=== PATIENT | male | born 1960 | race American Indian/Alaskan Native ===

== ENCOUNTER 2016-12-11 10:07 | Inpatient (IN) | payer MEDICARE ==
--- NOTE | 2016-12-11 11:10 | Emergency Department Report ---
ED General Adult HPI - General Chief complaint: Altered Mental Status Stated complaint: AMS Time Seen by Provider: 12/11/16 14:06 Source: family (family and not available for collateral information), RN notes reviewed Mode of arrival: Wheelchair Limitations: Altered Mental Status, Physical Limitation - History of Present Illness Initial comments: This is a 56-year-old male. He is previously unknown to me. Has a past medical history of mental retardation. Family not currently available for collateral information. As per triage nurse documentation "2 episodes of head falling forward and then back with a fixed stare, caregiver states this is abnormal for him, no seizure activity noted, unsteady gait this morning that required assistance, not normal for patient. Acting very tired, also patient just lost a caregiver that has been working with him for 12 years to a heart attack. Patient appears in his normal state in triage as per caregiver." Given that patient presented with a complaint of altered mental status, a noncontrast CT scan of the brain and cervical spine were ordered. While going to CT scan initially, the patient was called as a CODE BLUE for episode of possible seizure-like activity, which I did not personally witness, and decreased responsiveness. He did not lose a pulse. He was also quite agitated while on a CAT scan are as per verbal report from staff. Given history of mental retardation, developmental delay, patient was not able to understand verbal de-escalation techniques. He required Haldol and Ativan to allow him to participate in his medical care. Patient then returned to CT scan, and had an episode of massive hematemesis. He was brought back to the ER again. In the ER, the patient was sleepy, and was intubated for airway protection given episodes of unresponsiveness, massive hematemesis. Laboratory studies indicated elevated blood urea nitrogen, and probable hypovolemic hyponatremia. He started empirically on IV fluids, and Protonix drip. Case is presented to gastroenterology, Dr. Edil Gay, originally requested a gastroenterology consultation for emergent endoscopy. Case is presented to critical care physician, Dr. Malave, who agrees with placement to the ICU. I think intracranial disease is unlikely, but given the aforementioned history, noncontrast CT scan of brain and cervical spine are pending. -: Gradual Improves with: cold therapy Worsens with: none Associated Symptoms: confusion, weakness - Related Data Home Medications Medication Instructions Recorded Confirmed Last Taken Calcium Polycarbophil [Fiber 625 mg PO BID 07/30/14 12/11/16 Unknown Laxative] Multivitamin with Minerals [Hair, 1 each PO DAILY 07/30/14 12/11/16 12/11/16 Skin & Nails] Polyethylene Glycol 3350 [Miralax 17 gm PO DAILY 07/30/14 12/11/16 Unknown 3350] Pravastatin (Nf) [Pravachol] 40 mg PO QHS 07/30/14 12/11/16 12/10/16 fluvoxaMINE (NF) [Luvox (Nf) Tab] 100 mg PO BID 07/30/14 12/11/16 12/11/16 Triamterene/Hydrochlorothiazid 1 each PO DAILY 07/31/14 12/11/16 12/11/16 [Triamterene-Hctz 50-25 mg Cap] Naproxen [Naprosyn] 500 mg PO BID 12/11/16 12/11/16 12/11/16 OXcarbazepine [Trileptal] 300 mg PO BID 12/11/16 12/11/16 12/11/16 Olanzapine [ZyPREXA] 15 mg PO BID 12/11/16 12/11/16 12/11/16 [place]-3 Fatty Acids/Fish Oil [Fish 1 each PO BID 12/11/16 12/11/16 12/11/16 Oil] Trazodone HCl [Oleptro ER] 150 mg PO QHS 12/11/16 12/11/16 12/10/16 Allergies Allergy/AdvReac Type Severity Reaction Status Date / Time No Known Allergies Allergy Verified 11/25/15 20:15 ED Review of Systems ROS: Stated complaint: AMS Other details as noted in HPI Comment: Unobtainable due to pts medical conditions ED Past Medical Hx - Past Medical History Hx Hypertension: Yes Hx Psychiatric Treatment: Yes Additional medical history: Behavioral disorder. Mentally challenged, Tachycardia, high cholesterol,SEVERE MR,AUTISM - Surgical History Additional Surgical History: CATARACT SURGERY - Social History Smoking Status: Never Smoker Substance Use Type: None - Medications Home Medications: Home Medications Medication Instructions Recorded Confirmed Last Taken Type Calcium Polycarbophil [Fiber 625 mg PO BID 07/30/14 12/11/16 Unknown History Laxative] Multivitamin with Minerals [Hair, 1 each PO DAILY 0312/11/16 12/11/16 History Skin & Nails] Polyethylene Glycol 3350 [Miralax 17 gm PO DAILY 07/30/14 12/11/16 Unknown History 3350] Pravastatin (Nf) [Pravachol] 40 mg PO QHS 07/30/14 12/11/16 12/10/16 History fluvoxaMINE (NF) [Luvox (Nf) Tab] 100 mg PO BID 07/30/14 12/11/16 12/11/16 History Triamterene/Hydrochlorothiazid 1 each PO DAILY 07/31/14 12/11/16 12/11/16 History [Triamterene-Hctz 50-25 mg Cap] Naproxen [Naprosyn] 500 mg PO BID 12/11/16 12/11/16 12/11/16 History OXcarbazepine [Trileptal] 300 mg PO BID 12/11/16 12/11/16 12/11/16 History Olanzapine [ZyPREXA] 15 mg PO BID 12/11/16 12/11/16 12/11/16 History [place]-3 Fatty Acids/Fish Oil [Fish 1 each PO BID 12/11/16 12/11/16 12/11/16 History Oil] Trazodone HCl [Oleptro ER] 150 mg PO QHS 12/11/16 12/11/16 12/10/16 History ED Physical Exam - General Limitations: Altered Mental Status, Physical Limitation General appearance: in no apparent distress - Head Head exam: Present: atraumatic, normocephalic - Eye Eye exam: Present: normal appearance, EOMI - ENT ENT exam: Present: normal exam, normal orophraynx, mucous membranes moist, normal external ear exam - Neck Neck exam: Present: normal inspection, full ROM. Absent: tenderness, meningismus - Respiratory Respiratory exam: Present: normal lung sounds bilaterally. Absent: respiratory distress, wheezes, rales, rhonchi, stridor, chest wall tenderness, accessory muscle use, decreased breath sounds, prolonged expiratory - Cardiovascular Cardiovascular Exam: Present: normal rhythm, tachycardia, normal heart sounds. Absent: systolic murmur, diastolic murmur, rubs, gallop - GI/Abdominal GI/Abdominal exam: Present: soft, normal bowel sounds. Absent: distended, tenderness, guarding, rebound, rigid - Rectal Rectal exam: Present: normal inspection, normal rectal tone, heme (-) stool - exam: Present: normal inspection - Extremities Exam Extremities exam: Present: normal inspection, full ROM, normal capillary refill. Absent: calf tenderness - Back Exam Back exam: Present: normal inspection, full ROM. Absent: tenderness, CVA tenderness (R), CVA tenderness (L), muscle spasm, paraspinal tenderness, vertebral tenderness - Neurological Exam Neurological exam: Present: altered, other (prior to intubation, the patient is moving 4 extremities) - Psychiatric Psychiatric exam: Present: flat affect - Skin Skin exam: Present: warm, dry, intact, normal color. Absent: rash ED Course Vital Signs 12/11/16 12/11/16 12/11/16 10:12 12:00 13:36 Temperature 98.8 F Pulse Rate 117 H 98 H 121 H Respiratory 18 16 Rate Blood Pressure 112/75 161/106 Blood Pressure 142/76 [Left] O2 Sat by Pulse 100 99 100 Oximetry 12/11/16 12/11/16 12/11/16 14:00 14:15 14:30 Temperature 97.5 F L Pulse Rate 115 H 119 H 122 H Respiratory 12 17 16 Rate Blood Pressure 147/105 151/95 Blood Pressure 160/105 [Left] O2 Sat by Pulse 100 100 Oximetry 12/11/16 12/11/16 12/11/16 14:45 15:00 16:06 Temperature Pulse Rate 110 H Respiratory 16 16 Rate Blood Pressure 142/89 136/87 Blood Pressure [Left] O2 Sat by Pulse 91 100 Oximetry 12/11/16 12/11/16 12/11/16 16:30 16:36 17:00 Temperature Pulse Rate 105 H 100 H 99 H Respiratory 16 16 Rate Blood Pressure 85/62 120/83 115/82 Blood Pressure [Left] O2 Sat by Pulse 100 100 76 L Oximetry 12/11/16 12/11/16 12/11/16 17:15 17:16 17:30 Temperature 99.0 F Pulse Rate 99 H 95 H 99 H Respiratory 16 16 14 Rate Blood Pressure 120/83 120/83 Blood Pressure 120/83 [Left] O2 Sat by Pulse 100 100 100 Oximetry 12/11/16 12/11/16 12/11/16 17:45 18:00 18:15 Temperature 97 F L Pulse Rate 92 H 96 H 90 Respiratory 16 18 16 Rate Blood Pressure 113/64 125/74 103/62 Blood Pressure [Left] O2 Sat by Pulse 99 100 99 Oximetry 12/11/16 12/11/16 12/11/16 18:30 18:35 18:45 Temperature 97.0 F L Pulse Rate 95 H 81 80 Respiratory 16 12 16 Rate Blood Pressure 89/54 92/58 92/58 Blood Pressure [Left] O2 Sat by Pulse 100 100 Oximetry 12/11/16 12/11/16 12/11/16 19:00 19:15 19:30 Temperature Pulse Rate 93 H 94 H 94 H Respiratory 14 15 18 Rate Blood Pressure 129/79 122/76 125/74 Blood Pressure [Left] O2 Sat by Pulse 100 100 100 Oximetry 12/11/16 12/11/16 12/11/16 19:44 19:45 19:47 Temperature Pulse Rate 95 H 95 H 96 H Respiratory 15 Rate Blood Pressure 113/68 116/70 Blood Pressure [Left] O2 Sat by Pulse 100 100 Oximetry 12/11/16 20:00 Temperature Pulse Rate 97 H Respiratory 15 Rate Blood Pressure 120/73 Blood Pressure [Left] O2 Sat by Pulse 100 Oximetry - Reevaluation(s) Reevaluation #1: 12/11/16 14:43 Dr Bravo accepts patient Reevaluation #2: 12/11/16 16:15 because of technical issues, CT scan or unable to obtain CT scan of the cervical spine. Noncontrast CT scan of the brain is ordered. Doubt cervical spine injury based on presentation and history. Plain films will be obtained. - Intubation Time Out Performed: Yes Sedative: Etomidate Mg Given: 20 Paralytic: Rocuronium Mg Given: 100 Laryngoscope: Asael Size: 4 ET Tube Size: 7.5 Tube Secured Location: teeth Tube Placement Confirmation: visualized tube passing t Patient Tolerated Procedure: well Intubation Complications: none Additional Comments: Patient is placed on a nasal cannula. He then receives [id number] ventilation. The patient is induced with etomidate, and paralyzed with rocuronium. The patient receives passive apneic oxygenation. He does not desaturate. Endotracheal tube was placed by myself with one attempt with no difficulty. ED Medical Decision Making - Lab Data Result diagrams: 12/11/16 Unknown 12/11/16 11:29 Vital Signs 12/11/16 12/11/1612/11/17 10:12 12:00 13:36 Temperature 98.8 F Pulse Rate 117 H 98 H 121 H Respiratory 18 16 Rate Blood Pressure 112/75 161/106 Blood Pressure 142/76 [Left] O2 Sat by Pulse 100 99 100 Oximetry 12/11/16 12/11/16 14:15 14:45 Temperature Pulse Rate 119 H Respiratory 17 16 Rate Blood Pressure 147/105 Blood Pressure [Left] O2 Sat by Pulse Oximetry Lab Results 12/11/16 12/11/16 12/11/16 Range/Units 11:29 11:29 11:29 WBC 4.6 (4.5-11.0) K/mm3 RBC 3.78 (3.65-5.03) M/mm3 Hgb 10.5 L (11.8-15.2) gm/dl Hct 30.8 L (35.5-45.6) % MCV 82 L (84-94) fl MCH 28 (28-32) pg MCHC 34 (32-34) % RDW 13.1 L (13.2-15.2) % Plt Count 222 (140-440) K/mm3 Lymph % (Auto) 15.5 (13.4-35.0) % [place] % (Auto) 7.9 H (0.0-7.3) % Eos % (Auto) 0.0 (0.0-4.3) % Baso % (Auto) 0.2 (0.0-1.8) % Lymph # 0.7 L (1.2-5.4) K/mm3 [place] # 0.4 (0.0-0.8) K/mm3 Eos # 0.0 (0.0-0.4) K/mm3 Baso # 0.0 (0.0-0.1) K/mm3 Seg Neutrophils % 76.4 H (40.0-70.0) % Seg Neutrophils # 3.5 (1.8-7.7) K/mm3 PT 14.4 (12.2-14.9) Sec. INR 1.13 (0.87-1.13) APTT 26.9 (24.2-36.6) Sec. POC ABG pH (7.35-7.45) POC ABG pCO2 (35-45) POC ABG pO2 (80-105) POC ABG HCO3 POC ABG Total CO2 POC ABG O2 Sat POC ABG Base Excess FiO2 % Sodium 127 L (137-145) mmol/L Potassium 4.8 (3.6-5.0) mmol/L Chloride 89.2 L (98-107) mmol/L Carbon Dioxide 24 (22-30) mmol/L Anion Gap 19 mmol/L BUN 40 H (9-20) mg/dL Creatinine 1.3 (0.8-1.5) mg/dL Estimated GFR > 60 ml/min BUN/Creatinine Ratio 30.76 % Glucose 162 H (75-100) mg/dL Lactic Acid (0.7-2.0) mmol/L Calcium 9.1 (8.4-10.2) mg/dL Total Bilirubin 0.20 (0.1-1.2) mg/dL AST 16 (5-40) units/L ALT 14 (7-56) units/L Alkaline Phosphatase 64 (35-129) units/L Ammonia (25-60) umol/L Total Creatine Kinase 319 H (55-170) units/L Troponin T < 0.010 (0.00-0.029) ng/mL Total Protein 7.2 (6.3-8.2) g/dL Albumin 3.7 L (3.9-5) g/dL Albumin/Globulin Ratio 1.1 % TSH (0.270-4.200) mlU/mL Urine Color (Yellow) Urine Turbidity (Clear) Urine pH (5.0-7.0) Ur Specific [place] (1.003-1.030) Urine Protein (Negative) mg/dL Urine Glucose (UA) (Negative) mg/dL Urine Ketones (Negative) mg/dL Urine Blood (Negative) Urine Nitrite (Negative) Urine Bilirubin (Negative) Urine Urobilinogen (<2.0) mg/dL Ur Leukocyte Esterase (Negative) Urine WBC (Auto) (0.0-6.0) /HPF Urine RBC (Auto) (0.0-6.0) /HPF Urine Mucus /HPF Salicylates (2.8-20.0) mg/dL Urine Opiates Screen Urine Methadone Screen Acetaminophen (10.0-30.0) ug/mL Ur Barbiturates Screen Ur Phencyclidine Scrn Ur Amphetamines Screen U Benzodiazepines Scrn Urine Cocaine Screen U Marijuana (THC) Screen Drugs of Abuse Note Plasma/Serum Alcohol (0-0.07) gm% Blood Type Antibody Screen 12/11/16 12/11/16 12/11/16 Range/Units 11:29 11:29 11:29 WBC (4.5-11.0) K/mm3 RBC (3.65-5.03) M/mm3 Hgb (11.8-15.2) gm/dl Hct (35.5-45.6) % MCV (84-94) fl MCH (28-32) pg MCHC (32-34) % RDW (13.2-15.2) % Plt Count (140-440) K/mm3 Lymph % (Auto) (13.4-35.0) % [place] % (Auto) (0.0-7.3) % Eos % (Auto) (0.0-4.3) % Baso % (Auto) (0.0-1.8) % Lymph # (1.2-5.4) K/mm3 [place] # (0.0-0.8) K/mm3 Eos # (0.0-0.4) K/mm3 Baso # (0.0-0.1) K/mm3 Seg Neutrophils % (40.0-70.0) % Seg Neutrophils # (1.8-7.7) K/mm3 PT (12.2-14.9) Sec. INR (0.87-1.13) APTT (24.2-36.6) Sec. POC ABG pH (7.35-7.45) POC ABG pCO2 (35-45) POC ABG pO2 (80-105) POC ABG HCO3 POC ABG Total CO2 POC ABG O2 Sat POC ABG Base Excess FiO2 % Sodium (137-145) mmol/L Potassium (3.6-5.0) mmol/L Chloride (98-107) mmol/L Carbon Dioxide (22-30) mmol/L Anion Gap mmol/L BUN (9-20) mg/dL Creatinine (0.8-1.5) mg/dL Estimated GFR ml/min BUN/Creatinine Ratio % Glucose (75-100) mg/dL Lactic Acid 2.10 H* (0.7-2.0) mmol/L Calcium (8.4-10.2) mg/dL Total Bilirubin (0.1-1.2) mg/dL AST (5-40) units/L ALT (7-56) units/L Alkaline Phosphatase (35-129) units/L Ammonia 21.0 L (25-60) umol/L Total Creatine Kinase (55-170) units/L Troponin T (0.00-0.029) ng/mL Total Protein (6.3-8.2) g/dL Albumin (3.9-5) g/dL Albumin/Globulin Ratio % TSH 1.600 (0.270-4.200) mlU/mL Urine Color (Yellow) Urine Turbidity (Clear) Urine pH (5.0-7.0) Ur Specific [place] (1.003-1.030) Urine Protein (Negative) mg/dL Urine Glucose (UA) (Negative) mg/dL Urine Ketones (Negative) mg/dL Urine Blood (Negative) Urine Nitrite (Negative) Urine Bilirubin (Negative) Urine Urobilinogen (<2.0) mg/dL Ur Leukocyte Esterase (Negative) Urine WBC (Auto) (0.0-6.0) /HPF Urine RBC (Auto) (0.0-6.0) /HPF Urine Mucus /HPF Salicylates (2.8-20.0) mg/dL Urine Opiates Screen Urine Methadone Screen Acetaminophen (10.0-30.0) ug/mL Ur Barbiturates Screen Ur Phencyclidine Scrn Ur Amphetamines Screen U Benzodiazepines Scrn Urine Cocaine Screen U Marijuana (THC) Screen Drugs of Abuse Note Plasma/Serum Alcohol (0-0.07) gm% Blood Type Antibody Screen 12/11/16 12/11/16 12/11/16 Range/Units 11:29 11:29 11:29 WBC (4.5-11.0) K/mm3 RBC (3.65-5.03) M/mm3 Hgb (11.8-15.2) gm/dl Hct (35.5-45.6) % MCV (84-94) fl MCH (28-32) pg MCHC (32-34) % RDW (13.2-15.2) % Plt Count (140-440) K/mm3 Lymph % (Auto) (13.4-35.0) % [place] % (Auto) (0.0-7.3) % Eos % (Auto) (0.0-4.3) % Baso % (Auto) (0.0-1.8) % Lymph # (1.2-5.4) K/mm3 [place] # (0.0-0.8) K/mm3 Eos # (0.0-0.4) K/mm3 Baso # (0.0-0.1) K/mm3 Seg Neutrophils % (40.0-70.0) % Seg Neutrophils # (1.8-7.7) K/mm3 PT (12.2-14.9) Sec. INR (0.87-1.13) APTT (24.2-36.6) Sec. POC ABG pH (7.35-7.45) POC ABG pCO2 (35-45) POC ABG pO2 (80-105) POC ABG HCO3 POC ABG Total CO2 POC ABG O2 Sat POC ABG Base Excess FiO2 % Sodium (137-145) mmol/L Potassium (3.6-5.0) mmol/L Chloride (98-107) mmol/L Carbon Dioxide (22-30) mmol/L Anion Gap mmol/L BUN (9-20) mg/dL Creatinine (0.8-1.5) mg/dL Estimated GFR ml/min BUN/Creatinine Ratio % Glucose (75-100) mg/dL Lactic Acid (0.7-2.0) mmol/L Calcium (8.4-10.2) mg/dL Total Bilirubin (0.1-1.2) mg/dL AST (5-40) units/L ALT (7-56) units/L Alkaline Phosphatase (35-129) units/L Ammonia (25-60) umol/L Total Creatine Kinase (55-170) units/L Troponin T (0.00-0.029) ng/mL Total Protein (6.3-8.2) g/dL Albumin (3.9-5) g/dL Albumin/Globulin Ratio % TSH (0.270-4.200) mlU/mL Urine Color (Yellow) Urine Turbidity (Clear) Urine pH (5.0-7.0) Ur Specific [place] (1.003-1.030) Urine Protein (Negative) mg/dL Urine Glucose (UA) (Negative) mg/dL Urine Ketones (Negative) mg/dL Urine Blood (Negative) Urine Nitrite (Negative) Urine Bilirubin (Negative) Urine Urobilinogen (<2.0) mg/dL Ur Leukocyte Esterase (Negative) Urine WBC (Auto) (0.0-6.0) /HPF Urine RBC (Auto) (0.0-6.0) /HPF Urine Mucus /HPF Salicylates < 0.3 L (2.8-20.0) mg/dL Urine Opiates Screen Urine Methadone Screen Acetaminophen < 15.0 (10.0-30.0) ug/mL Ur Barbiturates Screen Ur Phencyclidine Scrn Ur Amphetamines Screen U Benzodiazepines Scrn Urine Cocaine Screen U Marijuana (THC) Screen Drugs of Abuse Note Plasma/Serum Alcohol < 0.01 (0-0.07) gm% Blood Type Antibody Screen 12/11/16 12/11/16 12/11/16 Range/Units 13:59 14:19 Unknown WBC (4.5-11.0) K/mm3 RBC (3.65-5.03) M/mm3 Hgb (11.8-15.2) gm/dl Hct (35.5-45.6) % MCV (84-94) fl MCH (28-32) pg MCHC (32-34) % RDW (13.2-15.2) % Plt Count (140-440) K/mm3 Lymph % (Auto) (13.4-35.0) % [place] % (Auto) (0.0-7.3) % Eos % (Auto) (0.0-4.3) % Baso % (Auto) (0.0-1.8) % Lymph # (1.2-5.4) K/mm3 [place] # (0.0-0.8) K/mm3 Eos # (0.0-0.4) K/mm3 Baso # (0.0-0.1) K/mm3 Seg Neutrophils % (40.0-70.0) % Seg Neutrophils # (1.8-7.7) K/mm3 PT (12.2-14.9) Sec. INR (0.87-1.13) APTT (24.2-36.6) Sec. POC ABG pH 7.392 (7.35-7.45) POC ABG pCO2 47.3 H (35-45) POC ABG pO2 494 H (80-105) POC ABG HCO3 28.8 POC ABG Total CO2 30 POC ABG O2 Sat 100 POC ABG Base Excess 4 FiO2 100 % Sodium (137-145) mmol/L Potassium (3.6-5.0) mmol/L Chloride (98-107) mmol/L Carbon Dioxide (22-30) mmol/L Anion Gap mmol/L BUN (9-20) mg/dL Creatinine (0.8-1.5) mg/dL Estimated GFR ml/min BUN/Creatinine Ratio % Glucose (75-100) mg/dL Lactic Acid (0.7-2.0) mmol/L Calcium (8.4-10.2) mg/dL Total Bilirubin (0.1-1.2) mg/dL AST (5-40) units/L ALT (7-56) units/L Alkaline Phosphatase (35-129) units/L Ammonia (25-60) umol/L Total Creatine Kinase (55-170) units/L Troponin T (0.00-0.029) ng/mL Total Protein (6.3-8.2) g/dL Albumin (3.9-5) g/dL Albumin/Globulin Ratio % TSH (0.270-4.200) mlU/mL Urine Color Yellow (Yellow) Urine Turbidity Clear (Clear) Urine pH 5.0 (5.0-7.0) Ur Specific [place] 1.023 (1.003-1.030) Urine Protein <15 mg/dl (Negative) mg/dL Urine Glucose (UA) Neg (Negative) mg/dL Urine Ketones Neg (Negative) mg/dL Urine Blood Neg (Negative) Urine Nitrite Neg (Negative) Urine Bilirubin Neg (Negative) Urine Urobilinogen < 2.0 (<2.0) mg/dL Ur Leukocyte Esterase Neg (Negative) Urine WBC (Auto) 1.0 (0.0-6.0) /HPF Urine RBC (Auto) 1.0 (0.0-6.0) /HPF Urine Mucus Few /HPF Salicylates (2.8-20.0) mg/dL Urine Opiates Screen Urine Methadone Screen Acetaminophen (10.0-30.0) ug/mL Ur Barbiturates Screen Ur Phencyclidine Scrn Ur Amphetamines Screen U Benzodiazepines Scrn Urine Cocaine Screen U Marijuana (THC) Screen Drugs of Abuse Note Plasma/Serum Alcohol (0-0.07) gm% Blood Type O POSITIVE Antibody Screen Negative 12/11/16 Range/Units Unknown WBC (4.5-11.0) K/mm3 RBC (3.65-5.03) M/mm3 Hgb (11.8-15.2) gm/dl Hct (35.5-45.6) % MCV (84-94) fl MCH (28-32) pg MCHC (32-34) % RDW (13.2-15.2) % Plt Count (140-440) K/mm3 Lymph % (Auto) (13.4-35.0) % [place] % (Auto) (0.0-7.3) % Eos % (Auto) (0.0-4.3) % Baso % (Auto) (0.0-1.8) % Lymph # (1.2-5.4) K/mm3 [place] # (0.0-0.8) K/mm3 Eos # (0.0-0.4) K/mm3 Baso # (0.0-0.1) K/mm3 Seg Neutrophils % (40.0-70.0) % Seg Neutrophils # (1.8-7.7) K/mm3 PT (12.2-14.9) Sec. INR (0.87-1.13) APTT (24.2-36.6) Sec. POC ABG pH (7.35-7.45) POC ABG pCO2 (35-45) POC ABG pO2 (80-105) POC ABG HCO3 POC ABG Total CO2 POC ABG O2 Sat POC ABG Base Excess FiO2 % Sodium (137-145) mmol/L Potassium (3.6-5.0) mmol/L Chloride (98-107) mmol/L Carbon Dioxide (22-30) mmol/L Anion Gap mmol/L BUN (9-20) mg/dL Creatinine (0.8-1.5) mg/dL Estimated GFR ml/min BUN/Creatinine Ratio % Glucose (75-100) mg/dL Lactic Acid (0.7-2.0) mmol/L Calcium (8.4-10.2) mg/dL Total Bilirubin (0.1-1.2) mg/dL AST (5-40) units/L ALT (7-56) units/L Alkaline Phosphatase (35-129) units/L Ammonia (25-60) umol/L Total Creatine Kinase (55-170) units/L Troponin T (0.00-0.029) ng/mL Total Protein (6.3-8.2) g/dL Albumin (3.9-5) g/dL Albumin/Globulin Ratio % TSH (0.270-4.200) mlU/mL Urine Color (Yellow) Urine Turbidity (Clear) Urine pH (5.0-7.0) Ur Specific [place] (1.003-1.030) Urine Protein (Negative) mg/dL Urine Glucose (UA) (Negative) mg/dL Urine Ketones (Negative) mg/dL Urine Blood (Negative) Urine Nitrite (Negative) Urine Bilirubin (Negative) Urine Urobilinogen (<2.0) mg/dL Ur Leukocyte Esterase (Negative) Urine WBC (Auto) (0.0-6.0) /HPF Urine RBC (Auto) (0.0-6.0) /HPF Urine Mucus /HPF Salicylates (2.8-20.0) mg/dL Urine Opiates Screen Presumptive negative Urine Methadone Screen Presumptive negative Acetaminophen (10.0-30.0) ug/mL Ur Barbiturates Screen Presumptive negative Ur Phencyclidine Scrn Presumptive negative Ur Amphetamines Screen Presumptive negative U Benzodiazepines Scrn Presumptive negative Urine Cocaine Screen Presumptive negative U Marijuana (THC) Screen Presumptive negative Drugs of Abuse Note Disclamer Plasma/Serum Alcohol (0-0.07) gm% Blood Type Antibody Screen - EKG Data -: EKG Interpreted by Ne EKG shows normal: sinus rhythm - EKG Data 12/11/16 14:58 sinus tachycardia, 110 bpm, normal axis, normal intervals, not morphologically consistent with STEMI. - Radiology Data Radiology results: report reviewed Portable x-ray of the chest demonstrates no acute disease or pathology. Endotracheal tube and oral gastric tube appeared to be in appropriate position. Noncontrast CT scan of the brain and cervical spine are pending. Noncontrast CT scan of the brain is negative. Cervical spine x-rays negative. Critical Care Time: Yes Critical care time in (mins) excluding proc time.: 60 Critical care attestation.: If time is entered above; I have spent that time in minutes in the direct care of this critically ill patient, excluding procedure time. Critical Care Time: Critical care time includes multiple bedside evaluations, interpretation of laboratory studies, radiology studies, time spent managing critically ill patient with upper GI bleed requiring intubation, consultation with hospital medicine, critical care, gastroenterology. ED Disposition Clinical Impression: Hematemesis, Altered mental status Disposition: DC-09 OP ADMIT IP TO THIS HOSP Is pt being admited?: Yes Condition: Critical Referrals: PRIMARY CARE, [Primary Care Provider] - 3-5 Days
[2016-12-11] MEDS ORDERED: HALDOL IM ONE (11:39)
[2016-12-11] MEDS ORDERED: ATIVAN IM ONE (11:39)
[2016-12-11 11:51] LABS: Basophils % (Auto) 0.2 % (0.0-1.8); Hematocrit 30.8 % (35.5-45.6); Hemoglobin 10.5 gm/dl (11.8-15.2); Mean Corpuscular HGB Conc 34 % (32-34); Mean Corpuscular Hemoglobin 28 pg (28-32); Mean Corpuscular Volume 82 fl (84-94); Platelet Count 222 K/mm3 (140-440); Red Blood Count 3.78 M/mm3 (3.65-5.03); Red Cell Distribution Width 13.1 % (13.2-15.2); White Blood Count 4.6 K/mm3 (4.5-11.0)
[2016-12-11 12:01] LABS: INR 1.13 (0.87-1.13)
[2016-12-11 12:02] LABS: Partial Thromboplastin Time 26.9 Sec. (24.2-36.6)
[2016-12-11 12:52] LABS: Alanine Aminotransferase 14 units/L (7-56); Albumin 3.7 g/dL (3.9-5); Albumin/Globulin Ratio 1.1 %; Alkaline Phosphatase 64 units/L (35-129); Anion Gap 19 mmol/L; BUN/Creatinine Ratio 30.76; Blood Urea Nitrogen 40 mg/dL (9-20); Calcium 9.1 mg/dL (8.4-10.2); Carbon Dioxide 24 mmol/L (22-30); Chloride 89.2 mmol/L (98-107); Creatine Kinase 319 units/L (55-170); Glucose 162 mg/dL (75-100); Potassium 4.8 mmol/L (3.6-5.0); Sodium 127 mmol/L (137-145); Total Protein 7.2 g/dL (6.3-8.2)
[2016-12-11] MEDS ORDERED: NACL 0.9% 1000 ML 1,000 ML ONE ×2 (13:15→18:01)
[2016-12-11] MEDS ORDERED: ZOFRAN ONE (13:20)
[2016-12-11] MEDS ORDERED: ZEMURON IV ONE ×2 (13:21→13:34)
[2016-12-11] MEDS ORDERED: AMIDATE IV ONE ×2 (13:21→13:34)
[2016-12-11] MEDS ORDERED: VASELINE LIP THERAPY TP PRN (13:34)
[2016-12-11] MEDS ORDERED: PROTONIX IV ONE (13:34)
[2016-12-11] MEDS ORDERED: ZOFRAN IV ONE (13:34)
[2016-12-11] MEDS ORDERED: ARTIFICIAL TEARS OPHTH OINT OU PRN (13:34)
[2016-12-11] MEDS ORDERED: SUBLIMAZE IV ONE (13:34)
[2016-12-11] MEDS ORDERED: NACL 0.9% 1000 ML 2,000 ML IV ONE (13:40)
[2016-12-11 13:54] LABS: Urine Drugs of Abuse Note Disclamer
[2016-12-11] MEDS ORDERED: NACL 0.9% 500 ML IV SCH (14:00)
[2016-12-11 14:09] LABS: Bilirubin,Urine NEG (Negative); Blood,Urine NEG (Negative); Ketones,Urine NEG (Negative); Leukocyte Esterase,Urine NEG (Negative); Mucus,Urine FEW /HPF; Nitrite,Urine NEG (Negative); Protein,Urine <15 mg/dL mg/dL (Negative); Urobilinogen,Urine < 2.0 mg/dL (<2.0)
--- NOTE | 2016-12-11 14:25 | Admit Criteria Form ---
Admission Criteria Documentation: GASTROINTESTINAL BLEEDING Clinical Indications for Inpatient Care (Place 'X' for any and all applicable criteria): Ongoing inpatient care may be indicated for gastrointestinal bleeding with ANY ONE of the following (4)(20)(21)(22)(23)(24): [X]I. Active bleeding (eg, fresh voluminous blood in emesis or nasogastric aspirate, or per rectum) [ ]II. Hemodynamic instability [ ]III. Anticoagulation therapy or coagulopathy ((eg, advanced liver disease, irreversible anticoagulation) [ ]IV. Ischemic colitis (22) [ ]V. Endoscopy showing arterial bleeding, adherent clot, nonbleeding visible vessel, varices, flat red spots, ulcer size greater than 2 cm, or portal hypertensive gastropathy [ ]. High-risk low platelet count [X]VII. Anemia requiring inpatient care as indicated by ANY ONE of the following a)[X] Cognitive impairment b)[ ] Syncope c)[ ] Heart failure d)[ ] Chest pain e)[ ] Dyspnea f)[ ] Other findings suggesting inadequate perfusion (eg, peripheral or myocardial ischemia, end organ dysfunction) [ ]VIII. High-risk low platelet count [ ]IX. Suspected variceal cause of bleeding as indicated by ANY ONE of the following(27)(28): a)[ ] Known varices b)[ ] Hepatomegaly or splenomegaly c)[ ] Ascites d)[ ] Jaundice or scleral icterus e)[ ] History of liver disease (eg, cirrhosis) f)[ ] Physical findings of portal hypertension (eg, caput medusa) g)[ ] Comorbid disorder indicating risk for portal vein thrombosis (eg , abdominal surgery, sepsis, shock, exchange transfusion, prior umbilical vein catheterization) Extended stay may be needed until ALL of the following are present(20)(38)(47): [ ]a) Hemodynamic stability [ ]b) No evidence of active bleeding (eg, stable Hematocrit) [ ]c) Platelet count, prothrombin time, and partial thromboplastin time acceptable for next level of care [ ]d) Surgical or other acute intervention not needed [ ]e) Oral hydration and diet tolerated The original [facility] [email or web address] content created by Ilir Johnson has been revised. The portions of the content which have been revised are identified through the use of italic text or in bold, and [employer] has neither reviewed nor approved the modified material. All other unmodified content is copyright [facility]. Please see references footnoted in the original [facility] edition 2016 Admission Criteria Met: Yes
[2016-12-11 14:26] LABS: ISTAT Base Excess 4; ISTAT HCO3 28.8; ISTAT PCO2 47.3 (35-45); ISTAT PH 7.392 (7.35-7.45); ISTAT PO2 494 (80-105); ISTAT SO2 100; ISTAT TCO2 30
[2016-12-11] MEDS: DIPRIVAN 10 MG/ML 1,000 MG/100 ML BOTTLE IV SCH (14:45)
--- NOTE | 2016-12-11 14:49 | Gastroenterology Consultation ---
<NELSY OREILLY - Last Filed: 12/11/16 14:52> History of Present Illness - Reason for Consult Consult date: 12/11/16 GI bleeding Requesting physician: SAEED HOLGUIN - History of Present Illness Mr. Madera is a 56 y/o male admitted with reported AMS. The patient is currently intubated with no family available and information is obtained per chart review and nursing staff. I have attempted to call the next of kin on record Fabiano Blake with no answer. 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 He was brought into the ED and taken to CT. While there, he apparently had seizure like activity and vomited a large amt of bloody emesis with noted clots per nursing. PAIL BAILER called and the patient was intubated. Currently he is sedated and tachycardic. Otherwise his history is unknown to me. Past History Past Medical History: hyperlipidemia, other (MR, tachycardia, autism) Past Surgical History: Other (cataract surgery) Social history: other (unknown) Family history: other (unknown) Medications and Allergies Allergies Allergy/AdvReac Type Severity Reaction Status Date / Time No Known Allergies Allergy Verified 11/25/15 20:15 Home Medications Medication Instructions Recorded Confirmed Last Taken Type Calcium Polycarbophil [Fiber 625 mg PO BID 07/30/14 12/11/16 Unknown History Laxative] Multivitamin with Minerals [Hair, 1 each PO DAILY 07/30/14 12/11/16 12/11/16 History Skin & Nails] Polyethylene Glycol 3350 [Miralax 17 gm PO DAILY 07/30/14 12/11/16 Unknown History 3350] Pravastatin (Nf) [Pravachol] 40 mg PO QHS 07/30/14 12/11/16 12/10/16 History fluvoxaMINE (NF) [Luvox (Nf) Tab] 100 mg PO BID 07/30/14 12/11/16 12/11/16 History Triamterene/Hydrochlorothiazid 1 each PO DAILY 07/31/14 12/11/16 12/11/16 History [Triamterene-Hctz 50-25 mg Cap] Naproxen [Naprosyn] 500 mg PO BID 12/11/16 12/11/16 12/11/16 History OXcarbazepine [Trileptal] 300 mg PO BID 12/11/16 12/11/16 12/11/16 History Olanzapine [ZyPREXA] 15 mg PO BID 12/11/16 12/11/16 12/11/16 History Remer-3 Fatty Acids/Fish Oil [Fish 1 each PO BID 12/11/16 12/11/16 12/11/16 History Oil] Trazodone HCl [Oleptro ER] 150 mg PO QHS 12/11/16 12/11/16 12/10/16 History Active Meds: Active Medications Hydrophilic Ointment (Vaseline Lip Therapy) 1 applic TP Q2HR PRN PRN Reason: Dry Lips Pantoprazole Sodium 80 mg/ (Sodium Chloride) 100 mls @ 10 mls/hr IV Q10H LIBBY PRN Reason: 8 MG/HR Propofol (Diprivan 10 Mg/Ml) 1,000 mg in 100 mls @ 2.667 mls/hr IV TITR LIBBY; 5 MCG/KG/MIN PRN Reason: Protocol Multi-Ingred Cream/Lotion/Oil/Oint (Artificial Tears Ophth Oint) 1 applic OU Q4HR PRN PRN Reason: Dry Eye(s) Sodium Chloride (Nacl 0.9% 500 Ml) 1 ml IV DIRECT LIBBY Review of Systems - Review of Systems ROS unobtainable: due to endotracheal tube, due to mental status Exam - Constitutional Vital Signs: Temp Pulse Resp BP Pulse Ox 98.8 F 119 H 17 147/105 100 12/11/16 10:12 12/11/16 14:15 12/11/16 14:15 12/11/16 14:15 12/11/16 13:36 General appearance: other (intubated, sedated) - Neck Neck: supple - Respiratory Respiratory: bilateral: CTA - Cardiovascular Rhythm: other (tachycardia) Extremities: No edema - Gastrointestinal General gastrointestinal: Present: soft, non-distended, normal bowel sounds - Integumentary Integumentary: Present: warm, dry - Neurologic Neurological: other (intubated) - Psychiatric Psychiatric: other (restrained) - Labs CBC & Chem 7: 12/11/16 11:29 12/11/16 11:29 Lab Results: Laboratory Results - last 24 hr 12/11/16 12/11/16 12/11/16 11:29 11:29 11:29 WBC 4.6 RBC 3.78 Hgb 10.5 L Hct 30.8 L MCV 82 L MCH 28 MCHC 34 RDW 13.1 L Plt Count 222 Lymph % (Auto) 15.5 [place] % (Auto) 7.9 H Eos % (Auto) 0.0 Baso % (Auto) 0.2 Lymph # 0.7 L [place] # 0.4 Eos # 0.0 Baso # 0.0 Seg Neutrophils % 76.4 H Seg Neutrophils # 3.5 PT 14.4 INR 1.13 APTT 26.9 POC ABG pH POC ABG pCO2 POC ABG pO2 POC ABG HCO3 POC ABG Total CO2 POC ABG O2 Sat POC ABG Base Excess FiO2 Sodium 127 L Potassium 4.8 Chloride 89.2 L Carbon Dioxide 24 Anion Gap 19 BUN 40 H Creatinine 1.3 Estimated GFR > 60 BUN/Creatinine Ratio 30.76 Glucose 162 H Lactic Acid Calcium 9.1 Total Bilirubin 0.20 AST 16 ALT 14 Alkaline Phosphatase 64 Ammonia Total Creatine Kinase 319 H Troponin T < 0.010 Total Protein 7.2 Albumin 3.7 L Albumin/Globulin Ratio 1.1 TSH Urine Color Urine Turbidity Urine pH Ur Specific [place] Urine Protein Urine Glucose (UA) Urine Ketones Urine Blood Urine Nitrite Urine Bilirubin Urine Urobilinogen Ur Leukocyte Esterase Urine WBC (Auto) Urine RBC (Auto) Urine Mucus Salicylates Urine Opiates Screen Urine Methadone Screen Acetaminophen Ur Barbiturates Screen Ur Phencyclidine Scrn Ur Amphetamines Screen U Benzodiazepines Scrn Urine Cocaine Screen U Marijuana (THC) Screen Plasma/Serum Alcohol Blood Type Antibody Screen 12/11/16 12/11/16 12/11/16 11:29 11:29 11:29 WBC RBC Hgb Hct MCV MCH MCHC RDW Plt Count Lymph % (Auto) [place] % (Auto) Eos % (Auto) Baso % (Auto) Lymph # [place] # Eos # Baso # Seg Neutrophils % Seg Neutrophils # PT INR APTT POC ABG pH POC ABG pCO2 POC ABG pO2 POC ABG HCO3 POC ABG Total CO2 POC ABG O2 Sat POC ABG Base Excess FiO2 Sodium Potassium Chloride Carbon Dioxide Anion Gap BUN Creatinine Estimated GFR BUN/Creatinine Ratio Glucose Lactic Acid 2.10 H* Calcium Total Bilirubin AST ALT Alkaline Phosphatase Ammonia 21.0 L Total Creatine Kinase Troponin T Total Protein Albumin Albumin/Globulin Ratio TSH 1.600 Urine Color Urine Turbidity Urine pH Ur Specific [place] Urine Protein Urine Glucose (UA) Urine Ketones Urine Blood Urine Nitrite Urine Bilirubin Urine Urobilinogen Ur Leukocyte Esterase Urine WBC (Auto) Urine RBC (Auto) Urine Mucus Salicylates Urine Opiates Screen Urine Methadone Screen Acetaminophen Ur Barbiturates Screen Ur Phencyclidine Scrn Ur Amphetamines Screen U Benzodiazepines Scrn Urine Cocaine Screen U Marijuana (THC) Screen Plasma/Serum Alcohol Blood Type Antibody Screen 12/11/16 12/11/16 12/11/16 11:29 11:29 11:29 WBC RBC Hgb Hct MCV MCH MCHC RDW Plt Count Lymph % (Auto) [place] % (Auto) Eos % (Auto) Baso % (Auto) Lymph # [place] # Eos # Baso # Seg Neutrophils % Seg Neutrophils # PT INR APTT POC ABG pH POC ABG pCO2 POC ABG pO2 POC ABG HCO3 POC ABG Total CO2 POC ABG O2 Sat POC ABG Base Excess FiO2 Sodium Potassium Chloride Carbon Dioxide Anion Gap BUN Creatinine Estimated GFR BUN/Creatinine Ratio Glucose Lactic Acid Calcium Total Bilirubin AST ALT Alkaline Phosphatase Ammonia Total Creatine Kinase Troponin T Total Protein Albumin Albumin/Globulin Ratio TSH Urine Color Urine Turbidity Urine pH Ur Specific [place] Urine Protein Urine Glucose (UA) Urine Ketones Urine Blood Urine Nitrite Urine Bilirubin Urine Urobilinogen Ur Leukocyte Esterase Urine WBC (Auto) Urine RBC (Auto) Urine Mucus Salicylates < 0.3 L Urine Opiates Screen Urine Methadone Screen Acetaminophen < 15.0 Ur Barbiturates Screen Ur Phencyclidine Scrn Ur Amphetamines Screen U Benzodiazepines Scrn Urine Cocaine Screen U Marijuana (THC) Screen Plasma/Serum Alcohol < 0.01 Blood Type Antibody Screen 12/11/16 12/11/16 12/11/16 13:59 14:19 Unknown WBC RBC Hgb Hct MCV MCH MCHC RDW Plt Count Lymph % (Auto) [place] % (Auto) Eos % (Auto) Baso % (Auto) Lymph # [place] # Eos # Baso # Seg Neutrophils % Seg Neutrophils # PT INR APTT POC ABG pH 7.392 POC ABG pCO2 47.3 H POC ABG pO2 494 H POC ABG HCO3 28.8 POC ABG Total CO2 30 POC ABG O2 Sat 100 POC ABG Base Excess 4 FiO2 100 Sodium Potassium Chloride Carbon Dioxide Anion Gap BUN Creatinine Estimated GFR BUN/Creatinine Ratio Glucose Lactic Acid Calcium Total Bilirubin AST ALT Alkaline Phosphatase Ammonia Total Creatine Kinase Troponin T Total Protein Albumin Albumin/Globulin Ratio TSH Urine Color Yellow Urine Turbidity Clear Urine pH 5.0 Ur Specific [place] 1.023 Urine Protein <15 mg/dl Urine Glucose (UA) Neg Urine Ketones Neg Urine Blood Neg Urine Nitrite Neg Urine Bilirubin Neg Urine Urobilinogen < 2.0 Ur Leukocyte Esterase Neg Urine WBC (Auto) 1.0 Urine RBC (Auto) 1.0 Urine Mucus Few Salicylates Urine Opiates Screen Urine Methadone Screen Acetaminophen Ur Barbiturates Screen Ur Phencyclidine Scrn Ur Amphetamines Screen U Benzodiazepines Scrn Urine Cocaine Screen U Marijuana (THC) Screen Plasma/Serum Alcohol Blood Type O POSITIVE Antibody Screen Negative 12/11/16 Unknown WBC RBC Hgb Hct MCV MCH MCHC RDW Plt Count Lymph % (Auto) [place] % (Auto) Eos % (Auto) Baso % (Auto) Lymph # [place] # Eos # Baso # Seg Neutrophils % Seg Neutrophils # PT INR APTT POC ABG pH POC ABG pCO2 POC ABG pO2 POC ABG HCO3 POC ABG Total CO2 POC ABG O2 Sat POC ABG Base Excess FiO2 Sodium Potassium Chloride Carbon Dioxide Anion Gap BUN Creatinine Estimated GFR BUN/Creatinine Ratio Glucose Lactic Acid Calcium Total Bilirubin AST ALT Alkaline Phosphatase Ammonia Total Creatine Kinase Troponin T Total Protein Albumin Albumin/Globulin Ratio TSH Urine Color Urine Turbidity Urine pH Ur Specific [place] Urine Protein Urine Glucose (UA) Urine Ketones Urine Blood Urine Nitrite Urine Bilirubin Urine Urobilinogen Ur Leukocyte Esterase Urine WBC (Auto) Urine RBC (Auto) Urine Mucus Salicylates Urine Opiates Screen Presumptive negative Urine Methadone Screen Presumptive negative Acetaminophen Ur Barbiturates Screen Presumptive negative Ur Phencyclidine Scrn Presumptive negative Ur Amphetamines Screen Presumptive negative U Benzodiazepines Scrn Presumptive negative Urine Cocaine Screen Presumptive negative U Marijuana (THC) Screen Presumptive negative Plasma/Serum Alcohol Blood Type Antibody Screen Assessment and Plan 1.Hematemesis -Currently intubated post Episode in CT of Hematemesis -H/h stable on admission , repeat now. -INR WNL -Unknown last PO intake -I have not been able to talk with family regarding hx. -In light of the large amt of hematemesis in CT, with the patient currently requiring intubation for airway. In this situation, emergent EGD would be required I have spoken with Dr. Weiss and Dr. Gay and both are in agreement to proceed with emergent EGD requiring two MD signatures. ( I have attempted to contact [facility] with no answer). -Plan EGD today. -Further recommendations pending EGD. -Start PPI gtt. <STEPHANI GAY - Last Filed: 12/11/16 18:04> Medications and Allergies Active Meds: Active Medications Hydrophilic Ointment (Vaseline Lip Therapy) 1 applic TP Q2HR PRN PRN Reason: Dry Lips Pantoprazole Sodium 80 mg/ (Sodium Chloride) 100 mls @ 10 mls/hr IV Q10H LIBBY PRN Reason: 8 MG/HR Last Admin: 12/11/16 15:24 Dose: 8 mg/hr, 10 mls/hr Propofol (Diprivan 10 Mg/Ml) 1,000 mg in 100 mls @ 2.667 mls/hr IV TITR LIBBY; 5 MCG/KG/MIN PRN Reason: Protocol Last Titration: 12/11/16 17:11 Dose: 17 mcg/kg/min, 9.068 mls/hr Multi-Ingred Cream/Lotion/Oil/Oint (Artificial Tears Ophth Oint) 1 applic OU Q4HR PRN PRN Reason: Dry Eye(s) Sodium Chloride (Nacl 0.9% 500 Ml) 1 ml IV DIRECT LIBBY Exam - Constitutional Vital Signs: Temp Pulse Resp BP Pulse Ox 99.0 F 95 H 16 120/83 100 12/11/16 17:15 12/11/16 17:16 12/11/16 17:16 12/11/16 17:16 12/11/16 17:16 - Labs CBC & Chem 7: 12/11/16 15:02 12/11/16 11:29 Lab Results: Laboratory Results - last 24 hr 12/11/16 12/11/16 12/11/16 11:29 11:29 11:29 WBC 4.6 RBC 3.78 Hgb 10.5 L Hct 30.8 L MCV 82 L MCH 28 MCHC 34 RDW 13.1 L Plt Count 222 Lymph % (Auto) 15.5 [place] % (Auto) 7.9 H Eos % (Auto) 0.0 Baso % (Auto) 0.2 Lymph # 0.7 L [place] # 0.4 Eos # 0.0 Baso # 0.0 Seg Neutrophils % 76.4 H Seg Neutrophils # 3.5 PT 14.4 INR 1.13 APTT 26.9 POC ABG pH POC ABG pCO2 POC ABG pO2 POC ABG HCO3 POC ABG Total CO2 POC ABG O2 Sat POC ABG Base Excess FiO2 Sodium 127 L Potassium 4.8 Chloride 89.2 L Carbon Dioxide 24 Anion Gap 19 BUN 40 H Creatinine 1.3 Estimated GFR > 60 BUN/Creatinine Ratio 30.76 Glucose 162 H Lactic Acid Calcium 9.1 Total Bilirubin 0.20 AST 16 ALT 14 Alkaline Phosphatase 64 Ammonia Total Creatine Kinase 319 H Troponin T < 0.010 Total Protein 7.2 Albumin 3.7 L Albumin/Globulin Ratio 1.1 TSH Urine Color Urine Turbidity Urine pH Ur Specific [place] Urine Protein Urine Glucose (UA) Urine Ketones Urine Blood Urine Nitrite Urine Bilirubin Urine Urobilinogen Ur Leukocyte Esterase Urine WBC (Auto) Urine RBC (Auto) Urine Mucus Salicylates Urine Opiates Screen Urine Methadone Screen Acetaminophen Ur Barbiturates Screen Ur Phencyclidine Scrn Ur Amphetamines Screen U Benzodiazepines Scrn Urine Cocaine Screen U Marijuana (THC) Screen Drugs of Abuse Note Plasma/Serum Alcohol Blood Type Antibody Screen Crossmatch 12/11/16 12/11/16 12/11/16 11:29 11:29 11:29 WBC RBC Hgb Hct MCV MCH MCHC RDW Plt Count Lymph % (Auto) [place] % (Auto) Eos % (Auto) Baso % (Auto) Lymph # [place] # Eos # Baso # Seg Neutrophils % Seg Neutrophils # PT INR APTT POC ABG pH POC ABG pCO2 POC ABG pO2 POC ABG HCO3 POC ABG Total CO2 POC ABG O2 Sat POC ABG Base Excess FiO2 Sodium Potassium Chloride Carbon Dioxide Anion Gap BUN Creatinine Estimated GFR BUN/Creatinine Ratio Glucose Lactic Acid 2.10 H* Calcium Total Bilirubin AST ALT Alkaline Phosphatase Ammonia 21.0 L Total Creatine Kinase Troponin T Total Protein Albumin Albumin/Globulin Ratio TSH 1.600 Urine Color Urine Turbidity Urine pH Ur Specific [place] Urine Protein Urine Glucose (UA) Urine Ketones Urine Blood Urine Nitrite Urine Bilirubin Urine Urobilinogen Ur Leukocyte Esterase Urine WBC (Auto) Urine RBC (Auto) Urine Mucus Salicylates Urine Opiates Screen Urine Methadone Screen Acetaminophen Ur Barbiturates Screen Ur Phencyclidine Scrn Ur Amphetamines Screen U Benzodiazepines Scrn Urine Cocaine Screen U Marijuana (THC) Screen Drugs of Abuse Note Plasma/Serum Alcohol Blood Type Antibody Screen Crossmatch 12/11/16 12/11/16 12/11/16 11:29 11:29 11:29 WBC RBC Hgb Hct MCV MCH MCHC RDW Plt Count Lymph % (Auto) [place] % (Auto) Eos % (Auto) Baso % (Auto) Lymph # [place] # Eos # Baso # Seg Neutrophils % Seg Neutrophils # PT INR APTT POC ABG pH POC ABG pCO2 POC ABG pO2 POC ABG HCO3 POC ABG Total CO2 POC ABG O2 Sat POC ABG Base Excess FiO2 Sodium Potassium Chloride Carbon Dioxide Anion Gap BUN Creatinine Estimated GFR BUN/Creatinine Ratio Glucose Lactic Acid Calcium Total Bilirubin AST ALT Alkaline Phosphatase Ammonia Total Creatine Kinase Troponin T Total Protein Albumin Albumin/Globulin Ratio TSH Urine Color Urine Turbidity Urine pH Ur Specific [place] Urine Protein Urine Glucose (UA) Urine Ketones Urine Blood Urine Nitrite Urine Bilirubin Urine Urobilinogen Ur Leukocyte Esterase Urine WBC (Auto) Urine RBC (Auto) Urine Mucus Salicylates < 0.3 L Urine Opiates Screen Urine Methadone Screen Acetaminophen < 15.0 Ur Barbiturates Screen Ur Phencyclidine Scrn Ur Amphetamines Screen U Benzodiazepines Scrn Urine Cocaine Screen U Marijuana (THC) Screen Drugs of Abuse Note Plasma/Serum Alcohol < 0.01 Blood Type Antibody Screen Crossmatch 12/11/16 12/11/16 12/11/16 13:59 14:19 15:02 WBC 5.3 RBC 3.59 L Hgb 9.9 L Hct 29.7 L MCV 83 L MCH 28 MCHC 33 RDW 13.2 Plt Count 199 Lymph % (Auto) [place] % (Auto) Eos % (Auto) Baso % (Auto) Lymph # [place] # Eos # Baso # Seg Neutrophils % Seg Neutrophils # PT INR APTT POC ABG pH 7.392 POC ABG pCO2 47.3 H POC ABG pO2 494 H POC ABG HCO3 28.8 POC ABG Total CO2 30 POC ABG O2 Sat 100 POC ABG Base Excess 4 FiO2 100 Sodium Potassium Chloride Carbon Dioxide Anion Gap BUN Creatinine Estimated GFR BUN/Creatinine Ratio Glucose Lactic Acid Calcium Total Bilirubin AST ALT Alkaline Phosphatase Ammonia Total Creatine Kinase Troponin T Total Protein Albumin Albumin/Globulin Ratio TSH Urine Color Urine Turbidity Urine pH Ur Specific [place] Urine Protein Urine Glucose (UA) Urine Ketones Urine Blood Urine Nitrite Urine Bilirubin Urine Urobilinogen Ur Leukocyte Esterase Urine WBC (Auto) Urine RBC (Auto) Urine Mucus Salicylates Urine Opiates Screen Urine Methadone Screen Acetaminophen Ur Barbiturates Screen Ur Phencyclidine Scrn Ur Amphetamines Screen U Benzodiazepines Scrn Urine Cocaine Screen U Marijuana (THC) Screen Drugs of Abuse Note Plasma/Serum Alcohol Blood Type O POSITIVE Antibody Screen Negative Crossmatch See Detail 12/11/16 12/11/16 Unknown Unknown WBC RBC Hgb Hct MCV MCH MCHC RDW Plt Count Lymph % (Auto) [place] % (Auto) Eos % (Auto) Baso % (Auto) Lymph # [place] # Eos # Baso # Seg Neutrophils % Seg Neutrophils # PT INR APTT POC ABG pH POC ABG pCO2 POC ABG pO2 POC ABG HCO3 POC ABG Total CO2 POC ABG O2 Sat POC ABG Base Excess FiO2 Sodium Potassium Chloride Carbon Dioxide Anion Gap BUN Creatinine Estimated GFR BUN/Creatinine Ratio Glucose Lactic Acid Calcium Total Bilirubin AST ALT Alkaline Phosphatase Ammonia Total Creatine Kinase Troponin T Total Protein Albumin Albumin/Globulin Ratio TSH Urine Color Yellow Urine Turbidity Clear Urine pH 5.0 Ur Specific [place] 1.023 Urine Protein <15 mg/dl Urine Glucose (UA) Neg Urine Ketones Neg Urine Blood Neg Urine Nitrite Neg Urine Bilirubin Neg Urine Urobilinogen < 2.0 Ur Leukocyte Esterase Neg Urine WBC (Auto) 1.0 Urine RBC (Auto) 1.0 Urine Mucus Few Salicylates Urine Opiates Screen Presumptive negative Urine Methadone Screen Presumptive negative Acetaminophen Ur Barbiturates Screen Presumptive negative Ur Phencyclidine Scrn Presumptive negative Ur Amphetamines Screen Presumptive negative U Benzodiazepines Scrn Presumptive negative Urine Cocaine Screen Presumptive negative U Marijuana (THC) Screen Presumptive negative Drugs of Abuse Note Disclamer Plasma/Serum Alcohol Blood Type Antibody Screen Crossmatch Assessment and Plan pt sen and examined, chart reviewed, consult below reviewed - pt presents w/ hematemesis and signs active GI bleed vss - intubated, sedated, nad abd: soft - EGD today - other rec as above
[2016-12-11] MEDS: PROTONIX 80 MG in NACL 0.9% 100 ML IV SCH (15:24)
--- NOTE | 2016-12-11 15:31 | XRay Report ---
Single view chest: History: Altered mental status. Findings: Normal cardiomediastinal silhouette. Trachea is midline. No consolidation, pneumothorax or pleural effusion. Impression: No acute cardiopulmonary findings.
--- NOTE | 2016-12-11 15:32 | XRay Report ---
Single view chest: History: ET tube placement. Findings: Normal cardiomediastinal silhouette. Trachea is midline. Tip of endotracheal tube in normal position. No pneumothorax consolidation or pleural effusion. Impression: No acute cardiopulmonary findings.
[2016-12-11 15:46] LABS: Hematocrit 29.7 % (35.5-45.6); Hemoglobin 9.9 gm/dl (11.8-15.2); Mean Corpuscular HGB Conc 33 % (32-34); Mean Corpuscular Hemoglobin 28 pg (28-32); Mean Corpuscular Volume 83 fl (84-94); Platelet Count 199 K/mm3 (140-440); Red Blood Count 3.59 M/mm3 (3.65-5.03); Red Cell Distribution Width 13.2 % (13.2-15.2); White Blood Count 5.3 K/mm3 (4.5-11.0)
[2016-12-11] MEDS ORDERED: NACL 0.9% 1000 ML 2,000 ML ONE (16:34)
--- NOTE | 2016-12-11 16:57 | Cat Scan Report ---
CT head without contrast: Altered mental status. Axial images demonstrate normal cerebral anatomy. The ventricles are normal in size. No hemorrhage. No focal or generalized lesion. No extracerebral collections. The visualized bony structures are unremarkable. There is almost complete opacity of the right maxillary sinus with mucoperiosteal thickening changes predominantly in the right ethmoid sinuses and to a lesser extent mild thickening on the left. There is oral gastric tube present. Compared to prior examination in April 2013 the sinus changes are new. No change in intracranial findings. Impression: 1. Unremarkable intracranial scan. 2. Sinus inflammatory changes of indeterminate chronicity.
[2016-12-11] MEDS ORDERED: NACL 0.9% 500 ML 500 ML IV ONE ×2 (17:19→20:14)
[2016-12-11] MEDS ORDERED: DIPRIVAN 10 MG/ML IV ONE ×3 (17:41→17:49)
[2016-12-11] MEDS ORDERED: VERSED ONE (17:48)
[2016-12-11] MEDS ORDERED: SUBLIMAZE ONE (17:49)
--- NOTE | 2016-12-11 17:53 | XRay Report ---
FINAL REPORT EXAM: XR SPINE CERVICAL 2-3V HISTORY: ams TECHNIQUE: Two view cervical spine PRIORS: No prior studies available for comparison FINDINGS: Lower cervical spine is not well seen on the lateral view due to overlying shoulders. There is disc space narrowing noted at C3-C4 and C5-C6 with marginal anterior osteophytes. Spinous processes are intact. Facet joints demonstrate normal alignment. ET and NG tubes are noted. ET tube appears in satisfactory position. IMPRESSION: On the views obtained no displaced fractures are identified. Degenerative disc changes as noted above ET and NG tubes.
[2016-12-11] MEDS ORDERED: NEO SYNEPHRINE/NS Syringe(OR USE) IV ONE (19:00)
--- NOTE | 2016-12-11 19:20 | Progress Note ---
Subjective Date of service: 12/11/16 Principal diagnosis: Acute Respiratory Failure; Acute GI Bleed Interval history: PULMONARY/CCM CONSULT NOTE (Full dictation # ) Please see dictated notes for full details Objective Vital Signs - 12hr 12/11/16 12/11/16 12/11/16 10:12 12:00 13:36 Temperature 98.8 F Pulse Rate 117 H 98 H 121 H Respiratory 18 16 Rate Blood Pressure 112/75 161/106 Blood Pressure 142/76 [Left] O2 Sat by Pulse 100 99 100 Oximetry 12/11/16 12/11/16 12/11/16 14:00 14:15 14:30 Temperature 97.5 F L Pulse Rate 115 H 119 H 122 H Respiratory 12 17 16 Rate Blood Pressure 147/105 151/95 Blood Pressure 160/105 [Left] O2 Sat by Pulse 100 100 Oximetry 12/11/16 12/11/16 12/11/16 14:45 15:00 16:06 Temperature Pulse Rate 110 H Respiratory 16 16 Rate Blood Pressure 142/89 136/87 Blood Pressure [Left] O2 Sat by Pulse 91 100 Oximetry 12/11/16 12/11/16 12/11/16 16:30 16:36 17:00 Temperature Pulse Rate 105 H 100 H 99 H Respiratory 16 16 Rate Blood Pressure 85/62 120/83 115/82 Blood Pressure [Left] O2 Sat by Pulse 100 100 76 L Oximetry 12/11/16 12/11/16 17:15 17:16 Temperature 99.0 F Pulse Rate 99 H 95 H Respiratory 16 16 Rate Blood Pressure 120/83 Blood Pressure 120/83 [Left] O2 Sat by Pulse 100 100 Oximetry CBC and BMP: 12/11/16 15:02 12/11/16 11:29 ABG, PT/INR, D-dimer: ABG POC ABG pH 7.392 (7.35-7.45) 12/11/16 14:19 POC ABG pCO2 47.3 (35-45) H 12/11/16 14:19 POC ABG pO2 494 (80-105) H 12/11/16 14:19 POC ABG HCO3 28.8 12/11/16 14:19 POC ABG Total CO2 30 12/11/16 14:19 POC ABG O2 Sat 100 12/11/16 14:19 PT/INR, D-dimer PT 14.4 Sec. (12.2-14.9) 12/11/16 11:29 INR 1.13 (0.87-1.13) 12/11/16 11:29 Abnormal lab findings: Abnormal Labs 12/11/16 12/11/16 12/11/16 11:29 11:29 11:29 RBC Hgb 10.5 L Hct 30.8 L MCV 82 L RDW 13.1 L [place] % (Auto) 7.9 H Lymph # 0.7 L Seg Neutrophils % 76.4 H POC ABG pCO2 POC ABG pO2 Sodium 127 L Chloride 89.2 L BUN 40 H Glucose 162 H Lactic Acid 2.10 H* Ammonia Total Creatine Kinase 319 H Albumin 3.7 L Salicylates Crossmatch 12/11/16 12/11/16 12/11/16 11:29 11:29 13:59 RBC Hgb Hct MCV RDW [place] % (Auto) Lymph # Seg Neutrophils % POC ABG pCO2 POC ABG pO2 Sodium Chloride BUN Glucose Lactic Acid Ammonia 21.0 L Total Creatine Kinase Albumin Salicylates < 0.3 L Crossmatch See Detail 12/11/16 12/11/16 14:19 15:02 RBC 3.59 L Hgb 9.9 L Hct 29.7 L MCV 83 L RDW [place] % (Auto) Lymph # Seg Neutrophils % POC ABG pCO2 47.3 H POC ABG pO2 494 H Sodium Chloride BUN Glucose Lactic Acid Ammonia Total Creatine Kinase Albumin Salicylates Crossmatch
--- NOTE | 2016-12-11 19:32 | Consultation ---
History of Present Illness Consult date: 12/11/16 Requesting physician: SAEED HOLGUIN Reason for consult: other (Acute GI Bleeding; Acute Respiratory Failure) History of present illness: PULMONARY/CCM CONSULT NOTE (Full dcitation #[id number]) Please see dictated notes for full details Past History Past Medical History: hyperlipidemia, other (MR, tachycardia, autism) Past Surgical History: Other (cataract surgery) Social history: other (unknown) Family history: other (unknown) Medications and Allergies Allergies Allergy/AdvReac Type Severity Reaction Status Date / Time No Known Allergies Allergy Verified 11/25/15 20:15 Home Medications Medication Instructions Recorded Confirmed Last Taken Type Calcium Polycarbophil [Fiber 625 mg PO BID 07/30/14 12/11/16 Unknown History Laxative] Multivitamin with Minerals [Hair, 1 each PO DAILY 07/30/14 12/11/16 12/11/16 History Skin & Nails] Polyethylene Glycol 3350 [Miralax 17 gm PO DAILY 07/30/14 12/11/16 Unknown History 3350] Pravastatin (Nf) [Pravachol] 40 mg PO QHS 07/30/14 12/11/16 12/10/16 History fluvoxaMINE (NF) [Luvox (Nf) Tab] 100 mg PO BID 07/30/14 12/11/16 12/11/16 History Triamterene/Hydrochlorothiazid 1 each PO DAILY 07/31/14 12/11/16 12/11/16 History [Triamterene-Hctz 50-25 mg Cap] Naproxen [Naprosyn] 500 mg PO BID 12/11/16 12/11/16 12/11/16 History OXcarbazepine [Trileptal] 300 mg PO BID 12/11/16 12/11/16 12/11/16 History Olanzapine [ZyPREXA] 15 mg PO BID 12/11/16 12/11/16 12/11/16 History [place]-3 Fatty Acids/Fish Oil [Fish 1 each PO BID 12/11/16 12/11/16 12/11/16 History Oil] Trazodone HCl [Oleptro ER] 150 mg PO QHS 12/11/16 12/11/16 12/10/16 History Active Meds: Active Medications Hydrophilic Ointment (Vaseline Lip Therapy) 1 applic TP Q2HR PRN PRN Reason: Dry Lips Pantoprazole Sodium 80 mg/ (Sodium Chloride) 100 mls @ 10 mls/hr IV Q10H LIBBY PRN Reason: 8 MG/HR Last Admin: 12/11/16 15:24 Dose: 8 mg/hr, 10 mls/hr Propofol (Diprivan 10 Mg/Ml) 1,000 mg in 100 mls @ 2.667 mls/hr IV TITR LIBBY; 5 MCG/KG/MIN PRN Reason: Protocol Last Titration: 12/11/16 17:11 Dose: 17 mcg/kg/min, 9.068 mls/hr Multi-Ingred Cream/Lotion/Oil/Oint (Artificial Tears Ophth Oint) 1 applic OU Q4HR PRN PRN Reason: Dry Eye(s) Sodium Chloride (Nacl 0.9% 500 Ml) 1 ml IV DIRECT LIBBY Physical Examination Vital signs: Vital Signs Temp Pulse Resp BP Pulse Ox 98.8 F 117 H 18 112/75 100 12/11/16 10:12 12/11/16 10:12 12/11/16 10:12 12/11/16 10:12 12/11/16 10:12 Results - Laboratory Findings CBC and BMP: 12/11/16 15:02 12/11/16 11:29 ABG POC ABG pH 7.392 (7.35-7.45) 12/11/16 14:19 POC ABG pCO2 47.3 (35-45) H 12/11/16 14:19 POC ABG pO2 494 (80-105) H 12/11/16 14:19 POC ABG HCO3 28.8 12/11/16 14:19 POC ABG Total CO2 30 12/11/16 14:19 POC ABG O2 Sat 100 12/11/16 14:19 PT/INR, D-dimer PT 14.4 Sec. (12.2-14.9) 12/11/16 11:29 INR 1.13 (0.87-1.13) 12/11/16 11:29 Abnormal lab findings: Abnormal Labs 12/11/16 12/11/16 12/11/16 11:29 11:29 11:29 RBC Hgb 10.5 L Hct 30.8 L MCV 82 L RDW 13.1 L [place] % (Auto) 7.9 H Lymph # 0.7 L Seg Neutrophils % 76.4 H POC ABG pCO2 POC ABG pO2 Sodium 127 L Chloride 89.2 L BUN 40 H Glucose 162 H Lactic Acid 2.10 H* Ammonia Total Creatine Kinase 319 H Albumin 3.7 L Salicylates Crossmatch 12/11/16 12/11/16 12/11/16 11:29 11:29 13:59 RBC Hgb Hct MCV RDW [place] % (Auto) Lymph # Seg Neutrophils % POC ABG pCO2 POC ABG pO2 Sodium Chloride BUN Glucose Lactic Acid Ammonia 21.0 L Total Creatine Kinase Albumin Salicylates < 0.3 L Crossmatch See Detail 12/11/16 12/11/16 14:19 15:02 RBC 3.59 L Hgb 9.9 L Hct 29.7 L MCV 83 L RDW [place] % (Auto) Lymph # Seg Neutrophils % POC ABG pCO2 47.3 H POC ABG pO2 494 H Sodium Chloride BUN Glucose Lactic Acid Ammonia Total Creatine Kinase Albumin Salicylates Crossmatch
[2016-12-11 19:43] LABS: Basophils % (Auto) 0.2 % (0.0-1.8); Hematocrit 23.9 % (35.5-45.6); Hemoglobin 7.9 gm/dl (11.8-15.2); Mean Corpuscular HGB Conc 33 % (32-34); Mean Corpuscular Hemoglobin 27 pg (28-32); Mean Corpuscular Volume 82 fl (84-94); Platelet Count 181 K/mm3 (140-440); Red Cell Distribution Width 13.3 % (13.2-15.2); White Blood Count 5.3 K/mm3 (4.5-11.0)
--- NOTE | 2016-12-11 21:20 | History and Physical Report ---
History of Present Illness Date of examination: 12/11/16 Date of admission: 12/11/16 Chief complaint: Decreased responsiveness Hematemesis in ER x2 episodes History of present illness: History of Present Illness This is a 56-year-old male with past medical history of mental retardation. Family not currently available. "2 episodes of head falling forward and then back with a fixed stare, caregiver states this is abnormal for him, no seizure activity noted, unsteady gait this morning that required assistance, not normal for patient. Acting very tired, also patient just lost a caregiver that has been working with him for 12 years to a heart attack. Patient appears in his normal state in triage as per caregiver." Given that patient presented with a complaint of altered mental status, a noncontrast CT scan of the brain and cervical spine were ordered. While going to CT scan initially, the patient was called as a CODE BLUE for episode of possible seizure-like activity, which I did not personally witness, and decreased responsiveness. He did not lose a pulse. He was also quite agitated while on a CAT scan are as per verbal report from staff. Given history of mental retardation, developmental delay, patient was not able to understand verbal de-escalation techniques. He required Haldol and Ativan to allow him to participate in his medical care. Patient then returned to CT scan, and had an episode of massive hematemesis. He was brought back to the ER again. In the ER, the patient was sleepy, and was intubated for airway protection given episodes of unresponsiveness, massive hematemesis. Laboratory studies indicated elevated blood urea nitrogen, and probable hypovolemic hyponatremia. He started empirically on IV fluids, and Protonix drip. Past Medical History Hx Hypertension: Yes Hx Psychiatric Treatment: Yes Additional medical history: Behavioral disorder. Mentally challenged, Tachycardia, high cholesterol,SEVERE MR andAUTISM - Surgical History Additional Surgical History: CATARACT SURGERY - Social History Smoking Status: Never Smoker Substance Use Type: None - Medications Home Medications: Home Medications Medication Instructions Recorded Confirmed Last Taken Type Calcium Polycarbophil [Fiber 625 mg PO BID 07/30/14 12/11/16 Unknown History Laxative] Multivitamin with Minerals [Hair, 1 each PO DAILY 07/30/14 12/11/16 12/11/16 History Skin & Nails] Polyethylene Glycol 3350 [Miralax 17 gm PO DAILY 07/30/14 12/11/16 Unknown History 3350] Pravastatin (Nf) [Pravachol] 40 mg PO QHS 07/30/14 12/11/16 12/10/16 History fluvoxaMINE (NF) [Luvox (Nf) Tab] 100 mg PO BID 07/30/14 12/11/16 12/11/16 History Triamterene/Hydrochlorothiazid 1 each PO DAILY 07/31/14 12/11/16 12/11/16 History [Triamterene-Hctz 50-25 mg Cap] Naproxen [Naprosyn] 500 mg PO BID 12/11/16 12/11/16 12/11/16 History OXcarbazepine [Trileptal] 300 mg PO BID 12/11/16 12/11/16 12/11/16 History Olanzapine [ZyPREXA] 15 mg PO BID 12/11/16 12/11/16 12/11/16 History [place]-3 Fatty Acids/Fish Oil [Fish 1 each PO BID 12/11/16 12/11/16 12/11/16 History Oil] Trazodone HCl [Oleptro ER] 150 mg PO QHS 12/11/16 12/11/16 12/10/16 History Past History Past Medical History: hyperlipidemia, other (MR, tachycardia, autism) Past Surgical History: Other (cataract surgery) Social history: other (unknown) Family history: other (unknown) Medications and Allergies Allergies Allergy/AdvReac Type Severity Reaction Status Date / Time No Known Allergies Allergy Verified 11/25/15 20:15 Home Medications Medication Instructions Recorded Confirmed Last Taken Type Calcium Polycarbophil [Fiber 625 mg PO BID 07/30/14 12/11/16 Unknown History Laxative] Multivitamin with Minerals [Hair, 1 each PO DAILY 07/30/14 12/11/16 12/11/16 History Skin & Nails] Polyethylene Glycol 3350 [Miralax 17 gm PO DAILY 07/30/14 12/11/16 Unknown History 3350] Pravastatin (Nf) [Pravachol] 40 mg PO QHS 07/30/14 12/11/16 12/10/16 History fluvoxaMINE (NF) [Luvox (Nf) Tab] 100 mg PO BID 07/30/14 12/11/16 12/11/16 History Triamterene/Hydrochlorothiazid 1 each PO DAILY 07/31/14 12/11/16 12/11/16 History [Triamterene-Hctz 50-25 mg Cap] Naproxen [Naprosyn] 500 mg PO BID 12/11/16 12/11/16 12/11/16 History OXcarbazepine [Trileptal] 300 mg PO BID 12/11/16 12/11/16 12/11/16 History Olanzapine [ZyPREXA] 15 mg PO BID 12/11/16 12/11/16 12/11/16 History [place]-3 Fatty Acids/Fish Oil [Fish 1 each PO BID 12/11/16 12/11/16 12/11/16 History Oil] Trazodone HCl [Oleptro ER] 150 mg PO QHS 12/11/16 12/11/16 12/10/16 History Active Meds: Active Medications Hydrophilic Ointment (Vaseline Lip Therapy) 1 applic TP Q2HR PRN PRN Reason: Dry Lips Pantoprazole Sodium 80 mg/ (Sodium Chloride) 100 mls @ 10 mls/hr IV Q10H LIBBY PRN Reason: 8 MG/HR Last Admin: 12/11/16 15:24 Dose: 8 mg/hr, 10 mls/hr Propofol (Diprivan 10 Mg/Ml) 1,000 mg in 100 mls @ 2.667 mls/hr IV TITR LIBBY; 5 MCG/KG/MIN PRN Reason: Protocol Last Titration: 12/11/16 17:11 Dose: 17 mcg/kg/min, 9.068 mls/hr Multi-Ingred Cream/Lotion/Oil/Oint (Artificial Tears Ophth Oint) 1 applic OU Q4HR PRN PRN Reason: Dry Eye(s) Sodium Chloride (Nacl 0.9% 500 Ml) 1 ml IV DIRECT LIBBY Review of Systems All systems: negative Constitutional: no weight loss, no weight gain, no fever, no chills, no sweats, no night sweats Ears, nose, mouth and throat: no dysphagia, no hoarseness, no sore throat Cardiovascular: no chest pain, no orthopnea, no palpitations, no rapid/ irregular heart beat, no edema, no syncope, no lightheadedness, no shortness of breath Gastrointestinal: nausea, vomiting, diarrhea, hematemesis Genitourinary Male: no dysuria, no hematuria, no flank pain, no urinary frequency, no urinary hesitancy, no nocturia Musculoskeletal: no neck stiffness, no neck pain, no shooting arm pain, no arm numbness/tingling, no low back pain, no shooting leg pain, no leg numbness/ tingling, no redness of joints Integumentary: no rash, no pruritis, no redness, no sores, no wounds, no jaundice, no boils, no blisters Neurological: seizures, change in mentation, no syncope Psychiatric: no anxiety, no memory loss, no change in sleep habits Endocrine: no cold intolerance, no heat intolerance, no polyphagia Exam - Physical Exam Narrative exam: Patient is intubated - Constitutional Vitals: Temp Pulse Resp BP Pulse Ox 97.0 F L 106 H 16 102/74 100 12/11/16 18:35 12/11/16 21:00 12/11/16 21:00 12/11/16 21:00 12/11/16 21:00 General appearance: Present: severe distress, well-nourished - EENT Eyes: Present: PERRL ENT: poor dentition, other (Intubated) - Neck Neck: Present: supple, normal ROM - Respiratory Respiratory effort: normal Respiratory: bilateral: CTA, rhonchi - Cardiovascular Heart rate: 90 Rhythm: regular Heart Sounds: Present: S1 & S2. Absent: rub, click - Extremities Extremities: no ischemia, pulses intact, pulses symmetrical, No edema Peripheral Pulses: within normal limits - Abdominal General gastrointestinal: Present: soft, non-tender, non-distended, normal bowel sounds Male genitourinary: Present: normal - Rectal Rectal Exam: other (OB positive) - Integumentary Integumentary: Present: clear, warm, dry - Musculoskeletal Musculoskeletal: gait normal, strength equal bilaterally - Psychiatric Psychiatric: appropriate mood/affect, intact judgment & insight - Neurologic Neurologic: CNII-XII intact, moves all extremities Results - Labs CBC & Chem 7: 12/11/16 Unknown 12/11/16 11:29 Labs: Laboratory Last Values WBC 5.3 K/mm3 (4.5-11.0) 12/11/16 Unknown RBC 2.90 M/mm3 (3.65-5.03) L 12/11/16 Unknown Hgb 7.9 gm/dl (11.8-15.2) L 12/11/16 Unknown Hct 23.9 % (35.5-45.6) L 12/11/16 Unknown MCV 82 fl (84-94) L 12/11/16 Unknown MCH 27 pg (28-32) L 12/11/16 Unknown MCHC 33 % (32-34) 12/11/16 Unknown RDW 13.3 % (13.2-15.2) 12/11/16 Unknown Plt Count 181 K/mm3 (140-440) 12/11/16 Unknown Lymph % (Auto) 28.0 % (13.4-35.0) 12/11/16 Unknown [place] % (Auto) 11.7 % (0.0-7.3) H 12/11/16 Unknown Eos % (Auto) 0.0 % (0.0-4.3) 12/11/16 Unknown Baso % (Auto) 0.2 % (0.0-1.8) 12/11/16 Unknown Lymph # 1.5 K/mm3 (1.2-5.4) 12/11/16 Unknown [place] # 0.6 K/mm3 (0.0-0.8) 12/11/16 Unknown Eos # 0.0 K/mm3 (0.0-0.4) 12/11/16 Unknown Baso # 0.0 K/mm3 (0.0-0.1) 12/11/16 Unknown Seg Neutrophils % 60.1 % (40.0-70.0) 12/11/16 Unknown Seg Neutrophils # 3.2 K/mm3 (1.8-7.7) 12/11/16 Unknown PT 14.4 Sec. (12.2-14.9) 12/11/16 11:29 INR 1.13 (0.87-1.13) 12/11/16 11:29 APTT 26.9 Sec. (24.2-36.6) 12/11/16 11:29 POC ABG pH 7.392 (7.35-7.45) 12/11/16 14:19 POC ABG pCO2 47.3 (35-45) H 12/11/16 14:19 POC ABG pO2 494 (80-105) H 12/11/16 14:19 POC ABG HCO3 28.8 12/11/16 14:19 POC ABG Total CO2 30 12/11/16 14:19 POC ABG O2 Sat 100 12/11/16 14:19 POC ABG Base Excess 4 12/11/16 14:19 FiO2 100 % 12/11/16 14:19 Sodium 127 mmol/L (137-145) L 12/11/16 11:29 Potassium 4.8 mmol/L (3.6-5.0) 12/11/16 11:29 Chloride 89.2 mmol/L (98-107) L 12/11/16 11:29 Carbon Dioxide 24 mmol/L (22-30) 12/11/16 11:29 Anion Gap 19 mmol/L 12/11/16 11:29 BUN 40 mg/dL (9-20) H 12/11/16 11:29 Creatinine 1.3 mg/dL (0.8-1.5) 12/11/16 11:29 Estimated GFR > 60 ml/min 12/11/16 11:29 BUN/Creatinine Ratio 30.76 % 12/11/16 11:29 Glucose 162 mg/dL (75-100) H 12/11/16 11:29 Lactic Acid 2.10 mmol/L (0.7-2.0) H* 12/11/16 11:29 Calcium 9.1 mg/dL (8.4-10.2) 12/11/16 11:29 Phosphorus 2.70 mg/dL (2.5-4.5) 12/11/16 11:29 Magnesium 2.00 mg/dL (1.7-2.3) 12/11/16 11:29 Total Bilirubin 0.20 mg/dL (0.1-1.2) 12/11/16 11:29 AST 16 units/L (5-40) 12/11/16 11:29 ALT 14 units/L (7-56) 12/11/16 11:29 Alkaline Phosphatase 64 units/L (35-129) 12/11/16 11:29 Ammonia 21.0 umol/L (25-60) L 12/11/16 11:29 Total Creatine Kinase 319 units/L (55-170) H 12/11/16 11:29 Troponin T < 0.010 ng/mL (0.00-0.029) 12/11/16 11:29 Total Protein 7.2 g/dL (6.3-8.2) 12/11/16 11:29 Albumin 3.7 g/dL (3.9-5) L 12/11/16 11:29 Albumin/Globulin Ratio 1.1 % 12/11/16 11:29 TSH 1.600 mlU/mL (0.270-4.200) 12/11/16 11:29 Urine Color Yellow (Yellow) 12/11/16 Unknown Urine Turbidity Clear (Clear) 12/11/16 Unknown Urine pH 5.0 (5.0-7.0) 12/11/16 Unknown Ur Specific [place] 1.023 (1.003-1.030) 12/11/16 Unknown Urine Protein <15 mg/dl mg/dL (Negative) 12/11/16 Unknown Urine Glucose (UA) Neg mg/dL (Negative) 12/11/16 Unknown Urine Ketones Neg mg/dL (Negative) 12/11/16 Unknown Urine Blood Neg (Negative) 12/11/16 Unknown Urine Nitrite Neg (Negative) 12/11/16 Unknown Urine Bilirubin Neg (Negative) 12/11/16 Unknown Urine Urobilinogen < 2.0 mg/dL (<2.0) 12/11/16 Unknown Ur Leukocyte Esterase Neg (Negative) 12/11/16 Unknown Urine WBC (Auto) 1.0 /HPF (0.0-6.0) 12/11/16 Unknown Urine RBC (Auto) 1.0 /HPF (0.0-6.0) 12/11/16 Unknown Urine Mucus Few /HPF 12/11/16 Unknown Salicylates < 0.3 mg/dL (2.8-20.0) L 12/11/16 11:29 Urine Opiates Screen Presumptive negative 12/11/16 Unknown Urine Methadone Screen Presumptive negative 12/11/16 Unknown Acetaminophen < 15.0 ug/mL (10.0-30.0) 12/11/16 11:29 Ur Barbiturates Screen Presumptive negative 12/11/16 Unknown Ur Phencyclidine Scrn Presumptive negative 12/11/16 Unknown Ur Amphetamines Screen Presumptive negative 12/11/16 Unknown U Benzodiazepines Scrn Presumptive negative 12/11/16 Unknown Urine Cocaine Screen Presumptive negative 12/11/16 Unknown U Marijuana (THC) Screen Presumptive negative 12/11/16 Unknown Drugs of Abuse Note Disclamer 12/11/16 Unknown Plasma/Serum Alcohol < 0.01 gm% (0-0.07) 12/11/16 11:29 Blood Type O POSITIVE 12/11/16 15:15 Antibody Screen Negative 12/11/16 15:15 Crossmatch See Detail 12/11/16 15:15 - Imaging and Cardiology EKG: report reviewed CT Scan - head: report reviewed Assessment and Plan Advance Directives: Yes (Full code) VTE prophylaxis?: Mechanical Plan of care discussed with patient/family: Yes - Patient Problems (1) Acute respiratory failure Current Visit: Yes Status: Acute Qualifiers: Respiratory failure complication: hypoxia Qualified Code(s): J96.01 - Acute respiratory failure with hypoxia Plan to address problem: Intubated for airway protection. Duonebs No IV solumedrol initiated IV abx for now (2) Upper GI bleed Current Visit: Yes Status: Acute Plan to address problem: Check H/H q6 Transfuse if necessary IV Protonix GI consult (3) Acute blood loss anemia Current Visit: Yes Status: Acute Plan to address problem: Significant drop in H/H by about 3 grams.Will transfuse one unit of PRBC for time being (4) Sepsis Current Visit: Yes Status: Acute Qualifiers: Sepsis type: sepsis due to unspecified organism Qualified Code(s): A41.9 - Sepsis, unspecified organism Plan to address problem: likely.Lactic acid high.IV antibiotics ordered (5) Hyponatremia Current Visit: Yes Status: Acute Plan to address problem: IV NS for now.Recheck CMP (6) DVT prophylaxis Current Visit: Yes Status: Acute Plan to address problem: SCD's only
[2016-12-11] MEDS ORDERED: SODIUM BICARBONATE FEEDTUBE PRN (21:21)
[2016-12-11] MEDS ORDERED: SIMPLE SYRUP FEEDTUBE PRN ×2 (21:21)
[2016-12-11] MEDS ORDERED: PANCREAZE DR 10,500 UNIT FEEDTUBE PRN (21:21)
[2016-12-11] MEDS ORDERED: ATIVAN IV PRN (21:22)
[2016-12-11] MEDS ORDERED: DIPRIVAN 10 MG/ML 1,000 MG/100 ML BOTTLE IV ONE (23:03)
[2016-12-12] MEDS ORDERED: SIMPLE SYRUP FEEDTUBE PRN ×2 (06:55)
[2016-12-12] MEDS ORDERED: SODIUM BICARBONATE FEEDTUBE PRN (06:55)
[2016-12-12] MEDS ORDERED: PANCREAZE DR 10,500 UNIT FEEDTUBE PRN (06:55)
[2016-12-12] MEDS ORDERED: NACL 0.9% 500 ML 500 ML IV ONE (07:00)
[2016-12-12] MEDS ORDERED: DUONEB *Not for PRN Use IH (07:01)
[2016-12-12] MEDS ORDERED: PROVENTIL IH PRN (07:03)
[2016-12-12 07:05] LABS: ISTAT Base Excess 2; ISTAT HCO3 26.4; ISTAT PCO2 37.7 (35-45); ISTAT PH 7.453 (7.35-7.45); ISTAT PO2 135 (80-105); ISTAT SO2 99; ISTAT TCO2 28
--- NOTE | 2016-12-12 08:00 | Consultation ---
PULMONARY CRITICAL CARE CONSULT NOTE CONSULTING PHYSICIAN: Dr. Varela, Emergency Room doctor. REASON FOR CONSULTATION: Acute respiratory failure, on mechanical ventilatory support and acute GI bleeding. CHIEF COMPLAINT AND HISTORY OF PRESENT ILLNESS: As follows: The patient is a 56-year-old male, reportedly a resident of a personal custodial with some level of cognitive dysfunction, who was brought into the Emergency Room reportedly by family secondary to 2 episodes of head falling forward and then back with a fixed stare. They said that was abnormal for him. They denied any seizure activity. He does have a history of seizure disorder. He needed some assistance with ambulation on the way here. He came into the Emergency Room and was sent for amongst other things for a CT scan of the brain while he was in there. A code blue was called secondary to possible seizure-like activity, was brought back into the Emergency Room, stabilized, sent back for the CT scan. In the CT scan room, he had episode of large volume hematemesis, so was brought back to the Emergency Room. He was intubated both to assist with ventilation oxygenation and for airway protection. Post stabilization, endoscopy was done. Reportedly, the patient did have a clot that had not been dislodged, possible bleeder under it and determination was that this was an acute GI bleed. When I stopped by to see him, he remained on the hospital bed. I believe he was on propofol for sedation. He was having some intermittent shivering that was questionably seizure activity, but certainly was not grand mal activity. I do not have any history of tobacco use. I do not have any history of alcohol use. The above is as much of the history of presentation as I have. PAST MEDICAL HISTORY: Amongst other things significant for hypertension, a history of psychiatric disorder, mild cognitive dysfunction, hyperlipidemia and question of autism. PAST SURGICAL HISTORY: He has had cataract surgery, presumably to the left eye. MEDICATIONS: He was on at the time I stopped by to see him according to the medication administration record included the following: He was on a Protonix drip at 8 mg per hour. He had received 80 mg bolus earlier. He was on Diprivan going I think about 10 mcg/kg/minute. He was on normal saline. ALLERGIES: No known drug allergies. DIET: Well-built gentleman. Acute weight loss or gain history is unknown. FAMILY AND SOCIAL HISTORY: He lives in the personal custodial. He reported as a never smoker at presentation. Alcohol or illicit drug use or abuse history is unknown. Family history is otherwise unknown. REVIEW OF SYSTEMS: Unobtainable secondary to the patient's medical and mental condition. Since he has been here, no gross hematochezia or melena. He has had the hematemesis. No grand mal seizure activity has been noted. No bloody tracheal secretions. Review of systems is otherwise unobtainable secondary to the patient's medical and mental condition. PHYSICAL EXAMINATION: VITAL SIGNS: At presentation in the Emergency Room, he was afebrile at temperature 98.8 degrees Fahrenheit with a pulse of 117, respiratory rate of 18, blood pressure 112/75, oxygen sats were reported as 100/%, inspired oxygen concentration was not recorded. HEAD, EYES, EARS, NOSE AND THROAT: Right pupil is about 4 mm, reactive to light. Left pupil is rectangular and I believe post-surgical. Extraocular muscle movements could not be assessed. Endotracheal tube is in place, taped at the lips around 23-24 cm. Grossly, no palpable lymph nodes in the supraclavicular or submandibular lymph node chains. LUNGS: Auscultation of both lung enamorado are unremarkable. Lungs are clear bilaterally. HEART: Heart sounds 1 and 2 are heard. They were regular in rate and rhythm at time of my evaluation. ABDOMEN: Soft, full, bowel sounds are diminished, nontender at the time of my examination. EXTREMITIES: Without overt digital clubbing, cyanosis or pedal edema. NEUROLOGICAL: He was on a propofol drip, nonresponsive with location of shivering-type activity. LABORATORY DATA: For my review are as follows: Admission white cell count 4600 with a hemoglobin of 10.5, hematocrit of 30.8, platelet count of 222. INR was 1.13. Arterial blood gas showed a pH of 7.39, pCO2 of 47, pO2 of 494, 100%. Vent settings I believe was assist control 500 mL tidal volume, rate of 14, PEEP of 5. Serum sodium was 127, potassium 4.8, chloride 89, bicarbonate 24, BUN 40, creatinine 1.3, glucose 162. Lactic acid level was 2.10. Ammonia level within expected limits. CPK slightly elevated at 319. Troponin within normal limits. TSH within normal limits. Urinalysis was unremarkable. Urine drug screen was negative. Aspirin, Tylenol, alcohol levels were in acceptable limits. No microbiology studies. Radiographic studies have been done. I have reviewed the reports. I am pulling up the imaging. An x-ray of the cervical spine did not show any obvious displaced fractures. A CT scan of the head was also done. It was read as no acute intracranial pathology. Chest x-ray was done, essentially a clear chest x-ray, perhaps some basilar atelectatic changes with the most recent chest x-ray. I believe that was the post-intubation chest x-ray that was reported as ET tube in normal position. I am pulling up the film. The ET tube tip is at the lower level of the clavicular heads. No gross pneumothorax. No gross bony fracture. ASSESSMENT AND PLAN: We have a middle-aged gentleman in with an acute gastrointestinal bleed, altered mental status may have been related to the pathology leading to that. He really was not hypotensive at presentation. From a respiratory standpoint, he has appropriately been intubated for airway protection. We will keep him intubated. Bronchodilators will be on a p.r.n. basis. Aspiration precautions and VAP bundle will be addressed daily. I will wean oxygen to keep sats greater than or equal to about 94%, and we will begin the weaning process off the ventilator as early as tomorrow. All other things being equal from a cardiovascular standpoint. He has been relatively hemodynamically stable, not on any vasopressors. I will continue to follow him clinically. ____ in the form of blood as necessary will be given too for mean arterial pressure less than 60 mmHg. From a GI and nutritional standpoint, he remains n.p.o. He will continue on the Protonix drip. He is status post EGD. Hopefully, he does not have another significant bleed. We will follow the H and H and replace as necessary depending on the rate of fall or the level of the hemoglobin. I will defer to the GI team otherwise. From our Infectious Disease standpoint, no signs or symptoms of overwhelming sepsis. No acute indication for anti-infective therapy. We will follow him clinically. Off antibiotics. Lactic acid level elevation is noted, I will trend that. From a renal standpoint, no major electrolyte abnormalities. I do note hyponatremia and the elevated BUN, likely all related to the gastrointestinal bleeding and pathology related to that. Inputs and outputs will be monitored. Electrolytes will be corrected as necessary. I doubt he is a drinker, but I will get magnesium and phosphorus levels and correct as necessary. From a central nervous system standpoint, the exam was grossly nonfocal at presentation. CT of the brain is negative. We will continue him on propofol. Because of the history of seizure disorder and being on Trileptal at home prior, I will put him empirically on Keppra IV while we are trying to sort out whether this is a real seizure or not and follow him clinically otherwise. An EEG will also be ordered. From a general and hospital healthcare maintenance standpoint, he is on gastrointestinal prophylaxis in the form of Protonix drip. Deep venous thrombosis prophylaxis will be in the form of sequential compression devices. Flu and pneumonia vaccination will be per protocol. Thank you very much for the consult, Dr. Varela, Dr. Bravo. We will follow along and make further recommendations as the picture progresses/becomes clearer. He is critically ill on life-sustaining interventions, including mechanical ventilatory support, at higher risk for further deterioration, including . JOB# [id number] [facility]/CORBIN
[2016-12-12] MEDS: DIPRIVAN 10 MG/ML 1,000 MG/100 ML BOTTLE IV SCH ×2 (08:53→22:53)
[2016-12-12] MEDS: ZOSYN/NS 4.5GM/100ML 4.5 GM/100 ML VIAL IV SCH ×3 (08:54→23:12)
[2016-12-12 09:01] LABS: Alanine Aminotransferase 11 units/L (7-56); Albumin/Globulin Ratio 1.1 %; Alkaline Phosphatase 49 units/L (35-129); Anion Gap 15 mmol/L; Blood Urea Nitrogen 23 mg/dL (9-20); Calcium 7.7 mg/dL (8.4-10.2); Carbon Dioxide 23 mmol/L (22-30); Chloride 100.2 mmol/L (98-107); Glucose 100 mg/dL (75-100); Potassium 4.5 mmol/L (3.6-5.0); Sodium 134 mmol/L (137-145); Total Protein 5.8 g/dL (6.3-8.2)
--- NOTE | 2016-12-12 09:14 | XRay Report ---
Single view chest: Compared to 12/11/16. History: Followup of respiratory failure. Findings: Normal cardiomediastinal silhouette. Trachea is midline. No consolidation, pneumothorax or pleural effusion. Stable support system. Impression: No acute cardiopulmonary findings.
[2016-12-12] MEDS: PROTONIX 80 MG in NACL 0.9% 100 ML IV SCH ×3 (09:24→18:55)
[2016-12-12 09:37] LABS: Hematocrit 34.4 % (35.5-45.6); Hemoglobin 11.5 gm/dl (11.8-15.2); Mean Corpuscular HGB Conc 33 % (32-34); Mean Corpuscular Hemoglobin 29 pg (28-32); Mean Corpuscular Volume 86 fl (84-94); Platelet Count 152 K/mm3 (140-440); Red Blood Count 4.02 M/mm3 (3.65-5.03); Red Cell Distribution Width 14.2 % (13.2-15.2); White Blood Count 9.1 K/mm3 (4.5-11.0)
--- NOTE | 2016-12-12 12:14 | Progress Note ---
Assessment and Plan Assessment and plan: This is a 56-year-old male with past medical history of mental retardation. Family not currently available. "2 episodes of head falling forward and then back with a fixed stare, caregiver states this is abnormal for him, no seizure activity noted, unsteady gait this morning that required assistance, not normal for patient. Acting very tired, also patient just lost a caregiver that has been working with him for 12 years to a heart attack. Patient appears in his normal state in triage as per caregiver." Given that patient presented with a complaint of altered mental status, a noncontrast CT scan of the brain and cervical spine were ordered. While going to CT scan initially, the patient was called as a CODE BLUE for episode of possible seizure-like activity, which I did not personally witness, and decreased responsiveness. He did not lose a pulse. He was also quite agitated while on a CAT scan are as per verbal report from staff. Given history of mental retardation, developmental delay, patient was not able to understand verbal de-escalation techniques. He required Haldol and Ativan to allow him to participate in his medical care. Patient then returned to CT scan, and had an episode of massive hematemesis. He was brought back to the ER again. In the ER, the patient was sleepy, and was intubated for airway protection given episodes of unresponsiveness, massive hematemesis. Laboratory studies indicated elevated blood urea nitrogen, and probable hypovolemic hyponatremia. He started empirically on IV fluids, and Protonix drip. Acute hypoxic respiratory failure Continue vent, pulmonary input appreciated, blood gas today shows resolution of hypercapnia. Plan for extubation. Upper GI bleed Due to Lulu-Santiago tear 1.6cm, has Fundal clots which were adherent, status post EGD by GI yesterday. Hemoglobin stable IV Protonix GI consult appreciated Acute blood loss anemia has been transfused, hg stable Sepsis Ruled out ruled out, LA is likely due to GIB/seizure, no sign of infection PNA ruled out by negative CXR, UA negative Hyponatremia mild, continue IVF ? Seizure unclear if he had seizure, or was just agitated and unable to communicate due to MR obtain EEG and neurology consult, start IV keppra DVT prophylaxis Current Visit: Yes Status: Acute Plan to address problem: SCD's only The high probability of a clinically significant, sudden or life threatening deterioration of the [neurologic, pulmonary and cardiovascular] system(s) required my full and direct attention, intervention and personal management. The aggregate critical care time was [33] minutes. This time is in addition to time spent performing reported procedures but includes the following: [] Data Review and interpretation [] Patient assessment and monitoring of vital signs [] Documentation [] Medication orders and management History Interval history: Patient's is calm his intubated, but obeys some simple commands. Hospitalist Physical - Physical exam Narrative exam: General: Patient appears well in no distress HEENT: MMM, EOMI cardiac: S1-S2 heard lungs: clear to auscultation, abdomen: soft, nontender, nondistended bowel sounds positive extremities: no edema clubbing or cyanosis Skin: no rash or lesion Neuro: Moves all extremities, turns to voice. Cooperative, intubated if on nonverbal - Constitutional Vitals: Temp Pulse Resp BP Pulse Ox 99.4 F 79 16 114/69 100 12/12/16 08:00 12/12/16 11:21 12/11/16 23:55 12/12/16 11:21 12/12/16 11:21 General appearance: Present: severe distress, well-nourished Results - Labs CBC & Chem 7: 12/12/16 17:34 12/12/16 08:01 Labs: Laboratory Last Values WBC 9.1 K/mm3 (4.5-11.0) 12/12/16 08:01 RBC 4.02 M/mm3 (3.65-5.03) 12/12/16 08:01 Hgb 11.5 gm/dl (11.8-15.2) L D 12/12/16 08:01 Hct 34.4 % (35.5-45.6) L D 12/12/16 08:01 MCV 86 fl (84-94) 12/12/16 08:01 MCH 29 pg (28-32) 12/12/16 08:01 MCHC 33 % (32-34) 12/12/16 08:01 RDW 14.2 % (13.2-15.2) 12/12/16 08:01 Plt Count 152 K/mm3 (140-440) 12/12/16 08:01 Lymph % (Auto) Pharmacist Intern 12/12/16 08:01 [place] % (Auto) Pharmacist Intern 12/12/16 08:01 Eos % (Auto) Pharmacist Intern 12/12/16 08:01 Baso % (Auto) Pharmacist Intern 12/12/16 08:01 Lymph # Pharmacist Intern 12/12/16 08:01 [place] # Pharmacist Intern 12/12/16 08:01 Eos # Pharmacist Intern 12/12/16 08:01 Baso # Pharmacist Intern 12/12/16 08:01 Seg Neutrophils % Pharmacist Intern 12/12/16 08:01 Seg Neutrophils # Pharmacist Intern 12/12/16 08:01 PT 14.4 Sec. (12.2-14.9) 12/11/16 11:29 INR 1.13 (0.87-1.13) 12/11/16 11:29 APTT 26.9 Sec. (24.2-36.6) 12/11/16 11:29 POC ABG pH 7.453 (7.35-7.45) H 12/12/16 05:32 POC ABG pCO2 37.7 (35-45) 12/12/16 05:32 POC ABG pO2 135 (80-105) H 12/12/16 05:32 POC ABG HCO3 26.4 12/12/16 05:32 POC ABG Total CO2 28 12/12/16 05:32 POC ABG O2 Sat 99 12/12/16 05:32 POC ABG Base Excess 2 12/12/16 05:32 FiO2 35 % 12/12/16 05:32 Sodium 134 mmol/L (137-145) L D 12/12/16 08:01 Potassium 4.5 mmol/L (3.6-5.0) 12/12/16 08:01 Chloride 100.2 mmol/L (98-107) 12/12/16 08:01 Carbon Dioxide 23 mmol/L (22-30) 12/12/16 08:01 Anion Gap 15 mmol/L 12/12/16 08:01 BUN 23 mg/dL (9-20) H 12/12/16 08:01 Creatinine 1.1 mg/dL (0.8-1.5) 12/12/16 08:01 Estimated GFR > 60 ml/min 12/12/16 08:01 BUN/Creatinine Ratio 20.90 % 12/12/16 08:01 Glucose 100 mg/dL (75-100) 12/12/16 08:01 Lactic Acid 1.40 mmol/L (0.7-2.0) 12/12/16 08:18 Calcium 7.7 mg/dL (8.4-10.2) L D 12/12/16 08:01 Phosphorus 2.70 mg/dL (2.5-4.5) 12/11/16 11:29 Magnesium 2.00 mg/dL (1.7-2.3) 12/11/16 11:29 Total Bilirubin 0.30 mg/dL (0.1-1.2) 12/12/16 08:01 AST 22 units/L (5-40) 12/12/16 08:01 ALT 11 units/L (7-56) 12/12/16 08:01 Alkaline Phosphatase 49 units/L (35-129) 12/12/16 08:01 Ammonia 21.0 umol/L (25-60) L 12/11/16 11:29 Total Creatine Kinase 319 units/L (55-170) H 12/11/16 11:29 Troponin T < 0.010 ng/mL (0.00-0.029) 12/11/16 11:29 Total Protein 5.8 g/dL (6.3-8.2) L 12/12/16 08:01 Albumin 3.0 g/dL (3.9-5) L 12/12/16 08:01 Albumin/Globulin Ratio 1.1 % 12/12/16 08:01 TSH 1.600 mlU/mL (0.270-4.200) 12/11/16 11:29 Urine Color Yellow (Yellow) 12/11/16 Unknown Urine Turbidity Clear (Clear) 12/11/16 Unknown Urine pH 5.0 (5.0-7.0) 12/11/16 Unknown Ur Specific [place] 1.023 (1.003-1.030) 12/11/16 Unknown Urine Protein <15 mg/dl mg/dL (Negative) 12/11/16 Unknown Urine Glucose (UA) Neg mg/dL (Negative) 12/11/16 Unknown Urine Ketones Neg mg/dL (Negative) 12/11/16 Unknown Urine Blood Neg (Negative) 12/11/16 Unknown Urine Nitrite Neg (Negative) 12/11/16 Unknown Urine Bilirubin Neg (Negative) 12/11/16 Unknown Urine Urobilinogen < 2.0 mg/dL (<2.0) 12/11/16 Unknown Ur Leukocyte Esterase Neg (Negative) 12/11/16 Unknown Urine WBC (Auto) 1.0 /HPF (0.0-6.0) 12/11/16 Unknown Urine RBC (Auto) 1.0 /HPF (0.0-6.0) 12/11/16 Unknown Urine Mucus Few /HPF 12/11/16 Unknown Salicylates < 0.3 mg/dL (2.8-20.0) L 12/11/16 11:29 Urine Opiates Screen Presumptive negative 12/11/16 Unknown Urine Methadone Screen Presumptive negative 12/11/16 Unknown Acetaminophen < 15.0 ug/mL (10.0-30.0) 12/11/16 11:29 Ur Barbiturates Screen Presumptive negative 12/11/16 Unknown Ur Phencyclidine Scrn Presumptive negative 12/11/16 Unknown Ur Amphetamines Screen Presumptive negative 12/11/16 Unknown U Benzodiazepines Scrn Presumptive negative 12/11/16 Unknown Urine Cocaine Screen Presumptive negative 12/11/16 Unknown U Marijuana (THC) Screen Presumptive negative 12/11/16 Unknown Drugs of Abuse Note Disclamer 12/11/16 Unknown Plasma/Serum Alcohol < 0.01 gm% (0-0.07) 12/11/16 11:29 Blood Type O POSITIVE 12/11/16 15:15 Antibody Screen Negative 12/11/16 15:15 Crossmatch See Detail 12/11/16 15:15
[2016-12-12 12:20] LABS: Anisocytosis 1+; Basophils % (Manual) 0 % (0.0-1.8); Blastocytes % (Manual) 0 %; Diff Status Complete; Eosinophils % (Manual) 0 % (0.0-4.3); Platelet Estimate Consistent w Auto
[2016-12-12 12:27] LABS: Hematocrit 32.5 % (35.5-45.6); Hemoglobin 10.7 gm/dl (11.8-15.2)
--- NOTE | 2016-12-12 12:27 | Post Operative Note ---
Pre-op diagnosis: gi bleed Post-op diagnosis: same Findings: EGD: medium hiatal hernia - 1 1/2 cm m-w tear extending g-e junction along lesser curvature, erythema w/o active bleeding - noted clot extending along gastric cardia to fundus, unable to fully see noted area - otherwise benign Procedure: EGD Anesthesia: MAC (arsh) Surgeon: STEPHANI MIRZA Estimated blood loss: none Specimen disposition: to lab Condition: critical Disposition: ICU
--- NOTE | 2016-12-12 12:52 | XRay Report ---
Flatplate of abdomen: History: OGT placement. Findings: Tip of the orogastric tube is in stomach. No bowel distention. Impression: Tip of orogastric tube in stomach.
--- NOTE | 2016-12-12 12:56 | Operative Report ---
PROCEDURE: EGD. INDICATION: GI bleed. MEDICATIONS: Propofol per NETWORK OPERATIONS PROJECT MANAGER. COMPLICATIONS: None. DESCRIPTION OF PROCEDURE: The patient was brought in the Emergency Room. The patient had the procedure discussed with the Emergency Room staff at length. All risks, complications, benefits were discussed after which 2-physician consent was gotten. The patient placed in left lateral decubitus position. Mouth block placed in the patient's oral cavity. It should be noted the patient was intubated prior. After adequate sedation, medication as above, the endoscope was introduced into the mouth and brought to the level of the second portion of duodenum. Retroflexion view performed. The patient's vital signs remained stable throughout the procedure. FINDINGS: There was noted to be at GE junction 30 cm from the gum. Extending from the GE junction towards the lesser curvature gastric cardia area, there was noted to be about a 1.5 cm Lulu-Santiago tear. There was some deep erythema and inflammation in this tear. No obvious stigmata otherwise was noted. No interventions were performed. There was a large clot extending from the GE junction along the cardia to the level of the fundus and greater curvature area. We are unable to fully visualize this area to ensure that there was no other stigmata of bleeding noted in that area. No bleeding was noted during the procedure. The stomach and duodenum otherwise appeared grossly normal. The patient tolerated procedure well. No complications during the procedure. IMPRESSION: 1. Lulu-Santiago tear, but no interventions performed. 2. Large clot along the gastric cardia towards the fundus and greater curvature area, but no bleeding noted. 3. Otherwise, benign EGD. RECOMMENDATIONS: 1. PPI IV. 2. Follow hematocrit and transfuse as needed. 3. Further recommendation based on progress. JOB# [id number] [facility]
--- NOTE | 2016-12-12 13:07 | Progress Note ---
Assessment and Plan - Patient Problems (1) Acute blood loss anemia Current Visit: Yes Status: Acute Plan to address problem: - s/p blood transfusion - will hold PRBC unit ordered now as serial H&H demonstrating stability - continue protonix drip - follow clinically (2) Acute respiratory failure Current Visit: Yes Status: Acute Qualifiers: Respiratory failure complication: hypoxia Qualified Code(s): J96.01 - Acute respiratory failure with hypoxia Plan to address problem: - continue bronchodilators and pulmonary toilet - continue aspiration precautions / address VAP bundle daily - continue to wean oxygen for O2 Sats >/= 94% - will begin PSV weaning trials now but no plans to extubate till tomorrow if meets criteria re: airway protection acutely (3) Altered mental status Current Visit: Yes Status: Acute Qualifiers: Altered mental status type: A Coma depth: C Coma timing: C Plan to address problem: - per history he has baseline cogniticve dysfunction but is still not back to baseline - CT brain negative - follow clinically (4) Upper GI bleed Current Visit: Yes Status: Acute Plan to address problem: - s/p EGD - continue PPI therapy - resume diet once cleared by GI team (5) Discharge planning issues Current Visit: Yes Status: Acute Plan to address problem: - hopefully home at discharge ...for now he is critically ill on life sustaining interventions including MVS and at risk for further deterioration including ...35' CCT Subjective Date of service: 12/12/16 Principal diagnosis: Acute Respiratory Failure; Acute GI Bleeding Interval history: Seen and examined at bedside; 24 hour events reviewed; nursing and respiratory care staff consulted; no adverse overnight events reported to me; remains on MVS ; doing better; still somnolent; no gross GI Bleeding; to begin weaning trials now Objective Vital Signs - 12hr 12/12/16 12/12/16 12/12/16 03:57 04:00 05:19 Temperature 97.9 F Pulse Rate 82 Pulse Rate [ 75 From Monitor] Pulse Rate [ None] Pulse Rate [ 79 Right Radial] Respiratory Rate Blood Pressure 112/68 O2 Sat by Pulse 100 Oximetry 12/12/16 12/12/16 12/12/16 07:14 08:00 08:19 Temperature 99.4 F Pulse Rate 101 H Pulse Rate [ From Monitor] Pulse Rate [ None] Pulse Rate [ Right Radial] Respiratory Rate Blood Pressure 97/60 O2 Sat by Pulse 100 98 Oximetry 12/12/16 12/12/16 12/12/16 09:00 10:00 11:00 Temperature Pulse Rate Pulse Rate [ From Monitor] Pulse Rate [ 82 81 78 None] Pulse Rate [ Right Radial] Respiratory 15 16 15 Rate Blood Pressure 103/61 115/75 114/69 O2 Sat by Pulse 100 100 100 Oximetry 12/12/16 12/12/16 11:21 12:00 Temperature 99.6 F Pulse Rate 79 Pulse Rate [ From Monitor] Pulse Rate [ 85 None] Pulse Rate [ Right Radial] Respiratory 16 Rate Blood Pressure 114/69 110/75 O2 Sat by Pulse 100 100 Oximetry Constitutional: no acute distress, other (somnolent) Eyes: non-icteric ENT: oropharynx moist Neck: supple, no lymphadenopathy Effort: mildly labored Ascultation: Bilateral: diminished breath sounds, rales (scant in bases) Cardiovascular: regular rate and rhythm Gastrointestinal: hypoactive bowel sounds, soft, non-tender, non-distended Integumentary: normal Extremities: no cyanosis, no edema, pulses normal, no ischemia or petechiae Neurologic: other (more responsive but with baseline cognitive dysfunction) Psychiatric: other (unable to assess) CBC and BMP: 12/12/16 17:34 12/12/16 08:01 ABG, PT/INR, D-dimer: ABG POC ABG pH 7.453 (7.35-7.45) H 12/12/16 05:32 POC ABG pCO2 37.7 (35-45) 12/12/16 05:32 POC ABG pO2 135 (80-105) H 12/12/16 05:32 POC ABG HCO3 26.4 12/12/16 05:32 POC ABG Total CO2 28 12/12/16 05:32 POC ABG O2 Sat 99 12/12/16 05:32 PT/INR, D-dimer PT 14.4 Sec. (12.2-14.9) 12/11/16 11:29 INR 1.13 (0.87-1.13) 12/11/16 11:29 Abnormal lab findings: Abnormal Labs 12/11/16 12/12/16 12/12/16 Unknown 05:32 08:01 RBC 2.90 L Hgb 7.9 L 11.5 L D Hct 23.9 L 34.4 L D MCV 82 L MCH 27 L [place] % (Auto) 11.7 H Seg Neuts % (Manual) 75.0 H POC ABG pH 7.453 H POC ABG pO2 135 H Sodium BUN Calcium Total Protein Albumin 12/12/16 12/12/16 08:01 12:11 RBC Hgb 10.7 L Hct 32.5 L MCV MCH [place] % (Auto) Seg Neuts % (Manual) POC ABG pH POC ABG pO2 Sodium 134 L D BUN 23 H Calcium 7.7 L D Total Protein 5.8 L Albumin 3.0 L Chest x-ray: image reviewed
[2016-12-12 17:50] LABS: Hematocrit 33.1 % (35.5-45.6)
[2016-12-12 17:53] LABS: ISTAT Base Excess 5; ISTAT HCO3 29.3; ISTAT PCO2 41.2 (35-45); ISTAT PH 7.459 (7.35-7.45); ISTAT PO2 101 (80-105); ISTAT SO2 98; ISTAT TCO2 31
[2016-12-12] MEDS: KEPPRA 750 MG in D5W 100 ML IV SCH (22:54)
[2016-12-12] MEDS: NACL 0.9% 1000 ML 1,000 ML IV SCH (22:55)
[2016-12-13] MEDS: PROTONIX 80 MG in NACL 0.9% 100 ML IV SCH (06:10)
[2016-12-13] MEDS: NACL 0.9% 1000 ML 1,000 ML IV SCH (06:11)
[2016-12-13] MEDS: DIPRIVAN 10 MG/ML 1,000 MG/100 ML BOTTLE IV SCH ×2 (06:11→19:00)
[2016-12-13] MEDS: ZOSYN/NS 4.5GM/100ML 4.5 GM/100 ML VIAL IV SCH ×2 (07:11→16:41)
[2016-12-13] MEDS ORDERED: SODIUM BICARBONATE FEEDTUBE PRN (08:47)
[2016-12-13] MEDS ORDERED: SIMPLE SYRUP FEEDTUBE PRN ×2 (08:47)
[2016-12-13] MEDS ORDERED: PANCREAZE DR 10,500 UNIT FEEDTUBE PRN (08:47)
--- NOTE | 2016-12-13 09:31 | XRay Report ---
Single view chest: Compared with last. History: Followup of respiratory failure. Findings: This normal cardiomediastinal silhouette. Trachea is midline. Stable support system. No consolidation of pleural effusion or pneumothorax. Impression: No acute cardiopulmonary findings.
[2016-12-13] MEDS: KEPPRA 750 MG in D5W 100 ML IV SCH ×2 (09:53→22:07)
--- NOTE | 2016-12-13 10:37 | Progress Note ---
Assessment and Plan 1. Hematemesis - likely due to M-W tear. No evidence of active bleed, with stable H/H. - may give clears, and if tolerated, advance to regular diet, once pt is extubated. - continue PPI. Subjective Date of service: 12/13/16 Principal diagnosis: Acute Respiratory Failure; Acute GI Bleeding Interval history: Pt stable, intubated. Awake. No evidence of GI bleeding at present. Passing flatus but no BMs. Objective - Constitutional Vitals: Vital Signs - 12hr 12/12/16 12/13/16 12/13/16 23:00 00:00 00:20 Temperature 100.1 F H Pulse Rate 89 Pulse Rate [ 100 H From Monitor] Respiratory 16 16 Rate Blood Pressure 89/53 O2 Sat by Pulse 100 100 Oximetry 12/13/16 12/13/16 12/13/16 00:30 00:46 01:00 Temperature Pulse Rate 87 83 88 Pulse Rate [ From Monitor] Respiratory 16 14 16 Rate Blood Pressure 108/67 107/68 108/68 O2 Sat by Pulse 100 100 100 Oximetry 12/13/16 12/13/16 12/13/16 01:16 01:30 01:46 Temperature Pulse Rate 85 83 80 Pulse Rate [ From Monitor] Respiratory 16 16 16 Rate Blood Pressure 108/68 96/61 96/61 O2 Sat by Pulse 100 100 100 Oximetry 12/13/16 12/13/16 12/13/16 02:00 02:03 02:16 Temperature Pulse Rate 79 77 86 Pulse Rate [ From Monitor] Respiratory 16 16 14 Rate Blood Pressure 91/52 91/52 96/61 O2 Sat by Pulse 100 100 100 Oximetry 12/13/16 12/13/16 12/13/16 02:30 02:46 03:00 Temperature Pulse Rate 83 77 81 Pulse Rate [ From Monitor] Respiratory 22 16 16 Rate Blood Pressure 116/74 91/52 87/56 O2 Sat by Pulse 100 100 Oximetry 12/13/16 12/13/16 12/13/16 03:16 03:30 03:46 Temperature Pulse Rate 96 H 90 85 Pulse Rate [ From Monitor] Respiratory 13 15 16 Rate Blood Pressure 87/56 113/70 113/70 O2 Sat by Pulse 100 100 100 Oximetry 12/13/16 12/13/16 12/13/16 04:00 04:16 04:30 Temperature 99.6 F Pulse Rate 83 79 76 Pulse Rate [ 92 H From Monitor] Respiratory 16 16 16 Rate Blood Pressure 105/70 105/70 95/63 O2 Sat by Pulse 100 100 100 Oximetry 12/13/16 12/13/16 12/13/16 04:46 05:00 05:16 Temperature Pulse Rate 78 75 78 Pulse Rate [ From Monitor] Respiratory 16 16 16 Rate Blood Pressure 95/63 89/56 89/56 O2 Sat by Pulse 100 100 100 Oximetry 12/13/16 12/13/16 12/13/16 05:30 05:46 05:57 Temperature Pulse Rate 76 71 97 H Pulse Rate [ From Monitor] Respiratory 16 16 16 Rate Blood Pressure 80/54 80/54 138/79 O2 Sat by Pulse 100 100 100 Oximetry 12/13/16 12/13/16 12/13/16 06:00 06:16 06:30 Temperature Pulse Rate 91 H 92 H 90 Pulse Rate [ From Monitor] Respiratory 13 14 16 Rate Blood Pressure 137/79 137/79 120/74 O2 Sat by Pulse 98 100 100 Oximetry 12/13/16 12/13/16 12/13/16 06:46 07:00 07:16 Temperature Pulse Rate 88 82 76 Pulse Rate [ From Monitor] Respiratory 16 16 16 Rate Blood Pressure 120/74 99/62 99/62 O2 Sat by Pulse 100 100 100 Oximetry 12/13/16 12/13/16 12/13/16 07:30 07:46 07:54 Temperature Pulse Rate 78 81 76 Pulse Rate [ From Monitor] Respiratory 16 16 16 Rate Blood Pressure 86/55 86/55 86/55 O2 Sat by Pulse 100 100 100 Oximetry 12/13/16 12/13/16 12/13/16 08:00 08:16 08:30 Temperature 97.9 F Pulse Rate 75 75 70 Pulse Rate [ From Monitor] Respiratory 16 16 16 Rate Blood Pressure 85/51 85/51 86/50 O2 Sat by Pulse 100 100 100 Oximetry 12/13/16 12/13/16 12/13/16 08:46 09:00 09:16 Temperature Pulse Rate 69 72 71 Pulse Rate [ From Monitor] Respiratory 16 16 16 Rate Blood Pressure 86/50 92/60 92/60 O2 Sat by Pulse 100 100 100 Oximetry 12/13/16 12/13/16 12/13/16 09:30 09:46 09:59 Temperature Pulse Rate 73 73 84 Pulse Rate [ From Monitor] Respiratory 16 16 Rate Blood Pressure 98/68 98/68 98/68 O2 Sat by Pulse 100 100 100 Oximetry 12/13/16 10:00 Temperature Pulse Rate 81 Pulse Rate [ From Monitor] Respiratory 9 L Rate Blood Pressure 115/70 O2 Sat by Pulse 100 Oximetry General appearance: Present: no acute distress, other (OGT in place, with bile in it. Pt intubated.) - EENT Eyes: PERRL, EOM intact ENT: hearing intact - Gastrointestinal General gastrointestinal: Present: soft, non-tender, normal bowel sounds - Labs CBC & Chem 7: 12/12/16 17:34 12/12/16 08:01 Labs: Abnormal lab results 12/12/16 12/12/16 12/12/16 Range/Units 08:01 12:11 16:26 Hgb 10.7 L (11.8-15.2) gm/dl Hct 32.5 L (35.5-45.6) % Seg Neuts % (Manual) 75.0 H (40.0-70.0) % POC ABG pH 7.459 H (7.35-7.45) 12/12/16 Range/Units 17:34 Hgb 11.0 L (11.8-15.2) gm/dl Hct 33.1 L (35.5-45.6) % Seg Neuts % (Manual) (40.0-70.0) % POC ABG pH (7.35-7.45)
--- NOTE | 2016-12-13 11:21 | Consultation ---
History of Present Illness - Reason for Consult Consult date: 12/13/16 seizure - History of Present Illness I reviewed the entire ED note as to the baseline meds the patient was on prior to admission...interesting he was on trileptal suspect this was given as mood stabilizer he was on luvox and high dose Zyprexa... I will check EEG and did review the CT which is normal for age plan EEG neuro stable at present Past History Past Medical History: hyperlipidemia, other (MR, tachycardia, autism) Past Surgical History: Other (cataract surgery) Social history: other (unknown) Family history: other (unknown) Medications and Allergies Allergies Allergy/AdvReac Type Severity Reaction Status Date / Time No Known Allergies Allergy Verified 11/25/15 20:15 Home Medications Medication Instructions Recorded Confirmed Last Taken Type Calcium Polycarbophil [Fiber 625 mg PO BID 07/30/14 12/11/16 Unknown History Laxative] Multivitamin with Minerals [Hair, 1 each PO DAILY 07/30/14 12/11/16 12/11/16 History Skin & Nails] Polyethylene Glycol 3350 [Miralax 17 gm PO DAILY 07/30/14 12/11/16 Unknown History 3350] Pravastatin (Nf) [Pravachol] 40 mg PO QHS 07/30/14 12/11/16 12/10/16 History fluvoxaMINE (NF) [Luvox (Nf) Tab] 100 mg PO BID 07/30/14 12/11/16 12/11/16 History Triamterene/Hydrochlorothiazid 1 each PO DAILY 07/31/14 12/11/16 12/11/16 History [Triamterene-Hctz 50-25 mg Cap] Naproxen [Naprosyn] 500 mg PO BID 12/11/16 12/11/16 12/11/16 History OXcarbazepine [Trileptal] 300 mg PO BID 12/11/16 12/11/16 12/11/16 History Olanzapine [ZyPREXA] 15 mg PO BID 12/11/16 12/11/16 12/11/16 History Protem-3 Fatty Acids/Fish Oil [Fish 1 each PO BID 12/11/16 12/11/16 12/11/16 History Oil] Trazodone HCl [Oleptro ER] 150 mg PO QHS 12/11/16 12/11/16 12/10/16 History Active Meds: Active Medications Albuterol (Proventil) 2.5 mg IH Q3HRT PRN PRN Reason: Shortness Of Breath Lipase/Protease/Amylase (Jorge Unger 10,500 Unit) 1 each FEEDTUBE PRN PRN PRN Reason: For Clogged Feeding Tube Hydrophilic Ointment (Vaseline Lip Therapy) 1 applic TP Q2HR PRN PRN Reason: Dry Lips Propofol (Diprivan 10 Mg/Ml) 1,000 mg in 100 mls @ 2.667 mls/hr IV TITR LIBBY; 5 MCG/KG/MIN PRN Reason: Protocol Last Titration: 12/13/16 08:59 Dose: 8 mcg/kg/min, 4.267 mls/hr Sodium Chloride (Nacl 0.9% 1000 Ml) 1,000 mls @ 100 mls/hr IV DIRECT LIBBY Last Admin: 12/13/16 06:11 Dose: 100 mls/hr Piperacillin Sod/Tazobactam Sod (Zosyn/Ns 4.5gm/100ml) 4.5 gm in 100 mls @ 200 mls/hr IV Q8H LIBBY PRN Reason: Protocol Last Admin: 12/13/16 07:11 Dose: 200 mls/hr Levetiracetam 750 mg/ Dextrose 107.5 mls @ 400 mls/hr IV Q12HR LIBBY Last Admin: 12/13/16 09:53 Dose: 400 mls/hr Lorazepam (Ativan) 1 mg IV Q4H PRN PRN Reason: Agitation Multi-Ingred Cream/Lotion/Oil/Oint (Artificial Tears Ophth Oint) 1 applic OU Q4HR PRN PRN Reason: Dry Eye(s) Pantoprazole Sodium (Protonix) 40 mg IV BID LIBBY Simple Syrup (Simple Syrup) 15 ml FEEDTUBE PRN PRN PRN Reason: Hypoglycemia Simple Syrup (Simple Syrup) 30 ml FEEDTUBE PRN PRN PRN Reason: Hypoglycemia Sodium Bicarbonate (Sodium Bicarbonate) 325 mg FEEDTUBE PRN PRN PRN Reason: For Clogged Feeding Tube Sodium Chloride (Nacl 0.9% 500 Ml) 1 ml IV DIRECT LIBBY Exam - Constitutional Vitals: Temp Pulse Resp BP Pulse Ox 97.9 F 92 H 15 122/79 100 12/13/16 08:00 12/13/16 11:11 12/13/16 11:00 12/13/16 11:11 12/13/16 11:11 Results - Labs CBC & Chem 7: 12/12/16 17:34 12/12/16 08:01 Labs: Abnormal lab results 12/12/16 12/12/16 12/12/16 Range/Units 08:01 12:11 16:26 Hgb 10.7 L (11.8-15.2) gm/dl Hct 32.5 L (35.5-45.6) % Seg Neuts % (Manual) 75.0 H (40.0-70.0) % POC ABG pH 7.459 H (7.35-7.45) 12/12/16 Range/Units 17:34 Hgb 11.0 L (11.8-15.2) gm/dl Hct 33.1 L (35.5-45.6) % Seg Neuts % (Manual) (40.0-70.0) % POC ABG pH (7.35-7.45)
--- NOTE | 2016-12-13 12:48 | Progress Note ---
Assessment and Plan Assessment and plan: This is a 56-year-old male with past medical history of mental retardation. Family not currently available. "2 episodes of head falling forward and then back with a fixed stare, caregiver states this is abnormal for him, no seizure activity noted, unsteady gait this morning that required assistance, not normal for patient. Acting very tired, also patient just lost a caregiver that has been working with him for 12 years to a heart attack. Patient appears in his normal state in triage as per caregiver." Given that patient presented with a complaint of altered mental status, a noncontrast CT scan of the brain and cervical spine were ordered. While going to CT scan initially, the patient was called as a CODE BLUE for episode of possible seizure-like activity, which I did not personally witness, and decreased responsiveness. He did not lose a pulse. He was also quite agitated while on a CAT scan are as per verbal report from staff. Given history of mental retardation, developmental delay, patient was not able to understand verbal de-escalation techniques. He required Haldol and Ativan to allow him to participate in his medical care. Patient then returned to CT scan, and had an episode of massive hematemesis. He was brought back to the ER again. In the ER, the patient was sleepy, and was intubated for airway protection given episodes of unresponsiveness, massive hematemesis. Laboratory studies indicated elevated blood urea nitrogen, and probable hypovolemic hyponatremia. He started empirically on IV fluids, and Protonix drip. Acute hypoxic respiratory failure Continue vent, pulmonary input appreciated, Failed weaning trial Plan for possible trach Upper GI bleed Due to Lulu-Santiago tear 1.6cm, has Fundal clots which were adherent, status post EGD by GI yesterday. Hemoglobin stable IV Protonix GI consult appreciated Start tube feeds, Acute blood loss anemia has been transfused, hg stable Sepsis Ruled out ruled out, LA is likely due to GIB/seizure, no sign of infection PNA ruled out by negative CXR, UA negative Hyponatremia mild, continue IVF, improving Moderate malnutrition Dietitian consult appreciated, continue tube feeds ? Seizure unclear if he had seizure, or was just agitated and unable to communicate due to MR obtain EEG and neurology consult appreciated, continue IV keppra DVT prophylaxis Current Visit: Yes Status: Acute Plan to address problem: SCD's only The high probability of a clinically significant, sudden or life threatening deterioration of the [neurologic, pulmonary and cardiovascular] system(s) required my full and direct attention, intervention and personal management. The aggregate critical care time was [33] minutes. This time is in addition to time spent performing reported procedures but includes the following: [] Data Review and interpretation [] Patient assessment and monitoring of vital signs [] Documentation [] Medication orders and management History Interval history: Patient's is calm his intubated, but obeys some simple commands. Hospitalist Physical - Physical exam Narrative exam: General: Patient appears well in no distress HEENT: MMM, EOMI cardiac: S1-S2 heard lungs: clear to auscultation, abdomen: soft, nontender, nondistended bowel sounds positive extremities: no edema clubbing or cyanosis Skin: no rash or lesion Neuro: Moves all extremities, turns to voice. Cooperative, intubated if on nonverbal - Constitutional Vitals: Temp Pulse Resp BP Pulse Ox 97.9 F 92 H 15 122/79 100 12/13/16 08:00 12/13/16 11:11 12/13/16 11:00 12/13/16 11:11 12/13/16 11:11 General appearance: Present: no acute distress, other (OGT in place, with bile in it. Pt intubated.) Results - Labs CBC & Chem 7: 12/12/16 17:34 12/12/16 08:01 Labs: Laboratory Last Values WBC 9.1 K/mm3 (4.5-11.0) 12/12/16 08:01 RBC 4.02 M/mm3 (3.65-5.03) 12/12/16 08:01 Hgb 11.0 gm/dl (11.8-15.2) L 12/12/16 17:34 Hct 33.1 % (35.5-45.6) L 12/12/16 17:34 MCV 86 fl (84-94) 12/12/16 08:01 MCH 29 pg (28-32) 12/12/16 08:01 MCHC 33 % (32-34) 12/12/16 08:01 RDW 14.2 % (13.2-15.2) 12/12/16 08:01 Plt Count 152 K/mm3 (140-440) 12/12/16 08:01 Lymph % (Auto) Audiov[employer]ual Tech 08/12/17 08:01 Meigs % (Auto) Audiovisual Tech 12/12/16 08:01 Eos % (Auto) Audiovisual Tech 12/12/16 08:01 Baso % (Auto) Audiovisual Tech 12/12/16 08:01 Lymph # Audiovisual Tech 12/12/16 08:01 Meigs # Audiovisual Tech 12/12/16 08:01 Eos # Audiovisual Tech 12/12/16 08:01 Baso # Audiovisual Tech 12/12/16 08:01 Add Manual Diff Complete 12/12/16 08:01 Total Counted 100 12/12/16 08:01 Seg Neutrophils % Audiovisual Tech 12/12/16 08:01 Seg Neuts % (Manual) 75.0 % (40.0-70.0) H 12/12/16 08:01 Band Neutrophils % 0 % 12/12/16 08:01 Lymphocytes % (Manual) 18.0 % (13.4-35.0) 12/12/16 08:01 Reactive Lymphs % (Man) 0 % 12/12/16 08:01 Monocytes % (Manual) 7.0 % (0.0-7.3) 12/12/16 08:01 Eosinophils % (Manual) 0 % (0.0-4.3) 12/12/16 08:01 Basophils % (Manual) 0 % (0.0-1.8) 12/12/16 08:01 Metamyelocytes % 0 % 12/12/16 08:01 Myelocytes % 0 % 12/12/16 08:01 Promyelocytes % 0 % 12/12/16 08:01 Blast Cells % 0 % 12/12/16 08:01 Nucleated RBC % Not Reportable 12/12/16 08:01 Seg Neutrophils # Audiovisual Tech 12/12/16 08:01 Seg Neutrophils # Man 6.8 K/mm3 (1.8-7.7) 12/12/16 08:01 Band Neutrophils # 0.0 K/mm3 12/12/16 08:01 Lymphocytes # (Manual) 1.6 K/mm3 (1.2-5.4) 12/12/16 08:01 Abs React Lymphs (Man) 0.0 K/mm3 12/12/16 08:01 Monocytes # (Manual) 0.6 K/mm3 (0.0-0.8) 12/12/16 08:01 Eosinophils # (Manual) 0.0 K/mm3 (0.0-0.4) 12/12/16 08:01 Basophils # (Manual) 0.0 K/mm3 (0.0-0.1) 12/12/16 08:01 Metamyelocytes # 0.0 K/mm3 12/12/16 08:01 Myelocytes # 0.0 K/mm3 12/12/16 08:01 Promyelocytes # 0.0 K/mm3 12/12/16 08:01 Blast Cells # 0.0 K/mm3 12/12/16 08:01 WBC Morphology Not Reportable 12/12/16 08:01 Hypersegmented Neuts Not Reportable 12/12/16 08:01 Hyposegmented Neuts Not Reportable 12/12/16 08:01 Hypogranular Neuts Not Reportable 12/12/16 08:01 Smudge Cells Not Reportable 12/12/16 08:01 Toxic Granulation Not Reportable 12/12/16 08:01 Toxic Vacuolation Not Reportable 12/12/16 08:01 Dohle Bodies Not Reportable 12/12/16 08:01 Pelger-Huet Anomaly Not Reportable 12/12/16 08:01 Kalani Rods Not Reportable 12/12/16 08:01 Platelet Estimate Consistent w auto 12/12/16 08:01 Clumped Platelets Not Reportable 12/12/16 08:01 Plt Clumps, EDTA Not Reportable 12/12/16 08:01 Large Platelets Not Reportable 12/12/16 08:01 Giant Platelets Not Reportable 12/12/16 08:01 Platelet Satelliting Not Reportable 12/12/16 08:01 Plt Morphology Comment Not Reportable 12/12/16 08:01 RBC Morphology Not Reportable 12/12/16 08:01 Dimorphic RBCs Not Reportable 12/12/16 08:01 Polychromasia Not Reportable 12/12/16 08:01 Hypochromasia Not Reportable 12/12/16 08:01 Poikilocytosis Not Reportable 12/12/16 08:01 Anisocytosis 1+ 12/12/16 08:01 Microcytosis Not Reportable 12/12/16 08:01 Macrocytosis Not Reportable 12/12/16 08:01 Spherocytes Not Reportable 12/12/16 08:01 Pappenheimer Bodies Not Reportable 12/12/16 08:01 Sickle Cells Not Reportable 12/12/16 08:01 Target Cells Not Reportable 12/12/16 08:01 Tear Drop Cells Not Reportable 12/12/16 08:01 Ovalocytes Not Reportable 12/12/16 08:01 Helmet Cells Not Reportable 12/12/16 08:01 [place] Bodies Not Reportable 12/12/16 08:01 [place] Rings Not Reportable 12/12/16 08:01 [place] Cells Not Reportable 12/12/16 08:01 Bite Cells Not Reportable 12/12/16 08:01 Crenated Cell Not Reportable 12/12/16 08:01 Elliptocytes Not Reportable 12/12/16 08:01 Acanthocytes (Spur) Not Reportable 12/12/16 08:01 Rouleaux Not Reportable 12/12/16 08:01 Hemoglobin C Crystals Not Reportable 12/12/16 08:01 Schistocytes Not Reportable 12/12/16 08:01 Malaria parasites Not Reportable 12/12/16 08:01 Eric Bodies Not Reportable 12/12/16 08:01 Hem Pathologist Commnt No 12/12/16 08:01 PT 14.4 Sec. (12.2-14.9) 12/11/16 11:29 INR 1.13 (0.87-1.13) 12/11/16 11:29 APTT 26.9 Sec. (24.2-36.6) 12/11/16 11:29 POC ABG pH 7.459 (7.35-7.45) H 12/12/16 16:26 POC ABG pCO2 41.2 (35-45) 12/12/16 16:26 POC ABG pO2 101 (80-105) 12/12/16 16:26 POC ABG HCO3 29.3 12/12/16 16:26 POC ABG Total CO2 31 12/12/16 16:26 POC ABG O2 Sat 98 12/12/16 16:26 POC ABG Base Excess 5 12/12/16 16:26 FiO2 30 % 12/12/16 16:26 Sodium 134 mmol/L (137-145) L D 12/12/16 08:01 Potassium 4.5 mmol/L (3.6-5.0) 12/12/16 08:01 Chloride 100.2 mmol/L (98-107) 12/12/16 08:01 Carbon Dioxide 23 mmol/L (22-30) 12/12/16 08:01 Anion Gap 15 mmol/L 12/12/16 08:01 BUN 23 mg/dL (9-20) H 12/12/16 08:01 Creatinine 1.1 mg/dL (0.8-1.5) 12/12/16 08:01 Estimated GFR > 60 ml/min 12/12/16 08:01 BUN/Creatinine Ratio 20.90 % 12/12/16 08:01 Glucose 100 mg/dL (75-100) 12/12/16 08:01 Lactic Acid 1.40 mmol/L (0.7-2.0) 12/12/16 08:18 Calcium 7.7 mg/dL (8.4-10.2) L D 12/12/16 08:01 Phosphorus 2.70 mg/dL (2.5-4.5) 12/11/16 11:29 Magnesium 2.00 mg/dL (1.7-2.3) 12/11/16 11:29 Total Bilirubin 0.30 mg/dL (0.1-1.2) 12/12/16 08:01 AST 22 units/L (5-40) 12/12/16 08:01 ALT 11 units/L (7-56) 12/12/16 08:01 Alkaline Phosphatase 49 units/L (35-129) 12/12/16 08:01 Ammonia 21.0 umol/L (25-60) L 12/11/16 11:29 Total Creatine Kinase 319 units/L (55-170) H 12/11/16 11:29 Troponin T < 0.010 ng/mL (0.00-0.029) 12/11/16 11:29 Total Protein 5.8 g/dL (6.3-8.2) L 12/12/16 08:01 Albumin 3.0 g/dL (3.9-5) L 12/12/16 08:01 Albumin/Globulin Ratio 1.1 % 12/12/16 08:01 TSH 1.600 mlU/mL (0.270-4.200) 12/11/16 11:29 Urine Color Yellow (Yellow) 12/11/16 Unknown Urine Turbidity Clear (Clear) 12/11/16 Unknown Urine pH 5.0 (5.0-7.0) 12/11/16 Unknown Ur Specific [place] 1.023 (1.003-1.030) 12/11/16 Unknown Urine Protein <15 mg/dl mg/dL (Negative) 12/11/16 Unknown Urine Glucose (UA) Neg mg/dL (Negative) 12/11/16 Unknown Urine Ketones Neg mg/dL (Negative) 12/11/16 Unknown Urine Blood Neg (Negative) 12/11/16 Unknown Urine Nitrite Neg (Negative) 12/11/16 Unknown Urine Bilirubin Neg (Negative) 12/11/16 Unknown Urine Urobilinogen < 2.0 mg/dL (<2.0) 12/11/16 Unknown Ur Leukocyte Esterase Neg (Negative) 12/11/16 Unknown Urine WBC (Auto) 1.0 /HPF (0.0-6.0) 12/11/16 Unknown Urine RBC (Auto) 1.0 /HPF (0.0-6.0) 12/11/16 Unknown Urine Mucus Few /HPF 12/11/16 Unknown Salicylates < 0.3 mg/dL (2.8-20.0) L 12/11/16 11:29 Urine Opiates Screen Presumptive negative 12/11/16 Unknown Urine Methadone Screen Presumptive negative 12/11/16 Unknown Acetaminophen < 15.0 ug/mL (10.0-30.0) 12/11/16 11:29 Ur Barbiturates Screen Presumptive negative 12/11/16 Unknown Ur Phencyclidine Scrn Presumptive negative 12/11/16 Unknown Ur Amphetamines Screen Presumptive negative 12/11/16 Unknown U Benzodiazepines Scrn Presumptive negative 12/11/16 Unknown Urine Cocaine Screen Presumptive negative 12/11/16 Unknown U Marijuana (THC) Screen Presumptive negative 12/11/16 Unknown Drugs of Abuse Note Disclamer 12/11/16 Unknown Plasma/Serum Alcohol < 0.01 gm% (0-0.07) 12/11/16 11:29 Blood Type O POSITIVE 12/11/16 15:15 Antibody Screen Negative 12/11/16 15:15 Crossmatch See Detail 12/11/16 15:15
--- NOTE | 2016-12-13 13:50 | Progress Note ---
Assessment and Plan (1) Acute blood loss anemia Current Visit: Yes Status: Acute Plan to address problem: - s/p blood transfusion - will hold PRBC unit ordered now as serial H&H demonstrating stability - continue PPI therapy - follow clinically - follow GI recs (2) Acute respiratory failure Current Visit: Yes Status: Acute Qualifiers: Respiratory failure complication: hypoxia Qualified Code(s): J96.01 - Acute respiratory failure with hypoxia Plan to address problem: - continue bronchodilators and pulmonary toilet - continue aspiration precautions / address VAP bundle daily - continue to wean oxygen for O2 Sats >/= 94% - will resume PSV weaning trials in am - may need LTAC if still failing weaning (3) Altered mental status Current Visit: Yes Status: Acute Qualifiers: Altered mental status type: A Coma depth: C Coma timing: C Plan to address problem: - per history he has baseline cogniticve dysfunction but is still not back to baseline - CT brain negative - following clinically (4) Upper GI bleed Current Visit: Yes Status: Acute Plan to address problem: - s/p EGD - continue PPI therapy - resume diet once cleared by GI team (5) Discharge planning issues Current Visit: Yes Status: Acute Plan to address problem: - hopefully home at discharge ...for now he is critically ill on life sustaining interventions including MVS and at risk for further deterioration including ...30' CCT Subjective Date of service: 12/13/16 Principal diagnosis: Acute Respiratory Failure; Acute GI Bleeding Interval history: Seen and examined at bedside; 24 hour events reviewed; nursing and respiratory care staff consulted; no adverse overnight events reported to me; resting peacefully in bed; failed SBT however and placed back on full AC support; overall more alert; no repeat bleeding; no emesis or overt aspiration; H&H holding Objective Vital Signs - 12hr 12/13/16 12/13/16 12/13/16 02:00 02:03 02:16 Temperature Pulse Rate 79 77 86 Pulse Rate [ From Monitor] Respiratory 16 16 14 Rate Blood Pressure 91/52 91/52 96/61 O2 Sat by Pulse 100 100 100 Oximetry 12/13/16 12/13/16 12/13/16 02:30 02:46 03:00 Temperature Pulse Rate 83 77 81 Pulse Rate [ From Monitor] Respiratory 22 16 16 Rate Blood Pressure 116/74 91/52 87/56 O2 Sat by Pulse 100 100 Oximetry 12/13/16 12/13/16 12/13/16 03:16 03:30 03:46 Temperature Pulse Rate 96 H 90 85 Pulse Rate [ From Monitor] Respiratory 15 16 Rate Blood Pressure 87/56 113/70 113/70 O2 Sat by Pulse 100 100 100 Oximetry 12/13/16 12/13/16 12/13/16 04:00 04:16 04:30 Temperature 99.6 F Pulse Rate 83 79 76 Pulse Rate [ 92 H From Monitor] Respiratory 16 16 16 Rate Blood Pressure 105/70 105/70 95/63 O2 Sat by Pulse 100 100 100 Oximetry 12/13/16 12/13/16 12/13/16 04:46 05:00 05:16 Temperature Pulse Rate 78 75 78 Pulse Rate [ From Monitor] Respiratory 16 16 16 Rate Blood Pressure 95/63 89/56 89/56 O2 Sat by Pulse 100 100 100 Oximetry 12/13/16 12/13/16 12/13/16 05:30 05:46 05:57 Temperature Pulse Rate 76 71 97 H Pulse Rate [ From Monitor] Respiratory 16 16 16 Rate Blood Pressure 80/54 80/54 138/79 O2 Sat by Pulse 100 100 100 Oximetry 12/13/16 12/13/16 12/13/16 06:00 06:16 06:30 Temperature Pulse Rate 91 H 92 H 90 Pulse Rate [ From Monitor] Respiratory 13 14 16 Rate Blood Pressure 137/79 137/79 120/74 O2 Sat by Pulse 98 100 100 Oximetry 12/13/16 12/13/16 12/13/16 06:46 07:00 07:16 Temperature Pulse Rate 88 82 76 Pulse Rate [ From Monitor] Respiratory 16 16 16 Rate Blood Pressure 120/74 99/62 99/62 O2 Sat by Pulse 100 100 100 Oximetry 12/13/16 12/13/16 12/13/16 07:30 07:46 07:54 Temperature Pulse Rate 78 81 76 Pulse Rate [ From Monitor] Respiratory 16 16 16 Rate Blood Pressure 86/55 86/55 86/55 O2 Sat by Pulse 100 100 100 Oximetry 12/13/16 12/13/16 12/13/16 08:00 08:16 08:30 Temperature 97.9 F Pulse Rate 75 75 70 Pulse Rate [ From Monitor] Respiratory 16 16 16 Rate Blood Pressure 85/51 85/51 86/50 O2 Sat by Pulse 100 100 100 Oximetry 12/13/16 12/13/16 12/13/16 08:46 09:00 09:16 Temperature Pulse Rate 69 72 71 Pulse Rate [ From Monitor] Respiratory 16 16 16 Rate Blood Pressure 86/50 92/60 92/60 O2 Sat by Pulse 100 100 100 Oximetry 12/13/16 12/13/16 12/13/16 09:30 09:46 09:59 Temperature Pulse Rate 73 73 84 Pulse Rate [ From Monitor] Respiratory 16 16 Rate Blood Pressure 98/68 98/68 98/68 O2 Sat by Pulse 100 100 100 Oximetry 12/13/16 12/13/16 12/13/16 10:00 10:16 10:30 Temperature Pulse Rate 81 95 H 92 H Pulse Rate [ From Monitor] Respiratory 9 L 13 13 Rate Blood Pressure 115/70 115/70 135/76 O2 Sat by Pulse 100 100 100 Oximetry 12/13/16 12/13/16 12/13/16 10:46 11:00 11:11 Temperature Pulse Rate 92 H 92 H 92 H Pulse Rate [ From Monitor] Respiratory 10 L 15 Rate Blood Pressure 135/76 122/79 122/79 O2 Sat by Pulse 100 100 100 Oximetry 12/13/16 12/13/16 12:00 13:46 Temperature 98.1 F Pulse Rate 91 H Pulse Rate [ From Monitor] Respiratory 15 Rate Blood Pressure 123/81 O2 Sat by Pulse 100 Oximetry Constitutional: no acute distress, other (somnolent) Eyes: non-icteric ENT: oropharynx moist Neck: supple, no lymphadenopathy Effort: mildly labored Ascultation: Bilateral: diminished breath sounds, rales (scant in bases) Cardiovascular: regular rate and rhythm Gastrointestinal: hypoactive bowel sounds, soft, non-tender, non-distended Integumentary: normal Extremities: no cyanosis, no edema, pulses normal, no ischemia or petechiae Neurologic: other (more responsive but with baseline cognitive dysfunction) Psychiatric: other (unable to assess) CBC and BMP: 12/12/16 17:34 12/12/16 08:01 ABG, PT/INR, D-dimer: ABG POC ABG pH 7.459 (7.35-7.45) H 12/12/16 16:26 POC ABG pCO2 41.2 (35-45) 12/12/16 16:26 POC ABG pO2 101 (80-105) 12/12/16 16:26 POC ABG HCO3 29.3 12/12/16 16:26 POC ABG Total CO2 31 12/12/16 16:26 POC ABG O2 Sat 98 12/12/16 16:26 PT/INR, D-dimer PT 14.4 Sec. (12.2-14.9) 12/11/16 11:29 INR 1.13 (0.87-1.13) 12/11/16 11:29 Abnormal lab findings: Abnormal Labs 12/11/16 12/12/16 12/12/16 Unknown 05:32 08:01 RBC 2.90 L Hgb 7.9 L 11.5 L D Hct 23.9 L 34.4 L D MCV 82 L MCH 27 L [place] % (Auto) 11.7 H Seg Neuts % (Manual) 75.0 H POC ABG pH 7.453 H POC ABG pO2 135 H Sodium BUN Calcium Total Protein Albumin 12/12/16 12/12/16 12/12/16 08:01 12:11 16:26 RBC Hgb 10.7 L Hct 32.5 L MCV MCH [place] % (Auto) Seg Neuts % (Manual) POC ABG pH 7.459 H POC ABG pO2 Sodium 134 L D BUN 23 H Calcium 7.7 L D Total Protein 5.8 L Albumin 3.0 L 12/12/16 17:34 RBC Hgb 11.0 L Hct 33.1 L MCV MCH [place] % (Auto) Seg Neuts % (Manual) POC ABG pH POC ABG pO2 Sodium BUN Calcium Total Protein Albumin Chest x-ray: image reviewed
[2016-12-13] MEDS ORDERED: PROTONIX IV SCH (22:00)
[2016-12-14] MEDS: ZOSYN/NS 4.5GM/100ML 4.5 GM/100 ML VIAL IV SCH ×3 (00:15→16:06)
--- NOTE | 2016-12-14 02:45 | Consultation ---
HISTORY OF PRESENT ILLNESS: This is a 56-year-old black male that presented to the Emergency Room at the [facility] brought by family members arrived by wheelchair transport on 12/11/2016. The patient was evaluated because he had documented 2 episodes of his head falling backwards, developing a fixed stare, caregiver said this is abnormal for him. No exact seizure activity was present. He initially had a CT scan of the head, which is felt to be unremarkable. He is on a number of medications on time of admission including Trileptal, trazodone, Luvox, polyethylene glycol, MiraLax, multivitamins, and Zyprexa 50 mg p.o. b.i.d. The patient was initially assessed, had a normal EKG was noted to have hematemesis and altered mental status. From what we understand, he was on home care, was limited responsivity, he is on number of psych meds, was thought to potentially have had mental impairments in the past and has been on antidepressants, antipsychotics, mood stabilizers including Trileptal and the Zyprexa. PHYSICAL EXAMINATION: At this point shows he is intubated. He moves all extremities well. He has a supple neck. He looks about equally. Motor tone is normal. Babinski signs are not present. No tremors. No asterixis. No focal seizure activities are present or alterations of motor tone are noted. The patient has symmetrical gaze. IMPRESSION: 1. History of hematemesis, please see GI note. 2. Respiratory compromised, possible aspiration. 3. 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 Given the pattern of the medications, the patient was taking and being very knowledgeable about these medications. It is pretty obvious that he was on a very high dose of Zyprexa 50 mg b.i.d. is a max dose and he clearly likely has some type of psychotic episodes in the past. He was on anti-seizure medicine Trileptal, which is a broad range and a seizure medicine and this should be obviously continued once his GI tract is stable. I will plan on check an EEG. I do not think the patient based on description had a seizure. We would recommend once his actually getting an MRI. I will follow the patient with you. JOB# [id number] ÁNGEL/NTS
[2016-12-14 09:46] LABS: ISTAT Base Excess 1; ISTAT DEVICE 0; ISTAT PCO2 40.5 (35-45); ISTAT PH 7.415 (7.35-7.45); ISTAT PO2 68 (80-105); ISTAT SO2 93; ISTAT TCO2 27
[2016-12-14] MEDS: PROTONIX FEEDTUBE SCH ×2 (10:15→21:54)
[2016-12-14] MEDS: KEPPRA 750 MG in D5W 100 ML IV SCH (10:29)
--- NOTE | 2016-12-14 10:54 | Progress Note ---
Assessment and Plan Assessment and plan: This is a 56-year-old male with past medical history of mental retardation. Family not currently available. "2 episodes of head falling forward and then back with a fixed stare, caregiver states this is abnormal for him, no seizure activity noted, unsteady gait this morning that required assistance, not normal for patient. Acting very tired, also patient just lost a caregiver that has been working with him for 12 years to a heart attack. Patient appears in his normal state in triage as per caregiver." Given that patient presented with a complaint of altered mental status, a noncontrast CT scan of the brain and cervical spine were ordered. While going to CT scan initially, the patient was called as a CODE BLUE for episode of possible seizure-like activity, which I did not personally witness, and decreased responsiveness. He did not lose a pulse. He was also quite agitated while on a CAT scan are as per verbal report from staff. Given history of mental retardation, developmental delay, patient was not able to understand verbal de-escalation techniques. He required Haldol and Ativan to allow him to participate in his medical care. Patient then returned to CT scan, and had an episode of massive hematemesis. He was brought back to the ER again. In the ER, the patient was sleepy, and was intubated for airway protection given episodes of unresponsiveness, massive hematemesis. Laboratory studies indicated elevated blood urea nitrogen, and probable hypovolemic hyponatremia. He started empirically on IV fluids, and Protonix drip. Acute hypoxic respiratory failure Continue vent, pulmonary input appreciated, Failed weaning trial Plan for possible trach, LTAC placement Upper GI bleed Due to Lulu-Santiago tear 1.6cm, has Fundal clots which were adherent, status post EGD by GI yesterday. Hemoglobin stable IV Protonix GI consult appreciated continue tube feeds, Acute blood loss anemia has been transfused, hg stable Sepsis Ruled out ruled out, LA is likely due to GIB/seizure, no sign of infection PNA ruled out by negative CXR, UA negative Hyponatremia mild, continue IVF, improving Moderate malnutrition Dietitian consult appreciated, continue tube feeds metabolic encephalopathy Mentation improving ? Seizure unclear if he had seizure, or was just agitated and unable to communicate due to MR fup EEG and neurology consult appreciated, continue IV keppra Mental Retardation non verbal at baseline and has trouble following commands DVT prophylaxis Current Visit: Yes Status: Acute Plan to address problem: SCD's only The high probability of a clinically significant, sudden or life threatening deterioration of the [neurologic, pulmonary and cardiovascular] system(s) required my full and direct attention, intervention and personal management. The aggregate critical care time was [33] minutes. This time is in addition to time spent performing reported procedures but includes the following: [] Data Review and interpretation [] Patient assessment and monitoring of vital signs [] Documentation [] Medication orders and management History Interval history: Patient's is calm and intubated, but obeys some simple commands. Hospitalist Physical - Physical exam Narrative exam: General: Patient appears well in no distress HEENT: MMM, EOMI cardiac: S1-S2 heard lungs: clear to auscultation, abdomen: soft, nontender, nondistended bowel sounds positive extremities: no edema clubbing or cyanosis Skin: no rash or lesion Neuro: Moves all extremities, turns to voice. does not obey commands, non verbal at baseline - Constitutional Vitals: Temp Pulse Resp BP Pulse Ox 98.9 F 80 15 114/55 99 12/14/16 04:00 12/14/16 06:15 12/14/16 06:15 12/14/16 06:15 12/14/16 07:51 General appearance: Present: no acute distress, other (OGT in place, with bile in it. Pt intubated.) Results - Labs CBC & Chem 7: 12/12/16 17:34 12/12/16 08:01 Labs: Laboratory Last Values WBC 9.1 K/mm3 (4.5-11.0) 12/12/16 08:01 RBC 4.02 M/mm3 (3.65-5.03) 12/12/16 08:01 Hgb 11.0 gm/dl (11.8-15.2) L 12/12/16 17:34 Hct 33.1 % (35.5-45.6) L 12/12/16 17:34 MCV 86 fl (84-94) 12/12/16 08:01 MCH 29 pg (28-32) 12/12/16 08:01 MCHC 33 % (32-34) 12/12/16 08:01 RDW 14.2 % (13.2-15.2) 12/12/16 08:01 Plt Count 152 K/mm3 (140-440) 12/12/16 08:01 Lymph % (Auto) Coding Clerk 12/12/16 08:01 Grimes % (Auto) Coding Clerk 12/12/16 08:01 Eos % (Auto) Coding Clerk 12/12/16 08:01 Baso % (Auto) Coding Clerk 12/12/16 08:01 Lymph # Coding Clerk 12/12/16 08:01 Grimes # Coding Clerk 12/12/16 08:01 Eos # Coding Clerk 12/12/16 08:01 Baso # Coding Clerk 12/12/16 08:01 Add Manual Diff Complete 12/12/16 08:01 Total Counted 100 12/12/16 08:01 Seg Neutrophils % Coding Clerk 12/12/16 08:01 Seg Neuts % (Manual) 75.0 % (40.0-70.0) H 12/12/16 08:01 Band Neutrophils % 0 % 12/12/16 08:01 Lymphocytes % (Manual) 18.0 % (13.4-35.0) 12/12/16 08:01 Reactive Lymphs % (Man) 0 % 12/12/16 08:01 Monocytes % (Manual) 7.0 % (0.0-7.3) 12/12/16 08:01 Eosinophils % (Manual) 0 % (0.0-4.3) 12/12/16 08:01 Basophils % (Manual) 0 % (0.0-1.8) 12/12/16 08:01 Metamyelocytes % 0 % 12/12/16 08:01 Myelocytes % 0 % 12/12/16 08:01 Promyelocytes % 0 % 12/12/16 08:01 Blast Cells % 0 % 12/12/16 08:01 Nucleated RBC % Not Reportable 12/12/16 08:01 Seg Neutrophils # Coding Clerk 12/12/16 08:01 Seg Neutrophils # Man 6.8 K/mm3 (1.8-7.7) 12/12/16 08:01 Band Neutrophils # 0.0 K/mm3 12/12/16 08:01 Lymphocytes # (Manual) 1.6 K/mm3 (1.2-5.4) 12/12/16 08:01 Abs React Lymphs (Man) 0.0 K/mm3 12/12/16 08:01 Monocytes # (Manual) 0.6 K/mm3 (0.0-0.8) 12/12/16 08:01 Eosinophils # (Manual) 0.0 K/mm3 (0.0-0.4) 12/12/16 08:01 Basophils # (Manual) 0.0 K/mm3 (0.0-0.1) 12/12/16 08:01 Metamyelocytes # 0.0 K/mm3 12/12/16 08:01 Myelocytes # 0.0 K/mm3 12/12/16 08:01 Promyelocytes # 0.0 K/mm3 12/12/16 08:01 Blast Cells # 0.0 K/mm3 12/12/16 08:01 WBC Morphology Not Reportable 12/12/16 08:01 Hypersegmented Neuts Not Reportable 12/12/16 08:01 Hyposegmented Neuts Not Reportable 12/12/16 08:01 Hypogranular Neuts Not Reportable 12/12/16 08:01 Smudge Cells Not Reportable 12/12/16 08:01 Toxic Granulation Not Reportable 12/12/16 08:01 Toxic Vacuolation Not Reportable 12/12/16 08:01 Dohle Bodies Not Reportable 12/12/16 08:01 Pelger-Huet Anomaly Not Reportable 12/12/16 08:01 Kalani Rods Not Reportable 12/12/16 08:01 Platelet Estimate Consistent w auto 12/12/16 08:01 Clumped Platelets Not Reportable 12/12/16 08:01 Plt Clumps, EDTA Not Reportable 12/12/16 08:01 Large Platelets Not Reportable 12/12/16 08:01 Giant Platelets Not Reportable 12/12/16 08:01 Platelet Satelliting Not Reportable 12/12/16 08:01 Plt Morphology Comment Not Reportable 12/12/16 08:01 RBC Morphology Not Reportable 12/12/16 08:01 Dimorphic RBCs Not Reportable 12/12/16 08:01 Polychromasia Not Reportable 12/12/16 08:01 Hypochromasia Not Reportable 12/12/16 08:01 Poikilocytosis Not Reportable 12/12/16 08:01 Anisocytosis 1+ 12/12/16 08:01 Microcytosis Not Reportable 12/12/16 08:01 Macrocytosis Not Reportable 12/12/16 08:01 Spherocytes Not Reportable 12/12/16 08:01 Pappenheimer Bodies Not Reportable 12/12/16 08:01 Sickle Cells Not Reportable 12/12/16 08:01 Target Cells Not Reportable 12/12/16 08:01 Tear Drop Cells Not Reportable 12/12/16 08:01 Ovalocytes Not Reportable 12/12/16 08:01 Helmet Cells Not Reportable 12/12/16 08:01 Stanley-Forsyth Bodies Not Reportable 12/12/16 08:01 [place] Rings Not Reportable 12/12/16 08:01 Prashant Cells Not Reportable 12/12/16 08:01 Bite Cells Not Reportable 12/12/16 08:01 Crenated Cell Not Reportable 12/12/16 08:01 Elliptocytes Not Reportable 12/12/16 08:01 Acanthocytes (Spur) Not Reportable 12/12/16 08:01 Rouleaux Not Reportable 12/12/16 08:01 Hemoglobin C Crystals Not Reportable 12/12/16 08:01 Schistocytes Not Reportable 12/12/16 08:01 Malaria parasites Not Reportable 12/12/16 08:01 Eric Bodies Not Reportable 12/12/16 08:01 Hem Pathologist Commnt No 12/12/16 08:01 PT 14.4 Sec. (12.2-14.9) 12/11/16 11:29 INR 1.13 (0.87-1.13) 12/11/16 11:29 APTT 26.9 Sec. (24.2-36.6) 12/11/16 11:29 POC ABG pH 7.415 (7.35-7.45) 12/14/16 07:51 POC ABG pCO2 40.5 (35-45) 12/14/16 07:51 POC ABG pO2 68 (80-105) L 12/14/16 07:51 POC ABG HCO3 26.0 12/14/16 07:51 POC ABG Total CO2 27 12/14/16 07:51 POC ABG O2 Sat 93 12/14/16 07:51 POC ABG Base Excess 1 12/14/16 07:51 FiO2 21 % 12/14/16 07:51 Sodium 134 mmol/L (137-145) L D 12/12/16 08:01 Potassium 4.5 mmol/L (3.6-5.0) 12/12/16 08:01 Chloride 100.2 mmol/L (98-107) 12/12/16 08:01 Carbon Dioxide 23 mmol/L (22-30) 12/12/16 08:01 Anion Gap 15 mmol/L 12/12/16 08:01 BUN 23 mg/dL (9-20) H 12/12/16 08:01 Creatinine 1.1 mg/dL (0.8-1.5) 12/12/16 08:01 Estimated GFR > 60 ml/min 12/12/16 08:01 BUN/Creatinine Ratio 20.90 % 12/12/16 08:01 Glucose 100 mg/dL (75-100) 12/12/16 08:01 POC Glucose 88 (70-105) 12/14/16 05:41 Lactic Acid 1.40 mmol/L (0.7-2.0) 12/12/16 08:18 Calcium 7.7 mg/dL (8.4-10.2) L D 12/12/16 08:01 Phosphorus 2.70 mg/dL (2.5-4.5) 12/11/16 11:29 Magnesium 2.00 mg/dL (1.7-2.3) 12/11/16 11:29 Total Bilirubin 0.30 mg/dL (0.1-1.2) 12/12/16 08:01 AST 22 units/L (5-40) 12/12/16 08:01 ALT 11 units/L (7-56) 12/12/16 08:01 Alkaline Phosphatase 49 units/L (35-129) 12/12/16 08:01 Ammonia 21.0 umol/L (25-60) L 12/11/16 11:29 Total Creatine Kinase 319 units/L (55-170) H 12/11/16 11:29 Troponin T < 0.010 ng/mL (0.00-0.029) 12/11/16 11:29 Total Protein 5.8 g/dL (6.3-8.2) L 12/12/16 08:01 Albumin 3.0 g/dL (3.9-5) L 12/12/16 08:01 Albumin/Globulin Ratio 1.1 % 12/12/16 08:01 TSH 1.600 mlU/mL (0.270-4.200) 12/11/16 11:29 Urine Color Yellow (Yellow) 12/11/16 Unknown Urine Turbidity Clear (Clear) 12/11/16 Unknown Urine pH 5.0 (5.0-7.0) 12/11/16 Unknown Ur Specific [place] 1.023 (1.003-1.030) 12/11/16 Unknown Urine Protein <15 mg/dl mg/dL (Negative) 12/11/16 Unknown Urine Glucose (UA) Neg mg/dL (Negative) 12/11/16 Unknown Urine Ketones Neg mg/dL (Negative) 12/11/16 Unknown Urine Blood Neg (Negative) 12/11/16 Unknown Urine Nitrite Neg (Negative) 12/11/16 Unknown Urine Bilirubin Neg (Negative) 12/11/16 Unknown Urine Urobilinogen < 2.0 mg/dL (<2.0) 12/11/16 Unknown Ur Leukocyte Esterase Neg (Negative) 12/11/16 Unknown Urine WBC (Auto) 1.0 /HPF (0.0-6.0) 12/11/16 Unknown Urine RBC (Auto) 1.0 /HPF (0.0-6.0) 12/11/16 Unknown Urine Mucus Few /HPF 12/11/16 Unknown Salicylates < 0.3 mg/dL (2.8-20.0) L 12/11/16 11:29 Urine Opiates Screen Presumptive negative 12/11/16 Unknown Urine Methadone Screen Presumptive negative 12/11/16 Unknown Acetaminophen < 15.0 ug/mL (10.0-30.0) 12/11/16 11:29 Ur Barbiturates Screen Presumptive negative 12/11/16 Unknown Ur Phencyclidine Scrn Presumptive negative 12/11/16 Unknown Ur Amphetamines Screen Presumptive negative 12/11/16 Unknown U Benzodiazepines Scrn Presumptive negative 12/11/16 Unknown Urine Cocaine Screen Presumptive negative 12/11/16 Unknown U Marijuana (THC) Screen Presumptive negative 12/11/16 Unknown Drugs of Abuse Note Disclamer 12/11/16 Unknown Plasma/Serum Alcohol < 0.01 gm% (0-0.07) 12/11/16 11:29 Blood Type O POSITIVE 12/11/16 15:15 Antibody Screen Negative 12/11/16 15:15 Crossmatch See Detail 12/11/16 15:15
--- NOTE | 2016-12-14 12:44 | Progress Note ---
Assessment and Plan (1) Acute blood loss anemia Current Visit: Yes Status: Acute Plan to address problem: - s/p blood transfusion - will hold PRBC unit ordered now as serial H&H demonstrating stability - continue PPI therapy - follow clinically - follow GI recs (2) Acute respiratory failure Current Visit: Yes Status: Acute Qualifiers: Respiratory failure complication: hypoxia Qualified Code(s): J96.01 - Acute respiratory failure with hypoxia Plan to address problem: - continue bronchodilators and pulmonary toilet - continue aspiration precautions - continue to wean oxygen for O2 Sats >/= 94% - will use BIPAP prn post extubation (3) Altered mental status Current Visit: Yes Status: Acute Qualifiers: Altered mental status type: A Coma depth: C Coma timing: C Plan to address problem: - per history he has baseline cognitive dysfunction but is still not back to baseline - CT brain negative - following clinically and improved (4) Upper GI bleed Current Visit: Yes Status: Acute Plan to address problem: - s/p EGD - continue PPI therapy - resume diet once cleared by GI team (5) Discharge planning issues Current Visit: Yes Status: Acute Plan to address problem: - hopefully home at discharge ...improved Subjective Date of service: 12/14/16 Principal diagnosis: Acute Respiratory Failure; Acute GI Bleeding Interval history: Seen and examined at bedside; 24 hour events reviewed; nursing and respiratory care staff consulted; no adverse overnight events reported to me; did better and extubated; no emesis or overt aspiration; intermittently agitated Objective Vital Signs - 12hr 12/14/16 12/14/16 12/14/16 00:45 01:00 01:15 Temperature Pulse Rate 84 84 78 Respiratory 19 16 12 Rate Blood Pressure 105/62 97/67 105/62 O2 Sat by Pulse 100 100 100 Oximetry 12/14/16 12/14/16 12/14/16 01:22 01:30 01:45 Temperature Pulse Rate 81 81 77 Respiratory 16 16 13 Rate Blood Pressure 97/67 102/64 97/67 O2 Sat by Pulse 100 100 Oximetry 12/14/16 12/14/16 12/14/16 02:00 02:15 02:30 Temperature Pulse Rate 86 83 79 Respiratory 16 13 13 Rate Blood Pressure 105/65 102/64 100/62 O2 Sat by Pulse 100 Oximetry 12/14/16 12/14/16 12/14/16 02:45 03:00 03:15 Temperature Pulse Rate 83 82 79 Respiratory 14 14 10 L Rate Blood Pressure 100/62 100/62 98/64 O2 Sat by Pulse 100 100 100 Oximetry 12/14/16 12/14/16 12/14/16 03:30 03:45 04:00 Temperature 98.9 F Pulse Rate 76 79 77 Respiratory 11 L 12 12 Rate Blood Pressure 98/62 98/62 101/61 O2 Sat by Pulse 100 100 Oximetry 12/14/16 12/14/16 12/14/16 04:15 04:30 04:45 Temperature Pulse Rate 82 79 82 Respiratory 15 11 L 12 Rate Blood Pressure 101/61 109/62 109/62 O2 Sat by Pulse 100 100 Oximetry 12/14/16 12/14/16 12/14/16 05:00 05:15 05:31 Temperature Pulse Rate 81 81 101 H Respiratory 14 10 L 17 Rate Blood Pressure 101/66 101/66 125/76 O2 Sat by Pulse 100 100 100 Oximetry 12/14/16 12/14/16 12/14/16 05:45 06:00 06:15 Temperature Pulse Rate 83 82 80 Respiratory 12 12 15 Rate Blood Pressure 125/76 114/55 114/55 O2 Sat by Pulse 100 100 100 Oximetry 12/14/16 07:51 Temperature Pulse Rate Respiratory Rate Blood Pressure O2 Sat by Pulse 99 Oximetry Constitutional: no acute distress, other (somnolent) Eyes: non-icteric ENT: oropharynx moist Neck: supple, no lymphadenopathy Effort: mildly labored Ascultation: Bilateral: diminished breath sounds, rales (scant in bases) Cardiovascular: regular rate and rhythm Gastrointestinal: hypoactive bowel sounds, soft, non-tender, non-distended Integumentary: normal Extremities: no cyanosis, no edema, pulses normal, no ischemia or petechiae Neurologic: other (more responsive but with baseline cognitive dysfunction) Psychiatric: other (unable to assess) CBC and BMP: 12/12/16 17:34 12/12/16 08:01 ABG, PT/INR, D-dimer: ABG POC ABG pH 7.415 (7.35-7.45) 12/14/16 07:51 POC ABG pCO2 40.5 (35-45) 12/14/16 07:51 POC ABG pO2 68 (80-105) L 12/14/16 07:51 POC ABG HCO3 26.0 12/14/16 07:51 POC ABG Total CO2 27 12/14/16 07:51 POC ABG O2 Sat 93 12/14/16 07:51 PT/INR, D-dimer PT 14.4 Sec. (12.2-14.9) 12/11/16 11:29 INR 1.13 (0.87-1.13) 12/11/16 11:29 Abnormal lab findings: Abnormal Labs 12/11/16 12/12/16 12/12/16 Unknown 05:32 08:01 RBC 2.90 L Hgb 7.9 L 11.5 L D Hct 23.9 L 34.4 L D MCV 82 L MCH 27 L [place] % (Auto) 11.7 H Seg Neuts % (Manual) 75.0 H POC ABG pH 7.453 H POC ABG pO2 135 H Sodium BUN Calcium Total Protein Albumin 12/12/16 12/12/16 12/12/16 08:01 12:11 16:26 RBC Hgb 10.7 L Hct 32.5 L MCV MCH [place] % (Auto) Seg Neuts % (Manual) POC ABG pH 7.459 H POC ABG pO2 Sodium 134 L D BUN 23 H Calcium 7.7 L D Total Protein 5.8 L Albumin 3.0 L 12/12/16 12/14/16 17:34 07:51 RBC Hgb 11.0 L Hct 33.1 L MCV MCH [place] % (Auto) Seg Neuts % (Manual) POC ABG pH POC ABG pO2 68 L Sodium BUN Calcium Total Protein Albumin
[2016-12-14] MEDS: DESYREL PO SCH ×2 (16:06→21:53)
[2016-12-14] MEDS: TRILEPTAL PO SCH ×2 (17:27→21:53)
[2016-12-14] MEDS: KEPPRA PO SCH (21:52)
[2016-12-15] MEDS: ZOSYN/NS 4.5GM/100ML 4.5 GM/100 ML VIAL IV SCH ×2 (00:25→08:17)
--- NOTE | 2016-12-15 09:06 | XRay Report ---
PORTABLE CHEST INDICATION: Follow up respiratory failure. COMPARISON: 12/13/2016 FINDINGS: Portable, frontal chest radiograph demonstrates interval extubation and esophagogastric tube removal. Slight left basilar atelectasis remains. Otherwise clear lungs. No pleural effusions or CHF. Normal cardiomediastinal silhouette. EKG leads. Stable bones. CONCLUSION: Slight left basilar atelectasis remains with interval removal of supporting devices, as described. Thank you for the opportunity to participate in this patient's care.
--- NOTE | 2016-12-15 10:00 | Gastroenterology Progress Note ---
Assessment and Plan 1. GI bleed 2. hematemesis -H/H stable -no active signs of bleeding per nursing -s/p EGD on 12/12 that revealed a Lulu-Santiago tear and hiatal hernia -tolerating diet well -continue PPI -no further GI recommendations, will sign off Subjective Date of service: 12/15/16 Principal diagnosis: GI bleed Interval history: Pt awake and alert. Non-verbal, in restraints. No acute distress. No active signs of bleeding per nursing. Objective - Constitutional Vitals: Temp Pulse Resp BP Pulse Ox 98.4 F 98 H 14 107/65 100 12/15/16 04:00 12/15/16 09:15 12/15/16 09:15 12/15/16 09:15 12/14/16 23:45 General appearance: no acute distress, other (non-verbal) - EENT Eyes: PERRL, EOM intact - Respiratory Respiratory: bilateral: diminished (anterior) - Cardiovascular Rhythm: regular Heart Sounds: Present: S1 & S2 - Extremities Extremities: No edema - Gastrointestinal General gastrointestinal: Present: soft, non-tender, non-distended, normal bowel sounds - Integumentary Integumentary: Present: warm, dry - Neurologic Neurological: other (awake and alert) - Labs CBC & Chem 7: 12/12/16 17:34 12/12/16 08:01 Labs: Laboratory Results - last 24 hr 12/14/16 12/15/16 23:50 05:26 POC Glucose 112 H 96
--- NOTE | 2016-12-15 10:23 | Progress Note ---
Assessment and Plan Assessment and plan: This is a 56-year-old male with past medical history of mental retardation. Family not currently available. "2 episodes of head falling forward and then back with a fixed stare, caregiver states this is abnormal for him, no seizure activity noted, unsteady gait this morning that required assistance, not normal for patient. Acting very tired, also patient just lost a caregiver that has been working with him for 12 years to a heart attack. Patient appears in his normal state in triage as per caregiver." Given that patient presented with a complaint of altered mental status, a noncontrast CT scan of the brain and cervical spine were ordered. While going to CT scan initially, the patient was called as a CODE BLUE for episode of possible seizure-like activity, which I did not personally witness, and decreased responsiveness. He did not lose a pulse. He was also quite agitated while on a CAT scan are as per verbal report from staff. Given history of mental retardation, developmental delay, patient was not able to understand verbal de-escalation techniques. He required Haldol and Ativan to allow him to participate in his medical care. Patient then returned to CT scan, and had an episode of massive hematemesis. He was brought back to the ER again. In the ER, the patient was sleepy, and was intubated for airway protection given episodes of unresponsiveness, massive hematemesis. Laboratory studies indicated elevated blood urea nitrogen, and probable hypovolemic hyponatremia. He started empirically on IV fluids, and Protonix drip. Acute hypoxic respiratory failure on MV <96hours now extubated and doing well, continue oxygen supplementation, pulmonary input appreciated, Upper GI bleed Due to Lulu-Santiago tear 1.6cm, has Fundal clots which were adherent, status post EGD by GI yesterday. Hemoglobin stable IV Protonix GI consult appreciated continue diet Acute blood loss anemia has been transfused, hg stable Sepsis Ruled out ruled out, LA is likely due to GIB/seizure, no sign of infection PNA ruled out by negative CXR, UA negative Hyponatremia mild, continue IVF, improving Moderate malnutrition Dietitian consult appreciated, continue tube feeds metabolic encephalopathy Mentation improving ? Seizure unclear if he had seizure, or was just agitated and unable to communicate due to MR fup EEG and neurology consult appreciated, continue IV keppra Mental Retardation non verbal at baseline and has trouble following commands DVT prophylaxis Current Visit: Yes Status: Acute Plan to address problem: SCD's only The high probability of a clinically significant, sudden or life threatening deterioration of the [neurologic, pulmonary and cardiovascular] system(s) required my full and direct attention, intervention and personal management. The aggregate critical care time was [33] minutes. This time is in addition to time spent performing reported procedures but includes the following: [] Data Review and interpretation [] Patient assessment and monitoring of vital signs [] Documentation [] Medication orders and management History Interval history: Patient was extubated, no incidents. Patient doing well. Non verbal at BL Hospitalist Physical - Physical exam Narrative exam: General: Patient appears well in no distress HEENT: MMM, EOMI cardiac: S1-S2 heard lungs: clear to auscultation, abdomen: soft, nontender, nondistended bowel sounds positive extremities: no edema clubbing or cyanosis Skin: no rash or lesion Neuro: Moves all extremities, turns to voice. closes his eyes when asked, does not obey other commands, non verbal at baseline - Constitutional Vitals: Temp Pulse Resp BP Pulse Ox 98.4 F 98 H 14 107/65 100 12/15/16 04:00 12/15/16 09:15 12/15/16 09:15 12/15/16 09:15 12/14/16 23:45 General appearance: Present: no acute distress, other (OGT in place, with bile in it. Pt intubated.) Results - Labs CBC & Chem 7: 12/12/16 17:34 12/12/16 08:01 Labs: Laboratory Last Values WBC 9.1 K/mm3 (4.5-11.0) 12/12/16 08:01 RBC 4.02 M/mm3 (3.65-5.03) 12/12/16 08:01 Hgb 11.0 gm/dl (11.8-15.2) L 12/12/16 17:34 Hct 33.1 % (35.5-45.6) L 12/12/16 17:34 MCV 86 fl (84-94) 12/12/16 08:01 MCH 29 pg (28-32) 12/12/16 08:01 MCHC 33 % (32-34) 12/12/16 08:01 RDW 14.2 % (13.2-15.2) 12/12/16 08:01 Plt Count 152 K/mm3 (140-440) 12/12/16 08:01 Lymph % (Auto) Veterinary Dentist 12/12/16 08:01 [place] % (Auto) Veterinary Dentist 12/12/16 08:01 Eos % (Auto) Veterinary Dentist 12/12/16 08:01 Baso % (Auto) Veterinary Dentist 12/12/16 08:01 Lymph # Veterinary Dentist 12/12/16 08:01 [place] # Veterinary Dentist 12/12/16 08:01 Eos # Veterinary Dentist 12/12/16 08:01 Baso # Veterinary Dentist 12/12/16 08:01 Add Manual Diff Complete 12/12/16 08:01 Total Counted 100 12/12/16 08:01 Seg Neutrophils % Veterinary Dentist 12/12/16 08:01 Seg Neuts % (Manual) 75.0 % (40.0-70.0) H 12/12/16 08:01 Band Neutrophils % 0 % 12/12/16 08:01 Lymphocytes % (Manual) 18.0 % (13.4-35.0) 12/12/16 08:01 Reactive Lymphs % (Man) 0 % 12/12/16 08:01 Monocytes % (Manual) 7.0 % (0.0-7.3) 12/12/16 08:01 Eosinophils % (Manual) 0 % (0.0-4.3) 12/12/16 08:01 Basophils % (Manual) 0 % (0.0-1.8) 12/12/16 08:01 Metamyelocytes % 0 % 12/12/16 08:01 Myelocytes % 0 % 12/12/16 08:01 Promyelocytes % 0 % 12/12/16 08:01 Blast Cells % 0 % 12/12/16 08:01 Nucleated RBC % Not Reportable 12/12/16 08:01 Seg Neutrophils # Veterinary Dentist 12/12/16 08:01 Seg Neutrophils # Man 6.8 K/mm3 (1.8-7.7) 12/12/16 08:01 Band Neutrophils # 0.0 K/mm3 12/12/16 08:01 Lymphocytes # (Manual) 1.6 K/mm3 (1.2-5.4) 12/12/16 08:01 Abs React Lymphs (Man) 0.0 K/mm3 12/12/16 08:01 Monocytes # (Manual) 0.6 K/mm3 (0.0-0.8) 12/12/16 08:01 Eosinophils # (Manual) 0.0 K/mm3 (0.0-0.4) 12/12/16 08:01 Basophils # (Manual) 0.0 K/mm3 (0.0-0.1) 12/12/16 08:01 Metamyelocytes # 0.0 K/mm3 12/12/16 08:01 Myelocytes # 0.0 K/mm3 12/12/16 08:01 Promyelocytes # 0.0 K/mm3 12/12/16 08:01 Blast Cells # 0.0 K/mm3 12/12/16 08:01 WBC Morphology Not Reportable 12/12/16 08:01 Hypersegmented Neuts Not Reportable 12/12/16 08:01 Hyposegmented Neuts Not Reportable 12/12/16 08:01 Hypogranular Neuts Not Reportable 12/12/16 08:01 Smudge Cells Not Reportable 12/12/16 08:01 Toxic Granulation Not Reportable 12/12/16 08:01 Toxic Vacuolation Not Reportable 12/12/16 08:01 Dohle Bodies Not Reportable 12/12/16 08:01 Pelger-Huet Anomaly Not Reportable 12/12/16 08:01 Kalani Rods Not Reportable 12/12/16 08:01 Platelet Estimate Consistent w auto 12/12/16 08:01 Clumped Platelets Not Reportable 12/12/16 08:01 Plt Clumps, EDTA Not Reportable 12/12/16 08:01 Large Platelets Not Reportable 12/12/16 08:01 Giant Platelets Not Reportable 12/12/16 08:01 Platelet Satelliting Not Reportable 12/12/16 08:01 Plt Morphology Comment Not Reportable 12/12/16 08:01 RBC Morphology Not Reportable 12/12/16 08:01 Dimorphic RBCs Not Reportable 12/12/16 08:01 Polychromasia Not Reportable 12/12/16 08:01 Hypochromasia Not Reportable 12/12/16 08:01 Poikilocytosis Not Reportable 12/12/16 08:01 Anisocytosis 1+ 12/12/16 08:01 Microcytosis Not Reportable 12/12/16 08:01 Macrocytosis Not Reportable 12/12/16 08:01 Spherocytes Not Reportable 12/12/16 08:01 Pappenheimer Bodies Not Reportable 12/12/16 08:01 Sickle Cells Not Reportable 12/12/16 08:01 Target Cells Not Reportable 12/12/16 08:01 Tear Drop Cells Not Reportable 12/12/16 08:01 Ovalocytes Not Reportable 12/12/16 08:01 Helmet Cells Not Reportable 12/12/16 08:01 Stanley-Bricelyn Bodies Not Reportable 12/12/16 08:01 [place] Rings Not Reportable 12/12/16 08:01 Prashant Cells Not Reportable 12/12/16 08:01 Bite Cells Not Reportable 12/12/16 08:01 Crenated Cell Not Reportable 12/12/16 08:01 Elliptocytes Not Reportable 12/12/16 08:01 Acanthocytes (Spur) Not Reportable 12/12/16 08:01 Rouleaux Not Reportable 12/12/16 08:01 Hemoglobin C Crystals Not Reportable 12/12/16 08:01 Schistocytes Not Reportable 12/12/16 08:01 Malaria parasites Not Reportable 12/12/16 08:01 Eric Bodies Not Reportable 12/12/16 08:01 Hem Pathologist Commnt No 12/12/16 08:01 PT 14.4 Sec. (12.2-14.9) 12/11/16 11:29 INR 1.13 (0.87-1.13) 12/11/16 11:29 APTT 26.9 Sec. (24.2-36.6) 12/11/16 11:29 POC ABG pH 7.415 (7.35-7.45) 12/14/16 07:51 POC ABG pCO2 40.5 (35-45) 12/14/16 07:51 POC ABG pO2 68 (80-105) L 12/14/16 07:51 POC ABG HCO3 26.0 12/14/16 07:51 POC ABG Total CO2 27 12/14/16 07:51 POC ABG O2 Sat 93 12/14/16 07:51 POC ABG Base Excess 1 12/14/16 07:51 FiO2 21 % 12/14/16 07:51 Sodium 134 mmol/L (137-145) L D 08/12/17 08:01 Potassium 4.5 mmol/L (3.6-5.0) 12/12/16 08:01 Chloride 100.2 mmol/L (98-107) 12/12/16 08:01 Carbon Dioxide 23 mmol/L (22-30) 12/12/16 08:01 Anion Gap 15 mmol/L 12/12/16 08:01 BUN 23 mg/dL (9-20) H 12/12/16 08:01 Creatinine 1.1 mg/dL (0.8-1.5) 12/12/16 08:01 Estimated GFR > 60 ml/min 12/12/16 08:01 BUN/Creatinine Ratio 20.90 % 12/12/16 08:01 Glucose 100 mg/dL (75-100) 12/12/16 08:01 POC Glucose 96 (70-105) 12/15/16 05:26 Lactic Acid 1.40 mmol/L (0.7-2.0) 12/12/16 08:18 Calcium 7.7 mg/dL (8.4-10.2) L D 12/12/16 08:01 Phosphorus 2.70 mg/dL (2.5-4.5) 12/11/16 11:29 Magnesium 2.00 mg/dL (1.7-2.3) 12/11/16 11:29 Total Bilirubin 0.30 mg/dL (0.1-1.2) 12/12/16 08:01 AST 22 units/L (5-40) 12/12/16 08:01 ALT 11 units/L (7-56) 12/12/16 08:01 Alkaline Phosphatase 49 units/L (35-129) 12/12/16 08:01 Ammonia 21.0 umol/L (25-60) L 12/11/16 11:29 Total Creatine Kinase 319 units/L (55-170) H 12/11/16 11:29 Troponin T < 0.010 ng/mL (0.00-0.029) 12/11/16 11:29 Total Protein 5.8 g/dL (6.3-8.2) L 12/12/16 08:01 Albumin 3.0 g/dL (3.9-5) L 12/12/16 08:01 Albumin/Globulin Ratio 1.1 % 12/12/16 08:01 TSH 1.600 mlU/mL (0.270-4.200) 12/11/16 11:29 Urine Color Yellow (Yellow) 12/11/16 Unknown Urine Turbidity Clear (Clear) 12/11/16 Unknown Urine pH 5.0 (5.0-7.0) 12/11/16 Unknown Ur Specific [place] 1.023 (1.003-1.030) 12/11/16 Unknown Urine Protein <15 mg/dl mg/dL (Negative) 12/11/16 Unknown Urine Glucose (UA) Neg mg/dL (Negative) 12/11/16 Unknown Urine Ketones Neg mg/dL (Negative) 12/11/16 Unknown Urine Blood Neg (Negative) 12/11/16 Unknown Urine Nitrite Neg (Negative) 12/11/16 Unknown Urine Bilirubin Neg (Negative) 12/11/16 Unknown Urine Urobilinogen < 2.0 mg/dL (<2.0) 12/11/16 Unknown Ur Leukocyte Esterase Neg (Negative) 12/11/16 Unknown Urine WBC (Auto) 1.0 /HPF (0.0-6.0) 12/11/16 Unknown Urine RBC (Auto) 1.0 /HPF (0.0-6.0) 12/11/16 Unknown Urine Mucus Few /HPF 12/11/16 Unknown Salicylates < 0.3 mg/dL (2.8-20.0) L 12/11/16 11:29 Urine Opiates Screen Presumptive negative 12/11/16 Unknown Urine Methadone Screen Presumptive negative 12/11/16 Unknown Acetaminophen < 15.0 ug/mL (10.0-30.0) 12/11/16 11:29 Ur Barbiturates Screen Presumptive negative 12/11/16 Unknown Ur Phencyclidine Scrn Presumptive negative 12/11/16 Unknown Ur Amphetamines Screen Presumptive negative 12/11/16 Unknown U Benzodiazepines Scrn Presumptive negative 12/11/16 Unknown Urine Cocaine Screen Presumptive negative 12/11/16 Unknown U Marijuana (THC) Screen Presumptive negative 12/11/16 Unknown Drugs of Abuse Note Disclamer 12/11/16 Unknown Plasma/Serum Alcohol < 0.01 gm% (0-0.07) 12/11/16 11:29 Blood Type O POSITIVE 12/11/16 15:15 Antibody Screen Negative 12/11/16 15:15 Crossmatch See Detail 12/11/16 15:15
[2016-12-15] MEDS: PROTONIX FEEDTUBE SCH ×2 (10:41→22:33)
[2016-12-15] MEDS: DESYREL PO SCH ×2 (10:41→22:33)
[2016-12-15] MEDS: TRILEPTAL PO SCH ×2 (10:41→22:33)
[2016-12-15] MEDS: KEPPRA PO SCH ×2 (10:41→22:33)
--- NOTE | 2016-12-15 11:22 | Progress Note ---
Assessment and Plan (1) Acute blood loss anemia Current Visit: Yes Status: Acute Plan to address problem: - s/p blood transfusion - will hold PRBC unit ordered now as serial H&H demonstrating stability - continue PPI therapy - follow clinically - follow GI recs (2) Acute respiratory failure Current Visit: Yes Status: Acute Qualifiers: Respiratory failure complication: hypoxia Qualified Code(s): J96.01 - Acute respiratory failure with hypoxia Plan to address problem: - continue bronchodilators and pulmonary toilet - continue aspiration precautions - continue to wean oxygen for O2 Sats >/= 94% - will use BIPAP prn post extubation (3) Altered mental status Current Visit: Yes Status: Acute Qualifiers: Altered mental status type: A Coma depth: C Coma timing: C Plan to address problem: - per history he has baseline cognitive dysfunction but is still not back to baseline - CT brain negative - following clinically and improved (4) Upper GI bleed Current Visit: Yes Status: Acute Plan to address problem: - s/p EGD - continue PPI therapy - resume diet once cleared by GI team (5) Discharge planning issues Current Visit: Yes Status: Acute Plan to address problem: - hopefully home at discharge ...improved Subjective Date of service: 12/15/16 Principal diagnosis: Acute Respiratory Failure s/p MVS; Acute GI bleed Interval history: Seen and examined at bedside; 24 hour events reviewed; nursing and respiratory care staff consulted; no adverse overnight events reported to me; doing well so far post extubation; no repeat bleeding; tolerating meals Objective Vital Signs - 12hr 12/14/16 12/14/16 12/15/16 23:31 23:45 00:00 Temperature 97.4 F L Pulse Rate 83 80 82 Pulse Rate [ 90 From Monitor] Respiratory 12 14 16 Rate Blood Pressure 126/73 126/73 108/63 O2 Sat by Pulse 100 Oximetry 12/15/16 12/15/16 12/15/16 00:15 00:31 00:45 Temperature Pulse Rate 84 81 83 Pulse Rate [ From Monitor] Respiratory 11 L 10 L 8 L Rate Blood Pressure 108/63 108/63 108/63 O2 Sat by Pulse Oximetry 12/15/16 12/15/16 12/15/16 01:00 01:15 01:31 Temperature Pulse Rate 87 86 85 Pulse Rate [ From Monitor] Respiratory 17 Rate Blood Pressure 104/61 104/61 104/61 O2 Sat by Pulse Oximetry 12/15/16 12/15/16 12/15/16 01:45 02:00 02:15 Temperature Pulse Rate 132 H 89 85 Pulse Rate [ From Monitor] Respiratory 21 13 15 Rate Blood Pressure 104/61 97/64 97/64 O2 Sat by Pulse Oximetry 12/15/16 12/15/16 12/15/16 02:31 02:45 03:00 Temperature Pulse Rate 85 86 90 Pulse Rate [ From Monitor] Respiratory 11 L 19 12 Rate Blood Pressure 97/64 97/64 114/68 O2 Sat by Pulse Oximetry 12/15/16 12/15/16 12/15/16 03:19 03:31 03:45 Temperature Pulse Rate 89 86 79 Pulse Rate [ From Monitor] Respiratory 17 12 7 L Rate Blood Pressure 114/68 114/68 114/68 O2 Sat by Pulse Oximetry 12/15/16 12/15/16 12/15/16 04:00 04:15 04:31 Temperature 98.4 F Pulse Rate 87 80 75 Pulse Rate [ From Monitor] Respiratory 13 13 16 Rate Blood Pressure 97/58 97/58 97/58 O2 Sat by Pulse Oximetry 12/15/16 12/15/16 12/15/16 04:45 05:00 05:15 Temperature Pulse Rate 77 82 78 Pulse Rate [ From Monitor] Respiratory 15 16 13 Rate Blood Pressure 97/58 96/54 96/54 O2 Sat by Pulse Oximetry 12/15/16 12/15/16 12/15/16 05:31 05:45 06:00 Temperature Pulse Rate 77 78 95 H Pulse Rate [ From Monitor] Respiratory 14 15 11 L Rate Blood Pressure 96/54 96/54 106/46 O2 Sat by Pulse Oximetry 12/15/16 12/15/16 12/15/16 06:15 06:31 06:45 Temperature Pulse Rate 97 H 77 93 H Pulse Rate [ From Monitor] Respiratory 15 16 18 Rate Blood Pressure 106/46 106/46 106/46 O2 Sat by Pulse Oximetry 12/15/16 12/15/16 12/15/16 07:00 07:15 07:31 Temperature Pulse Rate 88 104 H 103 H Pulse Rate [ From Monitor] Respiratory 16 18 17 Rate Blood Pressure 104/53 104/53 104/53 O2 Sat by Pulse Oximetry 12/15/16 12/15/16 12/15/16 07:45 08:00 08:15 Temperature Pulse Rate 80 79 80 Pulse Rate [ 95 H From Monitor] Respiratory 13 14 15 Rate Blood Pressure 104/53 101/59 101/59 O2 Sat by Pulse Oximetry 12/15/16 12/15/16 12/15/16 08:31 08:45 09:00 Temperature Pulse Rate 92 H 88 91 H Pulse Rate [ From Monitor] Respiratory 10 L 15 13 Rate Blood Pressure 101/59 101/59 107/65 O2 Sat by Pulse Oximetry 12/15/16 09:15 Temperature Pulse Rate 98 H Pulse Rate [ From Monitor] Respiratory 14 Rate Blood Pressure 107/65 O2 Sat by Pulse Oximetry Constitutional: no acute distress, other (somnolent) Eyes: non-icteric ENT: oropharynx moist Neck: supple, no lymphadenopathy Effort: normal Ascultation: Bilateral: rales (scant in bases) Cardiovascular: regular rate and rhythm Gastrointestinal: hypoactive bowel sounds, soft, non-tender, non-distended Integumentary: normal Extremities: no cyanosis, no edema, pulses normal, no ischemia or petechiae Neurologic: other (more responsive but with baseline cognitive dysfunction) Psychiatric: other (unable to assess) CBC and BMP: 12/12/16 17:34 12/12/16 08:01 ABG, PT/INR, D-dimer: ABG POC ABG pH 7.415 (7.35-7.45) 12/14/16 07:51 POC ABG pCO2 40.5 (35-45) 12/14/16 07:51 POC ABG pO2 68 (80-105) L 12/14/16 07:51 POC ABG HCO3 26.0 12/14/16 07:51 POC ABG Total CO2 27 12/14/16 07:51 POC ABG O2 Sat 93 12/14/16 07:51 PT/INR, D-dimer PT 14.4 Sec. (12.2-14.9) 12/11/16 11:29 INR 1.13 (0.87-1.13) 12/11/16 11:29 Abnormal lab findings: Abnormal Labs 12/11/16 12/12/16 12/12/16 Unknown 05:32 08:01 RBC 2.90 L Hgb 7.9 L 11.5 L D Hct 23.9 L 34.4 L D MCV 82 L MCH 27 L [place] % (Auto) 11.7 H Seg Neuts % (Manual) 75.0 H POC ABG pH 7.453 H POC ABG pO2 135 H Sodium BUN POC Glucose Calcium Total Protein Albumin 12/12/16 12/12/16 12/12/16 08:01 12:11 16:26 RBC Hgb 10.7 L Hct 32.5 L MCV MCH [place] % (Auto) Seg Neuts % (Manual) POC ABG pH 7.459 H POC ABG pO2 Sodium 134 L D BUN 23 H POC Glucose Calcium 7.7 L D Total Protein 5.8 L Albumin 3.0 L 12/12/16 12/14/16 12/14/16 17:34 07:51 23:50 RBC Hgb 11.0 L Hct 33.1 L MCV MCH [place] % (Auto) Seg Neuts % (Manual) POC ABG pH POC ABG pO2 68 L Sodium BUN POC Glucose 112 H Calcium Total Protein Albumin
--- NOTE | 2016-12-16 09:26 | Discharge Summary ---
Providers - Providers Date of Admission: 12/11/16 18:03 Attending physician: BRIAN JETT MD 12/11/16 19:33 Consult to Dietitian/Nutrition [CONS] Routine Physician Instructions: Reason For Exam: Reason for Consult: Evaluate nutritional intake 12/12/16 12:17 Consult to Physician [CONS] Routine Consulting Provider: GARCÍA WALSH Reason For Exam: seizure Place consult to:: Abel Notified:: yes Phone number called:: [phone] Was contact made?: Yes If yes, spoke with:: answering service Time called:: 07:57 12/14/16 12:54 Speech Therapy Evaluation and Treat [CONS] Routine Reason For Exam: swallow evaluation Primary care physician: MEDICAL CLAIMS MANAGER Hospitalization Condition: Critical Hospital course: This is a 56-year-old male with past medical history of mental retardation. Family not currently available. "2 episodes of head falling forward and then back with a fixed stare, caregiver states this is abnormal for him, no seizure activity noted, unsteady gait this morning that required assistance, not normal for patient. He presented with lethargy. An altered mental status. He was sent for a CT scan, and he had a cold for shaking of his extremities and decreased responsiveness. He was suspected to have a seizure given multiple episodes of absence and LOC with shaking of extremities. He does have a having vomiting, and then followed by hematemesis. He was probably admitted to the ICU , he was intubated for acute respiratory failure. He went on to have an EGD that showed a Lulu-Santiago tear, 1.6 cm and adherence fundal clots. His hemoglobin was stable, he was therefore put on PPI. Patient was later successfully weaned off the vent and then weaned off supplemental oxygen. He was transfused for acute blood loss. Repeat hemoglobin was stable. Sepsis was ruled out, he had no clinical signs of infection, UA and chest x-ray were negative. He was transitioned to an oral diet and started on PPI. Patient is being discharged back to his [place] [facility] in improved condition. Discharge diagnoses Acute hypoxic respiratory failure on MV <96hours Upper GI bleed Acute blood loss anemia Sepsis Ruled out Hyponatremia Moderate malnutrition metabolic encephalopathy Status epilepticus Mental Retardation Disposition: [id number] HOME UNDER HOME [facility] Time spent for discharge: 33 minutes Core Measure Documentation - Palliative Care Palliative Care/ Comfort Measures: Not Applicable - Core Measures Any of the following diagnoses?: none Exam - Physical Exam Narrative exam: General: Patient appears well in no distress HEENT: MMM, EOMI cardiac: S1-S2 heard lungs: clear to auscultation, abdomen: soft, nontender, nondistended bowel sounds positive extremities: no edema clubbing or cyanosis Skin: no rash or lesion Neuro: Moves all extremities, turns to voice. closes his eyes when asked, does not obey other commands, non verbal at baseline - Constitutional Vitals: Temp Pulse Resp BP Pulse Ox 98.3 F 97 H 18 120/70 97 12/16/16 07:15 12/16/16 07:15 12/16/16 07:15 12/16/16 07:15 12/16/16 09:18 Plan Follow up with: STEPHANI MIRZA MD [Staff Physician] - 7 Days PRIMARY CARE, [Primary Care Provider] - 3-5 Days Prescriptions: levETIRAcetam [Keppra TAB] 750 mg PO BID #60 tablet Pantoprazole [Protonix] 40 mg PO BID #60 tablet
[2016-12-16] MEDS: PROTONIX FEEDTUBE SCH (09:36)
[2016-12-16] MEDS: DESYREL PO SCH (09:36)
[2016-12-16] MEDS: TRILEPTAL PO SCH (09:36)
[2016-12-16] MEDS: KEPPRA PO SCH (09:37)
--- NOTE | 2016-12-16 12:11 | Consultation ---
History of Present Illness - Reason for Consult Consult date: 12/16/16 stroke - History of Present Illness patient is seen and he is sitting up / I spoke to the and wwent over the results of tests good swallowing/ balence better plan continue rehab and PT same meds continue as outlined Past History Past Medical History: hyperlipidemia, other (MR, tachycardia, autism) Past Surgical History: Other (cataract surgery) Social history: other (unknown) Family history: other (unknown) Medications and Allergies Allergies Allergy/AdvReac Type Severity Reaction Status Date / Time No Known Allergies Allergy Verified 11/25/15 20:15 Home Medications Medication Instructions Recorded Confirmed Last Taken Type Calcium Polycarbophil [Fiber 625 mg PO BID 07/30/14 12/11/16 Unknown History Laxative] Multivitamin with Minerals [Hair, 1 each PO DAILY 07/30/14 12/11/16 12/11/16 History Skin and Nails] Polyethylene Glycol 3350 [Miralax 17 gm PO DAILY 07/30/14 12/11/16 Unknown History 3350] Pravastatin (Nf) [Pravachol] 40 mg PO QHS 07/30/14 12/11/16 12/10/16 History fluvoxaMINE (NF) [Luvox (Nf)] 100 mg PO BID 07/30/14 12/11/16 12/11/16 History OXcarbazepine [Trileptal] 300 mg PO BID 12/11/16 12/11/16 12/11/16 History Olanzapine [ZyPREXA] 15 mg PO BID 12/11/16 12/11/16 12/11/16 History Carlton-3 Fatty Acids/Fish Oil [Fish 1 each PO BID 12/11/16 12/11/16 12/11/16 History Oil] Trazodone HCl [Oleptro ER] 150 mg PO QHS 12/11/16 12/11/16 12/10/16 History Pantoprazole [Protonix] 40 mg PO BID #60 tablet 12/16/16 Unknown Rx levETIRAcetam [Keppra TAB] 750 mg PO BID #60 tablet 12/16/16 Unknown Rx Active Meds: Active Medications Albuterol (Proventil) 2.5 mg IH Q3HRT PRN PRN Reason: Shortness Of Breath Hydrophilic Ointment (Vaseline Lip Therapy) 1 applic TP Q2HR PRN PRN Reason: Dry Lips Levetiracetam (Keppra) 750 mg PO BID [facility] Last Admin: 12/16/16 09:37 Dose: 750 mg Lorazepam (Ativan) 1 mg IV Q4H PRN PRN Reason: Agitation Last Admin: 12/13/16 15:51 Dose: 1 mg Multi-Ingred Cream/Lotion/Oil/Oint (Artificial Tears Ophth Oint) 1 applic OU Q4HR PRN PRN Reason: Dry Eye(s) Olanzapine (Zyprexa) 15 mg PO BID [facility] Last Admin: 12/16/16 11:23 Dose: 15 mg Oxcarbazepine (Trileptal) 300 mg PO BID [facility] Last Admin: 12/16/16 09:36 Dose: 300 mg Pantoprazole (Protonix) 40 mg FEEDTUBE BID [facility] Last Admin: 12/16/16 09:36 Dose: 40 mg Trazodone HCl (Desyrel) 75 mg PO BID [facility] Last Admin: 12/16/16 09:36 Dose: 75 mg Exam - Constitutional Vitals: Temp Pulse Resp BP Pulse Ox 98.3 F 97 H 18 120/70 97 12/16/16 07:15 12/16/16 07:15 12/16/16 07:15 12/16/16 07:15 12/16/16 09:18 Results - Labs CBC & Chem 7: 12/12/16 17:34 12/12/16 08:01 Labs: Abnormal lab results 12/15/16 Range/Units 12:10 POC Glucose 137 H (70-105)
--- NOTE | 2016-12-16 16:08 | Progress Note ---
Assessment and Plan Patient alert, awake,.No acute respiratory distress. Resting on room air.O2 saturation 97% on room air.Patient mentally challenged. Unable to to get any information. - Patient Problems (1) Acute respiratory failure Current Visit: Yes Status: Acute Qualifiers: Respiratory failure complication: hypoxia Qualified Code(s): J96.01 - Acute respiratory failure with hypoxia Plan to address problem: Improved.Patient resting on room air. O2 saturation 97% (2) Altered mental status Current Visit: Yes Status: Acute Qualifiers: Altered mental status type: A Coma depth: C Coma timing: C Plan to address problem: Patient is mentally challenged and autistic. Neurology consulted. (3) Sepsis Current Visit: Yes Status: Acute Qualifiers: Sepsis type: sepsis due to unspecified organism Qualified Code(s): A41.9 - Sepsis, unspecified organism Plan to address problem: Sepsis ruled out. Patient is not any antibiotics. (4) Upper GI bleed Current Visit: Yes Status: Acute Plan to address problem: Management as per gastroenterology. Subjective Date of service: 12/16/16 Principal diagnosis: GI bleed Interval history: Patient alert, awake,.No acute respiratory distress. Resting on room air.O2 saturation 97% on room air.Patient mentally challenged. Unable to to get any information. Objective Vital Signs - 12hr 12/16/16 12/16/16 12/16/16 07:15 09:18 11:10 Temperature 98.3 F 98.3 F Pulse Rate 97 H 90 Respiratory 18 16 Rate Blood Pressure 120/70 116/67 O2 Sat by Pulse 98 97 Oximetry Constitutional: no acute distress, other (somnolent) Eyes: non-icteric ENT: oropharynx moist Neck: supple, no lymphadenopathy Effort: mildly labored Ascultation: Bilateral: diminished breath sounds, rales (scant in bases) Cardiovascular: regular rate and rhythm Gastrointestinal: hypoactive bowel sounds, soft, non-tender, non-distended Integumentary: normal Extremities: no cyanosis, no edema, pulses normal, no ischemia or petechiae Neurologic: other (more responsive but with baseline cognitive dysfunction) Psychiatric: other (unable to assess) CBC and BMP: 12/12/16 17:34 12/12/16 08:01 ABG, PT/INR, D-dimer: ABG POC ABG pH 7.415 (7.35-7.45) 12/14/16 07:51 POC ABG pCO2 40.5 (35-45) 12/14/16 07:51 POC ABG pO2 68 (80-105) L 12/14/16 07:51 POC ABG HCO3 26.0 12/14/16 07:51 POC ABG Total CO2 27 12/14/16 07:51 POC ABG O2 Sat 93 12/14/16 07:51 PT/INR, D-dimer PT 14.4 Sec. (12.2-14.9) 12/11/16 11:29 INR 1.13 (0.87-1.13) 12/11/16 11:29 Abnormal lab findings: Abnormal Labs 12/11/16 12/12/16 12/12/16 Unknown 05:32 08:01 RBC 2.90 L Hgb 7.9 L 11.5 L D Hct 23.9 L 34.4 L D MCV 82 L MCH 27 L [place] % (Auto) 11.7 H Seg Neuts % (Manual) 75.0 H POC ABG pH 7.453 H POC ABG pO2 135 H Sodium BUN POC Glucose Calcium Total Protein Albumin 12/12/16 12/12/16 12/12/16 08:01 12:11 16:26 RBC Hgb 10.7 L Hct 32.5 L MCV MCH [place] % (Auto) Seg Neuts % (Manual) POC ABG pH 7.459 H POC ABG pO2 Sodium 134 L D BUN 23 H POC Glucose Calcium 7.7 L D Total Protein 5.8 L Albumin 3.0 L 12/12/16 12/14/16 12/14/16 17:34 07:51 23:50 RBC Hgb 11.0 L Hct 33.1 L MCV MCH [place] % (Auto) Seg Neuts % (Manual) POC ABG pH POC ABG pO2 68 L Sodium BUN POC Glucose 112 H Calcium Total Protein Albumin 12/15/16 12:10 RBC Hgb Hct MCV MCH [place] % (Auto) Seg Neuts % (Manual) POC ABG pH POC ABG pO2 Sodium BUN POC Glucose 137 H Calcium Total Protein Albumin Chest x-ray: report reviewed (Slight left basilar atelectasis.)
[2016-12-16 16:31] VITALS: BP 105/67
== END 2016-12-16 17:00 | disposition home health service (06) | DRG 208 ==
LOC: ED 10:07 → EDBD 18:03 → CC1 18:03 → 3A 12-15 17:32
PROVIDERS: ADMIT Internal Medicine; ATTEND Internal Medicine
PROC: 30233N1 Transfusion of Nonautologous Red Blood Cells into Peripheral Vein, Percutaneous Approach (ICD-10-PCS; 2016-12-11)
PROC: 0BH17EZ Insertion of Endotracheal Airway into Trachea, Via Natural or Artificial Opening (ICD-10-PCS; 2016-12-11)
PROC: 4A033R1 Measurement of Arterial Saturation, Peripheral, Percutaneous Approach (ICD-10-PCS; 2016-12-11)
PROC: 5A1945Z Respiratory Ventilation, 24-96 Consecutive Hours (ICD-10-PCS; principal; 2016-12-12)
PROC: 0DJ08ZZ Inspection of Upper Intestinal Tract, Via Natural or Artificial Opening Endoscopic (ICD-10-PCS; 2016-12-12)
DX: J96.01 Acute respiratory failure with hypoxia (principal); G93.41 Metabolic encephalopathy; K22.6 Gastro-esophageal laceration-hemorrhage syndrome; D62 Acute posthemorrhagic anemia; E44.0 Moderate protein-calorie malnutrition; E87.1 Hypo-osmolality and hyponatremia; Z68.29 Body mass index [BMI] 29.0-29.9, adult; I10 Essential (primary) hypertension; E78.00 Pure hypercholesterolemia, unspecified; Z98.49 Cataract extraction status, unspecified eye; E78.5 Hyperlipidemia, unspecified; F79 Unspecified intellectual disabilities; G40.901 Epilepsy, unspecified, not intractable, with status epilepticus
CPT/HCPCS: 36415; 36600; 70450; 71010; 72040; 74000; 80053; 80307; 80320; 81001; 82140; 82550; 82803; 82962; 83735; 84100; 84443; 84484; 85007; 85014; 85018; 85025; 85027; 85610; 85730; 86850; 86900; 86901; 86920; 87070; 87205; 93005; 93010; 94002; 94003; 94660; 95819; 96365; 96366; 96372; 96375; C9113; G0480; G8996-GN; G8997-GN; G8998-GN; J1630; J1953; J2060; J2250; J2370; J2405; J2543; J2704; J3010; J3246; J7030; J7040; P9016

== ENCOUNTER 2019-10-01 08:57 | Emergency (ER) | payer MEDICARE ==
[2019-10-01 09:01] VITALS: BP 139/85
--- NOTE | 2019-10-01 10:09 | Emergency Department Report ---
ED Head Injury/Laceration HPI - HPI Occurred When: Today Mechanism: Fall Location: Facial (right upper eyelid), Parietal (right) Pain: Moderate Tetanus Status: Not up to Date Symptoms: Loss of Consciousness: No, Nausea: No, Blurred Vision: No, Unusual Behavior: No, Headache: No, Swelling: Yes, Bruising: No, Break in Skin: Yes, Bleeding: No Other History: This is a 58-year-old -[place] male who presents to the emergency room with a laceration to right parietal and right upper eyelid. Patient is nonverbal and has caregiver at bedside. Caregiver states he was given reported patient failed multiple times throughout the night in his room. He noticed around 8:00 this morning patient had prominent swelling to right upper eyelid and a laceration to right parietal region. Caregiver states patient fall on occasion with injuries most times. Reports no change in activity, no loss of consciousness, no nausea or vomiting. ED General PMH - Social History Smoking Status: Never Smoker ED Review of Systems ROS: Stated complaint: GASH ON HEAD/EYE Other details as noted in HPI Constitutional: denies: chills, fever Eyes: denies: eye pain, eye discharge, vision change ENT: denies: ear pain, throat pain Respiratory: denies: cough, shortness of breath, wheezing Cardiovascular: denies: chest pain, palpitations Musculoskeletal: denies: back pain, joint swelling, arthralgia Skin: lesions (Laceration to right parietal and right upper eyelid). denies: rash Neurological: denies: headache, weakness, paresthesias Psychiatric: denies: anxiety, depression Head Inj w/lac Physical Exam - Exam General: Vital signs noted. No distress. Alert and acting appropriately. Head: Yes PERRL, No Hemotympanum, No Hematoma/Ecchymosis, No Epistaxis, No S tepoff/Deformity, No Abrasion, No Foreign Body Wound Length (cm): 1 (1 cm laceration into epidermis of right proximal parietal, no discharge, no surrounding cellulitis. Half a centimeter laceration to right upper eyelid into epidermis, no drainage, moderate swelling, TTP, edges are well approximated) Laceration Location: Facial (Right upper eyelid), Parietal (Right) Chest, Abd, & Ext: Yes Clear Lung Sounds, Yes Regular Heart Rhythm, No Neck Pain, No Chest Injury/Pain, No Heart Murmur, No Abdominal Tenderness, No Back T enderness, No Extremity Injury Neuroligical (Head Inj W/O Lac: Yes Normal Speech, Yes Normal Gait, No Lethargy, No Disorientation, No Focal Numbness, No Focal Weakness ED Disposition Clinical Impression: Laceration of eyelid Qualifiers: Encounter type: initial encounter Laterality: right Qualified Code(s): S01.111A - Laceration without foreign body of right eyelid and periocular area, initial encounter Laceration of scalp Qualifiers: Encounter type: initial encounter Qualified Code(s): S01.01XA - Laceration without foreign body of scalp, initial encounter Disposition: - TO HOME OR SELFCARE Is pt being admited?: No Condition: Stable Instructions: Laceration (ED) Additional Instructions: Take antibiotics as prescribed for the full course. Keep wound dry and clean for 48 hours. Avoid putting to much tension on wound site. Follow up with Primary Care Provider in 2-3 days for wound reevaluation. Return to ER if red, swollen, foul discharge, or fever. Prescriptions: Clindamycin [Clindamycin CAP] 300 mg PO Q8H #21 cap Referrals: VICTOR M LIZ MD [Primary Care Provider] - 3-5 Days MANOHAR SALDANA MD [Staff Physician] - 3-5 Days YARELIS MISTRY MD [Staff Physician] - 3-5 Days Time of Disposition: 11:12 ED Medical Decision Making - Radiology Data Radiology results: report reviewed CT head/brain wo con INDICATION / CLINICAL INFORMATION: MAIN: fall last night, RT side injury . TECHNIQUE: All CT scans at this location are performed using CT dose reduction for ALARA by means of automated exposure control. COMPARISON: 12/11/2016 FINDINGS: No acute intracranial hemorrhage or abnormal extra-axial fluid collection. The ventricular system and basilar cisterns are normal. No evidence of large territorial infarction. Densely calcified right ocular globe. Visualized sinuses appear normal. No osseous abnormality. IMPRESSION: 1. No acute intracranial abnormality. - Medical Decision Making This is a 58 y.o. male presents with laceration to right parietal scalp and right upper eyelid since last night. Patient is non-toxic appearing and stable. No acute distress noted. Denies loss of consciousness nausea or vomiting. There is a half a centimeter laceration to right upper eyelid and 1 cm laceration to right parietal scalp. Both lacerations are already approximated with no signs of drainage. There is moderate swelling to right upper eyelid. A CT of head was obtained with no acute intracranial abnormality. Given boostrix IM. Suture closing not indicated at this time. Risk, benefits, and alternatives discussed with patient and caregiver. Wound irrigated with normal saline 20 mL and Betadine. A sterile dressing was applied. Local wound care discussed. Observe for signs of infection, bleeding, and follow up promptly if these symptoms occur. Discharged home for outpatient treatment with clindamycin. Follow-up with PCP in 3 to 4 days for wound reevaluation. Discussed ER care plan with patient. Patient discharged home with strict return instructions.
--- NOTE | 2019-10-01 11:01 | Cat Scan Report ---
CT head/brain wo con INDICATION / CLINICAL INFORMATION: MAIN: fall last night, RT side injury . TECHNIQUE: All CT scans at this location are performed using CT dose reduction for ALARA by means of automated e xposure control. COMPARISON: 12/11/2016 FINDINGS: No acute intracranial hemorrhage or abnormal extra-axial fluid collection. The ventricular system and basilar cisterns are normal. No evidence of large territorial infarction. Densely calcified right ocular globe. Visualized sinuses appear normal. No osseous abnormality. IMPRESSION: 1. No acute intracranial abnormality. Signer Name: Luis Solis MD Signed: 10/01/2019 10:56 AM Workstation Name: [id number]
[2019-10-01] MEDS ORDERED: TETANUS,DIPHTHERIA TOXOID ADULT 0.5 ML INJ IM ONE (11:22)
[2019-10-01] MEDS ORDERED: DIPHtheria,PERTUSSIS(ACELL),TETANUS VACCINE/PF 0.5 ML VIAL IM ONE (11:25)
== END 2019-10-01 11:31 | disposition home or self-care (01) ==
LOC: ED 08:57
DX: S01.01XA Laceration without foreign body of scalp, initial encounter (principal); S01.111A Laceration without foreign body of right eyelid and periocular area, initial encounter; F91.9 Conduct disorder, unspecified; Z98.890 Other specified postprocedural states; W19.XXXA Unspecified fall, initial encounter; Y93.89 Activity, other specified; Y92.89 Other specified places as the place of occurrence of the external cause; Y99.8 Other external cause status
CPT/HCPCS: 70450; 90471; 90714; 90715

== ENCOUNTER 2021-06-01 20:52 | Inpatient (IN) | payer MEDICARE ==
[2021-06-01] MEDS ORDERED: risperiDONE 1 MG TAB PO ONE (21:47)
[2021-06-01] MEDS ORDERED: traZODone 50 MG TAB PO ONE (21:47)
[2021-06-01] MEDS ORDERED: OXcarbazepine 150 MG TAB PO ONE (21:47)
--- NOTE | 2021-06-01 21:47 | Emergency Department Report ---
ED General Adult HPI - General Chief complaint: Seizure Stated complaint: SEIZURE PUI?: No Time Seen by Provider: 06/01/21 21:03 Source: EMS (Verbal report received from emergency medical services. EMS documentation not available at time of chart dictation ), RN notes reviewed, old records reviewed Mode of arrival: Stretcher Limitations: Other (Patient developmentally delayed) - History of Present Illness Initial comments: The patient was evaluated in the emergency department for symptoms described in the history of present illness. He/she was evaluated in the context of the global COVID-19 pandemic, which necessitated consideration that the patient might be at risk for infection with the virus that causes COVID-19. I nstitutional protocols and algorithms that pertain to the evaluation of patients at risk for COVID-19 are in a state of rapid change based on information released by regulatory bodies including the CDC and federal and state organizations. These policies and algorithms were followed during the patient's care in the emergency department. Please note that these policies, procedures and recommendations changed on a rapid basis. The patient is a 60-year-old gentleman, with a history of Lulu-Santiago tear, developmental delay, high cholesterol, seizure disorder, who was brought to the hospital by emergency medical services, for evaluation of possible absence seizure or nonconvulsive seizure. Patient is awake and moving extremities but nonverbal at this time. History is obtained from EMS. EMS reports that they were called for the patient staring off into the space. There was no convulsive activity. They report that this was resolved by the time I got to the patient's room. They report normal Accu-Chek in the field, and normal vital signs in the field. EMS reports that patient has not had any convulsive activity in their presence. The patient is awake, moves 4 extremities, and is breathing spontaneously. 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 As per EMS, there is no history of trauma -: This evening Consistency: now resolved - Related Data Home Medications Medication Instructions Recorded Confirmed Last Taken Calcium Polycarbophil [Fiber 625 mg PO BID 07/30/14 12/11/16 Unknown Laxative] Multivitamin with Minerals [Hair, 1 each PO DAILY 07/30/14 12/11/16 12/11/16 Skin and Nails] Pravastatin [Pravachol] 40 mg PO QHS 07/30/14 12/11/16 12/10/16 fluvoxaMINE (NF) [Luvox (Nf)] 100 mg PO BID 07/30/14 12/11/16 12/11/16 polyethylene glycoL 3350 [Miralax 17 gm PO DAILY 07/30/14 12/11/16 Unknown 3350] OXcarbazepine [Trileptal] 300 mg PO BID 12/11/16 12/11/16 12/11/16 Olanzapine [ZyPREXA] 15 mg PO BID 12/11/16 12/11/16 12/11/16 Angora-3 Fatty Acids/Fish Oil [Fish 1 each PO BID 12/11/16 12/11/16 12/11/16 Oil] Trazodone HCl [Oleptro ER] 150 mg PO QHS 12/11/16 12/11/16 12/10/16 Previous Rx's Medication Instructions Recorded Last Taken Type Pantoprazole [Protonix] 40 mg PO BID #60 tablet 12/16/16 Unknown Rx levETIRAcetam [Keppra TAB] 750 mg PO BID #60 tablet 12/16/16 Unknown Rx Clindamycin [Clindamycin CAP] 300 mg PO Q8H #21 cap 10/01/19 Unknown Rx Allergies Allergy/AdvReac Type Severity Reaction Status Date / Time No Known Allergies Allergy Verified 06/01/21 21:06 ED Review of Systems ROS: Stated complaint: SEIZURE Other details as noted in HPI Comment: Unobtainable due to pts medical conditions ED Past Medical Hx - Past Medical History Hx Hypertension: Yes Hx Congestive Heart Failure: No Hx Diabetes: No Hx Psychiatric Treatment: Yes Hx Asthma: No Hx COPD: No Additional medical history: Behavioral disorder. Mentally challenged, Tachycardia, high cholesterol,SEVERE MR,AUTISM - Surgical History Additional Surgical History: CATARACT SURGERY - Social History Smoking Status: Never Smoker - Medications Home Medications: Home Medications Medication Instructions Recorded Confirmed Last Taken Type Calcium Polycarbophil [Fiber 625 mg PO BID 07/30/14 12/11/16 Unknown History Laxative] Multivitamin with Minerals [Hair, 1 each PO DAILY 07/30/14 12/11/16 12/11/16 History Skin and Nails] Pravastatin [Pravachol] 40 mg PO QHS 07/30/14 12/11/16 12/10/16 History fluvoxaMINE (NF) [Luvox (Nf)] 100 mg PO BID 07/30/14 12/11/16 12/11/16 History polyethylene glycoL 3350 [Miralax 17 gm PO DAILY 07/30/14 12/11/16 Unknown History 3350] OXcarbazepine [Trileptal] 300 mg PO BID 12/11/16 12/11/16 12/11/16 History Olanzapine [ZyPREXA] 15 mg PO BID 12/11/16 12/11/16 12/11/16 History Angora-3 Fatty Acids/Fish Oil [Fish 1 each PO BID 12/11/16 12/11/16 12/11/16 History Oil] Trazodone HCl [Oleptro ER] 150 mg PO QHS 12/11/16 12/11/16 12/10/16 History Pantoprazole [Protonix] 40 mg PO BID #60 tablet 12/16/16 Unknown Rx levETIRAcetam [Keppra TAB] 750 mg PO BID #60 tablet 12/16/16 Unknown Rx Clindamycin [Clindamycin CAP] 300 mg PO Q8H #21 cap 10/01/19 Unknown Rx ED Physical Exam - General Limitations: Other (Patient is developmentally delayed) General appearance: in no apparent distress - Head Head exam: Present: atraumatic, normocephalic - Eye Eye exam: Present: normal appearance (Left eye. Right eye is chronically opacified.), PERRL (Left eye), EOMI - ENT ENT exam: Present: normal exam, normal orophraynx, mucous membranes moist, normal external ear exam - Neck Neck exam: Present: normal inspection, full ROM. Absent: tenderness, meningismus - Respiratory Respiratory exam: Present: normal lung sounds bilaterally. Absent: respiratory distress, wheezes, rales, rhonchi, stridor, decreased breath sounds - Cardiovascular Cardiovascular Exam: Present: regular rate, normal rhythm, normal heart sounds. Absent: bradycardia, tachycardia, irregular rhythm, systolic murmur, diastolic murmur, rubs, gallop - GI/Abdominal GI/Abdominal exam: Present: soft, normal bowel sounds, pulsatile mass. Absent: distended, tenderness, guarding, rebound, rigid - Rectal Rectal exam: Present: deferred - Extremities Exam Extremities exam: Present: normal inspection, full ROM, other (2+ pulses noted in the bilateral upper and lower extremities. There is no palpable cord. negative Homans sign. Muscular compartments are soft. The pelvis is stable.). Absent: pedal edema, calf tenderness - Back Exam Back exam: Present: normal inspection, full ROM. Absent: tenderness, CVA tenderness (R), CVA tenderness (L), paraspinal tenderness, vertebral tenderness - Neurological Exam Neurological exam: Present: alert (The patient is awake. The patient is moving 4 extremities spontaneously. There is no facial droop. EOMI.), reflexes normal - Psychiatric Psychiatric exam: Present: flat affect - Skin Skin exam: Present: warm, dry, intact, normal color. Absent: rash ED Course Vital Signs 06/01/21 06/01/21 21:15 23:11 Temperature 97.4 F L Pulse Rate 88 Respiratory 14 Rate Blood Pressure 103/62 [Left] O2 Sat by Pulse 95 Oximetry O2 Sat by Pulse 99 Oximetry [ Digit-Finger] - Reevaluation(s) Reevaluation #1: 06/01/21 21:58 Differential diagnosis, including but not limited to: Seizure, pseudoseizure, pneumonia, urinary tract infection, electrolyte derangement, encounter for medical screening examination Assessment and plan: 60-year-old gentleman, who was afebrile, with reassuring vital signs, who is currently on a number of antiepileptic medications, including oxcarbazepine, who is referred to the emergency room for evaluation of possible nonconvulsive seizure. The patient does not appear to be seizing at this time. His vital signs are unremarkable. His physical exam is unremarkable. No cutaneous lesions noted on skin. Patient is nonverbal, stable therefore we will obtain noncontrast CT scan of the brain, x-ray the chest, urinalysis, EKG, and appropriate laboratory studies. I will also administer this patient's nighttime medicines. 06/01/21 23:10 Patient is found to have evidence of renal insufficiency, and pulmonary opacities on x-ray of the chest. This renal insufficiency is new when compared to prior values. Given pulmonary opacities, seizure, renal insufficiency, hypotension (at one point time, blood pressure 95 systolic), start IV fluids, administer ceftriaxone and azithromycin empirically, obtain blood cultures and lactic acid, plan to admit patient to the medical service. Patient uncooperative at this time, but does not have decision-making capacity. Given that he has multiple acute issues at this time, we will need to administer Ativan and Benadryl to facilitate acquisition of time sensitive diagnostics, CT scan of the brain. 06/01/21 23:36 Dr Ward to admit to [facility] - Pulse Oximetry Interpretation Digit-Finger Initial Pulse Oximetry Readin O2 Sat by Pulse Oximetry: 99 Actions Taken: none ED Medical Decision Making - Lab Data Result diagrams: 06/01/21 21:51 06/01/21 21:51 Vital Signs 06/01/21 21:15 Temperature 97.4 F L Pulse Rate 88 Respiratory 14 Rate Blood Pressure 103/62 [Left] O2 Sat by Pulse 95 Oximetry Lab Results 06/01/21 06/01/21 06/01/21 Range/Units 21:51 21:51 21:51 WBC 5.4 (4.5-11.0) K/mm3 RBC 4.96 (3.65-5.03) M/mm3 Hgb 13.5 (11.8-15.2) gm/dl Hct 40.9 (35.5-45.6) % MCV 83 L (84-94) fl MCH 27 L (28-32) pg MCHC 33 (32-34) % RDW 12.7 L (13.2-15.2) % Plt Count 169 (140-440) K/mm3 Lymph % (Auto) 31.8 (13.4-35.0) % [place] % (Auto) 9.7 H (0.0-7.3) % Eos % (Auto) 1.4 (0.0-4.3) % Baso % (Auto) 0.3 (0.0-1.8) % Lymph # (Auto) 1.7 (1.2-5.4) K/mm3 [place] # (Auto) 0.5 (0.0-0.8) K/mm3 Eos # (Auto) 0.1 (0.0-0.4) K/mm3 Baso # (Auto) 0.0 (0.0-0.1) K/mm3 Seg Neutrophils % 56.8 (40.0-70.0) % Seg Neutrophils # 3.1 (1.8-7.7) K/mm3 Sodium 138 (137-145) mmol/L Potassium 3.9 (3.6-5.0) mmol/L Chloride 99.9 (98-107) mmol/L Carbon Dioxide 23 (22-30) mmol/L Anion Gap 19 mmol/L BUN 14 (9-20) mg/dL Creatinine 2.1 H (0.8-1.3) mg/dL Estimated GFR 39 ml/min BUN/Creatinine Ratio 7 % Glucose 148 H (75-100) mg/dL Calcium 9.4 (8.4-10.2) mg/dL Magnesium 2.30 (1.7-2.3) mg/dL Total Bilirubin 0.20 (0.1-1.2) mg/dL AST 25 (5-40) units/L ALT 36 (7-56) units/L Alkaline Phosphatase 94 (35-129) units/L Total Creatine Kinase 188 H (55-170) units/L Total Protein 7.6 (6.3-8.2) g/dL Albumin 4.1 (3.9-5) g/dL Albumin/Globulin Ratio 1.2 % Salicylates < 0.3 L (2.8-20.0) mg/dL Acetaminophen (10.0-30.0) ug/mL 06/01/21 Range/Units 21:51 WBC (4.5-11.0) K/mm3 RBC (3.65-5.03) M/mm3 Hgb (11.8-15.2) gm/dl Hct (35.5-45.6) % MCV (84-94) fl MCH (28-32) pg MCHC (32-34) % RDW (13.2-15.2) % Plt Count (140-440) K/mm3 Lymph % (Auto) (13.4-35.0) % [place] % (Auto) (0.0-7.3) % Eos % (Auto) (0.0-4.3) % Baso % (Auto) (0.0-1.8) % Lymph # (Auto) (1.2-5.4) K/mm3 [place] # (Auto) (0.0-0.8) K/mm3 Eos # (Auto) (0.0-0.4) K/mm3 Baso # (Auto) (0.0-0.1) K/mm3 Seg Neutrophils % (40.0-70.0) % Seg Neutrophils # (1.8-7.7) K/mm3 Sodium (137-145) mmol/L Potassium (3.6-5.0) mmol/L Chloride (98-107) mmol/L Carbon Dioxide (22-30) mmol/L Anion Gap mmol/L BUN (9-20) mg/dL Creatinine (0.8-1.3) mg/dL Estimated GFR ml/min BUN/Creatinine Ratio % Glucose (75-100) mg/dL Calcium (8.4-10.2) mg/dL Magnesium (1.7-2.3) mg/dL Total Bilirubin (0.1-1.2) mg/dL AST (5-40) units/L ALT (7-56) units/L Alkaline Phosphatase (35-129) units/L Total Creatine Kinase (55-170) units/L Total Protein (6.3-8.2) g/dL Albumin (3.9-5) g/dL Albumin/Globulin Ratio % Salicylates (2.8-20.0) mg/dL Acetaminophen 5.0 L (10.0-30.0) ug/mL - EKG Data -: EKG Interpreted by Mi EKG shows normal: sinus rhythm Rate: normal - EKG Data 06/01/21 22:17 The EKG is interpreted at 22: 04 Sinus rhythm, 88 bpm. Left axis deviation, left anterior fascicular block. QTC 419 ms. Minimal motion artifact. Abnormal EKG. Not a STEMI. - Radiology Data Radiology results: pending, report reviewed, image reviewed CHEST 1 VIEW INDICATION: hx of seizure. COMPARISON: 12/15/2016. FINDINGS: S upport devices: None. Heart: Normal. Lungs/Pleura: There are mild patchy airspace opacities in the mid to lower lungs which are nonspecific. No pleural abnormality is seen. IMPRESSION: 1. Mild patchy airspace opacities in the mid to lower lungs, greater on the right. These are nonspecific. Mild pneumonia could have this appearance. Signer Name: Zeb Velazquez MD Signed: 06/01/2021 9:20 PM Workstation Name: [id number] CT head/brain wo con INDICATION / CLINICAL INFORMATION: Seizure. TECHNIQUE: Axial CT imaging of brain was obtained without contrast. Coronal and sagittal reformatted imaging obtained and reviewed. All CT scans at this location are performed using CT dose reduction for ALARA by means of automated exposure control. COMPARISON: Prior head CT 10/01/2019, 12/11/2016 FINDINGS: No intracranial hemorrhage, mass, or midline shift is noted. No extra-axial fluid collection or suggestion of acute territorial infarction. Ventricular system and basilar cisterns are unremarkable. Mild to moderate cerebral and cerebellar atrophy noted. Incidental note is made of calcified right orbital globe, as noted on prior studies. Visualized paranasal sinuses and mastoid air cells are grossly clear. No calvarial fracture noted. IMPRESSION: 1. No acute intracranial abnormality. Signer Name: Meme Solis MD Signed: 06/01/2021 10:24 PM Critical care attestation.: If time is entered above; I have spent that time in minutes in the direct care of this critically ill patient, excluding procedure time. ED Disposition Clinical Impression: History of seizure, Cognitive developmental delay, RILEY (acute kidney injury), O pacities of both lungs present on chest x-ray Disposition: 09 ADMITTED INPATIENT Is pt being admited?: Yes Does the pt Need Aspirin: No Condition: Good Referrals: PRIMARY CARE, [Primary Care Provider] - 3-5 Days
[2021-06-01 22:15] LABS: Basophils % (Auto) 0.3 % (0.0-1.8); Eosinophils # (Auto) 0.1 K/mm3 (0.0-0.4); Eosinophils % (Auto) 1.4 % (0.0-4.3); Hematocrit 40.9 % (35.5-45.6); Hemoglobin 13.5 gm/dl (11.8-15.2); Lymphocytes # (Auto) 1.7 K/mm3 (1.2-5.4); Lymphocytes % (Auto) 31.8 % (13.4-35.0); Mean Corpuscular HGB Conc 33 % (32-34); Mean Corpuscular Volume 83 fl (84-94); Monocytes # (Auto) 0.5 K/mm3 (0.0-0.8); Monocytes % (Auto) 9.7 % (0.0-7.3); Platelet Count 169 K/mm3 (140-440); Red Blood Count 4.96 M/mm3 (3.65-5.03); Red Cell Distribution Width 12.7 % (13.2-15.2)
--- NOTE | 2021-06-01 22:25 | XRay Report ---
CHEST 1 VIEW INDICATION: hx of seizure. COMPARISON: 12/15/2016. FINDINGS: Support devices: None. Heart: Normal. Lungs/Pleura: There are mild patchy airspace opacities in the mid to lower lungs which are nonspecifi c. No pleural abnormality is seen. IMPRESSION: 1. Mild patchy airspace opacities in the mid to lower lungs, greater on the right. These are nonspeci fic. Mild pneumonia could have this appearance. Signer Name: Zeb Velazquez MD Signed: 06/01/2021 10:20 PM Workstation Name: [id number]
[2021-06-01] MEDS ORDERED: diphenhydrAMINE 50 MG/ML VIAL IV ONE (22:39)
[2021-06-01] MEDS ORDERED: LORazepam 2 MG/ML VIAL IV STA (22:39)
[2021-06-01 22:41] LABS: Albumin 4.1 g/dL (3.9-5); Calcium 9.4 mg/dL (8.4-10.2)
[2021-06-01] MEDS ORDERED: LACTATED RINGERS 2,000 ML IV ONE (23:05)
[2021-06-01] MEDS ORDERED: cefTRIAXone/NS 1 GM/50 ML 1 GM/50 ML BAG IV ONE (23:06)
[2021-06-01] MEDS ORDERED: AZITHROMYCIN/NS 500 MG/250 ML 500 MG/250 ML BAG IV ONE (23:06)
[2021-06-01] MEDS ORDERED: SODIUM CHLORIDE 0.9% 1000 ML 2,000 ML IV ONE (23:07)
--- NOTE | 2021-06-01 23:28 | Cat Scan Report ---
CT head/brain wo con INDICATION / CLINICAL INFORMATION: Seizure. TECHNIQUE: Axial CT imaging of brain was obtained without contrast. Coronal and sagittal reformatted imaging obt ained and reviewed. All CT scans at this location are performed using CT dose reduction for ALARA by means of automated exposure control. COMPARISON: Prior head CT 10/01/2019, 12/11/2016 FINDINGS: No intracranial hemorrhage, mass, or midline shift is noted. No extra-axial fluid collection or sugge stion of acute territorial infarction. Ventricular system and basilar cisterns are unremarkable. Mild to moderate cerebral and cerebellar atrophy noted. Incidental note is made of calcified right orbital globe, as noted on prior studies. Visualized paranasal sinuses and mastoid air cells are grossly clear. No calvarial fracture noted. IMPRESSION: 1. No acute intracranial abnormality. Signer Name: Meme Solis MD Signed: 06/01/2021 11:24 PM Workstation Name: [id number]
[2021-06-01] MEDS ORDERED: levETIRAcetam 1000 MG/NS 0.75% 1,000 MG/100 ML BAG IV ONE (23:37)
[2021-06-02] MEDS ORDERED: SODIUM CHLORIDE 0.9% 1000 ML 1,000 ML ONE (01:38)
[2021-06-02] MEDS ORDERED: ACETAMINOPHEN 325 MG TAB PO PRN (02:17)
[2021-06-02] MEDS ORDERED: MORPHINE 2 MG/1 ML INJ IV PRN (02:17)
[2021-06-02] MEDS ORDERED: ONDANSETRON 4 MG/2 ML INJ IV PRN (02:17)
[2021-06-02] MEDS ORDERED: HYDROmorphone 1 MG/1 ML INJ IV PRN (02:17)
[2021-06-02] MEDS ORDERED: ALBUTEROL 2.5 MG/3 ML NEBU IH PRN (02:17)
--- NOTE | 2021-06-02 02:27 | History and Physical Report ---
History of Present Illness Date of examination: 06/02/21 Date of admission: 06/02/21 Chief complaint: seizure History of present illness: 60-year-old male with a history of Lulu-Santiago tear, developmental delay, high cholesterol, seizure disorder, who was brought to the hospital by emergency medical services, for evaluation of possible absence seizure or nonconvulsive seizure. Patient is awake and moving extremities but nonverbal at this time. History is obtained from EMS. EMS reports that they were called for the patient staring off into the space. There was no convulsive activity. They report that this was resolved by the time patient brought to the emergency room . they report normal Accu-Chek in the field, and normal vital signs in the field. EMS reports that patient has not had any convulsive activity in their presence. The patient is awake, moves 4 extremities, and is breathing spontaneously. 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 As per EMS, there is no history of trauma Initial CT scan of the head shows no acute intracranial abnormality, chest x-ray shows mild patchy airspace opacities in mid to lower lungs greater on the right. These are nonspecific. Mild pneumonia could have this appearance. Also pat ient lactic acid is 2.40 BUN is 14 creatinine 2.1 Patient is found to have evidence of renal insufficiency, and pulmonary opacities on x-ray of the chest. This renal insufficiency is new when compared to prior values. Given pulmonary opacities, seizure, renal insufficiency, hypotension (at one point time, blood pressure 95 systolic), start IV fluids, administer ceftriaxone and azithromycin empirically, obtain blood cultures and lactic acid, plan to admit patient to the medical service. Will consult neurology for evaluation Past History Past Medical History: hypertension, other (Behavioral disorder. Mentally challenged, Tachycardia, high cholesterol,SEVERE MR,AUTISM) Past Surgical History: Other (CATARACT SURGERY) Medications and Allergies Allergies Allergy/AdvReac Type Severity Reaction Status Date / Time No Known Allergies Allergy Verified 06/01/21 21:06 Home Medications Medication Instructions Recorded Confirmed Last Taken Type Calcium Polycarbophil [Fiber 625 mg PO BID 07/30/14 12/11/16 Unknown History Laxative] Multivitamin with Minerals [Hair, 1 each PO DAILY 07/30/14 12/11/16 12/11/16 History Skin and Nails] Pravastatin [Pravachol] 40 mg PO QHS 07/30/14 12/11/16 12/10/16 History fluvoxaMINE (NF) [Luvox (Nf)] 100 mg PO BID 07/30/14 12/11/16 12/11/16 History polyethylene glycoL 3350 [Miralax 17 gm PO DAILY 07/30/14 12/11/16 Unknown History 3350] OXcarbazepine [Trileptal] 300 mg PO BID 12/11/16 12/11/16 12/11/16 History Olanzapine [ZyPREXA] 15 mg PO BID 12/11/16 12/11/16 12/11/16 History Benedict-3 Fatty Acids/Fish Oil [Fish 1 each PO BID 12/11/16 12/11/16 12/11/16 History Oil] Trazodone HCl [Oleptro ER] 150 mg PO QHS 12/11/16 12/11/16 12/10/16 History Pantoprazole [Protonix] 40 mg PO BID #60 tablet 12/16/16 Unknown Rx levETIRAcetam [Keppra TAB] 750 mg PO BID #60 tablet 12/16/16 Unknown Rx Clindamycin [Clindamycin CAP] 300 mg PO Q8H #21 cap 10/01/19 Unknown Rx Review of Systems All systems: negative Constitutional: lethargy Neurological: seizures Exam - Constitutional Vitals: Temp Pulse Resp BP Pulse Ox 97.4 F L 68 18 108/64 95 06/01/21 21:15 06/01/21 23:50 06/01/21 23:50 06/01/21 23:50 06/01/21 23:50 General appearance: Present: no acute distress, well-nourished - EENT Eyes: Present: PERRL ENT: hearing intact, clear oral mucosa - Neck Neck: Present: supple, normal ROM - Respiratory Respiratory effort: normal Respiratory: bilateral: CTA - Cardiovascular Heart Sounds: Present: S1 & S2. Absent: rub, click - Extremities Extremities: pulses symmetrical, No edema Peripheral Pulses: within normal limits - Abdominal General gastrointestinal: Present: soft, non-tender, non-distended, normal bowel sounds Male genitourinary: Present: normal - Integumentary Integumentary: Present: clear, warm, dry - Musculoskeletal Musculoskeletal: gait normal, strength equal bilaterally - Psychiatric Psychiatric: appropriate mood/affect, intact judgment & insight - Neurologic Neurologic: CNII-XII intact, moves all extremities Results - Labs CBC & Chem 7: 06/01/21 21:51 06/01/21 21:51 Labs: Laboratory Last Values WBC 5.4 K/mm3 (4.5-11.0) 06/01/21 21:51 RBC 4.96 M/mm3 (3.65-5.03) 06/01/21 21:51 Hgb 13.5 gm/dl (11.8-15.2) 06/01/21 21:51 Hct 40.9 % (35.5-45.6) 06/01/21 21:51 MCV 83 fl (84-94) L 06/01/21 21:51 MCH 27 pg (28-32) L 06/01/21 21:51 MCHC 33 % (32-34) 06/01/21 21:51 RDW 12.7 % (13.2-15.2) L 06/01/21 21:51 Plt Count 169 K/mm3 (140-440) 06/01/21 21:51 Lymph % (Auto) 31.8 % (13.4-35.0) 06/01/21 21:51 Moody % (Auto) 9.7 % (0.0-7.3) H 06/01/21 21:51 Eos % (Auto) 1.4 % (0.0-4.3) 06/01/21 21:51 Baso % (Auto) 0.3 % (0.0-1.8) 06/01/21 21:51 Lymph # (Auto) 1.7 K/mm3 (1.2-5.4) 06/01/21 21:51 [place] # (Auto) 0.5 K/mm3 (0.0-0.8) 06/01/21 21:51 Eos # (Auto) 0.1 K/mm3 (0.0-0.4) 06/01/21 21:51 Baso # (Auto) 0.0 K/mm3 (0.0-0.1) 06/01/21 21:51 Seg Neutrophils % 56.8 % (40.0-70.0) 06/01/21 21:51 Seg Neutrophils # 3.1 K/mm3 (1.8-7.7) 06/01/21 21:51 Sodium 138 mmol/L (137-145) 06/01/21 21:51 Potassium 3.9 mmol/L (3.6-5.0) 06/01/21 21:51 Chloride 99.9 mmol/L (98-107) 06/01/21 21:51 Carbon Dioxide 23 mmol/L (22-30) 06/01/21 21:51 Anion Gap 19 mmol/L 06/01/21 21:51 BUN 14 mg/dL (9-20) 06/01/21 21:51 Creatinine 2.1 mg/dL (0.8-1.3) H 06/01/21 21:51 Estimated GFR 39 ml/min 06/01/21 21:51 BUN/Creatinine Ratio 7 % 06/01/21 21:51 Glucose 148 mg/dL (75-100) H 06/01/21 21:51 Lactic Acid 2.40 mmol/L (0.7-2.0) H* 06/01/21 23:19 Calcium 9.4 mg/dL (8.4-10.2) 06/01/21 21:51 Magnesium 2.30 mg/dL (1.7-2.3) 06/01/21 21:51 Total Bilirubin 0.20 mg/dL (0.1-1.2) 06/01/21 21:51 AST 25 units/L (5-40) 06/01/21 21:51 ALT 36 units/L (7-56) 06/01/21 21:51 Alkaline Phosphatase 94 units/L (35-129) 06/01/21 21:51 Total Creatine Kinase 188 units/L (55-170) H 06/01/21 21:51 Total Protein 7.6 g/dL (6.3-8.2) 06/01/21 21:51 Albumin 4.1 g/dL (3.9-5) 06/01/21 21:51 Albumin/Globulin Ratio 1.2 % 06/01/21 21:51 Salicylates < 0.3 mg/dL (2.8-20.0) L 06/01/21 21:51 Acetaminophen 5.0 ug/mL (10.0-30.0) L 06/01/21 21:51 - Imaging and Cardiology Chest x-ray: report reviewed CT Scan - head: report reviewed Assessment and Plan VTE prophylaxis?: Mechanical Plan of care discussed with patient/family: Yes - Patient Problems (1) Seizure Current Visit: Yes Status: Acute Plan to address problem: Admit the patient to the medical floor. N.p.o. D5 normal saline at the rate of 100 cc/h. Patient is on seizure precaution. We will put the patient on Keppra 750 mg p.o. twice daily. Trileptal 300 mg p.o. twice daily. EEG and neurology consult (2) RILEY (acute kidney injury) Current Visit: Yes Status: Acute Plan to address problem: Avoid nephrotoxic drug. Renally dose medication. D5 normal saline at the rate of 100 cc/h. Recheck BMP in the morning (3) Cognitive developmental delay Current Visit: Yes Status: Acute Plan to address problem: Stable. We will continue the home medication. We will monitor the patient closely (4) Opacities of both lungs present on chest x-ray Current Visit: Yes Status: Acute Plan to address problem: Oxygen via nasal cannula 3 L/min. DuoNeb by nebulizer every 4 hours. Albuterol via nebulizer every 4 hours as needed. Rocephin 2 g IV daily. Zithromax 500 mg IV daily. We recheck the lactic acid blood cultures sputum culture. Recheck CBC BMP in the morning (5) Sepsis Current Visit: No Status: Acute Qualifiers: Sepsis type: sepsis due to unspecified organism Qualified Code(s): A41.9 - Sepsis, unspecified organism Plan to address problem: Oxygen via nasal cannula 3 L/min. DuoNeb by nebulizer every 4 hours. Albuterol via nebulizer every 4 hours as needed. Rocephin 2 g IV daily. Zithromax 500 mg IV daily. We recheck the lactic acid blood cultures sputum culture. Recheck CBC BMP in the morning (6) DVT prophylaxis Current Visit: No Status: Acute Plan to address problem: SCD for DVT prophylaxis. Pepcid 20 mg IV every 12 hours for GI prophylaxis. Patient is a full code
[2021-06-02] MEDS ORDERED: D5W/0.9% NACL 1,000 ML IV SCH (03:00)
[2021-06-02] MEDS ORDERED: SODIUM CHLORIDE 0.9% 1000 ML 1,000 ML IV ONE (03:42)
--- NOTE | 2021-06-02 08:10 | Consultation ---
History of Present Illness Consult date: 06/02/21 Reason for Consult: Staring spells, Hx of seizure and mental incapacity History of present illness: seizure History of present illness: 60-year-old male with a history of Lulu-Santiago tear, developmental delay, high cholesterol, seizure disorder, who was brought to the hospital by emergency medical services, for evaluation of possible absence seizure or nonconvulsive seizure. Patient is awake and moving extremities but nonverbal at this time. History is obtained from EMS. EMS reports that they were called for the patient staring off into the space. There was no convulsive activity. They report that this was resolved by the time patient brought to the emergency room . they report normal Accu-Chek in the field, and normal vital signs in the field. EMS reports that patient has not had any convulsive activity in their presence. The patient is awake, moves 4 extremities, and is breathing spontaneously. 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 As per EMS, there is no history of trauma Initial CT scan of the head shows no acute intracranial abnormality, chest x-ray shows mild patchy airspace opacities in mid to lower lungs greater on the right. These are nonspecific. Mild pneumonia could have this appearance. Also patient lactic acid is 2.40 BUN is 14 creatinine 2.1 Patient is found to have evidence of renal insufficiency, and pulmonary opacities on x-ray of the chest. This renal insufficiency is new when compared to prior values. Given pulmonary opacities, seizure, renal insufficiency, hypotension (at one point time, blood pressure 95 systolic), start IV fluids, administer ceftriaxone and azithromycin empirically, obtain blood cultures and lactic acid, plan to admit patient to the medical service. Neurology is consulted for evaluation - Today he is alert respond to simple command restrained due to agitation move all limbs no seizure is noted or reported -Ct brain is unremarkable MRI brain is schadualed as well as EEG -started on Keppra 750 mg bid and is on Trileptal 300 mg bid and zyprexa#15 mg bid, trazdon 150 mg qhs Past History Past Medical History: hypertension, other (Behavioral disorder. Mentally c hallenged, Tachycardia, high cholesterol,SEVERE MR,AUTISM) Past Surgical History: Other (CATARACT SURGERY) Medications and Allergies Allergies Allergy/AdvReac Type Severity Reaction Status Date / Time No Known Allergies Allergy Verified 06/01/21 21:06 Home Medications Medication Instructions Recorded Confirmed Last Taken Type Calcium Polycarbophil [Fiber 625 mg PO BID 07/30/14 12/11/16 Unknown History Laxative] Multivitamin with Minerals [Hair, 1 each PO DAILY 07/30/14 12/11/16 12/11/16 History Skin and Nails] Pravastatin [Pravachol] 40 mg PO QHS 07/30/14 12/11/16 12/10/16 History fluvoxaMINE (NF) [Luvox (Nf)] 100 mg PO BID 07/30/14 12/11/16 12/11/16 History polyethylene glycoL 3350 [Miralax 17 gm PO DAILY 07/30/14 12/11/16 Unknown History 3350] OXcarbazepine [Trileptal] 300 mg PO BID 12/11/16 12/11/16 12/11/16 History Olanzapine [ZyPREXA] 15 mg PO BID 12/11/16 12/11/16 12/11/16 History [place]-3 Fatty Acids/Fish Oil [Fish 1 each PO BID 12/11/16 12/11/16 12/11/16 History Oil] Trazodone HCl [Oleptro ER] 150 mg PO QHS 12/11/16 12/11/16 12/10/16 History Pantoprazole [Protonix] 40 mg PO BID #60 tablet 12/16/16 Unknown Rx levETIRAcetam [Keppra TAB] 750 mg PO BID #60 tablet 12/16/16 Unknown Rx Clindamycin [Clindamycin CAP] 300 mg PO Q8H #21 cap 10/01/19 Unknown Rx Review of Systems All systems: negative Constitutional: lethargy Neurological: seizures Past History Past Medical History: hypertension, other (Behavioral disorder. Mentally challenged, Tachycardia, high cholesterol,SEVERE MR,AUTISM) Past Surgical History: Other (CATARACT SURGERY) Medications and Allergies Allergies Allergy/AdvReac Type Severity Reaction Status Date / Time No Known Allergies Allergy Verified 06/01/21 21:06 Home Medications Medication Instructions Recorded Confirmed Last Taken Type Calcium Polycarbophil [Fiber 625 mg PO BID 07/30/14 12/11/16 Unknown History Laxative] Multivitamin with Minerals [Hair, 1 each PO DAILY 07/30/14 12/11/16 12/11/16 History Skin and Nails] Pravastatin [Pravachol] 40 mg PO QHS 07/30/14 12/11/16 12/10/16 History fluvoxaMINE (NF) [Luvox (Nf)] 100 mg PO BID 07/30/14 12/11/16 12/11/16 History polyethylene glycoL 3350 [Miralax 17 gm PO DAILY 07/30/14 12/11/16 Unknown History 3350] OXcarbazepine [Trileptal] 300 mg PO BID 12/11/16 12/11/16 12/11/16 History Olanzapine [ZyPREXA] 15 mg PO BID 12/11/16 12/11/16 12/11/16 History [place]-3 Fatty Acids/Fish Oil [Fish 1 each PO BID 12/11/16 12/11/16 12/11/16 History Oil] Trazodone HCl [Oleptro ER] 150 mg PO QHS 12/11/16 12/11/16 12/10/16 History Pantoprazole [Protonix] 40 mg PO BID #60 tablet 12/16/16 Unknown Rx levETIRAcetam [Keppra TAB] 750 mg PO BID #60 tablet 12/16/16 Unknown Rx Clindamycin [Clindamycin CAP] 300 mg PO Q8H #21 cap 10/01/19 Unknown Rx Active Meds: Active Medications Acetaminophen (Acetaminophen 325 Mg Tab) 650 mg PO Q4H PRN PRN Reason: Pain MILD(1-3)/Fever >100.5/LIZ Albuterol (Albuterol 2.5 Mg/3 Ml Nebu) 2.5 mg IH Q3HRT PRN PRN Reason: Shortness Of Breath Albuterol/Ipratropium (Ipratropium/Albuterol Sulfate 3 Ml Ampul.Neb) 1 ampul IH Q6HRT LIBBY Famotidine (Famotidine 20 Mg/2 Ml Inj) 20 mg IV DAILY LIBBY Fish Oil ([place]-3 Fatty Acids/Fish Oil 1 Gram Cap) 1,000 mg PO BID LIBBY Hydromorphone HCl (Hydromorphone 1 Mg/1 Ml Inj) 0.5 mg IV Q3H PRN PRN Reason: Pain , Severe (7-10) Dextrose/Sodium Chloride (D5ns) 1,000 mls @ 100 mls/hr IV DIRECT LIBBY Ceftriaxone Sodium (Rocephin/Ns 2 Gm/100 Ml) 2 gm in 100 mls @ 200 mls/hr IV Q24H [facility]; Protocol Stop: 06/05/21 22:29 Azithromycin (Zithromax/Ns) 500 mg in 250 mls @ 250 mls/hr IV Q24H [facility]; Protocol Stop: 06/05/21 22:59 Levetiracetam (Levetiracetam 500 Mg Tab) 750 mg PO BID [facility] Miscellaneous Medication (Fluvoxamine (Nf)) 100 mg PO BID [facility] Morphine Sulfate (Morphine 2 Mg/1 Ml Inj) 2 mg IV Q4H PRN PRN Reason: Pain, Moderate (4-6) Olanzapine (Olanzapine 7.5 Mg Tab) 15 mg PO BID [facility] Ondansetron HCl (Ondansetron 4 Mg/2 Ml Inj) 4 mg IV Q8H PRN PRN Reason: Nausea And Vomiting Oxcarbazepine (Oxcarbazepine 300 Mg Tab) 300 mg PO BID [facility] Polyethylene Glycol (Polyethylene Glycol 3350 17 Gm Powder) 17 gm PO DAILY [facility] Pravastatin Sodium (Pravastatin 40 Mg Tab) 40 mg PO QHS [facility] Sodium Chloride (Sodium Chloride 0.9% 10 Ml Flush Syringe) 10 ml IV BID [facility] Sodium Chloride (Sodium Chloride 0.9% 10 Ml Flush Syringe) 10 ml IV PRN PRN PRN Reason: LINE FLUSH Trazodone HCl (Trazodone 50 Mg Tab) 150 mg PO QHS [facility] Physical Examination - Vital Signs Vital Signs: Vital Signs Temp Pulse Resp BP Pulse Ox 97.4 F L 88 14 103/62 95 06/01/21 21:15 06/01/21 21:15 06/01/21 21:15 06/01/21 21:15 06/01/21 21:15 - Constitutional General appearance: uncomfortable, other (restrained agitated) - EENT EENT: Present: PERRL, mucous membranes moist - Respiratory Respiratory: Present: lungs clear, normal breath sounds, rhonchi - Cardiovascular Cardiovascular: Present: regular rate, normal S1, normal S2 Extremities: Present: no peripheral edema bilatateraly, no clubbing, cyanosis - Gastrointestinal Gastrointestinal: Present: normoactive bowel sounds - Integumentary Integumentary: Present: normal - Neurologic Cranial nerve examination: PERRL, EOMI, intact Speech examination: intact Sensorimotor examination: intact Detailed motor examination: grossly full strength in Results - Laboratory Findings CBC and BMP: 06/01/21 21:51 06/01/21 21:51 Abnormal Lab Findings: Abnormal Labs 06/01/21 06/01/21 06/01/21 21:51 21:51 21:51 MCV 83 L MCH 27 L RDW 12.7 L [place] % (Auto) 9.7 H Creatinine 2.1 H Glucose 148 H Lactic Acid Total Creatine Kinase 188 H Salicylates < 0.3 L Acetaminophen 06/01/21 06/01/21 21:51 23:19 MCV MCH RDW [place] % (Auto) Creatinine Glucose Lactic Acid 2.40 H* Total Creatine Kinase Salicylates Acetaminophen 5.0 L Assessment and Plan Assessment and Plan 60-year-old male with a history of Lulu-Santiago tear, developmental delay, high cholesterol, seizure disorder, who was brought to the hospital by emergency med ical services, for evaluation of possible absence seizure or nonconvulsive seizure. Patient is awake and moving extremities but nonverbal at this time. History is obtained from EMS. EMS reports that they were called for the patient staring off into the space. There was no convulsive activity. They report that this was resolved by the time patient brought to the emergency room . they report normal Accu-Chek in the field, and normal vital signs in the field. EMS reports that patient has not had any convulsive activity in their presence. - Patient Problems # Seizure can not be excluded -started on Keppra -- could add to agitation and pt. is with renal insufficiency -will change to valproic acid 750 mg bid -EEG -MRI brain if possible wo gd -check tegretol level -restart PO intake -treat underlying infection -keep in mind zyprexa can trigger seizure -- will leave to discretion of psychiatry ... -seizure precaution # RILEY (acute kidney injury) -Avoid nephrotoxic drug. - Renally dose medication. - D5 normal saline at the rate of 100 cc/h. - Recheck BMP in the morning # Cognitive developmental delay -Stable. - We will continue the home medication. - We will monitor the patient closely # Opacities of both lungs present on chest x-ray -Oxygen via nasal cannula 3 L/min. - DuoNeb by nebulizer every 4 hours. - Albuterol via nebulizer every 4 hours as needed. - Rocephin 2 g IV daily. Zithromax 500 mg IV daily. -We recheck the lactic acid blood cultures sputum culture. - Recheck CBC BMP in the morning # Sepsis -Oxygen via nasal cannula 3 L/min. - Rocephin 2 g IV daily. - Zithromax 500 mg IV daily. -COVID-19 PCR is pending # DVT prophylaxis -SCD for DVT prophylaxis. - Pepcid 20 mg IV every 12 hours for GI prophylaxis. - Patient is a full code will follow
[2021-06-02] MEDS ORDERED: FAMOTIDINE 20 MG/2 ML INJ IV SCH ×2 (10:00)
[2021-06-02] MEDS ORDERED: FLUVOXAMINE 50 MG PO SCH (10:00)
[2021-06-02] MEDS ORDERED: levETIRAcetam 500 MG TAB PO SCH (10:00)
[2021-06-02] MEDS ORDERED: NON-FORMULARY EACH (Olanzapine [Zyprexa] 15 MG Tablet) PO SCH (10:00)
[2021-06-02] MEDS ORDERED: ALBUTEROL 8.5 GM MDI INHALATION IH PRN (10:22)
[2021-06-02] MEDS: IPRATROPIUM/ALBUTEROL SULFATE 3 ML AMPUL.NEB IH SCH ×2 (10:24→19:09)
--- NOTE | 2021-06-02 11:43 | Electrocardiograph Report ---
[facility] Test Date: 2021-06-01 Test Time: 22:04:08 Pat Name: RANDOLPH STALLWORTH Department: Room: [place] [address] Gender: M [employer]: KALYANI : 1960 Requested By: SAEED HOLGUIN Order Number: [id number] Reading MD: Rj Wong Measurements Intervals [place] Rate: 88 P: 34 UT: 151 QRS: -2 QRSD: 91 T: 38 QT: 407 QTc: 492 Interpretive Statements Sinus rhythm No previous ECG available for comparison Electronically Signed On 06-02-2021 11:42:34 EST by Rj Wong
[2021-06-02] MEDS ORDERED: LORazepam 2 MG/ML VIAL IV ONE (12:00)
[2021-06-02] MEDS: OMEGA-3 FATTY ACIDS/FISH OIL 1 GRAM CAP PO SCH (12:21)
[2021-06-02] MEDS: VALPROATE SODIUM 750 MG in SODIUM CHLORIDE 0.9% 100 ML IV SCH (12:22)
[2021-06-02] MEDS: OXcarbazepine 300 MG TAB PO SCH (13:22)
[2021-06-02] MEDS: POLYETHYLENE GLYCOL 3350 17 GM POWDER PO SCH (13:22)
[2021-06-02] MEDS ORDERED: cefTRIAXone/NS 2 GM/100 ML 2 GM/100 ML BAG IV SCH (22:00)
[2021-06-02] MEDS ORDERED: PRAVASTATIN 40 MG TAB PO SCH (22:00)
[2021-06-02] MEDS ORDERED: traZODone 50 MG TAB PO SCH (22:00)
[2021-06-02] MEDS ORDERED: TRAZODONE HCL 150 MG PO SCH (22:00)
[2021-06-03] MEDS: OMEGA-3 FATTY ACIDS/FISH OIL 1 GRAM CAP PO SCH ×2 (01:48→09:25)
[2021-06-03] MEDS: OXcarbazepine 300 MG TAB PO SCH ×2 (01:48→09:26)
[2021-06-03] MEDS: VALPROATE SODIUM 750 MG in SODIUM CHLORIDE 0.9% 100 ML IV SCH ×2 (01:49→09:36)
[2021-06-03] MEDS: AZITHROMYCIN/NS 500 MG/250 ML 500 MG/250 ML BAG IV SCH (03:54)
[2021-06-03 06:26] LABS: Basophils % (Auto) 0.3 % (0.0-1.8); Eosinophils # (Auto) 0.2 K/mm3 (0.0-0.4); Eosinophils % (Auto) 2.8 % (0.0-4.3); Hematocrit 41.3 % (35.5-45.6); Hemoglobin 13.2 gm/dl (11.8-15.2); Lymphocytes # (Auto) 1.6 K/mm3 (1.2-5.4); Lymphocytes % (Auto) 25.2 % (13.4-35.0); Mean Corpuscular HGB Conc 32 % (32-34); Mean Corpuscular Volume 82 fl (84-94); Monocytes # (Auto) 0.6 K/mm3 (0.0-0.8); Monocytes % (Auto) 9.1 % (0.0-7.3); Platelet Count 179 K/mm3 (140-440); Red Blood Count 5.04 M/mm3 (3.65-5.03); Red Cell Distribution Width 13.1 % (13.2-15.2)
[2021-06-03 06:37] LABS: BUN/Creatinine Ratio 12; Blood Urea Nitrogen 12 mg/dL (9-20); Calcium 8.5 mg/dL (8.4-10.2); Hemolysis Index 21
[2021-06-03] MEDS: IPRATROPIUM/ALBUTEROL SULFATE 3 ML AMPUL.NEB IH SCH ×3 (07:31→08:08)
[2021-06-03] MEDS: POLYETHYLENE GLYCOL 3350 17 GM POWDER PO SCH (09:25)
[2021-06-03] MEDS: FAMOTIDINE 20 MG TAB PO SCH (09:25)
[2021-06-03] MEDS ORDERED: FAMOTIDINE 20 MG/2 ML INJ IV SCH (10:00)
--- NOTE | 2021-06-03 12:08 | Progress Note ---
Assessment and Plan Assessment and Plan 60-year-old male with a history of Lulu-Santiago tear, developmental delay, high cholesterol, seizure disorder, who was brought to the hospital by emergency medical services, for evaluation of possible absence seizure or nonconvulsive seizure. Patient is awake and moving extremities but nonverbal at this time. History is obtained from EMS. EMS reports that they were called for the patient staring off into the space. There was no convulsive activity. They report that this was resolved by the time patient brought to the emergency room . they report normal Accu-Chek in the field, and normal vital signs in the field. EMS reports that patient has not had any convulsive activity in their presence. - Patient Problems # Seizure can not be excluded -started on Keppra -- could add to agitation and pt. is with renal insufficiency -will change to valproic acid 750 mg bid -EEG showed diffuse slowing -MRI brain if possible wo gd -check tegretol level is pending -restart PO intake when awake -treat underlying infection -keep in mind zyprexa can trigger seizure -- will leave to discretion of psychiatry ... -seizure precaution # encephalopathic today -possibly medication effect -will hold trazdon -tegretol level -decrese valproic to 500 BID -Valproic acid level - # RILEY (acute kidney injury) -Avoid nephrotoxic drug. - Renally dose medication. - D5 normal saline at the rate of 100 cc/h. - Recheck BMP in the morning # Cognitive developmental delay -Stable. - We will continue the home medication. - We will monitor the patient closely # Opacities of both lungs present on chest x-ray -Oxygen via nasal cannula 3 L/min. - DuoNeb by nebulizer every 4 hours. - Albuterol via nebulizer every 4 hours as needed. - Rocephin 2 g IV daily. Zithromax 500 mg IV daily. -We recheck the lactic acid blood cultures sputum culture. - Recheck CBC BMP in the morning # Sepsis -Oxygen via nasal cannula 3 L/min. - Rocephin 2 g IV daily. - Zithromax 500 mg IV daily. -COVID-19 PCR is pending # DVT prophylaxis -SCD for DVT prophylaxis. - Pepcid 20 mg IV every 12 hours for GI prophylaxis. - Patient is a full code will follow Subjective Date of service: 06/03/21 Principal diagnosis: pt. is lethargic and sleepy had hard time awak Interval history: sleepy not follow command Objective - Vital Sign Vital Signs - 12hr 06/03/21 06/03/21 06/03/21 01:44 01:46 01:50 Temperature 98.2 F Pulse Rate 100 H Respiratory 18 Rate Blood Pressure 134/100 128/89 Blood Pressure 128/89 [Left] O2 Sat by Pulse 95 95 95 Oximetry 06/03/21 06/03/21 06/03/21 02:00 02:10 02:20 Temperature Pulse Rate Respiratory Rate Blood Pressure 128/89 128/89 128/89 Blood Pressure [Left] O2 Sat by Pulse 95 92 94 Oximetry 06/03/21 06/03/21 06/03/21 02:30 02:40 03:12 Temperature 97.5 F L Pulse Rate 93 H Respiratory 20 Rate Blood Pressure 128/89 128/89 136/86 Blood Pressure [Left] O2 Sat by Pulse 95 95 95 Oximetry 06/03/21 06/03/21 06/03/21 05:44 08:07 08:08 Temperature Pulse Rate Respiratory 18 Rate Blood Pressure Blood Pressure [Left] O2 Sat by Pulse 99 98 100 Oximetry - General Apperance Constitutional: comfortable - EENT EENT: PERRL, mucous membranes moist - Respiratory Respiratory: lungs clear, rhonchi - Cardiovascular Cardiovascular: regular rate, normal S1, normal S2 Extremities: no peripheral edema bilat, no clubbing, cyanosis - Gastrointestinal Gastrointestinal: normoactive bowel sounds - Integumentary Integumentary: normal - Neurologic Cranial nerve examination: PERRL, EOMI, intact Speech examination: other (sleepy not follow command) Detailed motor examination: other (sleepy difficult to assess ) - Laboratory Findings CBC and BMP: 06/03/21 06:02 06/03/21 06:02 Abnormal Lab Findings: Abnormal Labs 06/01/21 06/01/21 06/01/21 21:51 21:51 21:51 RBC MCV 83 L MCH 27 L RDW 12.7 L [place] % (Auto) 9.7 H Creatinine 2.1 H Glucose 148 H Lactic Acid Total Creatine Kinase 188 H Salicylates < 0.3 L Acetaminophen 06/01/21 06/01/21 06/03/21 21:51 23:19 06:02 RBC 5.04 H MCV 82 L MCH 26 L RDW 13.1 L [place] % (Auto) 9.1 H Creatinine Glucose Lactic Acid 2.40 H* Total Creatine Kinase Salicylates Acetaminophen 5.0 L 06/03/21 06:02 RBC MCV MCH RDW [place] % (Auto) Creatinine Glucose 112 H Lactic Acid Total Creatine Kinase Salicylates Acetaminophen
--- NOTE | 2021-06-03 20:39 | Progress Note ---
Assessment and Plan - Patient Problems (1) Aspiration pneumonia Current Visit: Yes Status: Acute Plan to address problem: Pneumonia protocol: Chest x-ray, CBC, CMP, supplemental oxygen, pulse oximetry,. Patient symptoms improved with therapy. Discharge planning in a.m. with full course oral antibiotic therapy (2) RILEY (acute kidney injury) Current Visit: Yes Status: Acute Plan to address problem: Resolved with IV fluid resuscitation therapy. (3) Acidosis Current Visit: Yes Status: Acute Plan to address problem: Resolved with supportive care, (4) Seizure disorder Current Visit: Yes Status: Acute Plan to address problem: Continue antiepileptic therapy, outpatient neurology follow-up, continue medical management. (5) Vascular dementia Current Visit: Yes Status: Acute Qualifiers: Dementia behavioral disturbance: without behavioral disturbance Qualified Code(s): F01.50 - Vascular dementia without behavioral disturbance Plan to address problem: Verbal prompt, verbal redirection, benzodiazepine therapy as clinically indicated. (6) Cerebral atherosclerosis Current Visit: Yes Status: Acute Plan to address problem: Risk factor reduction, antiplatelet therapy as clinically indicated. (7) DVT prophylaxis Current Visit: Yes Status: Acute Plan to address problem: SCD to bilateral lower extremities while in bed (8) Advance care planning Current Visit: Yes Status: Acute Plan to address problem: Disease education conducted, care plan discussed, diagnoses discussed, prognosis discussed, patient is full code. Patient caregiver notified. Discharge planning in a.m. back to personal [facility]. +30 minutes. History Interval history: 60 YO Male HD #2 with Aspiration Pneumonia, RILEY with ATN, Acidosis, Seizure Disorder, Vascular Dementia, Cerebral Atherosclerosis. Patient symptoms improved overnight. No reported nursing instruments. Patient compliant with therapy. Discharge planning in a.m. Hospitalist Physical - Constitutional Vitals: Temp Pulse Resp BP Pulse Ox 98.1 F 119 H 22 144/93 93 06/03/21 17:22 06/03/21 17:22 06/03/21 17:22 06/03/21 17:22 06/03/21 17:22 General appearance: Present: no acute distress, well-nourished - EENT Eyes: Present: PERRL ENT: hearing intact - Neck Neck: Present: supple - Respiratory Respiratory: bilateral: diminished - Cardiovascular Rhythm: regular Heart Sounds: Present: S1 & S2 - Extremities Extremities: no ischemia Peripheral Pulses: within normal limits - Abdominal General gastrointestinal: soft, non-tender, non-distended - Integumentary Integumentary: Present: clear, dry - Psychiatric Psychiatric: cooperative - Neurologic Neurologic: CNII-XII intact Results - Labs CBC & Chem 7: 06/03/21 06:02 06/03/21 06:02 Labs: Laboratory Last Values WBC 6.5 K/mm3 (4.5-11.0) 06/03/21 06:02 RBC 5.04 M/mm3 (3.65-5.03) H 06/03/21 06:02 Hgb 13.2 gm/dl (11.8-15.2) 06/03/21 06:02 Hct 41.3 % (35.5-45.6) 06/03/21 06:02 MCV 82 fl (84-94) L 06/03/21 06:02 MCH 26 pg (28-32) L 06/03/21 06:02 MCHC 32 % (32-34) 06/03/21 06:02 RDW 13.1 % (13.2-15.2) L 06/03/21 06:02 Plt Count 179 K/mm3 (140-440) 06/03/21 06:02 Lymph % (Auto) 25.2 % (13.4-35.0) 06/03/21 06:02 [place] % (Auto) 9.1 % (0.0-7.3) H 06/03/21 06:02 Eos % (Auto) 2.8 % (0.0-4.3) 06/03/21 06:02 Baso % (Auto) 0.3 % (0.0-1.8) 06/03/21 06:02 Lymph # (Auto) 1.6 K/mm3 (1.2-5.4) 06/03/21 06:02 [place] # (Auto) 0.6 K/mm3 (0.0-0.8) 06/03/21 06:02 Eos # (Auto) 0.2 K/mm3 (0.0-0.4) 06/03/21 06:02 Baso # (Auto) 0.0 K/mm3 (0.0-0.1) 06/03/21 06:02 Seg Neutrophils % 62.6 % (40.0-70.0) 06/03/21 06:02 Seg Neutrophils # 4.1 K/mm3 (1.8-7.7) 06/03/21 06:02 Sodium 141 mmol/L (137-145) 06/03/21 06:02 Potassium 4.0 mmol/L (3.6-5.0) 06/03/21 06:02 Chloride 106.0 mmol/L (98-107) 06/03/21 06:02 Carbon Dioxide 23 mmol/L (22-30) 06/03/21 06:02 Anion Gap 16 mmol/L 06/03/21 06:02 BUN 12 mg/dL (9-20) 06/03/21 06:02 Creatinine 1.0 mg/dL (0.8-1.3) D 06/03/21 06:02 Estimated GFR > 60 ml/min 06/03/21 06:02 BUN/Creatinine Ratio 12 % 06/03/21 06:02 Glucose 112 mg/dL (75-100) H 06/03/21 06:02 Lactic Acid 1.70 mmol/L (0.7-2.0) 06/02/21 07:07 Calcium 8.5 mg/dL (8.4-10.2) 06/03/21 06:02 Magnesium 2.30 mg/dL (1.7-2.3) 06/01/21 21:51 Total Bilirubin 0.20 mg/dL (0.1-1.2) 06/01/21 21:51 AST 25 units/L (5-40) 06/01/21 21:51 ALT 36 units/L (7-56) 06/01/21 21:51 Alkaline Phosphatase 94 units/L (35-129) 06/01/21 21:51 Total Creatine Kinase 188 units/L (55-170) H 06/01/21 21:51 Total Protein 7.6 g/dL (6.3-8.2) 06/01/21 21:51 Albumin 4.1 g/dL (3.9-5) 06/01/21 21:51 Albumin/Globulin Ratio 1.2 % 06/01/21 21:51 Salicylates < 0.3 mg/dL (2.8-20.0) L 06/01/21 21:51 Acetaminophen 5.0 ug/mL (10.0-30.0) L 06/01/21 21:51 Valproic Acid 91.1 ug/mL (50-100) 06/03/21 12:07 Coronavirus (PCR) Negative (Negative) 06/02/21 09:00 Microbiology: Microbiology 06/01/21 23:28 Peripheral/Venous Blood Culture - Preliminary NO GROWTH AFTER 24 HOURS 06/01/21 23:19 Peripheral/Venous Blood Culture - Preliminary NO GROWTH AFTER 24 HOURS Ariza/IV: Voiding Method Indwelling Catheter Active Medications - Current Medications Current Medications: Generic Name Dose Route Start Last Admin Trade Name Freq PRN Reason Stop Dose Admin Acetaminophen 650 mg 06/02/21 02:17 Acetaminophen 325 Mg Tab PO Q4H PRN Pain MILD(1-3)/Fever >100.5/LIZ Albuterol 2.5 mg 06/02/21 02:17 Albuterol 2.5 Mg/3 Ml Nebu IH Q3HRT PRN Shortness Of Breath Famotidine 20 mg 06/03/21 10:00 06/03/21 09:25 Famotidine 20 Mg Tab PO Not Given BID LIBBY Fish Oil 1,000 mg 06/02/21 10:00 06/03/21 09:25 [place]-3 Fatty Acids/Fish Oil 1 Gram Cap PO Not Given BID LIBBY Hydromorphone HCl 0.5 mg 06/02/21 02:17 Hydromorphone 1 Mg/1 Ml Inj IV Q3H PRN Pain , Severe (7-10) Dextrose/Sodium Chloride 1,000 mls @ 100 mls/hr 06/02/21 03:00 D5ns IV DIRECT [facility] Ceftriaxone Sodium 2 gm in 100 mls @ 200 mls/hr 06/02/21 22:00 Rocephin/Ns 2 Gm/100 Ml IV 06/05/21 22:29 Q24H LIBBY Protocol Azithromycin 500 mg in 250 mls @ 250 mls/hr 06/02/21 22:00 06/03/21 03:54 Zithromax/Ns IV 06/05/21 22:59 250 mls/hr Q24H [facility] Administration Protocol Valproate Sodium 500 mg/ 105 mls @ 100 mls/hr 06/03/21 22:00 Sodium Chloride IV Q12HR [facility] Miscellaneous Medication 100 mg 06/02/21 10:00 Fluvoxamine (Nf) PO BID [facility] Morphine Sulfate 2 mg 06/02/21 02:17 Morphine 2 Mg/1 Ml Inj IV Q4H PRN Pain, Moderate (4-6) Olanzapine 10 mg 06/03/21 22:00 Olanzapine 10 Mg Tab PO BID LIBBY Ondansetron HCl 4 mg 06/02/21 02:17 Ondansetron 4 Mg/2 Ml Inj IV Q8H PRN Nausea And Vomiting Oxcarbazepine 300 mg 06/02/21 10:00 06/03/21 09:26 Oxcarbazepine 300 Mg Tab PO Not Given BID LIBBY Polyethylene Glycol 17 gm 06/02/21 10:00 06/03/21 09:25 Polyethylene Glycol 3350 17 Gm Powder PO Not Given DAILY LIBBY Pravastatin Sodium 40 mg 06/02/21 22:00 Pravastatin 40 Mg Tab PO QHS LIBBY Sodium Chloride 10 ml 06/02/21 10:00 06/03/21 09:25 Sodium Chloride 0.9% 10 Ml Flush Syringe IV Not Given BID LIBBY Sodium Chloride 10 ml 06/02/21 02:17 Sodium Chloride 0.9% 10 Ml Flush Syringe IV PRN PRN LINE FLUSH Nutrition/Malnutrition Assess - Dietary Evaluation Nutrition/Malnutrition Findings: Nutrition Notes Start: 06/03/21 16:08 Freq: Status: Active Protocol: Document 06/03/21 16:08 CHRIS (Rec: 06/03/21 16:22 CHRIS [id number]) Nutrition Notes Need for Assessment generated from: conference interpreter Initial or Follow up Assessment Current Diagnosis Acute Kidney Injury,Sepsis, Hyperlipidemia Other Pertinent Diagnosis Seizure, Cognitive Developmental Delay, Encephalopathy. Current Diet Regular Diet (since L 06/01). Labs/Tests 06/03: Glu 112. Pertinent Medications 06/03: Nutritionally unremarkable. Height 5 ft 11 in Weight 99.3 kg [place] Body Weight (kg) 78.18 BMI 30.5 Intake Prior to Admission Good Weight change and time frame Pt states not having loss body weight [employer]. Weight Status Obese Subjective/Other Information RD consult for skin risk assessment. No report available on Pt's PO intake of meals at the time. Pt shows no signs of concern for skin risk at the trime, according to Physical Assessment History notes. Pt lethargic and sleepy. Percent of energy/protein needs met: Prescribed Regular Diet provides for energy/protein needs (2,289 Kcal/89 g) during LOS. Burn Absent Trauma Absent GI Symptoms None Food Allergy No Skin Integrity/Comment Clear, warm, dry. Minimum of two criteria No Is patient on ventilator? No Is Patient Ambulatory and/or Out of Bed No REE-([facility]-confined to bed) 2188.812 Kcal/Kg value to use for calculation 20 Approximate Energy Requirements Using 1986 kcal/Kg Calculation Used for Recommendations Kcal/kg Additional Notes Protein: 0.8-1 g/Kg; 71-89 g/ day. Fluids: 1 ml/Kcal, or as per MD. Nutrition Intervention Follow-Up By: 06/10/21 Additional Comments Continue monitoring food tolerance, %PO intake of meals , and BM.
[2021-06-03] MEDS ORDERED: VALPROATE SODIUM 500 MG in SODIUM CHLORIDE 0.9% 100 ML IV SCH (22:00)
[2021-06-03] MEDS ORDERED: SODIUM CHLORIDE 0.9% 50 ML ONE (23:27)
[2021-06-04] MEDS: AZITHROMYCIN/NS 500 MG/250 ML 500 MG/250 ML BAG IV SCH (02:26)
[2021-06-04 05:45] VITALS: BP 116/66
[2021-06-04] MEDS: POLYETHYLENE GLYCOL 3350 17 GM POWDER PO SCH (09:20)
[2021-06-04] MEDS: OMEGA-3 FATTY ACIDS/FISH OIL 1 GRAM CAP PO SCH (09:21)
[2021-06-04] MEDS: OXcarbazepine 300 MG TAB PO SCH (09:21)
[2021-06-04] MEDS: FAMOTIDINE 20 MG TAB PO SCH (09:22)
--- NOTE | 2021-06-04 12:00 | Progress Note ---
Assessment and Plan Assessment and Plan 60-year-old male with a history of Lulu-Santiago tear, developmental delay, high cholesterol, seizure disorder, who was brought to the hospital by emergency medical services, for evaluation of possible absence seizure or nonconvulsive seizure. Patient is awake and moving extremities but nonverbal at this time. History is obtained from EMS. EMS reports that they were called for the patient staring off into the space. There was no convulsive activity. They report that this was resolved by the time patient brought to the emergency room . they report normal Accu-Chek in the field, and normal vital signs in the field. EMS reports that patient has not had any convulsive activity in their presence. - Patient Problems # Seizure can not be excluded -started on Keppra -- could add to agitation and pt. is with renal insufficiency -will change to valproic acid 750 mg bid --Cut down to 500 mg BID , Valproic acid level is #91.1 -EEG showed diffuse slowing -MRI brain if possible wo gd-- not done -check tegretol level is pending -restart PO intake when awake -treat underlying infection -keep in mind zyprexa can trigger seizure -- will leave to discretion of psychiatry ... -seizure precaution # encephalopathic today -possibly medication effect - trazdon advance to 50 mg qhs -tegretol level -decrese valproic to 500 BID -Valproic acid level#91.1 - # RILEY (acute kidney injury) -Avoid nephrotoxic drug. - Renally dose medication. - D5 normal saline at the rate of 100 cc/h. - Recheck BMP in the morning # Cognitive developmental delay -Stable. - We will continue the home medication. - We will monitor the patient closely # Opacities of both lungs present on chest x-ray -Oxygen via nasal cannula 3 L/min. - DuoNeb by nebulizer every 4 hours. - Albuterol via nebulizer every 4 hours as needed. - Rocephin 2 g IV daily. Zithromax 500 mg IV daily. -We recheck the lactic acid blood cultures sputum culture. - Recheck CBC BMP in the morning # Sepsis -Oxygen via nasal cannula 3 L/min. - Rocephin 2 g IV daily. - Zithromax 500 mg IV daily. -COVID-19 PCR is pending # DVT prophylaxis -SCD for DVT prophylaxis. - Pepcid 20 mg IV every 12 hours for GI prophylaxis. - Patient is a full code will sign off follow up with PCP at home and with psychiatry Subjective Date of service: 06/04/21 Principal diagnosis: pt. is lethargic and sleepy had hard time awak Interval history: alert today slightly interactive no significant speech out put no seizure Valproic acid level is 91.1 Objective - Vital Sign Vital Signs - 12hr 06/04/21 06/04/21 05:39 07:12 Temperature 98.5 F Pulse Rate 115 H Respiratory 20 Rate Blood Pressure 116/66 O2 Sat by Pulse 99 97 Oximetry - General Apperance Constitutional: comfortable - EENT EENT: PERRL, mucous membranes moist - Respiratory Respiratory: lungs clear - Cardiovascular Cardiovascular: regular rate, normal S1, normal S2 Extremities: no peripheral edema bilat, no clubbing, cyanosis - Gastrointestinal Gastrointestinal: normoactive bowel sounds - Integumentary Integumentary: normal - Neurologic Cranial nerve examination: PERRL, EOMI, intact Detailed motor examination: grossly full strength in - Laboratory Findings CBC and BMP: 06/03/21 06:02 06/03/21 06:02 Abnormal Lab Findings: Abnormal Labs 06/01/21 06/01/21 06/01/21 21:51 21:51 21:51 RBC MCV 83 L MCH 27 L RDW 12.7 L [place] % (Auto) 9.7 H Creatinine 2.1 H Glucose 148 H Lactic Acid Total Creatine Kinase 188 H Salicylates < 0.3 L Acetaminophen 06/01/21 06/01/21 06/03/21 21:51 23:19 06:02 RBC 5.04 H MCV 82 L MCH 26 L RDW 13.1 L [place] % (Auto) 9.1 H Creatinine Glucose Lactic Acid 2.40 H* Total Creatine Kinase Salicylates Acetaminophen 5.0 L 06/03/21 06:02 RBC MCV MCH RDW [place] % (Auto) Creatinine Glucose 112 H Lactic Acid Total Creatine Kinase Salicylates Acetaminophen
== END 2021-06-04 11:30 | disposition home or self-care (01) | DRG 871 ==
LOC: ED 20:52 → 3A 06-02 02:18
PROVIDERS: ADMIT Hospitalist; ATTEND Internal Medicine
DX: A41.9 Sepsis, unspecified organism (principal); J69.0 Pneumonitis due to inhalation of food and vomit; N17.9 Acute kidney failure, unspecified; E87.2 Acidosis; I10 Essential (primary) hypertension; G40.909 Epilepsy, unspecified, not intractable, without status epilepticus; F01.50 Vascular dementia, unspecified severity, without behavioral disturbance, psychotic disturbance, mood disturbance, and anxiety; I67.2 Cerebral atherosclerosis; Z20.822 Contact with and (suspected) exposure to COVID-19
CPT/HCPCS: 36415; 70450; 71045; 80048; 80053; 80164; 80320; 82140; 82550; 83735; 85025; 87040; 93005; 93010; 95819; G0378; J3490; Q0162; G0480; J0456; J0696; J1200; J1953; J2060; J7030; U0003

== ENCOUNTER 2021-06-05 17:01 | Inpatient (IN) | payer MEDICARE ==
[2021-06-05] MEDS ORDERED: SODIUM CHLORIDE 0.9% 1000 ML 1,000 ML IV ONE ×2 (17:21→20:53)
--- NOTE | 2021-06-05 17:49 | XRay Report ---
Chest single view INDICATION: Dyspnea IMPRESSION: There is patchy airspace disease within both lower lungs. Signer Name: Miguelangel Latif MD Signed: 06/05/2021 5:44 PM Workstation Name: [id number]
[2021-06-05] MEDS ORDERED: cefTRIAXone/NS 1 GM/50 ML 1 GM/50 ML BAG IV ONE (17:50)
--- NOTE | 2021-06-05 18:05 | Cat Scan Report ---
CT head/brain wo con INDICATION: Altered Mental Status. TECHNIQUE: All CT scans at this location are performed using CT dose reduction for ALARA by means of automated e xposure control. COMPARISON: Head CT on 06/01/2021 FINDINGS: There is no evidence of hemorrhage, hydrocephalus, brain edema, or mass effect/mass lesion. There is stable mild global atrophy. Previous silicone injection in the right globe again noted. The included paranasal sinuses and mastoi d air cells are clear. The orbits otherwise appear unremarkable. IMPRESSION: 1. No acute findings or adverse change from prior. Signer Name: Kleber Richards MD Signed: 06/05/2021 6:01 PM Workstation Name: [id number]
[2021-06-05 19:14] LABS: Basophils # (Auto) 0.1 K/mm3 (0.0-0.1); Basophils % (Auto) 1.1 % (0.0-1.8); Eosinophils # (Auto) 0.1 K/mm3 (0.0-0.4); Eosinophils % (Auto) 1.8 % (0.0-4.3); Hematocrit 44.5 % (35.5-45.6); Hemoglobin 14.2 gm/dl (11.8-15.2); Lymphocytes # (Auto) 1.2 K/mm3 (1.2-5.4); Lymphocytes % (Auto) 17.1 % (13.4-35.0); Mean Corpuscular HGB Conc 32 % (32-34); Mean Corpuscular Volume 84 fl (84-94); Monocytes # (Auto) 0.5 K/mm3 (0.0-0.8); Monocytes % (Auto) 7.4 % (0.0-7.3); Platelet Count 164 K/mm3 (140-440); Red Blood Count 5.29 M/mm3 (3.65-5.03)
[2021-06-05 19:27] LABS: INR 0.75 (0.87-1.13)
[2021-06-05 19:37] LABS: Alanine Aminotransferase 180 units/L (7-56); Albumin 3.6 g/dL (3.9-5); BUN/Creatinine Ratio 15; Blood Urea Nitrogen 21 mg/dL (9-20); Calcium 8.4 mg/dL (8.4-10.2); Hemolysis Index 141
[2021-06-05 19:56] LABS: Chol/HDL Ratio 3.56 %
[2021-06-05] MEDS ORDERED: SODIUM CHLORIDE 0.9% 1000 ML 1,000 ML ONE (20:22)
[2021-06-05] MEDS ORDERED: VANCOMYCIN 1,000 MG/20 ML IV ONE (21:51)
--- NOTE | 2021-06-05 22:03 | Emergency Department Report ---
ED Altered Mental Status HPI - General Chief Complaint: Seizure Stated Complaint: SEIZURE Time Seen by Provider: 06/05/21 17:19 Source: EMS Mode of arrival: Stretcher Limitations: Altered Mental Status - History of Present Illness Initial Comments: PT BROUGHT IN BY [facility] FROM HIS INTERMEDIATE FOR C/O SEIZURE. HX OF SEIZURE. MD Complaint: altered mental status, confusion -: Sudden, hour(s) Severity: moderate Context: seizure disorder - Related Data Home Medications Medication Instructions Recorded Confirmed Last Taken Calcium Polycarbophil [Fiber 625 mg PO BID 07/30/14 06/03/21 Unknown Laxative] Multivitamin with Minerals [Hair, 1 each PO DAILY 07/30/14 06/03/21 12/11/16 Skin and Nails] Pravastatin [Pravachol] 40 mg PO QHS 07/30/14 06/03/21 12/10/16 polyethylene glycoL 3350 [Miralax 17 gm PO DAILY 07/30/14 06/03/21 Unknown 3350] OXcarbazepine [Trileptal] 300 mg PO BID 12/11/16 06/03/21 12/11/16 [place]-3 Fatty Acids/Fish Oil [Fish 2 each PO BID 12/11/16 06/03/21 12/11/16 Oil] Diclofenac 1% [Diclofenac 1% 2 gm TP BID 06/03/21 06/03/21 Unknown topical gel] Fluvoxamine Maleate 100 mg PO TID 06/03/21 06/03/21 Unknown Lactase [Dairy Relief] 3,000 unit PO BID 06/03/21 06/03/21 Unknown Melatonin [Melatonin 5MG TAB] 5 mg PO QHS 06/03/21 06/03/21 Unknown Mupirocin [Bactroban 2% OINT] 1 applic TP TID 06/03/21 06/03/21 Unknown OLANZapine [Zyprexa] 20 mg PO QAM 06/03/21 06/03/21 Unknown OXcarbazepine [Trileptal] 150 mg PO BID 06/03/21 06/03/21 Unknown Pantoprazole [Protonix TAB] 40 mg PO QDAY 06/03/21 06/03/21 Unknown Pilocarpine HCl [Isopto Carpine] 15 ml OP QAM 06/03/21 06/03/21 Unknown hydrOXYzine HCL 50 mg PO QDAY 06/03/21 06/03/21 Unknown risperiDONE [RisperDAL] 1 mg PO QHS 06/03/21 06/03/21 Unknown risperiDONE [RisperDAL] 2 mg PO QAM 06/03/21 06/03/21 Unknown traZODone [Desyrel] 200 mg PO QHS 06/03/21 06/03/21 Unknown Previous Rx's Medication Instructions Recorded Last Taken Type Azithromycin 250 mg PO DAILY #5 06/03/21 Unknown Rx Allergies Allergy/AdvReac Type Severity Reaction Status Date / Time cat dander Allergy Unknown Unknown Verified 06/03/21 14:08 insect venom Allergy Unknown Unknown Verified 06/03/21 14:08 ED Review of Systems ROS: Stated complaint: SEIZURE Other details as noted in HPI Comment: Unobtainable due to pts medical conditions Constitutional: denies: chills, fever Eyes: denies: eye pain, eye discharge, vision change ENT: denies: ear pain, throat pain Respiratory: denies: cough, shortness of breath, wheezing Cardiovascular: denies: chest pain, palpitations Endocrine: no symptoms reported Gastrointestinal: denies: abdominal pain, nausea, diarrhea Genitourinary: denies: urgency, dysuria Musculoskeletal: denies: back pain, joint swelling, arthralgia Skin: denies: rash, lesions Neurological: denies: headache, weakness, paresthesias Psychiatric: denies: anxiety, depression Hematological/Lymphatic: denies: easy bleeding, easy bruising ED Past Medical Hx - Past Medical History Previous Medical History?: Yes Hx Hypertension: Yes Hx Congestive Heart Failure: No Hx Diabetes: No Hx Psychiatric Treatment: Yes Hx Asthma: No Hx COPD: No Additional medical history: Behavioral disorder. Mentally challenged, Tachycardia, high cholesterol,SEVERE MR,AUTISM - Surgical History Additional Surgical History: CATARACT SURGERY - Social History Smoking Status: Never Smoker - Medications Home Medications: Home Medications Medication Instructions Recorded Confirmed Last Taken Type Calcium Polycarbophil [Fiber 625 mg PO BID 07/30/14 06/03/21 Unknown History Laxative] Multivitamin with Minerals [Hair, 1 each PO DAILY 07/30/14 06/03/21 12/11/16 History Skin and Nails] Pravastatin [Pravachol] 40 mg PO QHS 07/30/14 06/03/21 12/10/16 History polyethylene glycoL 3350 [Miralax 17 gm PO DAILY 07/30/14 06/03/21 Unknown History 3350] OXcarbazepine [Trileptal] 300 mg PO BID 12/11/16 06/03/21 12/11/16 History [place]-3 Fatty Acids/Fish Oil [Fish 2 each PO BID 12/11/16 06/03/21 12/11/16 History Oil] Azithromycin 250 mg PO DAILY #5 06/03/21 Unknown Rx Diclofenac 1% [Diclofenac 1% 2 gm TP BID 06/03/21 06/03/21 Unknown History topical gel] Fluvoxamine Maleate 100 mg PO TID 06/03/21 06/03/21 Unknown History Lactase [Dairy Relief] 3,000 unit PO BID 06/03/21 06/03/21 Unknown History Melatonin [Melatonin 5MG TAB] 5 mg PO QHS 06/03/21 06/03/21 Unknown History Mupirocin [Bactroban 2% OINT] 1 applic TP TID 06/03/21 06/03/21 Unknown History OLANZapine [Zyprexa] 20 mg PO QAM 06/03/21 06/03/21 Unknown History OXcarbazepine [Trileptal] 150 mg PO BID 06/03/21 06/03/21 Unknown History Pantoprazole [Protonix TAB] 40 mg PO QDAY 06/03/21 06/03/21 Unknown History Pilocarpine HCl [Isopto Carpine] 15 ml OP QAM 06/03/21 06/03/21 Unknown History hydrOXYzine HCL 50 mg PO QDAY 06/03/21 06/03/21 Unknown History risperiDONE [RisperDAL] 1 mg PO QHS 06/03/21 06/03/21 Unknown History risperiDONE [RisperDAL] 2 mg PO QAM 06/03/21 06/03/21 Unknown History traZODone [Desyrel] 200 mg PO QHS 06/03/21 06/03/21 Unknown History ED Physical Exam - General Limitations: Altered Mental Status General appearance: obese, postictal - Head Head exam: Present: normocephalic - Eye Eye exam: Present: normal appearance - ENT ENT exam: Present: mucous membranes moist - Neck Neck exam: Present: normal inspection - Respiratory Respiratory exam: Present: wheezes. Absent: respiratory distress - Cardiovascular Cardiovascular Exam: Present: normal rhythm, tachycardia. Absent: systolic murmur, diastolic murmur, rubs, gallop - GI/Abdominal GI/Abdominal exam: Present: soft, normal bowel sounds - Rectal Rectal exam: Present: deferred - Extremities Exam Extremities exam: Present: normal inspection - Back Exam Back exam: Present: normal inspection - Expanded Neurological Exam Expanded Best Eye Response (Miya): (4) open spontaneously Best Motor Response (Miya): (6) obeys commands Best Verbal Response ([place]): (3) inappropriate words [place] Total: 13 - Skin Skin exam: Present: warm, dry, intact, normal color. Absent: rash ED Course Vital Signs 06/05/21 06/05/21 17:02 20:07 Temperature 95.3 F L Pulse Rate 118 H 109 H Respiratory 18 18 Rate Blood Pressure 110/69 109/76 [Left] O2 Sat by Pulse 96 97 Oximetry - Reevaluation(s) Reevaluation #1: 06/05/21 22:00 work up showed : 1- Rhabod : fluids given 2- Pneumonia : hospital acquired , abx given - Lab Data Result diagrams: 06/05/21 18:54 06/05/21 18:54 Lab Results 06/05/21 06/05/21 06/05/21 Range/Units 18:54 18:54 18:54 WBC 6.9 (4.5-11.0) K/mm3 RBC 5.29 H (3.65-5.03) M/mm3 Hgb 14.2 (11.8-15.2) gm/dl Hct 44.5 (35.5-45.6) % MCV 84 (84-94) fl MCH 27 L (28-32) pg MCHC 32 (32-34) % RDW 13.0 L (13.2-15.2) % Plt Count 164 (140-440) K/mm3 Lymph % (Auto) 17.1 (13.4-35.0) % [place] % (Auto) 7.4 H (0.0-7.3) % Eos % (Auto) 1.8 (0.0-4.3) % Baso % (Auto) 1.1 (0.0-1.8) % Lymph # (Auto) 1.2 (1.2-5.4) K/mm3 [place] # (Auto) 0.5 (0.0-0.8) K/mm3 Eos # (Auto) 0.1 (0.0-0.4) K/mm3 Baso # (Auto) 0.1 (0.0-0.1) K/mm3 Seg Neutrophils % 72.6 H (40.0-70.0) % Seg Neutrophils # 5.0 (1.8-7.7) K/mm3 PT 11.5 L (12.2-14.9) Sec. INR 0.75 L (0.87-1.13) Sodium 137 (137-145) mmol/L Potassium 4.9 D (3.6-5.0) mmol/L Chloride 103.5 (98-107) mmol/L Carbon Dioxide 21 L (22-30) mmol/L Anion Gap 17 mmol/L BUN 21 H (9-20) mg/dL Creatinine 1.4 H (0.8-1.3) mg/dL Estimated GFR > 60 ml/min BUN/Creatinine Ratio 15 % Glucose 197 H (75-100) mg/dL Lactic Acid (0.7-2.0) mmol/L Calcium 8.4 (8.4-10.2) mg/dL Total Bilirubin 0.30 (0.1-1.2) mg/dL AST 174 H (5-40) units/L ALT 180 H (7-56) units/L Alkaline Phosphatase 88 (35-129) units/L Ammonia (25-60) umol/L Total Creatine Kinase (55-170) units/L Troponin T (0.00-0.029) ng/mL Total Protein 7.9 (6.3-8.2) g/dL Albumin 3.6 L (3.9-5) g/dL Albumin/Globulin Ratio 0.8 % Triglycerides (2-149) mg/dL Cholesterol (50-199) mg/dL LDL Cholesterol Direct (50-130) mg/dL HDL Cholesterol (40-59) mg/dL Cholesterol/HDL Ratio % Salicylates (2.8-20.0) mg/dL Acetaminophen (10.0-30.0) ug/mL Plasma/Serum Alcohol (0-0.07) % 06/05/21 06/05/21 06/05/21 Range/Units 18:54 18:54 18:54 WBC (4.5-11.0) K/mm3 RBC (3.65-5.03) M/mm3 Hgb (11.8-15.2) gm/dl Hct (35.5-45.6) % MCV (84-94) fl MCH (28-32) pg MCHC (32-34) % RDW (13.2-15.2) % Plt Count (140-440) K/mm3 Lymph % (Auto) (13.4-35.0) % [place] % (Auto) (0.0-7.3) % Eos % (Auto) (0.0-4.3) % Baso % (Auto) (0.0-1.8) % Lymph # (Auto) (1.2-5.4) K/mm3 [place] # (Auto) (0.0-0.8) K/mm3 Eos # (Auto) (0.0-0.4) K/mm3 Baso # (Auto) (0.0-0.1) K/mm3 Seg Neutrophils % (40.0-70.0) % Seg Neutrophils # (1.8-7.7) K/mm3 PT (12.2-14.9) Sec. INR (0.87-1.13) Sodium (137-145) mmol/L Potassium (3.6-5.0) mmol/L Chloride (98-107) mmol/L Carbon Dioxide (22-30) mmol/L Anion Gap mmol/L BUN (9-20) mg/dL Creatinine (0.8-1.3) mg/dL Estimated GFR ml/min BUN/Creatinine Ratio % Glucose (75-100) mg/dL Lactic Acid 1.80 (0.7-2.0) mmol/L Calcium (8.4-10.2) mg/dL Total Bilirubin (0.1-1.2) mg/dL AST (5-40) units/L ALT (7-56) units/L Alkaline Phosphatase (35-129) units/L Ammonia (25-60) umol/L Total Creatine Kinase (55-170) units/L Troponin T (0.00-0.029) ng/mL Total Protein (6.3-8.2) g/dL Albumin (3.9-5) g/dL Albumin/Globulin Ratio % Triglycerides (2-149) mg/dL Cholesterol (50-199) mg/dL LDL Cholesterol Direct (50-130) mg/dL HDL Cholesterol (40-59) mg/dL Cholesterol/HDL Ratio % Salicylates < 0.3 L (2.8-20.0) mg/dL Acetaminophen 5.0 L (10.0-30.0) ug/mL Plasma/Serum Alcohol (0-0.07) % 06/05/21 06/05/21 06/05/21 Range/Units 18:54 18:54 18:54 WBC (4.5-11.0) K/mm3 RBC (3.65-5.03) M/mm3 Hgb (11.8-15.2) gm/dl Hct (35.5-45.6) % MCV (84-94) fl MCH (28-32) pg MCHC (32-34) % RDW (13.2-15.2) % Plt Count (140-440) K/mm3 Lymph % (Auto) (13.4-35.0) % [place] % (Auto) (0.0-7.3) % Eos % (Auto) (0.0-4.3) % Baso % (Auto) (0.0-1.8) % Lymph # (Auto) (1.2-5.4) K/mm3 [place] # (Auto) (0.0-0.8) K/mm3 Eos # (Auto) (0.0-0.4) K/mm3 Baso # (Auto) (0.0-0.1) K/mm3 Seg Neutrophils % (40.0-70.0) % Seg Neutrophils # (1.8-7.7) K/mm3 PT (12.2-14.9) Sec. INR (0.87-1.13) Sodium (137-145) mmol/L Potassium (3.6-5.0) mmol/L Chloride (98-107) mmol/L Carbon Dioxide (22-30) mmol/L Anion Gap mmol/L BUN (9-20) mg/dL Creatinine (0.8-1.3) mg/dL Estimated GFR ml/min BUN/Creatinine Ratio % Glucose (75-100) mg/dL Lactic Acid (0.7-2.0) mmol/L Calcium (8.4-10.2) mg/dL Total Bilirubin (0.1-1.2) mg/dL AST (5-40) units/L ALT (7-56) units/L Alkaline Phosphatase (35-129) units/L Ammonia 20.0 L (25-60) umol/L Total Creatine Kinase 5776 H (55-170) units/L Troponin T 0.037 H (0.00-0.029) ng/mL Total Protein (6.3-8.2) g/dL Albumin (3.9-5) g/dL Albumin/Globulin Ratio % Triglycerides 100 (2-149) mg/dL Cholesterol 157 (50-199) mg/dL LDL Cholesterol Direct 88 (50-130) mg/dL HDL Cholesterol 44 (40-59) mg/dL Cholesterol/HDL Ratio 3.56 % Salicylates (2.8-20.0) mg/dL Acetaminophen (10.0-30.0) ug/mL Plasma/Serum Alcohol < 0.01 (0-0.07) % Critical care attestation.: If time is entered above; I have spent that time in minutes in the direct care of this critically ill patient, excluding procedure time. ED Disposition Clinical Impression: Seizure, Hypothermia, Rhabdomyolysis, Hypotension, Pneumonia Disposition: ADMITTED INPATIENT Is pt being admited?: Yes Does the pt Need Aspirin: No Condition: Fair Instructions: Bacterial Pneumonia (ED) Referrals: PRIMARY CARE, [Primary Care Provider] - 3-5 Days
[2021-06-05] MEDS ORDERED: ACETAMINOPHEN 325 MG TAB PO PRN (22:11)
[2021-06-05] MEDS ORDERED: ONDANSETRON 4 MG/2 ML INJ IV PRN (22:11)
[2021-06-05] MEDS ORDERED: MAGNESIUM HYDROXIDE (MOM) ORAL LIQD UDC PO PRN (22:11)
[2021-06-05] MEDS ORDERED: MORPHINE 4 MG/1 ML INJ IV PRN (22:11)
[2021-06-05] MEDS ORDERED: MORPHINE 2 MG/1 ML INJ IV PRN (22:11)
[2021-06-05] MEDS ORDERED: SODIUM CHLORIDE 0.9% 1000 ML 1,000 ML IV SCH (22:15)
--- NOTE | 2021-06-05 22:23 | History and Physical Report ---
History of Present Illness Date of examination: 06/05/21 Date of admission: 06/05/2021 Chief complaint: Altered Mental Status History of present illness: 60-year-old -[place] male with known history of hypertension, seizure disorder who was recently discharged from this hospital on June 02, 2021 was brought into the emergency room today from a [facility] for what appeared to be a seizure activity. Patient is altered and confused and cannot give any his tory. Most of the history was obtained from the ER staff. Upon arrival in the emergency room patient was said to be hypotensive and hypothermic. However he was placed on IV fluid with significant improvement in his blood pressure. Work-up in the emergency room today, chest x-ray reveals patchy airspace disease within both lower lungs. CT of the head showed no acute findings. Labs were significant for BUN of 21 creatinine 1.4, elevated liver enzymes, elevated creatinine kinase of 5776 and is slightly bumped troponin of 0.037 Past History Past Medical History: hypertension, other (Behavioral disorder. Mentally challenged, Tachycardia, high cholesterol,SEVERE MR,AUTISM) Past Surgical History: Other ( CATARACT SURGERY) Social history: no significant social history Family history: no significant family history Medications and Allergies Allergies Allergy/AdvReac Type Severity Reaction Status Date / Time cat dander Allergy Unknown Unknown Verified 06/03/21 14:08 insect venom Allergy Unknown Unknown Verified 06/03/21 14:08 Home Medications Medication Instructions Recorded Confirmed Last Taken Type Calcium Polycarbophil [Fiber 625 mg PO BID 07/30/14 06/03/21 Unknown History Laxative] Multivitamin with Minerals [Hair, 1 each PO DAILY 07/30/14 06/03/21 12/11/16 History Skin and Nails] Pravastatin [Pravachol] 40 mg PO QHS 07/30/14 06/03/21 12/10/16 History polyethylene glycoL 3350 [Miralax 17 gm PO DAILY 07/30/14 06/03/21 Unknown History 3350] OXcarbazepine [Trileptal] 300 mg PO BID 12/11/16 06/03/21 12/11/16 History [place]-3 Fatty Acids/Fish Oil [Fish 2 each PO BID 12/11/16 06/03/21 12/11/16 History Oil] Azithromycin 250 mg PO DAILY #5 06/03/21 Unknown Rx Diclofenac 1% [Diclofenac 1% 2 gm TP BID 06/03/21 06/03/21 Unknown History topical gel] Fluvoxamine Maleate 100 mg PO TID 06/03/21 06/03/21 Unknown History Lactase [Dairy Relief] 3,000 unit PO BID 06/03/21 06/03/21 Unknown History Melatonin [Melatonin 5MG TAB] 5 mg PO QHS 06/03/21 06/03/21 Unknown History Mupirocin [Bactroban 2% OINT] 1 applic TP TID 06/03/21 06/03/21 Unknown History OLANZapine [Zyprexa] 20 mg PO QAM 06/03/21 06/03/21 Unknown History OXcarbazepine [Trileptal] 150 mg PO BID 06/03/21 06/03/21 Unknown History Pantoprazole [Protonix TAB] 40 mg PO QDAY 06/03/21 06/03/21 Unknown History Pilocarpine HCl [Isopto Carpine] 15 ml OP QAM 06/03/21 06/03/21 Unknown History hydrOXYzine HCL 50 mg PO QDAY 06/03/21 06/03/21 Unknown History risperiDONE [RisperDAL] 1 mg PO QHS 06/03/21 06/03/21 Unknown History risperiDONE [RisperDAL] 2 mg PO QAM 06/03/21 06/03/21 Unknown History traZODone [Desyrel] 200 mg PO QHS 06/03/21 06/03/21 Unknown History Active Meds: Active Medications Acetaminophen (Acetaminophen 325 Mg Tab) 650 mg PO Q4H PRN PRN Reason: Pain MILD(1-3)/Fever >100.5/LIZ Heparin Sodium (Porcine) (Heparin 5,000 Unit/1 Ml Vial) 5,000 unit SUB-Q Q8HR LIBBY Vancomycin HCl 2,000 mg/ (Sodium Chloride) 540 mls @ 250 mls/hr IV ONCE ONE Stop: 06/06/21 00:54 Sodium Chloride (Nacl 0.9% 1000 Ml) 1,000 mls @ 125 mls/hr IV DIRECT LIBBY Cefepime HCl (Cefepime/Ns 2 Gm/100 Ml) 2 gm in 100 mls @ 200 mls/hr IV Q8H LIBBY; Protocol Magnesium Hydroxide (Magnesium Hydroxide (Mom) Oral Liqd Udc) 30 ml PO Q4H PRN PRN Reason: Constipation Morphine Sulfate (Morphine 2 Mg/1 Ml Inj) 2 mg IV Q4H PRN PRN Reason: Pain, Moderate (4-6) Morphine Sulfate (Morphine 4 Mg/1 Ml Inj) 4 mg IV Q4H PRN PRN Reason: Pain , Severe (7-10) Ondansetron HCl (Ondansetron 4 Mg/2 Ml Inj) 4 mg IV Q8H PRN PRN Reason: Nausea And Vomiting Sodium Chloride (Sodium Chloride 0.9% 10 Ml Flush Syringe) 10 ml IV BID LIBBY Sodium Chloride (Sodium Chloride 0.9% 10 Ml Flush Syringe) 10 ml IV PRN PRN PRN Reason: LINE FLUSH Review of Systems ROS unobtainable: due to mental status Exam - Constitutional Vitals: Temp Pulse Resp BP Pulse Ox 95.3 F L 109 H 18 109/76 97 06/05/21 17:02 06/05/21 20:07 06/05/21 20:07 06/05/21 20:07 06/05/21 20:07 General appearance: Present: no acute distress, well-nourished - EENT Eyes: Present: PERRL, EOM intact. Absent: scleral icterus ENT: hearing intact, clear oral mucosa, dentition normal - Neck Neck: Present: supple, normal ROM - Respiratory Respiratory effort: normal Respiratory: bilateral: CTA - Cardiovascular Rhythm: regular Heart Sounds: Present: S1 & S2. Absent: gallop, systolic murmur, diastolic mu rmur, rub, click - Extremities Extremities: no ischemia, pulses intact, pulses symmetrical, No edema, normal temperature, normal color, Full ROM Peripheral Pulses: within normal limits - Abdominal General gastrointestinal: Present: soft, non-tender, non-distended, normal bowel sounds. Absent: mass - Integumentary Integumentary: Present: clear, warm, dry, normal turgor. Absent: rash - Musculoskeletal Musculoskeletal: strength equal bilaterally - Psychiatric Psychiatric: appropriate mood/affect, intact judgment & insight, memory intact - Neurologic Neurologic: CNII-XII intact, no focal deficits, moves all extremities HEART Score - HEART Score Troponin: Troponin T 0.037 ng/mL (0.00-0.029) H 06/05/21 18:54 Results - Labs CBC & Chem 7: 06/05/21 18:54 06/05/21 18:54 Labs: Abnormal lab results 06/05/21 06/05/21 06/05/21 Range/Units 18:54 18:54 18:54 RBC 5.29 H (3.65-5.03) M/mm3 MCH 27 L (28-32) pg RDW 13.0 L (13.2-15.2) % [place] % (Auto) 7.4 H (0.0-7.3) % Seg Neutrophils % 72.6 H (40.0-70.0) % PT 11.5 L (12.2-14.9) Sec. INR 0.75 L (0.87-1.13) Carbon Dioxide 21 L (22-30) mmol/L BUN 21 H (9-20) mg/dL Creatinine 1.4 H (0.8-1.3) mg/dL Glucose 197 H (75-100) mg/dL AST 174 H (5-40) units/L ALT 180 H (7-56) units/L Ammonia (25-60) umol/L Total Creatine Kinase (55-170) units/L Troponin T (0.00-0.029) ng/mL Albumin 3.6 L (3.9-5) g/dL Salicylates (2.8-20.0) mg/dL Acetaminophen (10.0-30.0) ug/mL 06/05/21 06/05/21 06/05/21 Range/Units 18:54 18:54 18:54 RBC (3.65-5.03) M/mm3 MCH (28-32) pg RDW (13.2-15.2) % [place] % (Auto) (0.0-7.3) % Seg Neutrophils % (40.0-70.0) % PT (12.2-14.9) Sec. INR (0.87-1.13) Carbon Dioxide (22-30) mmol/L BUN (9-20) mg/dL Creatinine (0.8-1.3) mg/dL Glucose (75-100) mg/dL AST (5-40) units/L ALT (7-56) units/L Ammonia 20.0 L (25-60) umol/L Total Creatine Kinase (55-170) units/L Troponin T (0.00-0.029) ng/mL Albumin (3.9-5) g/dL Salicylates < 0.3 L (2.8-20.0) mg/dL Acetaminophen 5.0 L (10.0-30.0) ug/mL 06/05/21 Range/Units 18:54 RBC (3.65-5.03) M/mm3 MCH (28-32) pg RDW (13.2-15.2) % [place] % (Auto) (0.0-7.3) % Seg Neutrophils % (40.0-70.0) % PT (12.2-14.9) Sec. INR (0.87-1.13) Carbon Dioxide (22-30) mmol/L BUN (9-20) mg/dL Creatinine (0.8-1.3) mg/dL Glucose (75-100) mg/dL AST (5-40) units/L ALT (7-56) units/L Ammonia (25-60) umol/L Total Creatine Kinase 5776 H (55-170) units/L Troponin T 0.037 H (0.00-0.029) ng/mL Albumin (3.9-5) g/dL Salicylates (2.8-20.0) mg/dL Acetaminophen (10.0-30.0) ug/mL Assessment and Plan - Patient Problems (1) Altered mental status Current Visit: No Status: Acute Plan to address problem: Possibly secondary to the seizure disorder. Patient is also known to be mentally challenged. Will monitor mental status. (2) Pneumonia Current Visit: Yes Status: Acute Plan to address problem: Patient placed on empiric IV antibiotics. Will await culture results. We will also check for COVID-19. (3) Rhabdomyolysis Current Visit: Yes Status: Acute Plan to address problem: Patient placed on IV fluid. Likely related to the seizure disorder. Will monitor creatinine kinase. (4) Seizure Current Visit: Yes Status: Acute Plan to address problem: We will commence patient on his seizure medications. We will place on seizure precautions. Consult placed to neurologist for evaluation. (5) RILEY (acute kidney injury) Current Visit: No Status: Acute Plan to address problem: Patient placed on IV fluid. Will monitor BUN and creatinine. (6) DVT prophylaxis Current Visit: No Status: Acute Plan to address problem: Patient placed on subcutaneous heparin. (7) Full code status Current Visit: Yes Status: Acute Plan to address problem: Patient is full code.
[2021-06-05] MEDS ORDERED: VANCOMYCIN 2,000 MG in SODIUM CHLORIDE 0.9% 500 ML 500 ML IV ONE (22:45)
[2021-06-05] MEDS ORDERED: VANCOMYCIN PHARMACY TO DOSE IV SCH (23:00)
[2021-06-06 04:58] LABS: BUN/Creatinine Ratio 17; Blood Urea Nitrogen 20 mg/dL (9-20); Calcium 7.7 mg/dL (8.4-10.2); Hemolysis Index 4
[2021-06-06 05:02] LABS: C-Reactive Protein 7.8 mg/dL (0.00-1.30)
[2021-06-06 05:03] LABS: Hematocrit 39.3 % (35.5-45.6); Hemoglobin 12.4 gm/dl (11.8-15.2); Mean Corpuscular HGB Conc 32 % (32-34); Mean Corpuscular Volume 84 fl (84-94); Platelet Count 137 K/mm3 (140-440); Red Blood Count 4.68 M/mm3 (3.65-5.03)
[2021-06-06] MEDS: CEFEPIME/NS 2 GM/100 ML 2 GM/100 ML BAG IV SCH ×2 (05:16→18:27)
[2021-06-06] MEDS ORDERED: LORazepam 2 MG/ML VIAL IV ONE (05:50)
[2021-06-06] MEDS: HEPARIN 5,000 UNIT/1 ML VIAL SUB-Q SCH ×2 (05:52→15:54)
[2021-06-06] MEDS ORDERED: levETIRAcetam 500 MG in DEXTROSE 5% IN WATER 100 ML IV SCH (10:00)
[2021-06-06] MEDS ORDERED: VANCOMYCIN 1,500 MG in SODIUM CHLORIDE 0.9% 500 ML 500 ML IV SCH (10:00)
--- NOTE | 2021-06-06 11:51 | Consultation ---
History of Present Illness Consult date: 06/06/21 Reason for Consult: seizure/ Confusion History of present illness: Altered Mental Status History of present illness: 60-year-old -[place] male with known history of hypertension, seizure disorder who was recently discharged from this hospital on June 02, 2021 was brought into the emergency room today from a [place] [facility] for what appeared to be a seizure activity. Patient is altered and confused and cannot give any history. Most of the history was obtained from the ER staff. Upon arrival in the emergency room patient was said to be hypotensive and hypothermic. However he was placed on IV fluid with significant improvement in his blood pressure. Work-up in the emergency room today, chest x-ray reveals patchy airspace disease within both lower lungs. CT of the head showed no acute findings. Labs were significant for BUN of 21 creatinine 1.4, elevated liver enzymes, elevated creatinine kinase of 5776 and is slightly bumped troponin of 0.037 Neurology consulted for evaluation of possible seizure and change in mentation pt. in his last visit was started on Valproic acid 500 mg BID with last valproic acid level was 91 , but some reason pt. was not discharged on valproic acid he had EEG was unremarkable pt. at time get agitated with no speech out put he at time responds to command CT brain is unremarkable Xry chest is remarkable for patchy infiltrate COVID-19 PCR is pending DD#[id number] CRP#7.80 Past History Past Medical History: hypertension, other (Behavioral disorder. Mentally challenged, Tachycardia, high cholesterol,SEVERE MR,AUTISM) Past Surgical History: Other ( CATARACT SURGERY) Social history: no significant social history Family history: no significant family history Medications and Allergies Allergies Allergy/AdvReac Type Severity Reaction Status Date / Time cat dander Allergy Unknown Unknown Verified 06/03/21 14:08 insect venom Allergy Unknown Unknown Verified 06/03/21 14:08 Home Medications Medication Instructions Recorded Confirmed Last Taken Type Calcium Polycarbophil [Fiber 625 mg PO BID 07/30/14 06/03/21 Unknown History Laxative] Multivitamin with Minerals [Hair, 1 each PO DAILY 07/30/14 06/03/21 12/11/16 History Skin and Nails] Pravastatin [Pravachol] 40 mg PO QHS 07/30/14 06/03/21 12/10/16 History polyethylene glycoL 3350 [Miralax 17 gm PO DAILY 07/30/14 06/03/21 Unknown History 3350] OXcarbazepine [Trileptal] 300 mg PO BID 12/11/16 06/03/21 12/11/16 History [place]-3 Fatty Acids/Fish Oil [Fish 2 each PO BID 12/11/16 06/03/21 12/11/16 History Oil] Azithromycin 250 mg PO DAILY #5 06/03/21 Unknown Rx Diclofenac 1% [Diclofenac 1% 2 gm TP BID 06/03/21 06/03/21 Unknown History topical gel] Fluvoxamine Maleate 100 mg PO TID 06/03/21 06/03/21 Unknown History Lactase [Dairy Relief] 3,000 unit PO BID 06/03/21 06/03/21 Unknown History Melatonin [Melatonin 5MG TAB] 5 mg PO QHS 06/03/21 06/03/21 Unknown History Mupirocin [Bactroban 2% OINT] 1 applic TP TID 06/03/21 06/03/21 Unknown History OLANZapine [Zyprexa] 20 mg PO QAM 06/03/21 06/03/21 Unknown History OXcarbazepine [Trileptal] 150 mg PO BID 06/03/21 06/03/21 Unknown History Pantoprazole [Protonix TAB] 40 mg PO QDAY 06/03/21 06/03/21 Unknown History Pilocarpine HCl [Isopto Carpine] 15 ml OP QAM 06/03/21 06/03/21 Unknown History hydrOXYzine HCL 50 mg PO QDAY 06/03/21 06/03/21 Unknown History risperiDONE [RisperDAL] 1 mg PO QHS 06/03/21 06/03/21 Unknown History risperiDONE [RisperDAL] 2 mg PO QAM 06/03/21 06/03/21 Unknown History traZODone [Desyrel] 200 mg PO QHS 06/03/21 06/03/21 Unknown History Active Meds: Active Medications Acetaminophen (Acetaminophen 325 Mg Tab) 650 mg PO Q4H PRN PRN Reason: Pain MILD(1-3)/Fever >100.5/LIZ Heparin Sodium (Porcine) (Heparin 5,000 Unit/1 Ml Vial) 5,000 unit SUB-Q Q8HR [facility] Vancomycin HCl 2,000 mg/ (Sodium Chloride) 540 mls @ 250 mls/hr IV ONCE ONE Stop: 06/06/21 00:54 Sodium Chloride (Nacl 0.9% 1000 Ml) 1,000 mls @ 125 mls/hr IV DIRECT [facility] Cefepime HCl (Cefepime/Ns 2 Gm/100 Ml) 2 gm in 100 mls @ 200 mls/hr IV Q8H [facility]; Protocol Magnesium Hydroxide (Magnesium Hydroxide (Mom) Oral Liqd Udc) 30 ml PO Q4H PRN PRN Reason: Constipation Morphine Sulfate (Morphine 2 Mg/1 Ml Inj) 2 mg IV Q4H PRN PRN Reason: Pain, Moderate (4-6) Morphine Sulfate (Morphine 4 Mg/1 Ml Inj) 4 mg IV Q4H PRN PRN Reason: Pain , Severe (7-10) Ondansetron HCl (Ondansetron 4 Mg/2 Ml Inj) 4 mg IV Q8H PRN PRN Reason: Nausea And Vomiting Sodium Chloride (Sodium Chloride 0.9% 10 Ml Flush Syringe) 10 ml IV BID [facility] Sodium Chloride (Sodium Chloride 0.9% 10 Ml Flush Syringe) 10 ml IV PRN PRN PRN Reason: LINE FLUSH Review of Systems ROS unobtainable: due to mental status Past History Past Medical History: hypertension, other (Behavioral disorder. Mentally challenged, Tachycardia, high cholesterol,SEVERE MR,AUTISM) Past Surgical History: Other ( CATARACT SURGERY) Social history: no significant social history Family history: no significant family history Medications and Allergies Allergies Allergy/AdvReac Type Severity Reaction Status Date / Time cat dander Allergy Unknown Unknown Verified 06/03/21 14:08 insect venom Allergy Unknown Unknown Verified 06/03/21 14:08 Home Medications Medication Instructions Recorded Confirmed Last Taken Type Calcium Polycarbophil [Fiber 625 mg PO BID 07/30/14 06/03/21 Unknown History Laxative] Multivitamin with Minerals [Hair, 1 each PO DAILY 07/30/14 06/03/21 12/11/16 History Skin and Nails] Pravastatin [Pravachol] 40 mg PO QHS 07/30/14 06/03/21 12/10/16 History polyethylene glycoL 3350 [Miralax 17 gm PO DAILY 07/30/14 06/03/21 Unknown Histo ry 3350] OXcarbazepine [Trileptal] 300 mg PO BID 12/11/16 06/03/21 12/11/16 History [place]-3 Fatty Acids/Fish Oil [Fish 2 each PO BID 12/11/16 06/03/21 12/11/16 History Oil] Azithromycin 250 mg PO DAILY #5 06/03/21 Unknown Rx Diclofenac 1% [Diclofenac 1% 2 gm TP BID 06/03/21 06/03/21 Unknown History topical gel] Fluvoxamine Maleate 100 mg PO TID 06/03/21 06/03/21 Unknown History Lactase [Dairy Relief] 3,000 unit PO BID 06/03/21 06/03/21 Unknown History Melatonin [Melatonin 5MG TAB] 5 mg PO QHS 06/03/21 06/03/21 Unknown History Mupirocin [Bactroban 2% OINT] 1 applic TP TID 06/03/21 06/03/21 Unknown History OLANZapine [Zyprexa] 20 mg PO QAM 06/03/21 06/03/21 Unknown History OXcarbazepine [Trileptal] 150 mg PO BID 06/03/21 06/03/21 Unknown History Pantoprazole [Protonix TAB] 40 mg PO QDAY 06/03/21 06/03/21 Unknown History Pilocarpine HCl [Isopto Carpine] 15 ml OP QAM 06/03/21 06/03/21 Unknown History hydrOXYzine HCL 50 mg PO QDAY 06/03/21 06/03/21 Unknown History risperiDONE [RisperDAL] 1 mg PO QHS 06/03/21 06/03/21 Unknown History risperiDONE [RisperDAL] 2 mg PO QAM 06/03/21 06/03/21 Unknown History traZODone [Desyrel] 200 mg PO QHS 06/03/21 06/03/21 Unknown History Active Meds: Active Medications Acetaminophen (Acetaminophen 325 Mg Tab) 650 mg PO Q4H PRN PRN Reason: Pain MILD(1-3)/Fever >100.5/LIZ Heparin Sodium (Porcine) (Heparin 5,000 Unit/1 Ml Vial) 5,000 unit SUB-Q Q8HR [facility] Last Admin: 06/06/21 05:52 Dose: 5,000 unit Sodium Chloride (Nacl 0.9% 1000 Ml) 1,000 mls @ 150 mls/hr IV DIRECT [facility]BY Last Admin: 06/06/21 01:45 Dose: 150 mls/hr Cefepime HCl (Cefepime/Ns 2 Gm/100 Ml) 2 gm in 100 mls @ 200 mls/hr IV Q8HR [facility]; Protocol Last Admin: 06/06/21 05:16 Dose: 200 mls/hr Vancomycin HCl 1,500 mg/ (Sodium Chloride) 530 mls @ 333.333 mls/hr IV Q12H [facility] Levetiracetam 500 mg/ Dextrose 105 mls @ 400 mls/hr IV Q12HR [facility] Magnesium Hydroxide (Magnesium Hydroxide (Mom) Oral Liqd Udc) 30 ml PO Q4H PRN PRN Reason: Constipation Morphine Sulfate (Morphine 2 Mg/1 Ml Inj) 2 mg IV Q4H PRN PRN Reason: Pain, Moderate (4-6) Morphine Sulfate (Morphine 4 Mg/1 Ml Inj) 4 mg IV Q4H PRN PRN Reason: Pain , Severe (7-10) Ondansetron HCl (Ondansetron 4 Mg/2 Ml Inj) 4 mg IV Q8H PRN PRN Reason: Nausea And Vomiting Sodium Chloride (Sodium Chloride 0.9% 10 Ml Flush Syringe) 10 ml IV BID [facility] Sodium Chloride (Sodium Chloride 0.9% 10 Ml Flush Syringe) 10 ml IV PRN PRN PRN Reason: LINE FLUSH Physical Examination - Vital Signs Vital Signs: Vital Signs Temp Pulse Resp BP Pulse Ox 95.3 F L 118 H 18 110/69 96 06/05/21 17:02 06/05/21 17:02 06/05/21 17:02 06/05/21 17:02 06/05/21 17:02 - Constitutional General appearance: comfortable - EENT EENT: Present: PERRL, mucous membranes moist - Respiratory Respiratory: Present: chest non-tender, lungs clear, rhonchi - Cardiovascular Cardiovascular: Present: regular rate, normal S1, normal S2 Extremities: Present: no peripheral edema bilatateraly, no clubbing, cyanosis - Gastrointestinal Gastrointestinal: Present: normoactive bowel sounds - Integumentary Integumentary: Present: normal - Neurologic Cranial nerve examination: PERRL, EOMI Speech examination: other (no speech out put.) Sensorimotor examination: intact Detailed motor examination: grossly full strength in Results - Laboratory Findings CBC and BMP: 06/06/21 04:04 06/06/21 04:04 Abnormal Lab Findings: Abnormal Labs 06/05/21 06/05/21 06/05/21 18:54 18:54 18:54 RBC 5.29 H MCH 27 L RDW 13.0 L Plt Count [place] % (Auto) 7.4 H Seg Neutrophils % 72.6 H PT 11.5 L INR 0.75 L D-Dimer Chloride Carbon Dioxide 21 L BUN 21 H Creatinine 1.4 H Glucose 197 H Calcium Ferritin AST 174 H ALT 180 H Ammonia Lactate Dehydrogenase Total Creatine Kinase Troponin T C-Reactive Protein Albumin 3.6 L Salicylates Acetaminophen 06/05/21 06/05/21 06/05/21 18:54 18:54 18:54 RBC MCH RDW Plt Count [place] % (Auto) Seg Neutrophils % PT INR D-Dimer Chloride Carbon Dioxide BUN Creatinine Glucose Calcium Ferritin AST ALT Ammonia 20.0 L Lactate Dehydrogenase Total Creatine Kinase Troponin T C-Reactive Protein Albumin Salicylates < 0.3 L Acetaminophen 5.0 L 06/05/21 06/06/21 06/06/21 18:54 04:04 04:04 RBC MCH 27 L RDW 13.0 L Plt Count 137 L [place] % (Auto) Seg Neutrophils % PT INR D-Dimer Chloride 107.5 H Carbon Dioxide BUN Creatinine Glucose 147 H Calcium 7.7 L Ferritin AST ALT Ammonia Lactate Dehydrogenase Total Creatine Kinase 5776 H Troponin T 0.037 H C-Reactive Protein Albumin Salicylates Acetaminophen 06/06/21 06/06/21 06/06/21 04:04 04:04 04:04 RBC MCH RDW Plt Count [place] % (Auto) Seg Neutrophils % PT INR D-Dimer 3637.72 H Chloride Carbon Dioxide BUN Creatinine Glucose 147 H Calcium Ferritin 386.7 H AST ALT Ammonia Lactate Dehydrogenase 353 H Total Creatine Kinase Troponin T C-Reactive Protein 7.80 H Albumin Salicylates Acetaminophen Assessment and Plan - Patient Problems # Altered mental status -Possibly secondary to the seizure disorder. -Patient is also known to be mentally challenged. -Will monitor mental status. -posible medicatioon effect pt is on multiple medications which trigger seizure and affect mentation -Suugest Decrease trazdon to 100 mg qhs -Stop Zyprexa he is on respidol will increase to 2 mg BID # Pneumonia -Patient placed on empiric IV antibiotics. -Will await culture results. -We will also check for COVID-19. # Rhabdomyolysis? related to seizure -Patient placed on IV fluid. -Likely related to the seizure disorder. -Will monitor creatinine kinase. # Seizure We will commence patient on his seizure medications. We will place on seizure precautions. -pt. is his last admission was placed on valproic acid 500 mg bid ,? medications is not listed on his last D/C -Trileptal at 450 mg bid -EEG is unremarkable (5) RILEY (acute kidney injury) Current Visit: No Status: Acute Plan to address problem: Patient placed on IV fluid. Will monitor BUN and creatinine. (6) DVT prophylaxis Current Visit: No Status: Acute Plan to address problem: Patient placed on subcutaneous heparin. (7) Full code status Current Visit: Yes Status: Acute Plan to address problem: Patient is full code. PLAN see pt. medication sheet valproic 500 mg bid trileptal 450 mg bid trazdon 100 mg qhs respidol 2 mg bid stop zyprexa will sign off
--- NOTE | 2021-06-06 13:54 | Consultation ---
History of Present Illness - Reason for Consult Consult date: 06/06/21 - History of Present Illness 60-year-old man past medical history hypertension, seizure disorder recently discharged from this hospital, returned the hospital due to apparent seizure activity. Patient remains confused, especially history obtained from the chart. Afebrile since admission with normal white count. Covid negative. Normal renal function. Currently on cefepime and vancomycin. On room air. Imaging personally reviewed: Chest x-ray: Patchy airspace disease in bilateral lower lungs Review of Systems: Bold if positive, otherwise negative General: fevers, chills, rigors HEENT: visual disturbance, diplopia, eye pain Respiratory: cough, sputum, hemoptysis, shortness of breath Cardiovascular: chest pain, syncope Gastrointestinal: nausea, vomiting, diarrhea, abdominal pain Genitourinary: dysuria, hematuria, flank pain Musculoskeletal: neck pain, back pain, joint pain, edema Neurologic: headaches, seizures Hematologic: easy bruising or bleeding Endocrine: night sweats, acute weight loss Skin: rash, jaundice, redness Psychiatric: suicidal, homicidal ideation Past History Past Medical History: hypertension, other (Behavioral disorder. Mentally challenged, Tachycardia, high cholesterol,SEVERE MR,AUTISM) Past Surgical History: Other ( CATARACT SURGERY) Social history: no significant social history Family history: no significant family history Medications and Allergies Allergies Allergy/AdvReac Type Severity Reaction Status Date / Time cat dander Allergy Unknown Unknown Verified 06/06/21 12:12 insect venom Allergy Unknown Unknown Verified 06/06/21 12:12 Home Medications Medication Instructions Recorded Confirmed Last Taken Type Calcium Polycarbophil [Fiber 625 mg PO BID 07/30/14 06/06/21 06/04/21 History Laxative] Multivitamin with Minerals [Hair, 1 each PO DAILY 07/30/14 06/06/21 06/04/21 History Skin and Nails] Pravastatin [Pravachol] 40 mg PO QHS 07/30/14 06/06/21 06/04/21 History polyethylene glycoL 3350 [Miralax 17 gm PO DAILY 07/30/14 06/06/21 06/04/21 History 3350] OXcarbazepine [Trileptal] 300 mg PO BID 12/11/16 06/06/21 06/04/21 History [place]-3 Fatty Acids/Fish Oil [Fish 2 each PO BID 0806/06/21 06/04/21 History Oil] Azithromycin 250 mg PO DAILY #5 06/03/21 06/06/21 06/04/21 Rx Diclofenac 1% [Diclofenac 1% 2 gm TP BID 06/03/21 06/06/21 06/04/21 History topical gel] Fluvoxamine Maleate 100 mg PO TID 06/03/21 06/06/21 06/04/21 History Lactase [Dairy Relief] 3,000 unit PO BID 06/03/21 06/06/21 06/04/21 History Melatonin [Melatonin 5MG TAB] 5 mg PO QHS 06/03/21 06/06/21 06/04/21 History Mupirocin [Bactroban 2% OINT] 1 applic TP TID 06/03/21 06/06/21 06/04/21 History OLANZapine [Zyprexa] 20 mg PO QAM 06/03/21 06/06/21 06/04/21 History OXcarbazepine [Trileptal] 150 mg PO BID 06/03/21 06/06/21 06/04/21 History Pantoprazole [Protonix TAB] 40 mg PO QDAY 06/03/21 06/06/21 06/04/21 History Pilocarpine HCl [Isopto Carpine] 15 ml OP QAM 06/03/21 06/06/21 06/04/21 History hydrOXYzine HCL 50 mg PO QDAY 06/03/21 06/06/21 06/04/21 History risperiDONE [RisperDAL] 1 mg PO QHS 06/03/21 06/06/21 06/04/21 History risperiDONE [RisperDAL] 2 mg PO QAM 06/03/21 06/06/21 06/04/21 History traZODone [Desyrel] 200 mg PO QHS 06/03/21 06/06/21 06/04/21 History Active Meds: Active Medications Acetaminophen (Acetaminophen 325 Mg Tab) 650 mg PO Q4H PRN PRN Reason: Pain MILD(1-3)/Fever >100.5/LIZ Heparin Sodium (Porcine) (Heparin 5,000 Unit/1 Ml Vial) 5,000 unit SUB-Q Q8HR [facility] Last Admin: 06/06/21 05:52 Dose: 5,000 unit Sodium Chloride (Nacl 0.9% 1000 Ml) 1,000 mls @ 150 mls/hr IV DIRECT [facility] Last Admin: 06/06/21 01:45 Dose: 150 mls/hr Cefepime HCl (Cefepime/Ns 2 Gm/100 Ml) 2 gm in 100 mls @ 200 mls/hr IV Q8HR [facility]; Protocol Last Admin: 06/06/21 05:16 Dose: 200 mls/hr Vancomycin HCl 1,500 mg/ (Sodium Chloride) 530 mls @ 333.333 mls/hr IV Q12H [facility] Last Admin: 06/06/21 10:53 Dose: 333.333 mls/hr Magnesium Hydroxide (Magnesium Hydroxide (Mom) Oral Liqd Udc) 30 ml PO Q4H PRN PRN Reason: Constipation Morphine Sulfate (Morphine 2 Mg/1 Ml Inj) 2 mg IV Q4H PRN PRN Reason: Pain, Moderate (4-6) Morphine Sulfate (Morphine 4 Mg/1 Ml Inj) 4 mg IV Q4H PRN PRN Reason: Pain , Severe (7-10) Ondansetron HCl (Ondansetron 4 Mg/2 Ml Inj) 4 mg IV Q8H PRN PRN Reason: Nausea And Vomiting Oxcarbazepine (Oxcarbazepine 150 Mg Tab) 450 mg PO BID [facility] Risperidone (Risperidone 1 Mg Tab) 2 mg PO BID [facility] Sodium Chloride (Sodium Chloride 0.9% 10 Ml Flush Syringe) 10 ml IV BID [facility] Sodium Chloride (Sodium Chloride 0.9% 10 Ml Flush Syringe) 10 ml IV PRN PRN PRN Reason: LINE FLUSH Trazodone HCl (Trazodone 100 Mg Tab) 100 mg PO QHS [facility] Valproic Acid (Valproic Acid 250 Mg Cap) 500 mg PO BID [facility] Physical Examination - Physical Exam Narrative exam: Physical Exam: Constitutional: Alert, cooperative. No acute distress Head, Ears, Nose: Normocephalic, atraumatic. External ears, nose normal Eyes: Conjunctivae/corneas clear. No icterus. No ptosis. Neck: Supple, no meningeal signs Oral: dentition fair, no thrush Cardiovascular: S1, S2 normal. Respiratory: Good air entry, clear to auscultation bilaterally GI: Soft, non-tender; bowel sounds normal. No peritoneal signs. Musculoskeletal: No pedal edema, no cyanosis. Skin: No rash or abscess Hem/Lymphatic: No palpable cervical or supraclavicular nodes. No lymphangitis Psych: Mood ok. Affect normal Neurological: Awake, alert, oriented. No gross abnormality - Constitutional Vitals: Vital Signs Temp Pulse Resp BP Pulse Ox 98.3 F 64 18 110/81 98 06/06/21 03:54 06/06/21 03:54 06/06/21 03:54 06/06/21 03:54 06/06/21 12:45 Temperature -Last 24 Hours Temperature 98.3 F Temperature 97.2 F Temperature 95.3 F Results - Labs CBC & Chem 7: 06/06/21 04:04 06/06/21 04:04 Labs: Abnormal lab results 06/05/21 06/05/21 06/05/21 Range/Units 18:54 18:54 18:54 RBC 5.29 H (3.65-5.03) M/mm3 MCH 27 L (28-32) pg RDW 13.0 L (13.2-15.2) % Plt Count (140-440) K/mm3 [place] % (Auto) 7.4 H (0.0-7.3) % Seg Neutrophils % 72.6 H (40.0-70.0) % PT 11.5 L (12.2-14.9) Sec. INR 0.75 L (0.87-1.13) D-Dimer (0-234) ng/mlDDU Chloride (98-107) mmol/L Carbon Dioxide 21 L (22-30) mmol/L BUN 21 H (9-20) mg/dL Creatinine 1.4 H (0.8-1.3) mg/dL Glucose 197 H (75-100) mg/dL Calcium (8.4-10.2) mg/dL Ferritin (30.0-300.0) ng/mL AST 174 H (5-40) units/L ALT 180 H (7-56) units/L Ammonia (25-60) umol/L Lactate Dehydrogenase (91-180) units/L Total Creatine Kinase (55-170) units/L Troponin T (0.00-0.029) ng/mL C-Reactive Protein (0.00-1.30) mg/dL Albumin 3.6 L (3.9-5) g/dL Salicylates (2.8-20.0) mg/dL Acetaminophen (10.0-30.0) ug/mL 06/05/21 06/05/21 06/05/21 Range/Units 18:54 18:54 18:54 RBC (3.65-5.03) M/mm3 MCH (28-32) pg RDW (13.2-15.2) % Plt Count (140-440) K/mm3 [place] % (Auto) (0.0-7.3) % Seg Neutrophils % (40.0-70.0) % PT (12.2-14.9) Sec. INR (0.87-1.13) D-Dimer (0-234) ng/mlDDU Chloride (98-107) mmol/L Carbon Dioxide (22-30) mmol/L BUN (9-20) mg/dL Creatinine (0.8-1.3) mg/dL Glucose (75-100) mg/dL Calcium (8.4-10.2) mg/dL Ferritin (30.0-300.0) ng/mL AST (5-40) units/L ALT (7-56) units/L Ammonia 20.0 L (25-60) umol/L Lactate Dehydrogenase (91-180) units/L Total Creatine Kinase (55-170) units/L Troponin T (0.00-0.029) ng/mL C-Reactive Protein (0.00-1.30) mg/dL Albumin (3.9-5) g/dL Salicylates < 0.3 L (2.8-20.0) mg/dL Acetaminophen 5.0 L (10.0-30.0) ug/mL 06/05/21 06/06/21 06/06/21 Range/Units 18:54 04:04 04:04 RBC (3.65-5.03) M/mm3 MCH 27 L (28-32) pg RDW 13.0 L (13.2-15.2) % Plt Count 137 L (140-440) K/mm3 [place] % (Auto) (0.0-7.3) % Seg Neutrophils % (40.0-70.0) % PT (12.2-14.9) Sec. INR (0.87-1.13) D-Dimer (0-234) ng/mlDDU Chloride 107.5 H (98-107) mmol/L Carbon Dioxide (22-30) mmol/L BUN (9-20) mg/dL Creatinine (0.8-1.3) mg/dL Glucose 147 H (75-100) mg/dL Calcium 7.7 L (8.4-10.2) mg/dL Ferritin (30.0-300.0) ng/mL AST (5-40) units/L ALT (7-56) units/L Ammonia (25-60) umol/L Lactate Dehydrogenase (91-180) units/L Total Creatine Kinase 5776 H (55-170) units/L Troponin T 0.037 H (0.00-0.029) ng/mL C-Reactive Protein (0.00-1.30) mg/dL Albumin (3.9-5) g/dL Salicylates (2.8-20.0) mg/dL Acetaminophen (10.0-30.0) ug/mL 06/06/21 06/06/21 06/06/21 Range/Units 04:04 04:04 04:04 RBC (3.65-5.03) M/mm3 MCH (28-32) pg RDW (13.2-15.2) % Plt Count (140-440) K/mm3 [place] % (Auto) (0.0-7.3) % Seg Neutrophils % (40.0-70.0) % PT (12.2-14.9) Sec. INR (0.87-1.13) D-Dimer 3637.72 H (0-234) ng/mlDDU Chloride (98-107) mmol/L Carbon Dioxide (22-30) mmol/L BUN (9-20) mg/dL Creatinine (0.8-1.3) mg/dL Glucose 147 H (75-100) mg/dL Calcium (8.4-10.2) mg/dL Ferritin 386.7 H (30.0-300.0) ng/mL AST (5-40) units/L ALT (7-56) units/L Ammonia (25-60) umol/L Lactate Dehydrogenase 353 H (91-180) units/L Total Creatine Kinase (55-170) units/L Troponin T (0.00-0.029) ng/mL C-Reactive Protein 7.80 H (0.00-1.30) mg/dL Albumin (3.9-5) g/dL Salicylates (2.8-20.0) mg/dL Acetaminophen (10.0-30.0) ug/mL Assessment and Plan Cultures: Blood culture no growth so far A/P: 60-year-old man past medical history hypertension, seizures now with: #Acute encephalopathy: Secondary to seizures #Covid PUI: PCR negative Recs: -No need for antibiotics, not hypoxic, normal white count, no fevers. -CXR findings probably pneumonitis. Thank you for the consult, we will sign off. Please call with questions. Sobia Fleming MD [facility] O: [phone] F: [phone]
--- NOTE | 2021-06-06 14:37 | Gastroenterology Consultation ---
History of Present Illness - Reason for Consult Consult date: 06/06/21 Elevated liver enzymes Requesting physician: BRI FERRELL - History of Present Illness Patient not talking on a provide history, history obtained from chart In brief patient with history of hypertension, seizure disorder who was recently discharged from this hospital on June 02, 2021 was brought into the emergency room today from a longterm for what appeared to be a seizure activity. Upon arrival in the emergency room patient was said to be hypotensive and hypothermic. However he was placed on IV fluid with significant improvement in his blood pressure. Work-up in the emergency room today, chest x-ray reveals patchy airspace disease within both lower lungs. CT of the head showed no acute findings. Labs were significant for BUN of 21 creatinine 1.4, elevated liver enzymes, elev ated creatinine kinase of 5776 and is slightly bumped troponin of 0.037 Past History Past Medical History: hypertension, other (Behavioral disorder. Mentally c hallenged, Tachycardia, high cholesterol,SEVERE MR,AUTISM) Past Surgical History: Other ( CATARACT SURGERY) Social history: no significant social history Family history: no significant family history Medications and Allergies Allergies Allergy/AdvReac Type Severity Reaction Status Date / Time cat dander Allergy Unknown Unknown Verified 06/06/21 12:12 insect venom Allergy Unknown Unknown Verified 06/06/21 12:12 Home Medications Medication Instructions Recorded Confirmed Last Taken Type Calcium Polycarbophil [Fiber 625 mg PO BID 07/30/14 06/06/21 06/04/21 History Laxative] Multivitamin with Minerals [Hair, 1 each PO DAILY 07/30/14 06/06/21 06/04/21 History Skin and Nails] Pravastatin [Pravachol] 40 mg PO QHS 07/30/14 06/06/21 06/04/21 History polyethylene glycoL 3350 [Miralax 17 gm PO DAILY 07/30/14 06/06/21 06/04/21 History 3350] OXcarbazepine [Trileptal] 300 mg PO BID 12/11/16 06/06/21 06/04/21 History Zwolle-3 Fatty Acids/Fish Oil [Fish 2 each PO BID 12/11/16 06/06/21 06/04/21 History Oil] Azithromycin 250 mg PO DAILY #5 06/03/21 06/06/21 06/04/21 Rx Diclofenac 1% [Diclofenac 1% 2 gm TP BID 06/03/21 06/06/21 06/04/21 History topical gel] Fluvoxamine Maleate 100 mg PO TID 06/03/21 06/06/21 06/04/21 History Lactase [Dairy Relief] 3,000 unit PO BID 06/03/21 06/06/21 06/04/21 History Melatonin [Melatonin 5MG TAB] 5 mg PO QHS 06/03/21 06/06/21 06/04/21 History Mupirocin [Bactroban 2% OINT] 1 applic TP TID 06/03/21 06/06/21 06/04/21 History OLANZapine [Zyprexa] 20 mg PO QAM 06/03/21 06/06/21 06/04/21 History OXcarbazepine [Trileptal] 150 mg PO BID 06/03/21 06/06/21 06/04/21 History Pantoprazole [Protonix TAB] 40 mg PO QDAY 06/03/21 06/06/21 06/04/21 History Pilocarpine HCl [Isopto Carpine] 15 ml OP QAM 06/03/21 06/06/21 06/04/21 History hydrOXYzine HCL 50 mg PO QDAY 06/03/21 06/06/21 06/04/21 History risperiDONE [RisperDAL] 1 mg PO QHS 06/03/21 06/06/21 06/04/21 History risperiDONE [RisperDAL] 2 mg PO QAM 06/03/21 06/06/21 06/04/21 History traZODone [Desyrel] 200 mg PO QHS 06/03/21 06/06/21 06/04/21 History Active Meds: Active Medications Acetaminophen (Acetaminophen 325 Mg Tab) 650 mg PO Q4H PRN PRN Reason: Pain MILD(1-3)/Fever >100.5/LIZ Heparin Sodium (Porcine) (Heparin 5,000 Unit/1 Ml Vial) 5,000 unit SUB-Q Q8HR LIBBY Last Admin: 06/06/21 05:52 Dose: 5,000 unit Sodium Chloride (Nacl 0.9% 1000 Ml) 1,000 mls @ 150 mls/hr IV DIRECT LIBBY Last Admin: 06/06/21 01:45 Dose: 150 mls/hr Magnesium Hydroxide (Magnesium Hydroxide (Mom) Oral Liqd Udc) 30 ml PO Q4H PRN PRN Reason: Constipation Morphine Sulfate (Morphine 2 Mg/1 Ml Inj) 2 mg IV Q4H PRN PRN Reason: Pain, Moderate (4-6) Morphine Sulfate (Morphine 4 Mg/1 Ml Inj) 4 mg IV Q4H PRN PRN Reason: Pain , Severe (7-10) Ondansetron HCl (Ondansetron 4 Mg/2 Ml Inj) 4 mg IV Q8H PRN PRN Reason: Nausea And Vomiting Oxcarbazepine (Oxcarbazepine 150 Mg Tab) 450 mg PO BID LIBBY Risperidone (Risperidone 1 Mg Tab) 2 mg PO BID LIBBY Sodium Chloride (Sodium Chloride 0.9% 10 Ml Flush Syringe) 10 ml IV BID LIBBY Sodium Chloride (Sodium Chloride 0.9% 10 Ml Flush Syringe) 10 ml IV PRN PRN PRN Reason: LINE FLUSH Trazodone HCl (Trazodone 100 Mg Tab) 100 mg PO QHS LIBBY Valproic Acid (Valproic Acid 250 Mg Cap) 500 mg PO BID LIBBY Review of Systems - Review of Systems ROS unobtainable: due to mental status Exam - Constitutional Vital Signs: Temp Pulse Resp BP Pulse Ox 98.3 F 64 18 110/81 98 06/06/21 03:54 06/06/21 03:54 06/06/21 03:54 06/06/21 03:54 06/06/21 12:45 General appearance: no acute distress - EENT Eyes: EOM intact, other (Right scleral opacity) - Neck Neck: supple - Respiratory Respiratory effort: normal - Cardiovascular Rhythm: regular - Gastrointestinal General gastrointestinal: Present: soft, non-tender - Integumentary Integumentary: Present: dry - Neurologic Neurological: disoriented - Psychiatric Psychiatric: other (Not responding) - Labs CBC & Chem 7: 06/06/21 04:04 06/06/21 04:04 Lab Results: Laboratory Results - last 24 hr 06/05/21 06/05/21 06/05/21 18:54 18:54 18:54 WBC 6.9 RBC 5.29 H Hgb 14.2 Hct 44.5 MCV 84 MCH 27 L MCHC 32 RDW 13.0 L Plt Count 164 Lymph % (Auto) 17.1 [place]kins % (Auto) 7.4 H Eos % (Auto) 1.8 Baso % (Auto) 1.1 Lymph # (Auto) 1.2 [place]kins # (Auto) 0.5 Eos # (Auto) 0.1 Baso # (Auto) 0.1 Seg Neutrophils % 72.6 H Seg Neutrophils # 5.0 PT 11.5 L INR 0.75 L D-Dimer Sodium 137 Potassium 4.9 D Chloride 103.5 Carbon Dioxide 21 L Anion Gap 17 BUN 21 H Creatinine 1.4 H Estimated GFR > 60 BUN/Creatinine Ratio 15 Glucose 197 H Lactic Acid Calcium 8.4 Ferritin Total Bilirubin 0.30 AST 174 H ALT 180 H Alkaline Phosphatase 88 Ammonia Lactate Dehydrogenase Total Creatine Kinase Troponin T C-Reactive Protein Total Protein 7.9 Albumin 3.6 L Albumin/Globulin Ratio 0.8 Triglycerides Cholesterol LDL Cholesterol Direct HDL Cholesterol Cholesterol/HDL Ratio Salicylates Acetaminophen Plasma/Serum Alcohol Coronavirus (PCR) 06/05/21 06/05/21 06/05/21 18:54 18:54 18:54 WBC RBC Hgb Hct MCV MCH MCHC RDW Plt Count Lymph % (Auto) Tompkins % (Auto) Eos % (Auto) Baso % (Auto) Lymph # (Auto) [place]kins # (Auto) Eos # (Auto) Baso # (Auto) Seg Neutrophils % Seg Neutrophils # PT INR D-Dimer Sodium Potassium Chloride Carbon Dioxide Anion Gap BUN Creatinine Estimated GFR BUN/Creatinine Ratio Glucose Lactic Acid 1.80 Calcium Ferritin Total Bilirubin AST ALT Alkaline Phosphatase Ammonia Lactate Dehydrogenase Total Creatine Kinase Troponin T C-Reactive Protein Total Protein Albumin Albumin/Globulin Ratio Triglycerides Cholesterol LDL Cholesterol Direct HDL Cholesterol Cholesterol/HDL Ratio Salicylates < 0.3 L Acetaminophen 5.0 L Plasma/Serum Alcohol Coronavirus (PCR) 06/05/21 06/05/21 06/05/21 18:54 18:54 18:54 WBC RBC Hgb Hct MCV MCH MCHC RDW Plt Count Lymph % (Auto) Tom[place]kins % (Auto) Eos % (Auto) Baso % (Auto) Lymph # (Auto) [place]kins # (Auto) Eos # (Auto) Baso # (Auto) Seg Neutrophils % Seg Neutrophils # PT INR D-Dimer Sodium Potassium Chloride Carbon Dioxide Anion Gap BUN Creatinine Estimated GFR BUN/Creatinine Ratio Glucose Lactic Acid Calcium Ferritin Total Bilirubin AST ALT Alkaline Phosphatase Ammonia 20.0 L Lactate Dehydrogenase Total Creatine Kinase 5776 H Troponin T 0.037 H C-Reactive Protein Total Protein Albumin Albumin/Globulin Ratio Triglycerides 100 Cholesterol 157 LDL Cholesterol Direct 88 HDL Cholesterol 44 Cholesterol/HDL Ratio 3.56 Salicylates Acetaminophen Plasma/Serum Alcohol < 0.01 Coronavirus (PCR) 06/06/21 06/06/21 06/06/21 04:04 04:04 04:04 WBC 6.0 RBC 4.68 Hgb 12.4 Hct 39.3 MCV 84 MCH 27 L MCHC 32 RDW 13.0 L Plt Count 137 L Lymph % (Auto) Occupational Psychologist Tompkins % (Auto) Occupational Psychologist Eos % (Auto) Occupational Psychologist Baso % (Auto) Occupational Psychologist Lymph # (Auto) Occupational Psychologist [place]pkins # (Auto) Occupational Psychologist Eos # (Auto) Occupational Psychologist Baso # (Auto) Occupational Psychologist Seg Neutrophils % Occupational Psychologist Seg Neutrophils # Occupational Psychologist PT INR D-Dimer 3637.72 H Sodium 139 Potassium 3.8 D Chloride 107.5 H Carbon Dioxide 23 Anion Gap 12 BUN 20 Creatinine 1.2 Estimated GFR > 60 BUN/Creatinine Ratio 17 Glucose 147 H Lactic Acid Calcium 7.7 L Ferritin Total Bilirubin AST ALT Alkaline Phosphatase Ammonia Lactate Dehydrogenase Total Creatine Kinase Troponin T C-Reactive Protein Total Protein Albumin Albumin/Globulin Ratio Triglycerides Cholesterol LDL Cholesterol Direct HDL Cholesterol Cholesterol/HDL Ratio Salicylates Acetaminophen Plasma/Serum Alcohol Coronavirus (PCR) 06/06/21 06/06/21 06/06/21 04:04 04:04 08:11 WBC RBC Hgb Hct MCV MCH MCHC RDW Plt Count Lymph % (Auto) Tom[place]kins % (Auto) Eos % (Auto) Baso % (Auto) Lymph # (Auto) [place]kins # (Auto) Eos # (Auto) Baso # (Auto) Seg Neutrophils % Seg Neutrophils # PT INR D-Dimer Sodium Potassium Chloride Carbon Dioxide Anion Gap BUN Creatinine Estimated GFR BUN/Creatinine Ratio Glucose 147 H Lactic Acid Calcium Ferritin 386.7 H Total Bilirubin AST ALT Alkaline Phosphatase Ammonia Lactate Dehydrogenase 353 H Total Creatine Kinase Troponin T C-Reactive Protein 7.80 H Total Protein Albumin Albumin/Globulin Ratio Triglycerides Cholesterol LDL Cholesterol Direct HDL Cholesterol Cholesterol/HDL Ratio Salicylates Acetaminophen Plasma/Serum Alcohol Coronavirus (PCR) Negative Assessment and Plan Transaminitis most consistent with inflammation due to recent seizure activity Synthetic function appears intact based upon labs Therefore recommend supportive care and trend LFTs but anticipate gradual decline in the liver enzymes To be thorough I will order acute hepatitis panel GI will sign off, if the hepatitis panel comes back positive or LFTs do not trend down please call us back - Patient Problems (1) Transaminitis Current Visit: Yes Status: Acute (2) Rhabdomyolysis Current Visit: Yes Status: Acute
--- NOTE | 2021-06-06 15:18 | Progress Note ---
Assessment and Plan Assessment and plan: #Acute encephalopathy #Seizure disorder -CT head negative for acute findings -Continue Trileptal 450 mg twice daily, trazodone 100 mg nightly, Risperdal 2 mg twice daily -Valproic acid level 91.1, will resume per neurology recommendations -Neurology consulted, assistance appreciated #Rhabdomyolysis -CK 5776, will continue to trend -Troponin 0 0.037 -Likely secondary to seizure, will continue IV hydration #Elevated D-dimer -D-dimer 3637.72 -CT angio of chest ordered #Elevated liver enzymes -AST/ALT elevated; likely secondary to seizure activity -will continue to trend #Acute kidney injury -Improving, creatinine now 1.2 -Continue IV fluids -Avoid nephrotoxic agents #Hypertension -Blood pressure controlled without medications while inpatient -will continue monitor History Interval history: Log events overnight. Patient follows some commands. Does not answer questions. Does not appear to be in discomfort. Hospitalist Physical - Physical exam Narrative exam: GENERAL: Well-developed well-nourished. In no acute distress. HEENT: Normocephalic. Atraumatic. CHEST/LUNGS: CTAB on room air HEART/CARDIOVASCULAR: RRR. No murmur, rubs or gallops appreciated. ABDOMEN: +BS. NT/ND. SKIN: Facial rash and hypopigmentation NEURO: Unable to assess MUSCULOSKELETAL: No joint effusion EXTREMITIES: No cyanosis, clubbing or edema. PSYCH: Appropriate given underlying cognitive impairment - Constitutional Vitals: Temp Pulse Resp BP Pulse Ox 98.3 F 64 18 110/81 98 06/06/21 03:54 06/06/21 03:54 06/06/21 03:54 06/06/21 03:54 06/06/21 12:45 General appearance: Present: no acute distress, well-nourished HEART Score - HEART Score Troponin: Troponin T 0.037 ng/mL (0.00-0.029) H 06/05/21 18:54 Results - Labs CBC & Chem 7: 06/06/21 04:04 06/06/21 04:04 Labs: Laboratory Last Values WBC 6.0 K/mm3 (4.5-11.0) 06/06/21 04:04 RBC 4.68 M/mm3 (3.65-5.03) 06/06/21 04:04 Hgb 12.4 gm/dl (11.8-15.2) 06/06/21 04:04 Hct 39.3 % (35.5-45.6) 06/06/21 04:04 MCV 84 fl (84-94) 06/06/21 04:04 MCH 27 pg (28-32) L 06/06/21 04:04 MCHC 32 % (32-34) 06/06/21 04:04 RDW 13.0 % (13.2-15.2) L 06/06/21 04:04 Plt Count 137 K/mm3 (140-440) L 06/06/21 04:04 Lymph % (Auto) Military Pay Clerk 06/06/21 04:04 Faulk % (Auto) Military Pay Clerk 06/06/21 04:04 Eos % (Auto) Military Pay Clerk 06/06/21 04:04 Baso % (Auto) Military Pay Clerk 06/06/21 04:04 Lymph # (Auto) Military Pay Clerk 06/06/21 04:04 Faulk # (Auto) Military Pay Clerk 06/06/21 04:04 Eos # (Auto) Military Pay Clerk 06/06/21 04:04 Baso # (Auto) Military Pay Clerk 06/06/21 04:04 Seg Neutrophils % Military Pay Clerk 06/06/21 04:04 Seg Neutrophils # Military Pay Clerk 06/06/21 04:04 PT 11.5 Sec. (12.2-14.9) L 06/05/21 18:54 INR 0.75 (0.87-1.13) L 06/05/21 18:54 D-Dimer 3637.72 ng/mlDDU (0-234) H 06/06/21 04:04 Sodium 139 mmol/L (137-145) 06/06/21 04:04 Potassium 3.8 mmol/L (3.6-5.0) D 06/06/21 04:04 Chloride 107.5 mmol/L (98-107) H 06/06/21 04:04 Carbon Dioxide 23 mmol/L (22-30) 06/06/21 04:04 Anion Gap 12 mmol/L 06/06/21 04:04 BUN 20 mg/dL (9-20) 06/06/21 04:04 Creatinine 1.2 mg/dL (0.8-1.3) 06/06/21 04:04 Estimated GFR > 60 ml/min 06/06/21 04:04 BUN/Creatinine Ratio 17 % 06/06/21 04:04 Glucose 147 mg/dL (75-100) H 06/06/21 04:04 Glucose 147 mg/dL (75-100) H 06/06/21 04:04 Lactic Acid 1.80 mmol/L (0.7-2.0) 06/05/21 18:54 Calcium 7.7 mg/dL (8.4-10.2) L 06/06/21 04:04 Ferritin 386.7 ng/mL (30.0-300.0) H 06/06/21 04:04 Total Bilirubin 0.30 mg/dL (0.1-1.2) 06/05/21 18:54 AST 174 units/L (5-40) H 06/05/21 18:54 ALT 180 units/L (7-56) H 06/05/21 18:54 Alkaline Phosphatase 88 units/L (35-129) 06/05/21 18:54 Ammonia 20.0 umol/L (25-60) L 06/05/21 18:54 Lactate Dehydrogenase 353 units/L (91-180) H 06/06/21 04:04 Total Creatine Kinase 5776 units/L (55-170) H 06/05/21 18:54 Troponin T 0.037 ng/mL (0.00-0.029) H 06/05/21 18:54 C-Reactive Protein 7.80 mg/dL (0.00-1.30) H 06/06/21 04:04 Total Protein 7.9 g/dL (6.3-8.2) 06/05/21 18:54 Albumin 3.6 g/dL (3.9-5) L 06/05/21 18:54 Albumin/Globulin Ratio 0.8 % 06/05/21 18:54 Triglycerides 100 mg/dL (2-149) 06/05/21 18:54 Cholesterol 157 mg/dL (50-199) 06/05/21 18:54 LDL Cholesterol Direct 88 mg/dL (50-130) 06/05/21 18:54 HDL Cholesterol 44 mg/dL (40-59) 06/05/21 18:54 Cholesterol/HDL Ratio 3.56 % 06/05/21 18:54 Salicylates < 0.3 mg/dL (2.8-20.0) L 06/05/21 18:54 Acetaminophen 5.0 ug/mL (10.0-30.0) L 06/05/21 18:54 Plasma/Serum Alcohol < 0.01 % (0-0.07) 06/05/21 18:54 Coronavirus (PCR) Negative (Negative) 06/06/21 08:11 Microbiology: Microbiology 06/05/21 18:54 Peripheral/Venous Blood Culture - Preliminary Culture in Progress 06/05/21 18:54 Peripheral/Venous Blood Culture - Preliminary Culture in Progress Ariza/IV: Voiding Method Toilet Active Medications - Current Medications Current Medications: Generic Name Dose Route Start Last Admin Trade Name Freq PRN Reason Stop Dose Admin Acetaminophen 650 mg 06/05/21 22:11 Acetaminophen 325 Mg Tab PO Q4H PRN Pain MILD(1-3)/Fever >100.5/LIZ Heparin Sodium (Porcine) 5,000 unit 06/06/21 06:00 06/06/21 05:52 Heparin 5,000 Unit/1 Ml Vial SUB-Q 5,000 unit Q8HR LIBBY Administration Sodium Chloride 1,000 mls @ 150 mls/hr 06/05/21 22:15 06/06/21 01:45 Nacl 0.9% 1000 Ml IV 150 mls/hr DIRECT LIBBY Administration Magnesium Hydroxide 30 ml 06/05/21 22:11 Magnesium Hydroxide (Mom) Oral Liqd Udc PO Q4H PRN Constipation Morphine Sulfate 2 mg 06/05/21 22:11 Morphine 2 Mg/1 Ml Inj IV Q4H PRN Pain, Moderate (4-6) Morphine Sulfate 4 mg 06/05/21 22:11 Morphine 4 Mg/1 Ml Inj IV Q4H PRN Pain , Severe (7-10) Mupirocin 1 applic 06/06/21 20:00 Mupirocin 2% Oint 22 Gm TP TID LIBBY Ondansetron HCl 4 mg 06/05/21 22:11 Ondansetron 4 Mg/2 Ml Inj IV Q8H PRN Nausea And Vomiting Oxcarbazepine 450 mg 06/06/21 13:00 Oxcarbazepine 150 Mg Tab PO BID [facility] Polyethylene Glycol 17 gm 06/07/21 10:00 Polyethylene Glycol 3350 17 Gm Powder PO DAILY [facility] Pravastatin Sodium 40 mg 06/06/21 22:00 Pravastatin 40 Mg Tab PO QHS LIBBY Risperidone 2 mg 06/06/21 13:00 Risperidone 1 Mg Tab PO BID LIBBY Sodium Chloride 10 ml 06/06/21 10:00 Sodium Chloride 0.9% 10 Ml Flush Syringe IV BID LIBBY Sodium Chloride 10 ml 06/05/21 22:11 Sodium Chloride 0.9% 10 Ml Flush Syringe IV PRN PRN LINE FLUSH Trazodone HCl 100 mg 06/06/21 22:00 Trazodone 100 Mg Tab PO QHS LIBBY Valproic Acid 500 mg 06/06/21 13:00 Valproic Acid 250 Mg Cap PO BID LIBBY
[2021-06-06 15:34] LABS: Hepatitis B Surface Antigen Non-Reactive (Negative); Hepatitis C Virus Antibody Non-Reactive (NonReactive)
[2021-06-06] MEDS: VALPROIC ACID 250 MG CAP PO SCH ×2 (15:53→22:34)
[2021-06-06] MEDS: risperiDONE 1 MG TAB PO SCH ×2 (15:54→22:35)
[2021-06-06] MEDS: OXcarbazepine 150 MG TAB PO SCH ×2 (15:54→22:35)
--- NOTE | 2021-06-06 18:13 | Cat Scan Report ---
CT angio chest INDICATION / CLINICAL INFORMATION: elevated d-dimer. TECHNIQUE: Axial CT images were obtained through the chest after injection of IV contrast. 3 plane MIP and/or 3D reconstructions were produced. All CT scans at this location are performed using CT dose reduction f or ALARA by means of automated exposure control. COMPARISON: None available. FINDINGS: PULMONARY ARTERIES: Extensive bilateral pulmonary filling defects including but the central and dista l pulmonary arteries. Tiny sagittal embolus is seen, image 50 series 2. HEART: Increased RV to LV ratio of approximately 1:1. MEDIASTINUM / SELINA: No significant abnormality. LUNGS: Lungs are clear No pleural effusion. No pneumothorax. ADDITIONAL FINDINGS: None. UPPER ABDOMEN: No acute findings. SKELETAL STRUCTURES: No significant osseous abnormality. IMPRESSION: 1. Extensive pulmonary emboli including a tiny saddle embolus. Findings suggest possible right heart strain. Informed nurse Radha at 5:07 Signer Name: Christopher Mayo MD Signed: 06/06/2021 6:09 PM Workstation Name: [id number]
[2021-06-06] MEDS: MUPIROCIN 2% OINT 22 GM TP SCH (21:00)
[2021-06-06] MEDS ORDERED: ENOXAPARIN 150 MG/1 ML INJ SUB-Q ONE (21:00)
[2021-06-06] MEDS: traZODone 100 MG TAB PO SCH (22:35)
[2021-06-06] MEDS: PRAVASTATIN 40 MG TAB PO SCH (22:35)
[2021-06-07 06:32] LABS: Alanine Aminotransferase 92 units/L (7-56); Albumin 3.5 g/dL (3.9-5); BUN/Creatinine Ratio 14; Blood Urea Nitrogen 14 mg/dL (9-20); Calcium 7.7 mg/dL (8.4-10.2); Hemolysis Index 0
--- NOTE | 2021-06-07 08:10 | Progress Note ---
Assessment and Plan Assessment and plan: #Acute encephalopathy #Seizure disorder -CT head negative for acute findings -Continue Trileptal 450 mg twice daily, trazodone 100 mg nightly, Risperdal 2 mg twice daily, and valproic acid -Neurology consulted, assistance appreciated #Pulmonary emboli #Small saddle pulmonary embolus -Vascular surgery evaluation, no interventions at this time -Continue anticoagulation: Currently on therapeutic Lovenox, will start Eliquis for tomorrow -Echocardiogram pending #Rhabdomyolysis -CK 5776 ->704 -Troponin 0 0.037 -Likely secondary to seizure, will continue IV hydration #Elevated D-dimer -D-dimer 3637.72 -CT angio of chest showed PEs and small saddle emboli -continue anticoagulation #Elevated liver enzymes -AST/ALT elevated; likely secondary to seizure activity -downtrending approriately #Acute kidney injury-resolving -creatinine now 1.0 -Continue IV fluids -Avoid nephrotoxic agents #Hypertension -Blood pressure controlled without medications while inpatient -will continue monitor History Interval history: Found to have a small saddle embolus and multiple PEs on CT angio of the chest yesterday evening. AC started. Patient sleeping comfortably today. Stable on RA. Mental status stable. Hospitalist Physical - Physical exam Narrative exam: GENERAL: Well-developed well-nourished. In no acute distress. HEENT: Normocephalic. Atraumatic. CHEST/LUNGS: CTAB on room air HEART/CARDIOVASCULAR: RRR. No murmur, rubs or gallops appreciated. ABDOMEN: +BS. NT/ND. SKIN: Facial rash and hypopigmentation NEURO: Unable to assess MUSCULOSKELETAL: No joint effusion EXTREMITIES: No cyanosis, clubbing or edema. PSYCH: Appropriate given underlying cognitive impairment - Constitutional Vitals: Temp Pulse Resp BP Pulse Ox 99.3 F 95 H 18 116/70 99 06/07/21 03:47 06/07/21 03:47 06/07/21 03:47 06/07/21 03:47 06/07/21 03:47 General appearance: Present: no acute distress, well-nourished HEART Score - HEART Score Troponin: Troponin T 0.037 ng/mL (0.00-0.029) H 06/05/21 18:54 Results - Labs CBC & Chem 7: 06/06/21 04:04 06/07/21 04:48 Labs: Laboratory Last Values WBC 6.0 K/mm3 (4.5-11.0) 06/06/21 04:04 RBC 4.68 M/mm3 (3.65-5.03) 06/06/21 04:04 Hgb 12.4 gm/dl (11.8-15.2) 06/06/21 04:04 Hct 39.3 % (35.5-45.6) 06/06/21 04:04 MCV 84 fl (84-94) 06/06/21 04:04 MCH 27 pg (28-32) L 06/06/21 04:04 MCHC 32 % (32-34) 06/06/21 04:04 RDW 13.0 % (13.2-15.2) L 06/06/21 04:04 Plt Count 137 K/mm3 (140-440) L 06/06/21 04:04 Lymph % (Auto) [facility] 06/06/21 04:04 Young % (Auto) [facility] 06/06/21 04:04 Eos % (Auto) [facility] 06/06/21 04:04 Baso % (Auto) [facility] 06/06/21 04:04 Lymph # (Auto) [facility] 06/06/21 04:04 Young # (Auto) [facility] 06/06/21 04:04 Eos # (Auto) [facility] 06/06/21 04:04 Baso # (Auto) [facility] 06/06/21 04:04 Seg Neutrophils % [facility] 06/06/21 04:04 Seg Neutrophils # [facility] 06/06/21 04:04 PT 11.5 Sec. (12.2-14.9) L 06/05/21 18:54 INR 0.75 (0.87-1.13) L 06/05/21 18:54 D-Dimer 3637.72 ng/mlDDU (0-234) H 06/06/21 04:04 Sodium 142 mmol/L (137-145) 06/07/21 04:48 Potassium 4.0 mmol/L (3.6-5.0) 06/07/21 04:48 Chloride 107.3 mmol/L (98-107) H 06/07/21 04:48 Carbon Dioxide 24 mmol/L (22-30) 06/07/21 04:48 Anion Gap 15 mmol/L 06/07/21 04:48 BUN 14 mg/dL (9-20) 06/07/21 04:48 Creatinine 1.0 mg/dL (0.8-1.3) 06/07/21 04:48 Estimated GFR > 60 ml/min 06/07/21 04:48 BUN/Creatinine Ratio 14 % 06/07/21 04:48 Glucose 121 mg/dL (75-100) H 06/07/21 04:48 Lactic Acid 1.80 mmol/L (0.7-2.0) 06/05/21 18:54 Calcium 7.7 mg/dL (8.4-10.2) L 06/07/21 04:48 Ferritin 386.7 ng/mL (30.0-300.0) H 06/06/21 04:04 Total Bilirubin 0.20 mg/dL (0.1-1.2) 06/07/21 04:48 AST 45 units/L (5-40) H 06/07/21 04:48 ALT 92 units/L (7-56) H 06/07/21 04:48 Alkaline Phosphatase 74 units/L (35-129) 06/07/21 04:48 Ammonia 20.0 umol/L (25-60) L 06/05/21 18:54 Lactate Dehydrogenase 353 units/L (91-180) H 06/06/21 04:04 Total Creatine Kinase 704 units/L (55-170) H 06/07/21 04:48 Troponin T 0.037 ng/mL (0.00-0.029) H 06/05/21 18:54 C-Reactive Protein 7.80 mg/dL (0.00-1.30) H 06/06/21 04:04 Total Protein 7.1 g/dL (6.3-8.2) 06/07/21 04:48 Albumin 3.5 g/dL (3.9-5) L 06/07/21 04:48 Albumin/Globulin Ratio 1.0 % 06/07/21 04:48 Triglycerides 100 mg/dL (2-149) 06/05/21 18:54 Cholesterol 157 mg/dL (50-199) 06/05/21 18:54 LDL Cholesterol Direct 88 mg/dL (50-130) 06/05/21 18:54 HDL Cholesterol 44 mg/dL (40-59) 06/05/21 18:54 Cholesterol/HDL Ratio 3.56 % 06/05/21 18:54 Salicylates < 0.3 mg/dL (2.8-20.0) L 06/05/21 18:54 Acetaminophen 5.0 ug/mL (10.0-30.0) L 06/05/21 18:54 Plasma/Serum Alcohol < 0.01 % (0-0.07) 06/05/21 18:54 Coronavirus (PCR) Negative (Negative) 06/06/21 08:11 Hepatitis A IgM Ab Non-reactive (NonReactive) 06/06/21 14:45 Hep Bs Antigen Non-reactive (Negative) 06/06/21 14:45 Hep B Core IgM Ab Non-reactive (NonReactive) 06/06/21 14:45 Hepatitis C Antibody Non-reactive (NonReactive) 06/06/21 14:45 Microbiology: Microbiology 06/05/21 18:54 Peripheral/Venous Blood Culture - Preliminary NO GROWTH AFTER 24 HOURS 06/05/21 18:54 Peripheral/Venous Blood Culture - Preliminary NO GROWTH AFTER 24 HOURS Ariza/IV: Voiding Method Toilet Active Medications - Current Medications Current Medications: Generic Name Dose Route Start Last Admin Trade Name Freq PRN Reason Stop Dose Admin Acetaminophen 650 mg 06/05/21 22:11 Acetaminophen 325 Mg Tab PO Q4H PRN Pain MILD(1-3)/Fever >100.5/LIZ Enoxaparin Sodium 150 mg 06/07/21 10:00 Enoxaparin 150 Mg/1 Ml Inj SUB-Q Q24HR LIBBY Protocol Sodium Chloride 1,000 mls @ 150 mls/hr 06/05/21 22:15 06/06/21 01:45 Nacl 0.9% 1000 Ml IV 150 mls/hr DIRECT LIBBY Administration Magnesium Hydroxide 30 ml 06/05/21 22:11 Magnesium Hydroxide (Mom) Oral Liqd Udc PO Q4H PRN Constipation Miscellaneous Medication 15 ml 06/07/21 10:00 Pilocarpine Hcl [Isopto Carpine] OP QAM LIBBY Morphine Sulfate 2 mg 06/05/21 22:11 Morphine 2 Mg/1 Ml Inj IV Q4H PRN Pain, Moderate (4-6) Morphine Sulfate 4 mg 06/05/21 22:11 Morphine 4 Mg/1 Ml Inj IV Q4H PRN Pain , Severe (7-10) Mupirocin 1 applic 06/06/21 20:00 06/06/21 21:00 Mupirocin 2% Oint 22 Gm TP 1 applic TID LIBBY Administration Ondansetron HCl 4 mg 06/05/21 22:11 Ondansetron 4 Mg/2 Ml Inj IV Q8H PRN Nausea And Vomiting Oxcarbazepine 450 mg 06/06/21 13:00 06/06/21 22:35 Oxcarbazepine 150 Mg Tab PO 450 mg BID LIBBY Administration Polyethylene Glycol 17 gm 06/07/21 10:00 Polyethylene Glycol 3350 17 Gm Powder PO DAILY LIBBY Pravastatin Sodium 40 mg 06/06/21 22:00 06/06/21 22:35 Pravastatin 40 Mg Tab PO 40 mg QHS LIBBY Administration Risperidone 2 mg 06/06/21 13:00 06/06/21 22:35 Risperidone 1 Mg Tab PO 2 mg BID LIBBY Administration Sodium Chloride 10 ml 06/06/21 10:00 06/06/21 22:37 Sodium Chloride 0.9% 10 Ml Flush Syringe IV 10 ml BID LIBBY Administration Sodium Chloride 10 ml 06/05/21 22:11 Sodium Chloride 0.9% 10 Ml Flush Syringe IV PRN PRN LINE FLUSH Trazodone HCl 100 mg 06/06/21 22:00 06/06/21 22:35 Trazodone 100 Mg Tab PO 100 mg QHS LIBBY Administration Valproic Acid 500 mg 06/06/21 13:00 06/06/21 22:34 Valproic Acid 250 Mg Cap PO 500 mg BID LIBBY Administration
--- NOTE | 2021-06-07 09:40 | Consultation ---
History of Present Illness - Reason for Consult Consult date: 06/07/21 Pulmonary embolism - History of Present Illness Patient with a history of seizure disorder who is a [facility] resident was brought to [facility] for change in mental status. Additionally, the patient was hypotensive and hypothermic. Responded appropriate to fluids. During the course of his work-up, a CTA of the chest was performed which demonstrated pulmonary emboli. The patient is satting appropriately on room air. Difficult to obtain history given patient's altered mental status. No respiratory distress appears to be present. Patient is currently on Lovenox subcu anticoagulation. Past History Past Medical History: hypertension, other (Behavioral disorder. Mentally challenged, Tachycardia, high cholesterol,SEVERE MR,AUTISM) Past Surgical History: Other ( CATARACT SURGERY) Social history: no significant social history Family history: no significant family history Medications and Allergies Allergies Allergy/AdvReac Type Severity Reaction Status Date / Time cat dander Allergy Unknown Unknown Verified 06/06/21 12:12 insect venom Allergy Unknown Unknown Verified 06/06/21 12:12 Home Medications Medication Instructions Recorded Confirmed Last Taken Type Calcium Polycarbophil [Fiber 625 mg PO BID 07/30/14 06/06/21 06/04/21 History Laxative] Multivitamin with Minerals [Hair, 1 each PO DAILY 07/30/14 06/06/21 06/04/21 History Skin and Nails] Pravastatin [Pravachol] 40 mg PO QHS 07/30/14 06/06/21 06/04/21 History polyethylene glycoL 3350 [Miralax 17 gm PO DAILY 07/30/14 06/06/21 06/04/21 History 3350] OXcarbazepine [Trileptal] 300 mg PO BID 12/11/16 06/06/21 06/04/21 History Dickinson-3 Fatty Acids/Fish Oil [Fish 2 each PO BID 12/11/16 06/06/21 06/04/21 History Oil] Azithromycin 250 mg PO DAILY #5 06/03/21 06/06/21 06/04/21 Rx Diclofenac 1% [Diclofenac 1% 2 gm TP BID 06/03/21 06/06/21 06/04/21 History topical gel] Fluvoxamine Maleate 100 mg PO TID 06/03/21 06/06/21 06/04/21 History Lactase [Dairy Relief] 3,000 unit PO BID 06/03/21 06/06/21 06/04/21 History Melatonin [Melatonin 5MG TAB] 5 mg PO QHS 06/03/21 06/06/21 06/04/21 History Mupirocin [Bactroban 2% OINT] 1 applic TP TID 06/03/21 06/06/21 06/04/21 History OLANZapine [Zyprexa] 20 mg PO QAM 06/03/21 06/06/21 06/04/21 History OXcarbazepine [Trileptal] 150 mg PO BID 06/03/21 06/06/21 06/04/21 History Pantoprazole [Protonix TAB] 40 mg PO QDAY 06/03/21 06/06/21 06/04/21 History Pilocarpine HCl [Isopto Carpine] 15 ml OP QAM 06/03/21 06/06/21 06/04/21 History hydrOXYzine HCL 50 mg PO QDAY 06/03/21 06/06/21 06/04/21 History risperiDONE [RisperDAL] 1 mg PO QHS 06/03/21 06/06/21 06/04/21 History risperiDONE [RisperDAL] 2 mg PO QAM 06/03/21 06/06/21 06/04/21 History traZODone [Desyrel] 200 mg PO QHS 06/03/21 06/06/21 06/04/21 History Active Meds: Active Medications Acetaminophen (Acetaminophen 325 Mg Tab) 650 mg PO Q4H PRN PRN Reason: Pain MILD(1-3)/Fever >100.5/LIZ Enoxaparin Sodium (Enoxaparin 150 Mg/1 Ml Inj) 150 mg SUB-Q Q24HR LIBBY; Protocol Sodium Chloride (Nacl 0.9% 1000 Ml) 1,000 mls @ 150 mls/hr IV DIRECT LIBBY Last Admin: 06/06/21 01:45 Dose: 150 mls/hr Magnesium Hydroxide (Magnesium Hydroxide (Mom) Oral Liqd Udc) 30 ml PO Q4H PRN PRN Reason: Constipation Miscellaneous Medication (Pilocarpine Hcl [Isopto Carpine]) 15 ml OP QAM LIBBY Morphine Sulfate (Morphine 2 Mg/1 Ml Inj) 2 mg IV Q4H PRN PRN Reason: Pain, Moderate (4-6) Morphine Sulfate (Morphine 4 Mg/1 Ml Inj) 4 mg IV Q4H PRN PRN Reason: Pain , Severe (7-10) Mupirocin (Mupirocin 2% Oint 22 Gm) 1 applic TP TID [facility] Last Admin: 06/06/21 21:00 Dose: 1 applic Ondansetron HCl (Ondansetron 4 Mg/2 Ml Inj) 4 mg IV Q8H PRN PRN Reason: Nausea And Vomiting Oxcarbazepine (Oxcarbazepine 150 Mg Tab) 450 mg PO BID [facility] Last Admin: 06/06/21 22:35 Dose: 450 mg Polyethylene Glycol (Polyethylene Glycol 3350 17 Gm Powder) 17 gm PO DAILY [facility] Pravastatin Sodium (Pravastatin 40 Mg Tab) 40 mg PO QHS [facility] Last Admin: 06/06/21 22:35 Dose: 40 mg Risperidone (Risperidone 1 Mg Tab) 2 mg PO BID [facility] Last Admin: 06/06/21 22:35 Dose: 2 mg Sodium Chloride (Sodium Chloride 0.9% 10 Ml Flush Syringe) 10 ml IV BID [facility] Last Admin: 06/06/21 22:37 Dose: 10 ml Sodium Chloride (Sodium Chloride 0.9% 10 Ml Flush Syringe) 10 ml IV PRN PRN PRN Reason: LINE FLUSH Trazodone HCl (Trazodone 100 Mg Tab) 100 mg PO QHS [facility] Last Admin: 06/06/21 22:35 Dose: 100 mg Valproic Acid (Valproic Acid 250 Mg Cap) 500 mg PO BID [facility] Last Admin: 06/06/21 22:34 Dose: 500 mg Review of Systems ROS unobtainable: due to mental status Exam - Constitutional Vitals: Temp Pulse Resp BP Pulse Ox 99.3 F 95 H 18 116/70 99 06/07/21 03:47 06/07/21 03:47 06/07/21 03:47 06/07/21 03:47 06/07/21 03:47 General appearance: Present: other (Noncompliant, obtunded) - Neck Neck: Present: normal ROM - Respiratory Respiratory effort: normal - Extremities Extremities: No edema (Leg symmetrical) - Abdominal General gastrointestinal: Present: deferred Male genitourinary: Present: deferred - Rectal Rectal Exam: deferred Results - Labs CBC & Chem 7: 06/06/21 04:04 06/07/21 04:48 Labs: Abnormal lab results 06/07/21 Range/Units 04:48 Chloride 107.3 H (98-107) mmol/L Glucose 121 H (75-100) mg/dL Calcium 7.7 L (8.4-10.2) mg/dL AST 45 H (5-40) units/L ALT 92 H (7-56) units/L Total Creatine Kinase 704 H (55-170) units/L Albumin 3.5 L (3.9-5) g/dL - Imaging and Cardiology CT scan - chest: image reviewed Assessment and Plan Patient with a history of pulmonary embolism however, this does not appear to be causing the patient any issues. Currently on subcu Lovenox. The patient will ultimately need to be transferred to an oral anticoagulant. No interventions planned as the patient is asymptomatic. Would recommend that the patient be discharged home on Eliquis.
[2021-06-07] MEDS ORDERED: ENOXAPARIN 150 MG/1 ML INJ SUB-Q SCH (10:00)
[2021-06-07] MEDS ORDERED: PILOCARPINE HCL OP SCH (10:00)
[2021-06-07] MEDS: VALPROIC ACID 250 MG CAP PO SCH ×2 (10:30→21:20)
[2021-06-07] MEDS: risperiDONE 1 MG TAB PO SCH ×2 (10:30→21:20)
[2021-06-07] MEDS: OXcarbazepine 150 MG TAB PO SCH ×2 (10:30→21:20)
[2021-06-07] MEDS: POLYETHYLENE GLYCOL 3350 17 GM POWDER PO SCH (10:31)
[2021-06-07] MEDS: MUPIROCIN 2% OINT 22 GM TP SCH ×3 (10:31→21:23)
[2021-06-07 15:39] LABS: INR 1.01 (0.87-1.13)
[2021-06-07] MEDS: traZODone 100 MG TAB PO SCH (21:20)
[2021-06-07] MEDS: PRAVASTATIN 40 MG TAB PO SCH (21:20)
--- NOTE | 2021-06-08 07:58 | Progress Note ---
Assessment and Plan Assessment and plan: #Acute encephalopathy #Seizure disorder -CT head negative for acute findings -Continue Trileptal 450 mg twice daily, trazodone 100 mg nightly, Risperdal 2 mg twice daily, and valproic acid -Neurology consulted, assistance appreciated #Pulmonary emboli #Small saddle pulmonary embolus -Vascular surgery evaluation, no interventions at this time -Continue anticoagulation: starting eliquis today -Echocardiogram pending #Rhabdomyolysis -CK 5776 ->704 -Troponin 0.037 -Likely secondary to seizure, will continue IV hydration #Elevated D-dimer -D-dimer 3637.72 -CT angio of chest showed PEs and small saddle emboli -continue anticoagulation #Elevated liver enzymes -AST/ALT elevated; likely secondary to seizure activity -downtrending approriately #Acute kidney injury-resolving -creatinine now 1.0 -Continue IV fluids -Avoid nephrotoxic agents #Hypertension -Blood pressure controlled without medications while inpatient -will continue monitor History Interval history: No acute events overnight. Patient nonverbal and shakes his head in response to some questions. Appears comfortable at this time. Hospitalist Physical - Physical exam Narrative exam: GENERAL: Well-developed well-nourished. In no acute distress. CHEST/LUNGS: CTAB on room air HEART/CARDIOVASCULAR: RRR. No murmur, rubs or gallops appreciated. ABDOMEN: +BS. NT/ND. SKIN: Facial rash and hypopigmentation NEURO: Unable to assess EXTREMITIES: No cyanosis, clubbing or edema. PSYCH: Appropriate given underlying cognitive impairment - Constitutional Vitals: Temp Pulse Resp BP Pulse Ox 99.3 F 95 H 18 116/70 96 06/07/21 03:47 06/07/21 03:47 06/07/21 03:47 06/07/21 03:47 06/08/21 00:00 General appearance: Present: no acute distress, well-nourished HEART Score - HEART Score Troponin: Troponin T 0.037 ng/mL (0.00-0.029) H 06/05/21 18:54 Results - Labs CBC & Chem 7: 06/06/21 04:04 06/07/21 04:48 Labs: Laboratory Last Values WBC 6.0 K/mm3 (4.5-11.0) 06/06/21 04:04 RBC 4.68 M/mm3 (3.65-5.03) 06/06/21 04:04 Hgb 12.4 gm/dl (11.8-15.2) 06/06/21 04:04 Hct 39.3 % (35.5-45.6) 06/06/21 04:04 MCV 84 fl (84-94) 06/06/21 04:04 MCH 27 pg (28-32) L 06/06/21 04:04 MCHC 32 % (32-34) 06/06/21 04:04 RDW 13.0 % (13.2-15.2) L 06/06/21 04:04 Plt Count 137 K/mm3 (140-440) L 06/06/21 04:04 Lymph % (Auto) [facility] 06/06/21 04:04 Bryan % (Auto) [facility] 06/06/21 04:04 Eos % (Auto) [facility] 06/06/21 04:04 Baso % (Auto) [facility] 06/06/21 04:04 Lymph # (Auto) [facility] 06/06/21 04:04 Bryan # (Auto) [facility] 06/06/21 04:04 Eos # (Auto) [facility] 06/06/21 04:04 Baso # (Auto) [facility] 06/06/21 04:04 Seg Neutrophils % [facility] 06/06/21 04:04 Seg Neutrophils # [facility] 06/06/21 04:04 PT 14.4 Sec. (12.2-14.9) 06/07/21 15:04 INR 1.01 (0.87-1.13) 06/07/21 15:04 D-Dimer 3637.72 ng/mlDDU (0-234) H 06/06/21 04:04 Sodium 142 mmol/L (137-145) 06/07/21 04:48 Potassium 4.0 mmol/L (3.6-5.0) 06/07/21 04:48 Chloride 107.3 mmol/L (98-107) H 06/07/21 04:48 Carbon Dioxide 24 mmol/L (22-30) 06/07/21 04:48 Anion Gap 15 mmol/L 06/07/21 04:48 BUN 14 mg/dL (9-20) 06/07/21 04:48 Creatinine 1.0 mg/dL (0.8-1.3) 06/07/21 04:48 Estimated GFR > 60 ml/min 06/07/21 04:48 BUN/Creatinine Ratio 14 % 06/07/21 04:48 Glucose 121 mg/dL (75-100) H 06/07/21 04:48 Lactic Acid 1.80 mmol/L (0.7-2.0) 06/05/21 18:54 Calcium 7.7 mg/dL (8.4-10.2) L 06/07/21 04:48 Ferritin 386.7 ng/mL (30.0-300.0) H 06/06/21 04:04 Total Bilirubin 0.20 mg/dL (0.1-1.2) 06/07/21 04:48 AST 45 units/L (5-40) H 06/07/21 04:48 ALT 92 units/L (7-56) H 06/07/21 04:48 Alkaline Phosphatase 74 units/L (35-129) 06/07/21 04:48 Ammonia 20.0 umol/L (25-60) L 06/05/21 18:54 Lactate Dehydrogenase 353 units/L (91-180) H 06/06/21 04:04 Total Creatine Kinase 704 units/L (55-170) H 06/07/21 04:48 Troponin T 0.037 ng/mL (0.00-0.029) H 06/05/21 18:54 C-Reactive Protein 7.80 mg/dL (0.00-1.30) H 06/06/21 04:04 Total Protein 7.1 g/dL (6.3-8.2) 06/07/21 04:48 Albumin 3.5 g/dL (3.9-5) L 06/07/21 04:48 Albumin/Globulin Ratio 1.0 % 06/07/21 04:48 Triglycerides 100 mg/dL (2-149) 06/05/21 18:54 Cholesterol 157 mg/dL (50-199) 06/05/21 18:54 LDL Cholesterol Direct 88 mg/dL (50-130) 06/05/21 18:54 HDL Cholesterol 44 mg/dL (40-59) 06/05/21 18:54 Cholesterol/HDL Ratio 3.56 % 06/05/21 18:54 Salicylates < 0.3 mg/dL (2.8-20.0) L 06/05/21 18:54 Acetaminophen 5.0 ug/mL (10.0-30.0) L 06/05/21 18:54 Plasma/Serum Alcohol < 0.01 % (0-0.07) 06/05/21 18:54 Coronavirus (PCR) Negative (Negative) 06/06/21 08:11 Hepatitis A IgM Ab Non-reactive (NonReactive) 06/06/21 14:45 Hep Bs Antigen Non-reactive (Negative) 06/06/21 14:45 Hep B Core IgM Ab Non-reactive (NonReactive) 06/06/21 14:45 Hepatitis C Antibody Non-reactive (NonReactive) 06/06/21 14:45 Microbiology: Microbiology 06/05/21 18:54 Peripheral/Venous Blood Culture - Preliminary NO GROWTH AFTER 48 HOURS 06/05/21 18:54 Peripheral/Venous Blood Culture - Preliminary NO GROWTH AFTER 48 HOURS Ariza/IV: Voiding Method Toilet Active Medications - Current Medications Current Medications: Generic Name Dose Route Start Last Admin Trade Name Freq PRN Reason Stop Dose Admin Acetaminophen 650 mg 06/05/21 22:11 Acetaminophen 325 Mg Tab PO Q4H PRN Pain MILD(1-3)/Fever >100.5/LIZ Apixaban 10 mg 06/08/21 10:00 Apixaban 5 Mg Tab PO 06/14/21 22:01 Q12HR LIBBY Protocol Sodium Chloride 1,000 mls @ 150 mls/hr 06/05/21 22:15 06/06/21 01:45 Nacl 0.9% 1000 Ml IV 150 mls/hr DIRECT [facility]BY Administration Magnesium Hydroxide 30 ml 06/05/21 22:11 Magnesium Hydroxide (Mom) Oral Liqd Udc PO Q4H PRN Constipation Miscellaneous Medication 15 ml 06/07/21 10:00 Pilocarpine Hcl [Isopto Carpine] OP QAM LIBBY Morphine Sulfate 2 mg 06/05/21 22:11 Morphine 2 Mg/1 Ml Inj IV Q4H PRN Pain, Moderate (4-6) Morphine Sulfate 4 mg 06/05/21 22:11 Morphine 4 Mg/1 Ml Inj IV Q4H PRN Pain , Severe (7-10) Mupirocin 1 applic 06/06/21 20:00 06/07/21 21:23 Mupirocin 2% Oint 22 Gm TP 1 applic TID [facility]BY Administration Ondansetron HCl 4 mg 06/05/21 22:11 Ondansetron 4 Mg/2 Ml Inj IV Q8H PRN Nausea And Vomiting Oxcarbazepine 450 mg 06/06/21 13:00 06/07/21 21:20 Oxcarbazepine 150 Mg Tab PO 450 mg BID LIBBY Administration Polyethylene Glycol 17 gm 06/07/21 10:00 06/07/21 10:31 Polyethylene Glycol 3350 17 Gm Powder PO 17 gm DAILY [facility]BY Administration Pravastatin Sodium 40 mg 06/06/21 22:00 06/07/21 21:20 Pravastatin 40 Mg Tab PO 40 mg QHS LIBBY Administration Risperidone 2 mg 06/06/21 13:00 06/07/21 21:20 Risperidone 1 Mg Tab PO 2 mg BID LIBBY Administration Sodium Chloride 10 ml 06/06/21 10:00 06/07/21 21:20 Sodium Chloride 0.9% 10 Ml Flush Syringe IV 10 ml BID LIBBY Administration Sodium Chloride 10 ml 06/05/21 22:11 Sodium Chloride 0.9% 10 Ml Flush Syringe IV PRN PRN LINE FLUSH Trazodone HCl 100 mg 06/06/21 22:00 06/07/21 21:20 Trazodone 100 Mg Tab PO 100 mg QHS LIBBY Administration Valproic Acid 500 mg 06/06/21 13:00 06/07/21 21:20 Valproic Acid 250 Mg Cap PO 500 mg BID LIBBY Administration
[2021-06-08] MEDS: APIXABAN 5 MG TAB PO SCH ×2 (09:01→22:18)
[2021-06-08] MEDS: VALPROIC ACID 250 MG CAP PO SCH ×2 (09:03→22:18)
[2021-06-08] MEDS: OXcarbazepine 150 MG TAB PO SCH (09:03)
[2021-06-08] MEDS: risperiDONE 1 MG TAB PO SCH ×2 (09:04→22:18)
[2021-06-08] MEDS: MUPIROCIN 2% OINT 22 GM TP SCH ×3 (10:57→22:20)
[2021-06-08] MEDS: POLYETHYLENE GLYCOL 3350 17 GM POWDER PO SCH (11:20)
[2021-06-08] MEDS ORDERED: LORazepam 2 MG/ML VIAL IV ONE (11:30)
[2021-06-08 15:29] LABS: BUN/Creatinine Ratio 8; Blood Urea Nitrogen 10 mg/dL (9-20); Calcium 9.5 mg/dL (8.4-10.2); Hemolysis Index 25
[2021-06-08] MEDS: OXCARBAZEPINE PO SCH (22:17)
[2021-06-08] MEDS: traZODone 100 MG TAB PO SCH (22:18)
[2021-06-08] MEDS: PRAVASTATIN 40 MG TAB PO SCH (22:18)
--- NOTE | 2021-06-09 07:09 | Progress Note ---
Assessment and Plan Assessment and plan: #Acute encephalopathy #Seizure disorder -CT head negative for acute findings -Continue Trileptal 450 mg twice daily, trazodone 100 mg nightly, Risperdal 2 mg twice daily, and valproic acid -Neurology consulted, assistance appreciated #Pulmonary emboli #Small saddle pulmonary embolus -Vascular surgery evaluation, no interventions at this time -Continue anticoagulation: eliquis -Echocardiogram pending, patient has not been cooperative due to mental status #Rhabdomyolysis -CK 5776 ->704 -Troponin 0.037 -Likely secondary to seizure, will continue IV hydration #Elevated D-dimer -D-dimer 3637.72 -CT angio of chest showed PEs and small saddle emboli -continue anticoagulation #Elevated liver enzymes -AST/ALT elevated; likely secondary to seizure activity -downtrending approriately #Acute kidney injury-resolving -creatinine now 1.0 -Continue IV fluids -Avoid nephrotoxic agents #Hypertension -Blood pressure controlled without medications while inpatient -will continue monitor History Interval history: No acute events overnight. Patient nonverbal and shakes his head in response to some questions. Appears comfortable at this time. Hospitalist Physical - Physical exam Narrative exam: GENERAL: Well-developed well-nourished. In no acute distress. CHEST/LUNGS: CTAB on room air HEART/CARDIOVASCULAR: RRR. No murmur, rubs or gallops appreciated. ABDOMEN: +BS. NT/ND. SKIN: Facial rash and hypopigmentation NEURO: Unable to assess EXTREMITIES: No cyanosis, clubbing or edema. PSYCH: Appropriate given underlying cognitive impairment - Constitutional Vitals: Temp Pulse Resp BP Pulse Ox 97.9 F 96 H 18 114/72 99 06/09/21 04:10 06/09/21 04:10 06/09/21 04:10 06/09/21 04:10 06/09/21 04:10 General appearance: Present: no acute distress, well-nourished HEART Score - HEART Score Troponin: Troponin T 0.037 ng/mL (0.00-0.029) H 06/05/21 18:54 Results - Labs CBC & Chem 7: 06/06/21 04:04 06/08/21 14:56 Labs: Laboratory Last Values WBC 6.0 K/mm3 (4.5-11.0) 06/06/21 04:04 RBC 4.68 M/mm3 (3.65-5.03) 06/06/21 04:04 Hgb 12.4 gm/dl (11.8-15.2) 06/06/21 04:04 Hct 39.3 % (35.5-45.6) 06/06/21 04:04 MCV 84 fl (84-94) 06/06/21 04:04 MCH 27 pg (28-32) L 06/06/21 04:04 MCHC 32 % (32-34) 06/06/21 04:04 RDW 13.0 % (13.2-15.2) L 06/06/21 04:04 Plt Count 137 K/mm3 (140-440) L 06/06/21 04:04 Lymph % (Auto) Radiation Therapy Technician 06/06/21 04:04 [place] % (Auto) Radiation Therapy Technician 06/06/21 04:04 Eos % (Auto) Radiation Therapy Technician 06/06/21 04:04 Baso % (Auto) Radiation Therapy Technician 06/06/21 04:04 Lymph # (Auto) Radiation Therapy Technician 06/06/21 04:04 [place] # (Auto) Radiation Therapy Technician 06/06/21 04:04 Eos # (Auto) Radiation Therapy Technician 06/06/21 04:04 Baso # (Auto) Radiation Therapy Technician 06/06/21 04:04 Seg Neutrophils % Radiation Therapy Technician 06/06/21 04:04 Seg Neutrophils # Radiation Therapy Technician 06/06/21 04:04 PT 14.4 Sec. (12.2-14.9) 06/07/21 15:04 INR 1.01 (0.87-1.13) 06/07/21 15:04 D-Dimer 3637.72 ng/mlDDU (0-234) H 06/06/21 04:04 Sodium 139 mmol/L (137-145) 06/08/21 14:56 Potassium 4.1 mmol/L (3.6-5.0) 06/08/21 14:56 Chloride 100.7 mmol/L (98-107) 06/08/21 14:56 Carbon Dioxide 27 mmol/L (22-30) 06/08/21 14:56 Anion Gap 15 mmol/L 06/08/21 14:56 BUN 10 mg/dL (9-20) 06/08/21 14:56 Creatinine 1.3 mg/dL (0.8-1.3) 06/08/21 14:56 Estimated GFR > 60 ml/min 06/08/21 14:56 BUN/Creatinine Ratio 8 % 06/08/21 14:56 Glucose 126 mg/dL (75-100) H 06/08/21 14:56 Lactic Acid 1.80 mmol/L (0.7-2.0) 06/05/21 18:54 Calcium 9.5 mg/dL (8.4-10.2) D 06/08/21 14:56 Ferritin 386.7 ng/mL (30.0-300.0) H 06/06/21 04:04 Total Bilirubin 0.20 mg/dL (0.1-1.2) 06/07/21 04:48 AST 45 units/L (5-40) H 06/07/21 04:48 ALT 92 units/L (7-56) H 06/07/21 04:48 Alkaline Phosphatase 74 units/L (35-129) 06/07/21 04:48 Ammonia 20.0 umol/L (25-60) L 06/05/21 18:54 Lactate Dehydrogenase 353 units/L (91-180) H 06/06/21 04:04 Total Creatine Kinase 835 units/L (55-170) H 06/08/21 14:56 Troponin T 0.037 ng/mL (0.00-0.029) H 06/05/21 18:54 C-Reactive Protein 7.80 mg/dL (0.00-1.30) H 06/06/21 04:04 Total Protein 7.1 g/dL (6.3-8.2) 06/07/21 04:48 Albumin 3.5 g/dL (3.9-5) L 06/07/21 04:48 Albumin/Globulin Ratio 1.0 % 06/07/21 04:48 Triglycerides 100 mg/dL (2-149) 06/05/21 18:54 Cholesterol 157 mg/dL (50-199) 06/05/21 18:54 LDL Cholesterol Direct 88 mg/dL (50-130) 06/05/21 18:54 HDL Cholesterol 44 mg/dL (40-59) 06/05/21 18:54 Cholesterol/HDL Ratio 3.56 % 06/05/21 18:54 Procalcitonin < 0.05 ng/mL (<0.15) 06/06/21 04:04 Salicylates < 0.3 mg/dL (2.8-20.0) L 06/05/21 18:54 Acetaminophen 5.0 ug/mL (10.0-30.0) L 06/05/21 18:54 Plasma/Serum Alcohol < 0.01 % (0-0.07) 06/05/21 18:54 Coronavirus (PCR) Negative (Negative) 06/06/21 08:11 Hepatitis A IgM Ab Non-reactive (NonReactive) 06/06/21 14:45 Hep Bs Antigen Non-reactive (Negative) 06/06/21 14:45 Hep B Core IgM Ab Non-reactive (NonReactive) 06/06/21 14:45 Hepatitis C Antibody Non-reactive (NonReactive) 06/06/21 14:45 Microbiology: Microbiology 06/05/21 18:54 Peripheral/Venous Blood Culture - Preliminary NO GROWTH AFTER 72 HOURS 06/05/21 18:54 Peripheral/Venous Blood Culture - Preliminary NO GROWTH AFTER 72 HOURS Ariza/IV: Voiding Method Toilet Active Medications - Current Medications Current Medications: Generic Name Dose Route Start Last Admin Trade Name Freq PRN Reason Stop Dose Admin Acetaminophen 650 mg 06/05/21 22:11 Acetaminophen 325 Mg Tab PO Q4H PRN Pain MILD(1-3)/Fever >100.5/LIZ Apixaban 10 mg 06/08/21 10:00 06/08/21 22:18 Apixaban 5 Mg Tab PO 06/14/21 22:01 10 mg Q12HR LIBBY Administration Protocol Sodium Chloride 1,000 mls @ 150 mls/hr 06/05/21 22:15 06/06/21 01:45 Nacl 0.9% 1000 Ml IV 150 mls/hr DIRECT LIBBY Administration Magnesium Hydroxide 30 ml 06/05/21 22:11 Magnesium Hydroxide (Mom) Oral Liqd Udc PO Q4H PRN Constipation Miscellaneous Medication 15 ml 06/07/21 10:00 Pilocarpine Hcl [Isopto Carpine] OP QAM LIBBY Morphine Sulfate 2 mg 06/05/21 22:11 Morphine 2 Mg/1 Ml Inj IV Q4H PRN Pain, Moderate (4-6) Morphine Sulfate 4 mg 06/05/21 22:11 Morphine 4 Mg/1 Ml Inj IV Q4H PRN Pain , Severe (7-10) Mupirocin 1 applic 06/06/21 20:00 06/08/21 22:20 Mupirocin 2% Oint 22 Gm TP 1 applic TID LIBBY Administration Ondansetron HCl 4 mg 06/05/21 22:11 Ondansetron 4 Mg/2 Ml Inj IV Q8H PRN Nausea And Vomiting Oxcarbazepine 450 mg 06/08/21 22:00 06/08/21 22:17 Oxcarbazepine 600 Mg/10 Ml Oral Liqd PO 450 mg BID LIBBY Administration Polyethylene Glycol 17 gm 06/07/21 10:00 06/08/21 11:20 Polyethylene Glycol 3350 17 Gm Powder PO 17 gm DAILY LIBBY Administration Pravastatin Sodium 40 mg 06/06/21 22:00 06/08/21 22:18 Pravastatin 40 Mg Tab PO 40 mg QHS LIBBY Administration Risperidone 2 mg 06/06/21 13:00 06/08/21 22:18 Risperidone 1 Mg Tab PO 2 mg BID LIBBY Administration Sodium Chloride 10 ml 06/06/21 10:00 06/08/21 22:20 Sodium Chloride 0.9% 10 Ml Flush Syringe IV Not Given BID LIBBY Sodium Chloride 10 ml 06/05/21 22:11 Sodium Chloride 0.9% 10 Ml Flush Syringe IV PRN PRN LINE FLUSH Trazodone HCl 100 mg 06/06/21 22:00 06/08/21 22:18 Trazodone 100 Mg Tab PO 100 mg QHS LIBBY Administration Valproic Acid 500 mg 06/06/21 13:00 06/08/21 22:18 Valproic Acid 250 Mg Cap PO 500 mg BID LIBBY Administration Ziprasidone 20 mg 06/09/21 07:06 Ziprasidone Mesylate 20 Mg Vial IM 06/09/21 07:07 ONCE ONE
[2021-06-09] MEDS ORDERED: WATER FOR INJ Sterile (PF) 10 ML ONE (07:56)
[2021-06-09] MEDS ORDERED: ZIPRASIDONE MESYLATE 20 MG VIAL IM ONE (08:00)
[2021-06-09] MEDS: OXCARBAZEPINE PO SCH ×2 (10:30→22:38)
[2021-06-09] MEDS: APIXABAN 5 MG TAB PO SCH ×2 (10:31→22:37)
[2021-06-09] MEDS: VALPROIC ACID 250 MG CAP PO SCH ×2 (10:31→22:37)
[2021-06-09] MEDS: risperiDONE 1 MG TAB PO SCH ×2 (10:32→22:37)
[2021-06-09] MEDS: MUPIROCIN 2% OINT 22 GM TP SCH ×2 (10:32→16:00)
[2021-06-09] MEDS: traZODone 100 MG TAB PO SCH (22:37)
[2021-06-09] MEDS: PRAVASTATIN 40 MG TAB PO SCH (22:38)
[2021-06-10 06:42] LABS: BUN/Creatinine Ratio 10; Blood Urea Nitrogen 12 mg/dL (9-20); Calcium 8.6 mg/dL (8.4-10.2); Hemolysis Index 3
[2021-06-10] MEDS: POLYETHYLENE GLYCOL 3350 17 GM POWDER PO SCH (10:12)
[2021-06-10] MEDS: VALPROIC ACID 250 MG CAP PO SCH ×2 (10:12→21:55)
[2021-06-10] MEDS: OXCARBAZEPINE PO SCH ×2 (10:13→21:55)
[2021-06-10] MEDS: APIXABAN 5 MG TAB PO SCH ×2 (10:13→21:55)
[2021-06-10] MEDS: risperiDONE 1 MG TAB PO SCH ×2 (10:13→21:55)
[2021-06-10] MEDS: MUPIROCIN 2% OINT 22 GM TP SCH ×3 (12:32→20:00)
--- NOTE | 2021-06-10 16:45 | Progress Note ---
Assessment and Plan Assessment and plan: #Acute encephalopathy #Seizure disorder -CT head negative for acute findings -Continue Trileptal 450 mg twice daily, trazodone 100 mg nightly, Risperdal 2 mg twice daily, and valproic acid -Neurology consulted, assistance appreciated #Pulmonary emboli #Small saddle pulmonary embolus -Vascular surgery evaluation, no interventions at this time -Continue anticoagulation: eliquis -Echocardiogram pending, patient has not been cooperative due to mental status We will attempt TTE again after properly sedating patient #Rhabdomyolysis -CK 5776 ->704 -Troponin 0.037 -Likely secondary to seizure, will continue IV hydration #Elevated D-dimer -D-dimer 3637.72 -CT angio of chest showed PEs and small saddle emboli -continue anticoagulation #Elevated liver enzymes -AST/ALT elevated; likely secondary to seizure activity -downtrending approriately #Acute kidney injury-resolving -creatinine now 1.0 -Continue IV fluids -Avoid nephrotoxic agents #Hypertension -Blood pressure controlled without medications while inpatient -will continue monitor #Advanced care planning -Disease education conducted, care plan discussed, diagnoses discussed, prognosis discussed, and patient acknowledges understanding with care plan -Time: +30 min Disposition Plan: Continue medical management Total Time Spent with Patient (Minutes): 45 minutes History Interval history: No acute events overnight. Hospitalist Physical - Constitutional Vitals: Temp Pulse Resp BP Pulse Ox 98.3 F 104 H 18 124/90 96 06/10/21 11:53 06/10/21 11:53 06/10/21 12:00 06/10/21 11:53 06/10/21 12:00 General appearance: Present: no acute distress, well-nourished, other (Autistic) - EENT Eyes: Present: PERRL, EOM intact ENT: hearing intact, clear oral mucosa, dentition normal - Neck Neck: Present: supple, normal ROM - Respiratory Respiratory effort: normal Respiratory: bilateral: CTA - Cardiovascular Rhythm: regular Heart Sounds: Present: S1 & S2 - Extremities Extremities: no ischemia, pulses intact, pulses symmetrical, No edema, normal temperature, normal color, Full ROM Peripheral Pulses: within normal limits - Abdominal General gastrointestinal: soft, non-tender, non-distended, normal bowel sounds - Integumentary Integumentary: Present: clear, warm, dry (Diffusely dry skin (especially on face)) - Psychiatric Psychiatric: other (Autistic and nonverbal) - Neurologic Neurologic: CNII-XII intact, moves all extremities - Allied Health Allied health notes reviewed: nursing HEART Score - HEART Score Troponin: Troponin T 0.037 ng/mL (0.00-0.029) H 06/05/21 18:54 Results - Labs CBC & Chem 7: 06/06/21 04:04 06/10/21 05:05 Labs: Laboratory Last Values WBC 6.0 K/mm3 (4.5-11.0) 06/06/21 04:04 RBC 4.68 M/mm3 (3.65-5.03) 06/06/21 04:04 Hgb 12.4 gm/dl (11.8-15.2) 06/06/21 04:04 Hct 39.3 % (35.5-45.6) 06/06/21 04:04 MCV 84 fl (84-94) 06/06/21 04:04 MCH 27 pg (28-32) L 06/06/21 04:04 MCHC 32 % (32-34) 06/06/21 04:04 RDW 13.0 % (13.2-15.2) L 06/06/21 04:04 Plt Count 137 K/mm3 (140-440) L 06/06/21 04:04 Lymph % (Auto) Software Engineering Supervisor 06/06/21 04:04 [place] % (Auto) Software Engineering Supervisor 06/06/21 04:04 Eos % (Auto) Software Engineering Supervisor 06/06/21 04:04 Baso % (Auto) Software Engineering Supervisor 06/06/21 04:04 Lymph # (Auto) Software Engineering Supervisor 06/06/21 04:04 [place] # (Auto) Software Engineering Supervisor 06/06/21 04:04 Eos # (Auto) Software Engineering Supervisor 06/06/21 04:04 Baso # (Auto) Software Engineering Supervisor 06/06/21 04:04 Seg Neutrophils % Software Engineering Supervisor 06/06/21 04:04 Seg Neutrophils # Software Engineering Supervisor 06/06/21 04:04 PT 14.4 Sec. (12.2-14.9) 06/07/21 15:04 INR 1.01 (0.87-1.13) 06/07/21 15:04 D-Dimer 3637.72 ng/mlDDU (0-234) H 06/06/21 04:04 Sodium 142 mmol/L (137-145) 06/10/21 05:05 Potassium 3.7 mmol/L (3.6-5.0) 06/10/21 05:05 Chloride 102.6 mmol/L (98-107) 06/10/21 05:05 Carbon Dioxide 24 mmol/L (22-30) 06/10/21 05:05 Anion Gap 19 mmol/L 06/10/21 05:05 BUN 12 mg/dL (9-20) 06/10/21 05:05 Creatinine 1.2 mg/dL (0.8-1.3) 06/10/21 05:05 Estimated GFR > 60 ml/min 06/10/21 05:05 BUN/Creatinine Ratio 10 % 06/10/21 05:05 Glucose 133 mg/dL (75-100) H 06/10/21 05:05 Lactic Acid 1.80 mmol/L (0.7-2.0) 06/05/21 18:54 Calcium 8.6 mg/dL (8.4-10.2) 06/10/21 05:05 Ferritin 386.7 ng/mL (30.0-300.0) H 06/06/21 04:04 Total Bilirubin 0.20 mg/dL (0.1-1.2) 06/07/21 04:48 AST 45 units/L (5-40) H 06/07/21 04:48 ALT 92 units/L (7-56) H 06/07/21 04:48 Alkaline Phosphatase 74 units/L (35-129) 06/07/21 04:48 Ammonia 20.0 umol/L (25-60) L 06/05/21 18:54 Lactate Dehydrogenase 353 units/L (91-180) H 06/06/21 04:04 Total Creatine Kinase 835 units/L (55-170) H 06/08/21 14:56 Troponin T 0.037 ng/mL (0.00-0.029) H 06/05/21 18:54 C-Reactive Protein 7.80 mg/dL (0.00-1.30) H 06/06/21 04:04 Total Protein 7.1 g/dL (6.3-8.2) 06/07/21 04:48 Albumin 3.5 g/dL (3.9-5) L 06/07/21 04:48 Albumin/Globulin Ratio 1.0 % 06/07/21 04:48 Triglycerides 100 mg/dL (2-149) 06/05/21 18:54 Cholesterol 157 mg/dL (50-199) 06/05/21 18:54 LDL Cholesterol Direct 88 mg/dL (50-130) 06/05/21 18:54 HDL Cholesterol 44 mg/dL (40-59) 06/05/21 18:54 Cholesterol/HDL Ratio 3.56 % 06/05/21 18:54 Procalcitonin < 0.05 ng/mL (<0.15) 06/06/21 04:04 Salicylates < 0.3 mg/dL (2.8-20.0) L 06/05/21 18:54 Acetaminophen 5.0 ug/mL (10.0-30.0) L 06/05/21 18:54 Plasma/Serum Alcohol < 0.01 % (0-0.07) 06/05/21 18:54 Coronavirus (PCR) Negative (Negative) 06/06/21 08:11 Hepatitis A IgM Ab Non-reactive (NonReactive) 06/06/21 14:45 Hep Bs Antigen Non-reactive (Negative) 06/06/21 14:45 Hep B Core IgM Ab Non-reactive (NonReactive) 06/06/21 14:45 Hepatitis C Antibody Non-reactive (NonReactive) 06/06/21 14:45 Microbiology: Microbiology 06/05/21 18:54 Peripheral/Venous Blood Culture - Preliminary NO GROWTH AFTER 4 DAYS 06/05/21 18:54 Peripheral/Venous Blood Culture - Preliminary NO GROWTH AFTER 4 DAYS Ariza/IV: Voiding Method Urinal Active Medications - Current Medications Current Medications: Generic Name Dose Route Start Last Admin Trade Name Freq PRN Reason Stop Dose Admin Acetaminophen 650 mg 06/05/21 22:11 Acetaminophen 325 Mg Tab PO Q4H PRN Pain MILD(1-3)/Fever >100.5/LIZ Apixaban 10 mg 06/08/21 10:00 06/10/21 10:13 Apixaban 5 Mg Tab PO 06/14/21 22:01 10 mg Q12HR LIBBY Administration Protocol Magnesium Hydroxide 30 ml 06/05/21 22:11 Magnesium Hydroxide (Mom) Oral Liqd Udc PO Q4H PRN Constipation Miscellaneous Medication 15 ml 06/07/21 10:00 Pilocarpine Hcl [Isopto Carpine] OP QAM LIBBY Morphine Sulfate 2 mg 06/05/21 22:11 Morphine 2 Mg/1 Ml Inj IV Q4H PRN Pain, Moderate (4-6) Morphine Sulfate 4 mg 06/05/21 22:11 Morphine 4 Mg/1 Ml Inj IV Q4H PRN Pain , Severe (7-10) Mupirocin 1 applic 06/06/21 20:00 06/10/21 12:32 Mupirocin 2% Oint 22 Gm TP Not Given TID LIBBY Ondansetron HCl 4 mg 06/05/21 22:11 Ondansetron 4 Mg/2 Ml Inj IV Q8H PRN Nausea And Vomiting Oxcarbazepine 450 mg 06/08/21 22:00 06/10/21 10:13 Oxcarbazepine 600 Mg/10 Ml Oral Liqd PO 450 mg BID LIBBY Administration Polyethylene Glycol 17 gm 06/07/21 10:00 06/10/21 10:12 Polyethylene Glycol 3350 17 Gm Powder PO 17 gm DAILY LIBBY Administration Pravastatin Sodium 40 mg 06/06/21 22:00 06/09/21 22:38 Pravastatin 40 Mg Tab PO 40 mg QHS LIBBY Administration Risperidone 2 mg 06/06/21 13:00 06/10/21 10:13 Risperidone 1 Mg Tab PO 2 mg BID LIBBY Administration Sodium Chloride 10 ml 06/06/21 10:00 06/10/21 10:14 Sodium Chloride 0.9% 10 Ml Flush Syringe IV Not Given BID LIBBY Sodium Chloride 10 ml 06/05/21 22:11 Sodium Chloride 0.9% 10 Ml Flush Syringe IV PRN PRN LINE FLUSH Trazodone HCl 100 mg 06/06/21 22:00 06/09/21 22:37 Trazodone 100 Mg Tab PO 100 mg QHS LIBBY Administration Valproic Acid 500 mg 06/06/21 13:00 06/10/21 10:12 Valproic Acid 250 Mg Cap PO 500 mg BID LIBBY Administration
[2021-06-10] MEDS: traZODone 100 MG TAB PO SCH (21:55)
[2021-06-10] MEDS: PRAVASTATIN 40 MG TAB PO SCH (21:55)
[2021-06-11] MEDS: MUPIROCIN 2% OINT 22 GM TP SCH (11:00)
[2021-06-11] MEDS: APIXABAN 5 MG TAB PO SCH (11:03)
[2021-06-11] MEDS: POLYETHYLENE GLYCOL 3350 17 GM POWDER PO SCH (11:03)
[2021-06-11] MEDS: VALPROIC ACID 250 MG CAP PO SCH (11:03)
[2021-06-11] MEDS: OXCARBAZEPINE PO SCH (11:03)
[2021-06-11] MEDS: risperiDONE 1 MG TAB PO SCH (11:03)
--- NOTE | 2021-06-11 11:46 | Discharge Summary ---
Providers - Providers Date of Admission: 06/05/21 22:11 Date of discharge: 06/11/21 Attending physician: BRIAN NARVAEZ MD 06/05/21 23:21 Consult to Physician [CONS] Routine Comment: Consulting Provider: YULISSA NOWAK Physician Instructions: Reason For Exam: Seizure Disorder 06/06/21 00:31 Consult to Physician [CONS] Routine Comment: Consulting Provider: NICOLA MEHTA Physician Instructions: Reason For Exam: PUI 06/06/21 00:32 Consult to Physician [CONS] Routine Comment: Consulting Provider: JACK BERNAL Physician Instructions: Reason For Exam: ELEVATED LFT 06/06/21 18:34 Consult to Interventional Radiology [CONS] Routine Consulting Provider: VALENTINA DISLA Reason For Exam: Saddle PE, Asymptomatic Place consult to:: na Notified:: in am Primary care physician: PROSTHETIST Hospitalization Reason for admission: RILEY; rhabdomyolysis; acute encephalopathy Condition: Fair Pertinent studies: Reviewed. Procedures: None. Hospital course: Patient is a 60-year-old male with past medical history of hypertension, seizure disorder, and autism who presented from a [facility] with seizure-like activity. On presentation the patient was found to be altered, confused, and unable to provide any history. It was later determined that the patient is mostly nonverbal secondary to his autism. On presentation the patient was found to have airspace opacities presumed to be pneumonia, rhabdomyolysis likely secondary to seizure disorder, elevated transaminases, and an RILEY. Infectious disease was consulted, and they recommended no need for antibiotics as the patient likely had pneumonitis as opposed to pneumonia. Gastroenterology was consulted for management of elevated transaminases that required no intervention. Patient was found to have pulmonary embolism with a small saddle PE, and this prompted vascular surgery evaluation. No intervention was needed as the patient was currently stable. The patient will continue with anticoagulation and be transitioned to an oral DOAC upon discharge. Attempts were made at obtaining a TTE; however, the patient refused multiple times. Patient will be discharged home on Eliquis 10 mg every 12 hours as needed for total of 2 weeks and will then be transitioned to apixaban 5 mg every 12 hours from that point on. Patient is medically cleared for discharge. Disposition: 01 HOME / SELF CARE / HOMELESS Final Discharge Diagnosis (Prints w/discharge instructions): Acute encephalopathy, seizure disorder, small saddle pulmonary embolus, rhabdomyolysis, elevated D-dimer, elevated transaminases, RILEY, hypertension, aut ism. Time spent for discharge: 45 min Core Measure Documentation - Palliative Care Palliative Care/ Comfort Measures: Not Applicable - Core Measures Any of the following diagnoses?: none Exam - Constitutional Vitals: Temp Pulse Resp BP Pulse Ox 97.9 F 90 18 128/75 100 06/11/21 03:12 06/11/21 03:12 06/11/21 03:12 06/11/21 03:12 06/11/21 03:12 General appearance: Present: no acute distress, well-nourished, other (Nonverbal) - EENT Eyes: Present: PERRL, EOM intact ENT: hearing intact, clear oral mucosa - Neck Neck: Present: supple, normal ROM - Respiratory Respiratory effort: normal Respiratory: bilateral: CTA - Cardiovascular Rhythm: regular Heart Sounds: Present: S1 & S2 - Extremities Extremities: no ischemia, pulses intact, pulses symmetrical, No edema, normal temperature, normal color, Full ROM Peripheral Pulses: within normal limits - Abdominal General gastrointestinal: Present: soft, non-tender, non-distended, normal bowel sounds Male genitourinary: Present: deferred - Rectal Rectal Exam: deferred - Integumentary Integumentary: Present: clear, warm, dry - Musculoskeletal Musculoskeletal: strength equal bilaterally - Psychiatric Psychiatric: appropriate mood/affect - Neurologic Neurologic: CNII-XII intact, moves all extremities - Allied Health Allied health notes reviewed: nursing Plan Activity: no restrictions Diet: low salt Additional Instructions: Patient is a 60-year-old male with past medical history of hypertension, seizure disorder, and autism who presented from a [facility] with seizure-like activity. On presentation the patient was found to be altered, confused, and unable to provide any history. It was later determined that the patient is mostly nonverbal secondary to his autism. On presentation the patient was found to have airspace opacities presumed to be pneumonia, rhabdomyolysis likely secondary to seizure disorder, elevated transaminases, and an RILEY. Infectious disease was consulted, and they recommended no need for antibiotics as the patient likely had pneumonitis as opposed to pneumonia. Gastroenterology was consulted for management of elevated transaminases that required no intervention. Patient was found to have pulmonary embolism with a small saddle PE, and this prompted vascular surgery evaluation. No intervention was needed as the patient was currently stable. The patient will continue with anticoagulation and be transitioned to an oral DOAC upon discharge. Attempts were made at obtaining a TTE; however, the patient refused multiple times. Patient will be discharged home on Eliquis 10 mg every 12 hours as needed for total of 2 weeks and will then be transitioned to apixaban 5 mg every 12 hours from that point on. Patient is medically cleared for discharge. Care Plan Goals: Patient is medically cleared for discharge. Assessment: Patient is a 60-year-old male with past medical history of hypertension, seizure disorder, and autism who presented from a [facility] with seizure-like activity. On presentation the patient was found to be altered, confused, and unable to provide any history. It was later determined that the patient is mostly nonverbal secondary to his autism. On presentation the patient was found to have airspace opacities presumed to be pneumonia, rhabdomyolysis likely secondary to seizure disorder, elevated transaminases, and an RILEY. Infectious disease was consulted, and they recommended no need for antibiotics as the patient likely had pneumonitis as opposed to pneumonia. Gastroenterology was consulted for management of elevated transaminases that required no intervention. Patient was found to have pulmonary embolism with a small saddle PE, and this prompted vascular surgery evaluation. No intervention was needed as the patient was currently stable. The patient will continue with anticoagulation and be transitioned to an oral DOAC upon discharge. Attempts were made at obtaining a TTE; however, the patient refused multiple times. Patient will be discharged home on Eliquis 10 mg every 12 hours as needed for total of 2 weeks and will then be transitioned to apixaban 5 mg every 12 hours from that point on. Patient is medically cleared for discharge. Follow up with: PRIMARY MD KRISHNA [Primary Care Provider] - 3-5 Days Prescriptions: Valproic Acid [Depakene] 500 mg PO BID #60 capsule Apixaban [Eliquis] 10 mg PO Q12HR #40 tablet
[2021-06-11 12:58] VITALS: BP 112/79
== END 2021-06-11 15:00 | disposition home health service (06) | DRG 100 ==
LOC: ED 17:01 → 3A 22:11 → 4A 23:40
PROVIDERS: ADMIT Internal Medicine Geriatric Medicine; ATTEND Student in an Organized Health Care Education/Training Program
DX: G40.909 Epilepsy, unspecified, not intractable, without status epilepticus (principal); I26.92 Saddle embolus of pulmonary artery without acute cor pulmonale; J18.9 Pneumonia, unspecified organism; N17.9 Acute kidney failure, unspecified; M62.82 Rhabdomyolysis; G93.40 Encephalopathy, unspecified; I10 Essential (primary) hypertension; I95.9 Hypotension, unspecified; R68.0 Hypothermia, not associated with low environmental temperature; E78.00 Pure hypercholesterolemia, unspecified; Z20.822 Contact with and (suspected) exposure to COVID-19; Z88.8 Allergy status to other drugs, medicaments and biological substances
CPT/HCPCS: 36415; 70450; 71045; 71275; 80048; 80053; 80061; 80074; 80320; 82140; 82550; 82728; 82947; 83615; 84145; 84484; 85025; 85379; 85610; 86140; 87040; 93308; 93321; 93325; G0378; J7060; Q0162; G0480; J0692; J0696; J1644; J1650; J1953; J2060; J3370; J3486; J7030; J7040; Q9967; U0003

== ENCOUNTER 2021-07-25 11:25 | Emergency (ER) | payer MEDICARE ==
--- NOTE | 2021-07-25 12:22 | Emergency Department Report ---
ED General Adult HPI - General Chief complaint: Weakness Stated complaint: UNRESPONSIVE Time Seen by Provider: 07/25/21 11:54 Source: EMS Mode of arrival: Stretcher Limitations: Altered Mental Status - History of Present Illness Initial comments: The patient presents to the emergency department from a personal assisted via EMS for reports of change in mental status. Patient has a baseline cognitive status due to reported history of autism. Patient has no complaints and is limited with his ability to help out with the history of present illness. -: unknown Severity scale (0 -10): 0 Consistency: constant Improves with: cold therapy Worsens with: none Treatments Prior to Arrival: none - Related Data Home Medications Medication Instructions Recorded Confirmed Last Taken Calcium Polycarbophil [Fiber 625 mg PO BID 07/30/14 06/06/21 06/04/21 Laxative] Multivitamin with Minerals [Hair, 1 each PO DAILY 07/30/14 06/06/21 06/04/21 Skin and Nails] Pravastatin [Pravachol] 40 mg PO QHS 07/30/14 06/06/21 06/04/21 polyethylene glycoL 3350 [Miralax 17 gm PO DAILY 07/30/14 06/06/21 06/04/21 3350] OXcarbazepine [Trileptal] 300 mg PO BID 12/11/16 06/06/21 06/04/21 Diclofenac 1% [Diclofenac 1% 2 gm TP BID 06/03/21 06/06/21 06/04/21 topical gel] Fluvoxamine Maleate 100 mg PO TID 06/03/21 06/06/21 06/04/21 Lactase [Dairy Relief] 3,000 unit PO BID 06/03/21 06/06/21 06/04/21 Melatonin [Melatonin 5MG TAB] 5 mg PO QHS 06/03/21 06/06/21 06/04/21 Mupirocin [Bactroban 2% OINT] 1 applic TP TID 06/03/21 06/06/21 06/04/21 OLANZapine [Zyprexa] 20 mg PO QAM 06/03/21 06/06/21 06/04/21 OXcarbazepine [Trileptal] 150 mg PO BID 06/03/21 06/06/21 06/04/21 Pantoprazole [Protonix TAB] 40 mg PO QDAY 06/03/21 06/06/21 06/04/21 Pilocarpine HCl [Isopto Carpine] 15 ml OP QAM 06/03/21 06/06/21 06/04/21 risperiDONE [RisperDAL] 1 mg PO QHS 06/03/21 06/06/21 06/04/21 risperiDONE [RisperDAL] 2 mg PO QAM 06/03/21 06/06/21 06/04/21 traZODone [Desyrel] 200 mg PO QHS 06/03/21 06/06/21 06/04/21 Previous Rx's Medication Instructions Recorded Last Taken Type Apixaban [Eliquis] 5 mg PO Q12H #60 tab 06/11/21 Unknown Rx Apixaban [Eliquis] 10 mg PO Q12HR #40 tablet 06/11/21 Unknown Rx Valproic Acid [Depakene] 500 mg PO BID #60 capsule 06/11/21 Unknown Rx Sulfamethoxazole/Trimethoprim 1 each PO BID #14 tablet 07/25/21 Unknown Rx [Bactrim DS TAB] Allergies Allergy/AdvReac Type Severity Reaction Status Date / Time cat dander Allergy Unknown Unknown Verified 07/25/21 11:33 insect venom Allergy Unknown Unknown Verified 07/25/21 11:33 ED Review of Systems ROS: Stated complaint: UNRESPONSIVE Other details as noted in HPI Comment: Unobtainable due to pts medical conditions (Review of systems limited due to the patient's baseline cognitive function) ED Past Medical Hx - Past Medical History Previous Medical History?: Yes Hx Hypertension: Yes Hx Congestive Heart Failure: No Hx Diabetes: No Hx Seizures: Yes Hx Psychiatric Treatment: Yes Hx Asthma: No Hx COPD: No Additional medical history: Behavioral disorder. Mentally challenged, Tachycardia, high cholesterol,SEVERE MR,AUTISM - Surgical History Past Surgical History?: Yes Additional Surgical History: CATARACT SURGERY - Social History Smoking Status: Never Smoker Substance Use Type: None - Medications Home Medications: Home Medications Medication Instructions Recorded Confirmed Last Taken Type Calcium Polycarbophil [Fiber 625 mg PO BID 07/30/14 06/06/21 06/04/21 History Laxative] Multivitamin with Minerals [Hair, 1 each PO DAILY 07/30/14 06/06/21 06/04/21 History Skin and Nails] Pravastatin [Pravachol] 40 mg PO QHS 07/30/14 06/06/21 06/04/21 History polyethylene glycoL 3350 [Miralax 17 gm PO DAILY 07/30/14 06/06/21 06/04/21 History 3350] OXcarbazepine [Trileptal] 300 mg PO BID 12/11/16 06/06/21 06/04/21 History Diclofenac 1% [Diclofenac 1% 2 gm TP BID 06/03/21 06/06/21 06/04/21 History topical gel] Fluvoxamine Maleate 100 mg PO TID 06/03/21 06/06/21 06/04/21 History Lactase [Dairy Relief] 3,000 unit PO BID 06/03/21 06/06/21 06/04/21 History Melatonin [Melatonin 5MG TAB] 5 mg PO QHS 06/03/21 06/06/21 06/04/21 History Mupirocin [Bactroban 2% OINT] 1 applic TP TID 06/03/21 06/06/21 06/04/21 History OLANZapine [Zyprexa] 20 mg PO QAM 06/03/21 06/06/21 06/04/21 History OXcarbazepine [Trileptal] 150 mg PO BID 06/03/21 06/06/21 06/04/21 History Pantoprazole [Protonix TAB] 40 mg PO QDAY 06/03/21 06/06/21 06/04/21 History Pilocarpine HCl [Isopto Carpine] 15 ml OP QAM 06/03/21 06/06/21 06/04/21 History risperiDONE [RisperDAL] 1 mg PO QHS 06/03/21 06/06/21 06/04/21 History risperiDONE [RisperDAL] 2 mg PO QAM 06/03/21 06/06/21 06/04/21 History traZODone [Desyrel] 200 mg PO QHS 06/03/21 06/06/21 06/04/21 History Apixaban [Eliquis] 5 mg PO Q12H #60 tab 06/11/21 Unknown Rx Apixaban [Eliquis] 10 mg PO Q12HR #40 tablet 06/11/21 Unknown Rx Valproic Acid [Depakene] 500 mg PO BID #60 capsule 06/11/21 Unknown Rx Sulfamethoxazole/Trimethoprim 1 each PO BID #14 tablet 07/25/21 Unknown Rx [Bactrim DS TAB] ED Physical Exam - General Limitations: Altered Mental Status General appearance: alert, in no apparent distress - Head Head exam: Present: atraumatic, normocephalic - Eye Eye exam: Present: normal appearance, PERRL, EOMI - ENT ENT exam: Present: mucous membranes moist - Neck Neck exam: Present: normal inspection - Respiratory Respiratory exam: Present: normal lung sounds bilaterally. Absent: respiratory distress - Cardiovascular Cardiovascular Exam: Present: regular rate, normal rhythm. Absent: systolic murmur, diastolic murmur, rubs, gallop - GI/Abdominal GI/Abdominal exam: Present: soft, normal bowel sounds. Absent: distended, tenderness - Rectal Rectal exam: Present: deferred - Extremities Exam Extremities exam: Present: normal inspection - Back Exam Back exam: Present: normal inspection - Neurological Exam Neurological exam: Present: alert, CN II-XII intact. Absent: motor sensory deficit - Psychiatric Psychiatric exam: Present: normal affect, normal mood - Skin Skin exam: Present: warm, dry, intact, normal color. Absent: rash ED Course Vital Signs 07/25/21 07/25/21 07/25/21 11:32 11:59 16:50 Temperature 98.1 F Pulse Rate 67 98 H Respiratory 16 16 Rate Blood Pressure 120/74 179/103 [Left] O2 Sat by Pulse 94 100 100 Oximetry ED Medical Decision Making - Lab Data Result diagrams: 07/25/21 13:17 07/25/21 13:24 - Radiology Data Radiology results: report reviewed - Medical Decision Making Laboratory values and imaging reviewed Part of facility for the patient that his current status is his baseline Critical care attestation.: If time is entered above; I have spent that time in minutes in the direct care of this critically ill patient, excluding procedure time. ED Disposition Clinical Impression: Mental status at baseline Disposition: 01 HOME / SELF CARE / HOMELESS Is pt being admited?: No Does the pt Need Aspirin: No Condition: Stable Additional Instructions: return if worse Referrals: PRIMARY CAREMD [Primary Care Provider] - 3-5 Days YARELIS MISTRY MD [Staff Physician] - 3-5 Days Time of Disposition: 18:09
--- NOTE | 2021-07-25 13:23 | XRay Report ---
CHEST 1 VIEW 07/25/2021 12:45 PM INDICATION / CLINICAL INFORMATION: ams. COMPARISON: CTA chest performed on 06/06/2021. One view of the chest from 06/05/2021. FINDINGS: SUPPORT DEVICES: None. HEART / MEDIASTINUM: Normal size of the cardiac silhouette with central vascular congestion. LUNGS / PLEURA: There are generalized bilateral pulmonary opacities, most notable along the lung base s. There is a small left pleural effusion. No pneumothorax. ADDITIONAL FINDINGS: No significant additional findings. IMPRESSION: Suspected pulmonary edema/atelectasis with a small left pleural effusion. Please correlate with the c linical findings. Signer Name: Damian Rowley MD Signed: 07/25/2021 1:19 PM Workstation Name: [id number]
--- NOTE | 2021-07-25 13:25 | Cat Scan Report ---
CT head/brain wo con INDICATION: ams. TECHNIQUE: Routine CT head. All CT scans at this location are performed using CT dose reduction for A SIMON by means of automated exposure control. COMPARISON: 06/05/21. FINDINGS: Intracranial: John-white matter differentiation is maintained. No intracranial hemorrhage. No extra a xial collection. No hydrocephalus. No herniation. Sinuses: Paranasal sinuses and mastoid air cells are essentially clear. Orbits: Right intraorbital silicone injection. Calvarium: No acute fracture. IMPRESSION: 1. No acute intracranial abnormality. Signer Name: Christopher Mayo MD Signed: 07/25/2021 1:21 PM Workstation Name: [id number]
[2021-07-25 13:43] LABS: Basophils % (Auto) 0.4 % (0.0-1.8); Eosinophils % (Auto) 0.7 % (0.0-4.3); Hematocrit 40.3 % (35.5-45.6); Hemoglobin 13.3 gm/dl (11.8-15.2); Lymphocytes # (Auto) 1.3 K/mm3 (1.2-5.4); Lymphocytes % (Auto) 31.7 % (13.4-35.0); Mean Corpuscular HGB Conc 33 % (32-34); Mean Corpuscular Volume 85 fl (84-94); Monocytes # (Auto) 0.6 K/mm3 (0.0-0.8); Monocytes % (Auto) 13.7 % (0.0-7.3); Platelet Count 246 K/mm3 (140-440); Red Blood Count 4.74 M/mm3 (3.65-5.03); Red Cell Distribution Width 14.4 % (13.2-15.2)
[2021-07-25 13:58] LABS: Alanine Aminotransferase 25 units/L (7-56); Albumin 4.3 g/dL (3.9-5); BUN/Creatinine Ratio 11; Blood Urea Nitrogen 13 mg/dL (9-20); Calcium 9.4 mg/dL (8.4-10.2); Hemolysis Index 8
[2021-07-25 16:56] VITALS: BP 179/103
== END 2021-07-25 22:43 | disposition home or self-care (01) ==
LOC: ED 11:25
DX: R41.82 Altered mental status, unspecified (principal); I10 Essential (primary) hypertension; Z91.038 Other insect allergy status
CPT/HCPCS: 36415; 70450; 71045; 80053; 83880; 84484; 85025; 99284